=== PATIENT | male | born 1950 | race Caucasian/White ===

== ENCOUNTER 2016-11-19 16:02 | Emergency (ER) | payer OTHER ==
[2016-11-19 16:08] VITALS: TEMP 98.6; BMI 23.1
--- NOTE | 2016-11-19 16:28 | PDOC ---
History of Present Illness <JustinaPadmini bailey - Last Filed: 11/19/16 18:12> <Michael Toscano - Last Filed: 11/19/16 20:36> - General History Source: Patient Exam Limitations: No Limitations - History of Present Illness Initial Comments: 11/19/16 16:55 The patient is a 66 year old male, with a significant past medical history of diabetes, HTN and HLD. who presents to the emergency department with right lower extremity abscess for the past 2 weeks. He reports that the abscess began as a small pimple and has exacerbated since. He denies manipulating the area. He also reports that he has pain in the area that ranges from mild to moderate, without radiation or modifying factors. He notes that he has a history of abscess, with the last two occuring in his chest and right lower extremity. He reports chills associated with his chief complaint. The patient denies chest pain, shortness of breath, headache and dizziness. Denies fever, nausea, vomit, and diarrhea. Allergies: None Past surgical history: None reported Social history: Alcohol use. No tobacco or drug use reported <Allen River - Last Filed: 11/19/16 21:51> - General Chief Complaint: Abscess Boil Stated Complaint: RT ANKLE ABSCESS Time Seen by Provider: 11/19/16 16:28 Past History <Padmini Horn - Last Filed: 11/19/16 18:12> - Past Medical History Diabetes: Yes HTN: Yes Hypercholesterolemia: Yes - Psycho/Social/Smoking Cessation Hx Anxiety: No Suicidal Ideation: No Smoking Status: No Smoking History: Never smoked Have you smoked in the past 12 months: No Number of Cigarettes Smoked Daily: 0 Hx Alcohol Use: Yes (SOCIAL) Drug/Substance Use Hx: No Substance Use Type: None <Michael Toscano - Last Filed: 11/19/16 20:36> <Allen River - Last Filed: 11/19/16 21:51> - Past Medical History Allergies/Adverse Reactions: Allergies Allergy/AdvReac Type Severity Reaction Status Date / Time No Known Allergies Allergy Verified 11/19/16 16:08 Home Medications: Ambulatory Orders Cephalexin Monohydrate [Keflex -] 500 mg PO Q6H #40 capsule 11/19/16 Insulin (Novolog 70/30) [Novolog Mix 70/30 Flexpen -] 10 units SQ DAILY Metformin HCl [Glucophage] 1,000 mg PO DAILY 11/19/16 Sulfamethoxazole/Trimethoprim [Bactrim Ds Tablet] 1 each PO BID #20 tablet 11/19 Review of Systems - Review of Systems Able to Perform ROS?: Yes Comments:: 11/19/16 16:55 CONSTITUTIONAL: +Chills. No fever, no fatigue EYES: No visual changes ENT: No ear pain, no sore throat CARDIOVASCULAR: No chest pain, no palpitations RESPIRATORY: No cough, no SOB GI: No abdominal pain, no nausea, no vomiting, no constipation, no diarrhea GENITOURINARY: No dysuria, no frequency, no hematuria MUSKULOSKELETAL: No backpain, no joint pain, no myalgias SKIN: +Right lower extremity abscess. NEURO: No headache <Allen River - Last Filed: 11/19/16 21:51> *Physical Exam - Vital Signs Last Vital Signs Temp Pulse Resp BP Pulse Ox 98.6 F 101 H 20 149/84 98 11/19/16 16:05 11/19/16 16:05 11/19/16 16:05 11/19/16 16:05 11/19/16 16:05 <Padmini Horn - Last Filed: 11/19/16 18:12> - Vital Signs Last Vital Signs Temp Pulse Resp BP Pulse Ox 98.6 F 101 H 20 149/84 98 11/19/16 16:05 11/19/16 16:05 11/19/16 16:05 11/19/16 16:05 11/19/16 16:05 - Physical Exam Comments: EXTR: Right lower extremity: + Well demarcated area of erythema measuring approximately 6 cm in its greatest dimensions, located to the medial aspect of the distal one third of the lower extremity, above the medial malleolus, with a 1 cm central area of fluctuance; distal pulses intact; SKIN: See above; + several, well healed, scars to the lower extremity is bilaterally consistent with previous abscesses that were incised and drained. <Michael Toscano - Last Filed: 11/19/16 20:36> - Vital Signs Last Vital Signs Temp Pulse Resp BP Pulse Ox 98.6 F 101 H 20 149/84 98 11/19/16 16:05 11/19/16 16:05 11/19/16 16:05 11/19/16 16:05 11/19/16 16:05 - Physical Exam Comments: 11/19/16 16:58 CONSTITUTIONAL: Well-appearing; well-nourished; in no apparent distress HEAD: Normocephalic; atraumatic EYES: PERRL; EOM intact ENMT: External appears normal; normal oropharynx NECK: Supple; non-tender; no cervical lymphadenopathy CARD: Normal S1, S2; no murmurs, rubs, or gallops RESP: Normal chest excursion with respiration; breath sounds clear and equal bilaterally; no wheezes, rhonchi, or rales ABD: Soft, non-distended; non-tender; no palpable organomegaly, no palpable hernias NEURO: No focal neurological deficiencies. <Allen River - Last Filed: 11/19/16 21:51> Procedures - Incision and Drainage I&D Site: Right: Leg Anesthesia: 1% Lidocaine w/ Epi Volume(ml): 3 Blade Size: 11 Iodinated Packin/2 in Plain Packing: Yes Dressing: Yes <Padmini Horn - Last Filed: 11/19/16 18:12> ED Treatment Course - LABORATORY CBC & Chemistry Diagram: 11/19/16 16:32 11/19/16 16:32 - ADDITIONAL ORDERS Additional order review: 11/19/16 16:32 RBC 4.16 MCV 88.6 MCHC 35.2 RDW 12.3 MPV 8.1 Neutrophils % 73.8 Lymphocytes % 11.4 D Monocytes % 12.4 H Eosinophils % 1.9 Basophils % 0.5 <Padmini Horn - Last Filed: 11/19/16 18:12> - LABORATORY CBC & Chemistry Diagram: 11/19/16 16:32 11/19/16 16:32 <Michael Toscano - Last Filed: 11/19/16 20:36> - LABORATORY CBC & Chemistry Diagram: 11/19/16 16:32 11/19/16 16:32 - RADIOLOGY Radiograph Interpretation: 11/19/16 17:46 Chest X-Ray Reviewed by: Dr. Marjorie Velásquez Impression: No gross soft tissue is identified. Site of abscess is not clear on this exam. <Allen River - Last Filed: 11/19/16 21:51> Medical Decision Making - Medical Decision Making 11/19/16 17:37 Patient is 66-year-old male with diabetes, previous history of cutaneous abscesses, presents with signs and symptoms consistent with a small right lower extremity abscess with surrounding cellulitis. Will obtain CBC /CMP/blood cultures/wound culture. Will obtain lower extremity soft tissue x-ray to rule out subcutaneous air. We'll incise and drain the abscess. Will obtain wound culture. We'll administer IV vancomycin in the ED. Patient is safe for outpatient treatment with close follow-up. Will discharge with Bactrim and Keflex for a suspected MRSA infection. 11/19/16 20:36 Patient reassessed. Patient is resting comfortably. Right leg cutaneous abscess was incised and drained by RFID ENGINEER Justina. Wound culture was obtained. Patient had received vancomycin-15 mg IV. Will discharge with 24-hour follow-up for reevaluation. Patient expressed understanding of instructions. <Michael Toscano - Last Filed: 11/19/16 20:36> - Medical Decision Making 11/19/16 21:50 Dr. Plasencia was called regarding the patient at 7:25pm and 7:49pm [phone] <Allen River - Last Filed: 11/19/16 21:51> *DC/Admit/Observation/Transfer <Padmini Horn - Last Filed: 11/19/16 18:12> <Michael Toscano - Last Filed: 11/19/16 20:36> - Attestations Scribe Attestion: 11/19/16 16:59 Documentation prepared by Allen River, acting as medical anthropology director for Michael Toscano MD <Allen River - Last Filed: 11/19/16 21:51> Diagnosis at time of Disposition: Cellulitis and abscess of leg - Discharge Dispostion Disposition: HOME Condition at time of disposition: Stable - Prescriptions Prescriptions: Sulfamethoxazole/Trimethoprim [Bactrim Ds Tablet] 1 each PO BID #20 tablet Cephalexin Monohydrate [Keflex -] 500 mg PO Q6H #40 capsule - Referrals Referrals: Luca,Kennedy N., MD [Primary Care Provider] - - Patient Instructions Printed Discharge Instructions: DI for Incision and Drainage of a Skin Abscess , DI for Cellulitis -- Adult Additional Instructions: Please take Bactrim-1 tablet twice daily for 10 days. Take Keflex-1 tablet 4 times a day for 10 days. Return to the ER in 24 hours for reassessment. Return immediately for high fever, severe pain. Print Language: CROATIAN
[2016-11-19] MEDS ORDERED: VANCOMYCIN 1,500 MG in DEXTROSE 5%-WATER - 500 ML IVPB ONE (16:33)
[2016-11-19] MEDS ORDERED: LIDOCAINE 1%/EPI 1:100000 (50 ML MULTI DOSE VIAL) ONE (16:52)
[2016-11-19] MEDS ORDERED: VANCOMYCIN 1 GRAM (PRE-DOCKED) 250 ML IVPB ONE ×2 (16:52→17:00)
[2016-11-19 17:16] LABS: BASOPHIL 0.5 % (0-2.0); EOSINOPHIL 1.9 % (0-4.5); MCH 31.2 pg (25.7-33.7); MCHC 35.2 g/dl (32.0-35.9); MEAN CELL VOLUME 88.6 fl (80-96); MEAN PLT VOLUME 8.1 fl (7.5-11.1); NEUTROPHILS 73.8 % (42.8-82.8); PLATELET COUNT 258 K/MM3 (134-434); RDW 12.3 % (11.9-15.9); WHITE BLOOD COUNT 8.7 K/mm3 (4.0-10.0)
[2016-11-19 19:29] LABS: ALBUMIN 3.5 g/dl (3.4-5.0); ALK PHOS 95 U/L (45-117); ANION GAP 10 (8-16); BILIRUBIN,TOTAL 0.7 mg/dL (0.2-1.0); CALCIUM 8.5 mg/dL (8.5-10.1); CO2 24 mmol/L (21-32); CREATININE 1.1 mg/dL (0.7-1.3); GLUCOSE,RANDOM 199 mg/dL (74-106); SGOT/AST 28 U/L (15-37); SGPT/ALT 19 U/L (12-78); TOT PROT 6.4 g/dl (6.4-8.2)
[2016-11-19 21:49] VITALS: BP 138/78; PULSE 98
== END 2016-11-19 21:49 | disposition home or self-care (01) ==
LOC: JER 16:02
DX: L02.415 Cutaneous abscess of right lower limb (principal); L03.115 Cellulitis of right lower limb; I10 Essential (primary) hypertension; E78.00 Pure hypercholesterolemia, unspecified; E11.9 Type 2 diabetes mellitus without complications; Z79.4 Long term (current) use of insulin; Z79.84 Long term (current) use of oral hypoglycemic drugs
CPT/HCPCS: 36415; 73590-TC-RT; 80053; 85025; 85651; 86140; 87040; 87070; 87186; 87205; 99284-25

== ENCOUNTER 2018-09-03 10:46 | Emergency (ER) | payer MEDICARE, OTHER ==
[2018-09-03 11:07] VITALS: BP 168/85; PULSE 87; TEMP 98; BMI 25.7
--- NOTE | 2018-09-03 12:02 | PDOC ---
History of Present Illness - General Chief Complaint: Wound Stated Complaint: BLURRY VISION, LACERATION Time Seen by Provider: 09/03/18 11:16 - History of Present Illness Initial Comments: 09/03/18 12:40 The patient is a 68 year old male with a past medical history of diabetes, HTN, HLD here today for evaluation of toe nail. The patient reports that he was cutting his toenails on 08/30/18 when he cut the nail off on his left second toe a bit too short. Patient states that he has mild pain in the toe and has been treating it with rubbing alcohol and penicillin powder but is concerned that it will become infected. Patient notes numbness in toes but attributes this to his diabetes. Pt also reports that he ran out of his glucose testing strips a few days ago and thus has not been checking his blood sugars. Pt also notes blurry vision for years that he follows with ophthalmology for. He states his vision is worse in the L eye because he has a cataract in that eye. Per Dr. Segovia, he receives injections in his eyes for diabetic retinopathy as well. Pt denies worsening of his baseline blurry vision today. He does not drive but is able to get around by public transportation. Patient denies headache, lightheadedness. Denies fever, chills. Denies chest pain, shortness of breath. Denies nausea, vomiting, diarrhea, abdominal pain. Allergies: NKA Social history: Patient reports smoking tobacco for 15 years but quit 8 years ago. Patient reports being a social drinker but quit. PCP: Kennedy Segovia Past History - Past Medical History Allergies/Adverse Reactions: Allergies Allergy/AdvReac Type Severity Reaction Status Date / Time No Known Allergies Allergy Verified 09/03/18 11:01 Home Medications: Ambulatory Orders Insulin (Novolog 70/30) [Novolog Mix 70/30 Flexpen -] 10 units SQ DAILY Metformin HCl [Glucophage] 1,000 mg PO DAILY 11/19/16 Diabetes: Yes HTN: Yes Hypercholesterolemia: Yes - Suicide/Smoking/Psychosocial Hx Smoking Status: No Smoking History: Never smoked Have you smoked in the past 12 months: No Number of Cigarettes Smoked Daily: 0 Hx Alcohol Use: Yes (SOCIAL) Drug/Substance Use Hx: No Substance Use Type: None Review of Systems - Review of Systems Comments:: 09/03/18 12:43 GENERAL/CONSTITUTIONAL: No fever or chills. No weakness. HEAD, EYES, EARS, NOSE AND THROAT: No change in vision. No ear pain or discharge. No sore throat. GASTROINTESTINAL: No nausea, vomiting, diarrhea or constipation. GENITOURINARY: No dysuria, frequency, or change in urination. CARDIOVASCULAR: No chest pain or shortness of breath. RESPIRATORY: No cough, wheezing, or hemoptysis. MUSCULOSKELETAL: +left second toe pain. No joint or muscle swelling or pain. No neck or back pain. SKIN: No rash NEUROLOGIC: +numbness in feet. No headache, vertigo, loss of consciousness, or change in strength. ENDOCRINE: No increased thirst. No abnormal weight change. HEMATOLOGIC/LYMPHATIC: No anemia, easy bleeding, or history of blood clots. ALLERGIC/IMMUNOLOGIC: No hives or skin allergy. *Physical Exam - Vital Signs Last Vital Signs Temp Pulse Resp BP Pulse Ox 98 F 87 20 168/85 99 09/03/18 11:06 09/03/18 11:06 09/03/18 11:06 09/03/18 11:06 09/03/18 11:06 - Physical Exam Comments: 09/03/18 12:43 GENERAL: Awake, alert, and fully oriented, in no acute distress. Very pleasant. ENT: Auricles normal inspection, hearing grossly normal, nares patent, oropharynx clear without exudates. Moist mucosa NECK: Normal ROM, supple, no lymphadenopathy, JVD, or masses LUNGS: Breath sounds equal, clear to auscultation bilaterally. No wheezes, and no crackles HEART: Regular rate and rhythm, normal S1 and S2, no murmurs, rubs or gallops ABDOMEN: Soft, nontender, normoactive bowel sounds. No guarding, no rebound. No masses EXTREMITIES: L 2nd toe with avulsed distal medial nail with underlying mild erythema. No surrounding warmth, streaking, discharge, induration or fluctuance. NEUROLOGICAL: Normal speech, cranial nerves intact, equal strength and sensation b/l SKIN: Warm, Dry, normal turgor, no rashes or lesions noted. Moderate Sedation - Procedure Monitoring Vital Signs: Procedure Monitoring Vital Signs Temperature 98 F 09/03/18 11:06 Pulse Rate 87 09/03/18 11:06 Respiratory Rate 20 09/03/18 11:06 Blood Pressure 168/85 09/03/18 11:06 O2 Sat by Pulse Oximetry (%) 99 09/03/18 11:06 Medical Decision Making - Medical Decision Making 09/03/18 12:47 68yo M hx DM (on metformin and regular insulin) presents to the ED with concern for infection to L 2nd toe after cutting his nail too short. Toe appears mildy erythematous in area where nail was avulsed. No ttp although pt has known hx DM neuropathy. No sign of infection. Pt instructed to keep the toe clean and seek medical care if he notices any increased redness, warmth, discharge or has fevers/chills. With regards to running out of glucose strips, checked a FS -> 317. Gave pt 5 units SQ insulin No clinical evidence of DKA Pt is very well appearing Discussed case with Dr. Segovia, his PMD, who requests we send the patient for evaluation now. Plan discussed with pt who will take the bus over to Dr. Segovia' s office. Stable for DC home I discussed the physical exam findings, ancillary test results and final diagnoses with the patient. I answered all of the patient's questions. The patient was satisfied with the care received and felt comfortable with the discharge plan and treatment plan. The patient will call their primary care physician within 24 hours to arrange follow-up and will return to the Emergency Department with any new, persistent or worsening symptoms. *DC/Admit/Observation/Transfer Diagnosis at time of Disposition: Nail avulsion of toe, Toe pain, Diabetes - Discharge Dispostion Disposition: HOME Condition at time of disposition: Stable Decision to Admit order: No - Referrals Referrals: Kennedy Segovia MD [Primary Care Provider] - - Patient Instructions Printed Discharge Instructions: DI for Wound Infection Additional Instructions: As discussed, follow up with Dr. Segovia now. He is awaiting you in his office. Keep your toe clean by cleansing with soap and water twice a day, dressing with bacitracin and a bandaid Return to the emergency department if you have any new, worsening, or concerning symptoms. - Post Discharge Activity - Attestations Physician Attestion: 09/03/18 12:55 I, Dr. Ruddy Marcos MD, attest that this document has been prepared under my direction and personally reviewed by me in its entirety. I further attest, that it accurately reflects all work, treatment, procedures and medical decision -making performed by me.
[2018-09-03] MEDS ORDERED: INSULIN REGULAR HUMAN 100 UNITS/ML *VIAL SQ ONE (12:38)
[2018-09-03] MEDS ORDERED: INSULIN REGULAR HUMAN 100 UNITS/ML *VIAL ONE (12:42)
== END 2018-09-03 13:20 | disposition home or self-care (01) ==
LOC: SUPCPDRO 10:46 → JER 10:46
PROC: 3E013VG Introduction of Insulin into Subcutaneous Tissue, Percutaneous Approach (ICD-10-PCS; principal; 2018-09-03)
DX: S91.205A Unspecified open wound of left lesser toe(s) with damage to nail, initial encounter (principal); W27.8XXA Contact with other nonpowered hand tool, initial encounter; Y93.E8 Activity, other personal hygiene; Y92.038 Other place in apartment as the place of occurrence of the external cause; Y99.8 Other external cause status; E11.65 Type 2 diabetes mellitus with hyperglycemia; Z79.4 Long term (current) use of insulin; I10 Essential (primary) hypertension; E78.00 Pure hypercholesterolemia, unspecified
CPT/HCPCS: 82962; 96372; 99281-25

== ENCOUNTER 2018-12-21 16:10 | Inpatient (IN) | payer MEDICARE, OTHER ==
--- NOTE | 2018-12-21 16:16 | PDOC ---
Rapid Medical Evaluation Chief Complaint: Wound Time Seen by Provider: 12/21/18 16:12 Medical Evaluation: Allergies Allergy/AdvReac Type Severity Reaction Status Date / Time No Known Allergies Allergy Verified 09/03/18 11:01 12/21/18 16:14 I have performed a brief in person evaluation at triage on this patient. CC: wound to left foot HPI: Pt has a hx of DM and was sent from wound clinic for admission due to wound on left foot PE: Skin: unable to be evaluated at triage Lungs: clear Heart: RRR MS: Moves all extremities without difficulty Neuro: Alert and oriented Psych: Appropriate affect I have ordered: basic labs Pt will proceed to the main ED for further evaluation. Discharge Disposition - Diagnosis Wound cellulitis - Referrals - Patient Instructions - Post Discharge Activity
[2018-12-21 16:33] LABS: BASO % 0.5 % (0-2.0); EOS % 4.8 % (0-4.5); HEMATOCRIT 35.2 % (35.4-49); HEMOGLOBIN 12.2 GM/dL (11.7-16.9); MCH 31.1 pg (25.7-33.7); MCHC 34.6 g/dl (32.0-35.9); MEAN CELL VOLUME 89.8 fl (80-96); MEAN PLT VOLUME 7.7 fl (7.5-11.1); NEUT % 70.7 % (42.8-82.8); PLATELET COUNT 305 K/MM3 (134-434); RBC 3.91 M/mm3 (4.00-5.60); RDW 12.4 % (11.9-15.9); WHITE BLOOD COUNT 10.2 K/mm3 (4.0-10.0)
--- NOTE | 2018-12-21 16:39 | PDOC ---
History of Present Illness - General Chief Complaint: Wound Stated Complaint: WOUND CARE Time Seen by Provider: 12/21/18 16:12 - History of Present Illness Initial Comments: 12/21/18 16:38 68M with pmh of dm and neuropathy sent from Podiatry wound care clinic for admission due to osteomyelitis of the left foot, surgery planned for Patient states that he sustained a wound early in November, possible from friction from his shoe, numerous work ups by wound care and podiatry during this month. MRI on 12/16 suggestive of osteomyelitis. Vascular Surgeo: Dr. Shiv Alvarez Infectious Disease Dr. Rose requested by Dr. Nicolas Past History - Past Medical History Allergies/Adverse Reactions: Allergies Allergy/AdvReac Type Severity Reaction Status Date / Time No Known Allergies Allergy Verified 12/21/18 16:14 Home Medications: Ambulatory Orders Insulin (Novolog 70/30) [Novolog Mix 70/30 Flexpen -] 18 units SQ DAILY Metformin HCl [Glucophage] 1,000 mg PO BID 11/19/16 Mupirocin Ointment [Bactroban 2% Ointment -] 1 appful TP DAILY 12/07/18 Collagenase Clostridium Hist. [Santyl] 90 gm TP DAILY #1 tube 12/14/18 COPD: No Diabetes: Yes HTN: Yes Hypercholesterolemia: Yes - Suicide/Smoking/Psychosocial Hx Smoking Status: No Smoking History: Former smoker Have you smoked in the past 12 months: No Number of Cigarettes Smoked Daily: 0 If you are a former smoker, when did you quit?: 10 years Information on smoking cessation initiated: No Hx Alcohol Use: Yes (SOCIAL) Drug/Substance Use Hx: No Substance Use Type: None Review of Systems - Review of Systems Able to Perform ROS?: Yes Is the patient limited Armenian proficient: No *Physical Exam - Vital Signs Last Vital Signs Temp Pulse Resp BP Pulse Ox 97.4 F L 84 18 157/86 99 12/21/18 16:14 12/21/18 16:14 12/21/18 16:14 12/21/18 16:14 12/21/18 16:14 - Physical Exam General Appearance: Yes: Nourished, Appropriately Dressed, Apparent Distress HEENT: positive: EOMI, CHIQUITA, Normal ENT Inspection Respiratory/Chest: positive: Lungs Clear, Normal Breath Sounds. negative: Chest Tender, Respiratory Distress Cardiovascular: positive: Regular Rhythm, Regular Rate, S1, S2 Gastrointestinal/Abdominal: positive: Normal Bowel Sounds, Flat, Soft. negative : Tender Musculoskeletal: positive: Normal Inspection. negative: CVA Tenderness Integumentary: positive: Normal Color, Dry, Warm, Other (left foot newly dressed after evaluation by podiatry) Neurologic: positive: Fully Oriented, Alert, Normal Mood/Affect, Normal Response , Motor Strength 12/26 ED Treatment Course - LABORATORY CBC & Chemistry Diagram: 12/21/18 16:24 12/21/18 16:24 - ADDITIONAL ORDERS Additional order review: 12/21/18 16:24 RBC 3.91 L MCV 89.8 MCHC 34.6 RDW 12.4 MPV 7.7 Neutrophils % 70.7 Lymphocytes % 14.0 Monocytes % 10.0 Eosinophils % 4.8 H Basophils % 0.5 Medical Decision Making - Medical Decision Making 12/21/18 17:[address] Nicolas counter cutter for IV abd, and admission for operative planing in two days. Pre-surgical workup ordered and vanc-zosyn started. 12/21/18 17:[address] Alan *DC/Admit/Observation/Transfer Diagnosis at time of Disposition: Wound cellulitis, Osteomyelitis - Discharge Dispostion Condition at time of disposition: Guarded Decision to Admit order: Yes - Referrals Referrals: Kennedy Segovia MD [Primary Care Provider] - - Patient Instructions - Post Discharge Activity
[2018-12-21 17:13] LABS: ALBUMIN 3.5 g/dl (3.4-5.0); ALK PHOS 86 U/L (45-117); ANION GAP 6 MMOL/L (8-16); BILIRUBIN,TOTAL 0.7 mg/dL (0.2-1); BLOOD UREA NITROGEN 27 mg/dL (7-18); CALCIUM 9.2 mg/dL (8.5-10.1); CHLORIDE 102 mmol/L (98-107); CO2 28 mmol/L (21-32); CREATININE 1.1 mg/dL (0.55-1.3); GLUCOSE,RANDOM 82 mg/dL (74-106); POTASSIUM 4.8 mmol/L (3.5-5.1); SGOT/AST 19 U/L (15-37); SGPT/ALT 21 U/L (13-61); SODIUM 136 mmol/L (136-145); TOT PROT 7.3 g/dl (6.4-8.2)
--- NOTE | 2018-12-21 17:18 | PDOC ---
Documentation entered by Shelley Junior SCRIBE, acting as scribe for Hakeem Leggett MD. Hakeem Leggett MD: This documentation has been prepared by the Vernon wilson Amanda, SCRIBE, under my direction and personally reviewed by me in its entirety. I confirm that the documentation accurately reflects all work, treatment, procedures, and medical decision making performed by me. Attending Attestation - Resident Resident Name: Jarrell Katz - ED Attending Attestation I have performed the following: I have examined & evaluated the patient, The case was reviewed & discussed with the resident, I agree w/resident's findings & plan, Exceptions are as noted - HPI HPI: 12/21/18 16:51 The patient is a 68 year old male with a significant past medical history of DM with neuropathy, who presents to the ED, sent from wound care clinic, for admission due to osteomyelitis of the left foot. The patient denies fevers, chills, nausea, vomiting, diarrhea, SOB, CP, dizziness. The patient denies any other symptoms. Vascular: Dr. Shiv Alvarez - Physicial Exam PE: 12/21/18 18:05 Vitals: Triage vital signs reviewed General Appearance: No acute distress, well nourished, well developed Head: Atraumatic Neck: Supple; No nuchal rigidity Chest Wall: Nontender Cardiac: Regular rate and rhythm, no murmurs, no rubs, no gallops Lungs: Clear to auscultation bilateral, good air movement bilaterally Abdomen: Soft, nondistended, normal bowel sounds, nontender to palpation Extremities: (+)Left foot newly dressed after evaluation by podiatry. Full range of motion to all extremities, no cyanosis, clubbing, or edema Skin: Warm and dry, no rashes or lesions, no rash, no petechiae Neuro: AOX3; Cranial Nerves 2-12 grossly intact, Strength intact to all extremities, Sensation intact to all extremities, ambulating with cane for assistance. - Medical Decision Making 12/21/18 18:27 Pt. sent to ED for left foot osteomyelitis sent from wound clinic Vascular surgery and infectious diseases been consult. Patient's N bank and Zosyn We'll admit to medicine for further management.
[2018-12-21 17:33] LABS: PROTHROMBIN TIME (PATIENT) 11.8 SEC (9.7-13.0)
[2018-12-21 17:35] LABS: ACTIVATED PTT 35.1 SECONDS (25.2-36.5)
[2018-12-22 00:23] VITALS: BMI 22.3
[2018-12-22] MEDS ORDERED: ACETAMINOPHEN 325 MG TABLET (FP) PO PRN (02:52)
[2018-12-22] MEDS: morphine SULFATE 4 MG/ML VIAL IVPUSH PRN ×3 (03:05→20:46)
[2018-12-22] MEDS: metFORMIN HCL 500 MG TABLET (FP) PO SCH ×2 (06:47→17:21)
[2018-12-22] MEDS ORDERED: PNEUMOC 13-VAL CONJ-DIP CRM/PF 0.5 ML DISP.SYRIN IM ONE (07:05)
[2018-12-22 08:49] LABS: BASO % 0.5 % (0-2.0); EOS % 6.5 % (0-4.5); HEMATOCRIT 31.9 % (35.4-49); LYMPH % 15.1 % (8-40); MCH 30.9 pg (25.7-33.7); MCHC 34.6 g/dl (32.0-35.9); MEAN CELL VOLUME 89.1 fl (80-96); MEAN PLT VOLUME 7.8 fl (7.5-11.1); MONO % 11.6 % (3.8-10.2); NEUT % 66.3 % (42.8-82.8); PLATELET COUNT 286 K/MM3 (134-434); RBC 3.58 M/mm3 (4.00-5.60); RDW 12.5 % (11.9-15.9); WHITE BLOOD COUNT 8.1 K/mm3 (4.0-10.0)
[2018-12-22 09:21] LABS: ALK PHOS 79 U/L (45-117); ANION GAP 6 MMOL/L (8-16); BILIRUBIN,TOTAL 0.8 mg/dL (0.2-1); BLOOD UREA NITROGEN 26 mg/dL (7-18); CHLORIDE 102 mmol/L (98-107); CO2 30 mmol/L (21-32); CREATININE 1.2 mg/dL (0.55-1.3); GLUCOSE,RANDOM 142 mg/dL (74-106); POTASSIUM 4.5 mmol/L (3.5-5.1); SGOT/AST 14 U/L (15-37); SGPT/ALT 15 U/L (13-61); SODIUM 137 mmol/L (136-145); TOT PROT 6.4 g/dl (6.4-8.2)
[2018-12-22] MEDS: INSULIN SLIDING SCALE (NOVOLOG) 1 VIAL SQ SCH ×4 (10:57→21:18)
--- NOTE | 2018-12-22 10:58 | CON.CARD ---
Consult Consult Specialty:: Cardiology Referred by:: Medicine Reason for Consultation:: preop - History of Present Illness Chief Complaint: foot pain History of Present Illness: 68M h/o DM, HTN, HLD p/w foot wound, osteomyelitis with plan for surgery. No chest pain, palps, dyspnea. No prior cardiac history. - Alcohol/Substance Use Hx Alcohol Use: Yes (SOCIAL) - Smoking History Smoking history: Former smoker Have you smoked in the past 12 months: No Aproximately how many cigarettes per day: 0 If you are a former smoker, when did you quit?: 10 years Home Medications - Allergies Allergies/Adverse Reactions: Allergies Allergy/AdvReac Type Severity Reaction Status Date / Time No Known Allergies Allergy Verified 12/21/18 16:14 - Home Medications Home Medications: Ambulatory Orders Insulin (Novolog 70/30) [Novolog Mix 70/30 Flexpen -] 18 units SQ DAILY Metformin HCl [Glucophage] 1,000 mg PO BID 11/19/16 Mupirocin Ointment [Bactroban 2% Ointment -] 1 appful TP DAILY 12/07/18 Collagenase Clostridium Hist. [Santyl] 90 gm TP DAILY #1 tube 12/14/18 Family Disease History - Family Disease History Family Disease History: Heart Disease: Father Review of Systems - Review of Systems Constitutional: reports: No Symptoms Eyes: reports: No Symptoms HENT: reports: No Symptoms Neck: reports: No Symptoms Cardiovascular: reports: No Symptoms Respiratory: reports: No Symptoms Gastrointestinal: reports: No Symptoms Genitourinary: reports: No Symptoms Musculoskeletal: reports: No Symptoms Integumentary: reports: No Symptoms Neurological: reports: No Symptoms Endocrine: reports: No Symptoms Hematology/Lymphatic: reports: No Symptoms Psychiatric: reports: No Symptoms Vital Signs: Vital Signs Temperature 97.7 F 12/22/18 05:54 Pulse Rate 81 12/22/18 05:54 Respiratory Rate 20 12/22/18 05:54 Blood Pressure 112/63 12/22/18 05:54 O2 Sat by Pulse Oximetry (%) 97 12/22/18 01:20 Constitutional: Yes: Well Nourished, No Distress, Calm Eyes: Yes: Conjunctiva Clear, EOM Intact HENT: Yes: Atraumatic, Normocephalic Neck: Yes: Supple, Trachea Midline Respiratory: Yes: Regular, CTA Bilaterally Gastrointestinal: Yes: Normal Bowel Sounds, Soft Cardiovascular: Yes: Regular Rate and Rhythm JVD: No Carotid Bruit: No PMI: Non-Displaced Heart Sounds: Yes: S1, S2 Musculoskeletal: No: Back Pain Extremities: Yes: Other (L foot c bandages). No: Cold Edema: No Peripheral Pulses: 2+ Left Carotid, 2+ Right Carotid, 2+ Right Dorsalis Pedis Integumentary: No: Jaundice Neurological: Yes: Alert, Oriented Psychiatric: No: Agitated - Other Data Labs, Other Data: CBC, BMP 12/22/18 07:41 12/22/18 07:41 INR, PTT INR 1.00 (0.83-1.09) 12/21/18 17:00 Assessment/Plan EKG: sinus, nl intervals, no ischemic changes osteomyelitis, preop evaluation - EKG normal, asymptomatic - echo ordered, if benign findings no contraindication to toe amputation DM - manage per primary HTN - stable, not on meds, monitor
[2018-12-22] MEDS: ENOXAPARIN NA (PORCINE) 40 MG/0.4 ML DISP.SYRIN SQ SCH (10:59)
[2018-12-22] MEDS: INSULIN (NOVOLOG MIX 70/30) 100 UNITS/ML MDV SQ SCH (10:59)
--- NOTE | 2018-12-22 10:59 | CON.ID ---
Consult Consult Specialty:: Infectious Diseases Referred by:: Dr. Nicolas Reason for Consultation:: Wound Infection - OM (L) 5th Met head - History of Present Illness Chief Complaint: Infected wound - History Source History Provided By: Patient Limitations to Obtaining History: No Limitations - Past Medical History Cardio/Vascular: Yes: HTN Endocrine: Yes: Diabetes Mellitus - Alcohol/Substance Use Hx Alcohol Use: Yes (SOCIAL) - Smoking History Smoking history: Former smoker Have you smoked in the past 12 months: No Aproximately how many cigarettes per day: 0 If you are a former smoker, when did you quit?: 10 years Home Medications - Allergies Allergies/Adverse Reactions: Allergies Allergy/AdvReac Type Severity Reaction Status Date / Time No Known Allergies Allergy Verified 12/21/18 16:14 - Home Medications Home Medications: Ambulatory Orders Insulin (Novolog 70/30) [Novolog Mix 70/30 Flexpen -] 18 units SQ DAILY Metformin HCl [Glucophage] 1,000 mg PO BID 11/19/16 Mupirocin Ointment [Bactroban 2% Ointment -] 1 appful TP DAILY 12/07/18 Collagenase Clostridium Hist. [Santyl] 90 gm TP DAILY #1 tube 12/14/18 Family Disease History - Family Disease History Family Disease History: Heart Disease: Father Review of Systems - Review of Systems Constitutional: denies: Chills, Fever, Night Sweats Cardiovascular: denies: Chest Pain Respiratory: denies: SOB Physical Exam Vital Signs: Vital Signs Temperature 97.7 F 12/22/18 05:54 Pulse Rate 81 12/22/18 05:54 Respiratory Rate 20 12/22/18 05:54 Blood Pressure 112/63 12/22/18 05:54 O2 Sat by Pulse Oximetry (%) 97 12/22/18 01:20 Constitutional: Yes: Well Nourished HENT: Yes: Normocephalic Neck: Yes: Supple, Trachea Midline Cardiovascular: Yes: Regular Rate and Rhythm Respiratory: Yes: Regular, CTA Bilaterally Gastrointestinal: Yes: Normal Bowel Sounds, Soft Extremities: Yes: Other (ulcer over (L) 5th Met head with malodor minimal drainage.) Labs: CBC, BMP 12/22/18 07:41 12/22/18 07:41 Assessment/Plan Pt with DM foot infection (L) 5th toe ulcer Underlying OM Would hold off Abx for now. He will undergo met head resection in AM. Please obtain OR specimens (Bone/Tissue) for C/S and Path. May start Vanco 1 gr q 24 and Zosyn 3.3375 gr q 6 AFTER specimens obtained. Please recall when c/s results are back.
--- NOTE | 2018-12-22 12:09 | CONSULT ---
Consult - text type - Consultation Consultation Note: Podiatry Consultation: 68 year old diabetic male presented to wound healing center yesterday with malodorous, infected left foot diabetic ulcer. Denies F/V/N/C/SOB/CP. Patient had outpatient MRI recently which demonstrated osteomyelitis. He has had increased pain to the left foot since developing ulcer. ABA: L foot: pedal pulses dopplerable, TG warm-warm, CFT brisk to toes. There is a lateral 5th MTPJ diabetic ulcer fibronecrotic, down to capsule/bone, malodorous , mild purulent drainage, no soft tissue crepitus, moderate periwound erythema. L foot MRI: (+) bone marrow edema fifth metatarsal head and fifth digit proximally Imp: 68 year old diabetic male with left foot diabetic ulcer, osteomyelitis 1. Discussed case with Infectious Disease Dr. Rose. Will old IV abx until after bone biopsy done, and then will start empiric IV vanc/zosyn post- operatively 2. DSD L foot 3. Discussed treatment options at length with patient and his family. Plan for left foot debridement of ulcer and fifth metatarsal head/bone biopsy. NPO after midnight for surgery 12:30 tomorrow. Consent is in chart. 4. Reviewed vascular studies with Dr. Alvarez yesterday, he said to proceed with planned procedure. 5. Will follow. Val Nicolas DPM
--- NOTE | 2018-12-22 12:57 | EKG ---
Test Reason : Blood Pressure : / mmHG Vent. Rate : 079 BPM Atrial Rate : 079 BPM P-R Int : 130 ms QRS Dur : 086 ms QT Int : 372 ms P-R-T Axes : 030 -11 044 degrees QTc Int : 426 ms NORMAL SINUS RHYTHM NORMAL ECG WHEN COMPARED WITH ECG OF 11-APR-2005 11:47, NO SIGNIFICANT CHANGE WAS FOUND Confirmed by CARLEY MAGANA MD ([id number]) on 12/22/2018 12:57:15 PM Referred By: Confirmed By:CARLEY MAGANA MD
--- NOTE | 2018-12-22 13:36 | ECHO ---
Name: JOSAFAT ALLEN Exam:Adult Echocardiogram Study Date: 12/22/2018 09:20 AM Age: 68 yrs Reason For Study: HTN Height: 64 in Weight: 130 lb BSA: 1.6 m2 MMode/2D Measurements & Calculations IVSd: 0.96 cm Ao root diam: 3.2 cm LVIDd: 3.0 cm LA dimension: 2.6 cm LVIDs: 1.9 cm LVPWd: 0.96 cm EDV(Teich): 34.8 ml LVOT diam: 2.2 cm ESV(Teich): 10.8 ml Doppler Measurements & Calculations MV E max angel: 71.6 cm/sec Ao V2 max: 117.9 cm/sec MV A max angel: 102.2 cm/sec Ao max P.6 mmHg MV E/A: 0.70 Ao V2 mean: 77.3 cm/sec MV dec time: 0.17 sec Ao mean P.8 mmHg Ao V2 VTI: 19.9 cm Med Peak E' Angel: 4.5 cm/sec Med E/e': 15.9 Lat Peak E' Angel: 7.7 cm/sec Lat E/e': 9.3 Procedure A two-dimensional transthoracic echocardiogram with color flow and Doppler was performed. Left Ventricle The left ventricular size, thickness and function are normal. The left ventricular ejection fraction is normal. E/A reversal consistent with but not diagnostic of poor LV compliance. The left ventricular w all motion is normal. Right Ventricle The right ventricle is normal in size and function. Atria Normal left and right atrial size and function. Mitral Valve There is mild mitral valve thickening. There is no mitral valve stenosis. There is trace to mild mitr al regurgitation. Tricuspid Valve The tricuspid valve is normal in structure and function. There is no tricuspid stenosis. There was insufficient TR detected to calculate RV systolic pressure. Aortic Valve The aortic valve is not well visualized. No hemodynamically significant valvular aortic stenosis. No aortic regurgitation is present. Pulmonic Valve The pulmonic valve is not well visualized. Great Vessels The aortic root is normal size. Pericardium/Pleura There is no pericardial effusion. Interpretation Summary The left ventricular size, thickness and function are normal The left ventricular ejection fraction is normal. The left ventricular wall motion is normal. There is trace to mild mitral regurgitation. There was insufficient TR detected to calculate RV systolic pressure. E/A reversal consistent with but not diagnostic of poor LV compliance MD Kalen Sommers 12/22/2018 01:36 PM
--- NOTE | 2018-12-22 16:07 | HP ---
Admitting History and Physical - Past Medical History Cardiovascular: Yes: HTN Endocrine: Yes: Diabetes Mellitus - Smoking History Smoking history: Former smoker Have you smoked in the past 12 months: No Aproximately how many cigarettes per day: 0 If you are a former smoker, when did you quit?: 10 years - Alcohol/Substance Use Hx Alcohol Use: Yes (SOCIAL) Home Medications - Allergies Allergies/Adverse Reactions: Allergies Allergy/AdvReac Type Severity Reaction Status Date / Time No Known Allergies Allergy Verified 12/21/18 16:14 - Home Medications Home Medications: Ambulatory Orders Insulin (Novolog 70/30) [Novolog Mix 70/30 Flexpen -] 18 units SQ DAILY Metformin HCl [Glucophage] 1,000 mg PO BID 11/19/16 Mupirocin Ointment [Bactroban 2% Ointment -] 1 appful TP DAILY 12/07/18 Collagenase Clostridium Hist. [Santyl] 90 gm TP DAILY #1 tube 12/14/18 Family Disease History - Family Disease History Family Disease History: Heart Disease: Father Physical Examination Vital Signs: Vital Signs Temperature 98.2 F 12/22/18 14:55 Pulse Rate 91 H 12/22/18 14:55 Respiratory Rate 20 12/22/18 14:55 Blood Pressure 105/58 L 12/22/18 14:55 O2 Sat by Pulse Oximetry (%) 98 12/22/18 11:00 Labs: CBC, BMP 12/22/18 07:41 12/22/18 07:41
[2018-12-23] MEDS: metFORMIN HCL 500 MG TABLET (FP) PO SCH ×2 (06:24→17:38)
[2018-12-23] MEDS: INSULIN (NOVOLOG MIX 70/30) 100 UNITS/ML MDV SQ SCH (06:31)
[2018-12-23] MEDS: INSULIN SLIDING SCALE (NOVOLOG) 1 VIAL SQ SCH ×4 (06:32→21:53)
[2018-12-23] MEDS: ENOXAPARIN NA (PORCINE) 40 MG/0.4 ML DISP.SYRIN SQ SCH (09:51)
--- NOTE | 2018-12-23 10:25 | PN ---
Progress Note (short form) - Note Progress Note: Vascular Surgery MADELEINE/PVR studies reviewed in office. There is good perfusion to both extremties. Normal study. Cleared for podiatry intervention. Shiv Alvarez DO
[2018-12-23] MEDS ORDERED: LIDOCAINE HCL 1%, 10 MG/ML (20ML VIAL) ONE ×2 (12:43→13:16)
[2018-12-23] MEDS ORDERED: MIDAZOLAM HCL 2 MG/2 ML SINGLE DOSE VIAL ONE (13:06)
[2018-12-23] MEDS ORDERED: LIDOCAINE HCL/PF 2% SDV 5ML VIAL ONE (13:06)
[2018-12-23] MEDS ORDERED: PROPOFOL 20 ML ONE (13:06)
[2018-12-23] MEDS ORDERED: ceFAZolin SODIUM 1 GM VIAL ONE (13:12)
[2018-12-23] MEDS ORDERED: ceFAZolin SODIUM 1 GM VIAL IVPB ONE (13:12)
[2018-12-23] MEDS ORDERED: LIDOCAINE HCL 1%, 10 MG/ML (20ML VIAL) NR ONE (13:16)
--- NOTE | 2018-12-23 13:50 | OP ---
Operative Note - Note: Operative Date: 12/23/18 Pre-Operative Diagnosis: Left foot 5th MT osteomyelitis Operation: Left 5th MT head resection with wound debridment. Findings: see dictation Post-Operative Diagnosis: Same as Pre-op Surgeon: Parmjit Lange Anesthesia: Local, MAC Specimens Removed: 5th MT head - path and culture. 5th MT proximal margin - Path and culture. Estimated Blood Loss (mls): 5 Instrument used (Debridements only): 15 blade Operative Report Dictated: No
[2018-12-23] MEDS ORDERED: ONDANSETRON 4 MG/2 ML VIAL IVPUSH PRN ×2 (13:55→15:30)
[2018-12-23] MEDS ORDERED: SODIUM CHLORIDE 1,000 ML IV SCH ×2 (14:00→15:30)
[2018-12-23] MEDS ORDERED: ACETAMINOPHEN 325 MG TABLET (FP) PO PRN (14:55)
[2018-12-23] MEDS ORDERED: oxyCODONE HCL 5 MG TABLET PO PRN (14:55)
--- NOTE | 2018-12-23 15:32 | OP ---
DATE OF OPERATION: 12/23/2018 PREOPERATIVE DIAGNOSIS: Left foot fifth metatarsal head osteomyelitis. POSTOPERATIVE DIAGNOSIS: Left foot fifth metatarsal head osteomyelitis. PROCEDURE PERFORMED: Left foot fifth metatarsal head resection with bone biopsy and wound debridement. SURGEON: Parmjit Lange DPM ANESTHESIA: IV sedation with local injection. INDICATIONS: The patient is a 68-year-old male with the above-mentioned diagnosis. Patient had exhausted all forms of conservative treatment for his wound and requires surgical intervention for the condition listed above. After careful explanation of risks, benefits, and complications for the procedure, patient signed the consent form. All questions and concerns were addressed at this time. Prior to taking patient to OR, n.p.o. status verified, and preop antibiotics were given. OPERATIVE PROCEDURE: Patient brought to the operating room, placed on the operating table in supine position. No pneumatic ankle tourniquet was utilized for this procedure. Following IV sedation, local injection of 10 mL of 1% lidocaine was injected in the patient's left foot in local block-type fashion without complication. Following local anesthetic, the left foot was prepped and draped in normal sterile manner, procedure began. PROCEDURE NUMBER 1: Left foot fifth metatarsal head resection. At this time attention was directed to the dorsolateral aspect of the patient's left foot. Overlying the 5th metatarsal head on the lateral aspect of the patient's left foot there was a roughly 1.5 x 1.5-cm ulceration with granular base with mild malodor and drainage that probed directly down to the 5th metatarsal head. At this time, utilizing a No. 15 blade, a roughly 3-cm long incision was made directly overlying the 5th metatarsal head. This incision was then carried deep down to the bone, making sure to retract the tendon and retract all vital neurovascular structures. It is to be noted that even without the use of a tourniquet, there was only roughly 5 mL of blood loss throughout the entirety of the case, so bleeding was minimal to the patient's left 5th metatarsal and left 5th digit, likely predisposing him to this nonhealing wound in the first place. At this time all soft tissue attachments to the 5th metatarsal were cleared, and utilizing sagittal saw, the 5th metatarsal head was resected and passed off the operative field. At this time a proximal margin was then taken from the 5th metatarsal shaft and also passed off the operative field. The 5th metatarsal head was cut into 2 pieces as well as the proximal margin, with 1 piece from each to be sent to Pathology and 1 piece to be sent to Microbiology. At this time the wound was flushed with copious amounts of normal sterile saline. The wound was closed with 4-0 nylon, and the wound was packed with Iodoform packing. POSTOPERATIVE CONDITION: Patient tolerated anesthesia and procedure well and was transported to recovery room with vital signs stable, neurovascular status intact to left foot. The patient will be followed up on the floor and is scheduled to have a PICC line placed for the left foot osteomyelitis while he is admitted for this admission. We will follow up as needed on the floor. KENNETH MCCLAIN/[id number]
--- NOTE | 2018-12-23 16:02 | PN ---
Progress Note (short form) - Note Progress Note: s: s/p L 5th MT head resection and wound debridement today. no chest pain, palps, dyspnea Current Medications Acetaminophen (Tylenol -) 650 mg PO Q6H PRN PRN Reason: PAIN LEVEL 1 - 3 Acetaminophen (Tylenol -) 325 mg PO Q4H PRN PRN Reason: PAIN LEVEL 4 - 6 Stop: 12/26/18 15:51 Enoxaparin Sodium (Lovenox -) 40 mg SQ DAILY [facility] Insulin Aspart (Novolog Mix 70/30 Vial) 18 units SQ DAILY@0700 [facility] Insulin Aspart (Novolog Vial Sliding Scale -) 1 vial SQ ACHS [facility]; Protocol Metformin HCl (Glucophage -) 1,000 mg PO BIDAC [facility] Morphine Sulfate (Morphine Sulfate) 2 mg IVPUSH Q6H PRN PRN Reason: PAIN LEVEL 7 - 10 Ondansetron HCl (Zofran Injection) 4 mg IVPUSH Q6H PRN PRN Reason: NAUSEA AND/OR VOMITING Stop: 12/24/18 13:54 Oxycodone HCl (Roxicodone -) 5 mg PO Q4H PRN PRN Reason: PAIN LEVEL 4 - 6 Vital Signs Period Temp Pulse Resp BP Sys/Ham Pulse Ox Last 24 Hr 97.9 F-99.0 F 78-94 16-20 103-149/49-83 98-100 Constitutional: Yes: Well Nourished, No Distress, Calm Eyes: Yes: Conjunctiva Clear, EOM Intact HENT: Yes: Atraumatic, Normocephalic Neck: Yes: Supple, Trachea Midline Respiratory: Yes: Regular, CTA Bilaterally Gastrointestinal: Yes: Normal Bowel Sounds, Soft Cardiovascular: Yes: Regular Rate and Rhythm JVD: No Carotid Bruit: No PMI: Non-Displaced Heart Sounds: Yes: S1, S2 Musculoskeletal: No: Back Pain Extremities: Yes: Other (L foot c bandages). No: Cold Edema: No Peripheral Pulses: 2+ Left Carotid, 2+ Right Carotid, 2+ Right Dorsalis Pedis Integumentary: No: Jaundice Neurological: Yes: Alert, Oriented Psychiatric: No: Agitated Assessment/Plan EKG: sinus, nl intervals, no ischemic changes echo 12/2018 nl LV function, tr to mild MR, E/A reversal osteomyelitis - s/p L 5th MT resection and wound debridement - manage per ID, podiatry DM - manage per primary HTN - stable, not on meds, monitor
[2018-12-23] MEDS: morphine SULFATE 4 MG/ML VIAL IVPUSH PRN (17:37)
[2018-12-23] MEDS: ACETAMINOPHEN 325 MG TABLET (FP) PO PRN (20:06)
[2018-12-23] MEDS: oxyCODONE HCL 5 MG TABLET PO PRN (20:06)
--- NOTE | 2018-12-23 23:35 | PN ---
Progress Note, Physician - Current Medication List Current Medications: Active Medications Acetaminophen (Tylenol -) 650 mg PO Q6H PRN PRN Reason: PAIN LEVEL 1 - 3 Acetaminophen (Tylenol -) 325 mg PO Q4H PRN PRN Reason: PAIN LEVEL 4 - 6 Stop: 12/26/18 15:51 Last Admin: 12/23/18 20:06 Dose: 325 mg Enoxaparin Sodium (Lovenox -) [address] [facility] Insulin Aspart (Novolog Mix 70/30 Vial) 18 units SQ DAILY@0700 [facility] Insulin Aspart (Novolog Vial Sliding Scale -) 1 vial SQ [facility]; Protocol Last Admin: 12/23/18 21:53 Dose: 2 units Metformin HCl (Glucophage -) 1,[address] [facility] Last Admin: 12/23/18 17:38 Dose: 1,000 mg Morphine Sulfate (Morphine Sulfate) 2 mg IVPUSH Q6H PRN PRN Reason: PAIN LEVEL 7 - 10 Last Admin: 12/23/18 17:37 Dose: 2 mg Ondansetron HCl (Zofran Injection) 4 mg IVPUSH Q6H PRN PRN Reason: NAUSEA AND/OR VOMITING Stop: 12/24/18 13:54 Oxycodone HCl (Roxicodone -) 5 mg PO Q4H PRN PRN Reason: PAIN LEVEL 4 - 6 Last Admin: 12/23/18 20:06 Dose: 5 mg - Objective Vital Signs: Vital Signs Temperature 99.1 F 12/23/18 22:00 Pulse Rate 96 H 12/23/18 22:00 Respiratory Rate 18 12/23/18 22:00 Blood Pressure 138/81 12/23/18 22:00 O2 Sat by Pulse Oximetry (%) 99 12/23/18 21:00 Labs: CBC, BMP 12/22/18 07:41 12/22/18 07:41 INR, PTT INR 1.00 (0.83-1.09) 12/21/18 17:00
[2018-12-24] MEDS: morphine SULFATE 4 MG/ML VIAL IVPUSH PRN ×2 (03:02→21:02)
[2018-12-24] MEDS: metFORMIN HCL 500 MG TABLET (FP) PO SCH ×2 (06:36→17:25)
[2018-12-24] MEDS: INSULIN SLIDING SCALE (NOVOLOG) 1 VIAL SQ SCH ×4 (06:36→21:10)
[2018-12-24] MEDS: INSULIN (NOVOLOG MIX 70/30) 100 UNITS/ML MDV SQ SCH (06:36)
[2018-12-24] MEDS: oxyCODONE HCL 5 MG TABLET PO PRN (09:14)
[2018-12-24] MEDS: ENOXAPARIN NA (PORCINE) 40 MG/0.4 ML DISP.SYRIN SQ SCH (09:14)
[2018-12-24] MEDS: ACETAMINOPHEN 325 MG TABLET (FP) PO PRN ×2 (09:15→22:11)
--- NOTE | 2018-12-24 09:32 | PN ---
Progress Note (short form) - Note Progress Note: IDF/Up: Afebrile Spoke to Dr. Maria Isabel Frazier underwent 5th MT Head resection and wound debridement. C/S (P). 5th toe with disease as well. A/P s/p MT Head resection Osteomyelitis Start IV Zosyn for now Await c/s.
[2018-12-24] MEDS ORDERED: PIPERACILLIN/TAZOBACTAM 4.5 GM VIAL IVPB ONE ×2 (10:25→16:33)
[2018-12-24] MEDS ORDERED: DEXTROSE 5%-WATER 100 ML IVPB ONE ×2 (10:26→16:33)
[2018-12-24] MEDS: PIPERACILLIN/TAZOB 4.5 GM 4.5 GM in DEXTROSE 5%-WATER 100 ML IVPB SCH ×2 (10:28→17:24)
--- NOTE | 2018-12-24 15:42 | PN ---
Progress Note, Physician History of Present Illness: stable - Current Medication List Current Medications: Active Medications Acetaminophen (Tylenol -) 650 mg PO Q6H PRN PRN Reason: PAIN LEVEL 1 - 3 Acetaminophen (Tylenol -) 325 mg PO Q4H PRN PRN Reason: PAIN LEVEL 4 - 6 Stop: 12/26/18 15:51 Last Admin: 12/24/18 09:15 Dose: 325 mg Enoxaparin Sodium (Lovenox -) 40 mg SQ DAILY [facility] Last Admin: 12/24/18 09:14 Dose: 40 mg Piperacillin Sod/Tazobactam (Sod 4.5 gm/ Dextrose) 100 mls @ 200 mls/hr IVPB Q8H-IV [facility]; Protocol Last Admin: 12/24/18 10:28 Dose: 200 mls/hr Insulin Aspart (Novolog Mix 70/30 Vial) 18 units SQ DAILY@0700 [facility] Last Admin: 12/24/18 06:36 Dose: 18 units Insulin Aspart (Novolog Vial Sliding Scale -) 1 vial SQ ACHS [facility]; Protocol Last Admin: 12/24/18 11:59 Dose: Not Given Metformin HCl (Glucophage -) 1,000 mg PO BIDAC [facility] Last Admin: 12/24/18 06:36 Dose: 1,000 mg Morphine Sulfate (Morphine Sulfate) 2 mg IVPUSH Q6H PRN PRN Reason: PAIN LEVEL 7 - 10 Last Admin: 12/24/18 03:02 Dose: 2 mg Oxycodone HCl (Roxicodone -) 5 mg PO Q4H PRN PRN Reason: PAIN LEVEL 4 - 6 Last Admin: 12/24/18 09:14 Dose: 5 mg - Objective Vital Signs: Vital Signs Temperature 98.8 F 12/24/18 14:36 Pulse Rate 79 12/24/18 14:36 Respiratory Rate 18 12/24/18 14:36 Blood Pressure 103/63 12/24/18 14:36 O2 Sat by Pulse Oximetry (%) 99 12/24/18 09:00 Constitutional: Yes: No Distress HENT: Yes: Atraumatic Neck: Yes: Supple Cardiovascular: Yes: Regular Rate and Rhythm Respiratory: Yes: CTA Bilaterally Gastrointestinal: Yes: Normal Bowel Sounds Extremities: Yes: Other (LEFT FOOT IN DRESSING) Edema: Yes Neurological: Yes: Alert, Oriented Labs: CBC, BMP 12/22/18 07:41 12/22/18 07:41 INR, PTT INR 1.00 (0.83-1.09) 12/21/18 17:00 Problem List - Problems (1) Osteomyelitis Assessment/Plan: l FOOTON IV ABX WILL GET ID ON BOARD Code(s): M86.9 - OSTEOMYELITIS, UNSPECIFIED (2) Wound cellulitis Code(s): L03.90 - CELLULITIS, UNSPECIFIED (3) Diabetes Assessment/Plan: ON INSULIN AND BGMS Code(s): E11.9 - TYPE 2 DIABETES MELLITUS WITHOUT COMPLICATIONS (4) Type 1 diabetes mellitus with foot ulcer Code(s): E10.621 - TYPE 1 DIABETES MELLITUS WITH FOOT ULCER; L97.509 - NON- PRESSURE CHRONIC ULCER OTH PRT UNSP FOOT W UNSP SEVERITY Assessment/Plan COVERING FOR DR KENDALL TODAY
--- NOTE | 2018-12-24 15:45 | PN ---
Progress Note (short form) - Note Progress Note: s: s/p L 5th MT head resection and wound debridement. no chest pain, palps, dyspnea Current Medications Generic Name Dose Route Start Last Admin Trade Name Freq PRN Reason Stop Dose Admin Acetaminophen 650 mg 12/23/18 15:30 Tylenol - PO Q6H PRN PAIN LEVEL 1 - 3 Acetaminophen 325 mg 12/23/18 15:52 12/24/18 09:15 Tylenol - PO 12/26/18 15:51 325 mg Q4H PRN Administration PAIN LEVEL 4 - 6 Enoxaparin Sodium 40 mg 12/24/18 10:00 12/24/18 09:14 Lovenox - SQ 40 mg DAILY [facility] Administration Piperacillin Sod/Tazobactam 100 mls @ 200 mls/hr 12/24/18 10:00 12/24/18 10: 28 Sod 4.5 gm/ Dextrose IVPB 200 mls/hr Q8H-IV [facility] Administration Protocol Insulin Aspart 18 units 12/24/18 07:00 12/24/18 06:36 Novolog Mix 70/30 Vial SQ 18 units DAILY@0700 [facility] Administration Insulin Aspart 1 vial 12/23/18 16:30 12/24/18 11:59 Novolog Vial Sliding Scale - SQ Not Given ACHS [facility] Protocol Metformin HCl 1,000 mg 12/23/18 16:30 12/24/18 06:36 Glucophage - PO 1,000 mg BIDAC [facility] Administration Morphine Sulfate 2 mg 12/23/18 15:30 12/24/18 03:02 Morphine Sulfate IVPUSH 2 mg Q6H PRN Administration PAIN LEVEL 7 - 10 Oxycodone HCl 5 mg 12/23/18 15:52 12/24/18 09:14 Roxicodone - PO 5 mg Q4H PRN Administration PAIN LEVEL 4 - 6 Vital Signs Period Temp Pulse Resp BP Sys/Ham Pulse Ox Last 24 Hr 98.0 F-99.2 F 77-96 18-20 103-157/61-81 99-99 Constitutional: Yes: Well Nourished, No Distress, Calm Eyes: Yes: Conjunctiva Clear Neck: Yes: Supple, Trachea Midline Respiratory: Yes: Regular, CTA Bilaterally Gastrointestinal: Yes: Normal Bowel Sounds, Soft Cardiovascular: Yes: Regular Rate and Rhythm JVD: No Heart Sounds: Yes: S1, S2 Extremities: Yes: Other (L foot c bandages). No: Cold Edema: No Peripheral Pulses: 2+ Left Carotid, 2+ Right Carotid, 2+ Right Dorsalis Pedis Integumentary: No: Jaundice Neurological: Yes: Alert, Oriented Psychiatric: No: Agitated CBC, BMP 12/22/18 07:41 12/22/18 07:41 Assessment/Plan EKG: sinus, nl intervals, no ischemic changes echo 12/2018 nl LV function, tr to mild MR, E/A reversal osteomyelitis - s/p L 5th MT resection and wound debridement - manage per ID, podiatry DM - manage per primary HTN - stable, not on meds, monitor
--- NOTE | 2018-12-24 17:18 | PN ---
Progress Note (short form) - Note Progress Note: 68 y/o male seen POD #1 left foot 5th MT head resection with wound debridment. Patient states doing well. Admits to having pain in the LLE. Denies any other complaints. Denies any f/c/n/v/sob. O: LLE incision site intact, there is some necrosis and darkening surrounding the incision site and around the wound site, sanguine drainage noted, no purulence, no erythema, no edema, no streaking noted, wound probes deep into surgical site , packing was in place A: 68 y/o male s/p left 5th MT head resection P: Evaluated and reviewed Will need to closely watch for any further signs of necrosis; may need vascular re eval if continued worsening Labs reviewed; wbc wnl Micro f/u pending finals; bone with neg bacilli growth Wound flushed and redressed with betadine DSD F/u tomorrow.
[2018-12-25] MEDS ORDERED: PIPERACILLIN/TAZOBACTAM 4.5 GM VIAL IVPB ONE ×3 (01:31→17:35)
[2018-12-25] MEDS ORDERED: DEXTROSE 5%-WATER 100 ML IVPB ONE ×3 (01:32→17:35)
[2018-12-25] MEDS: PIPERACILLIN/TAZOB 4.5 GM 4.5 GM in DEXTROSE 5%-WATER 100 ML IVPB SCH ×3 (01:39→17:39)
--- NOTE | 2018-12-25 06:54 | PN ---
Progress Note (short form) - Note Progress Note: Podiatry F/U: Seen/evaluated at bedside NAD. Pain is improving slowly. Denies F/V/N/C/SOB/ CP. afebrile. S/p L fifth metatarsal head resection and bone biopsy with ulcer debridement. ABA: L foot: there is a lateral 5th MTPJ diabetic ulcer fibronecrotic, malodorous, seropurulent drainage, no streaking cellulitis, no soft tissue crepitus, no signs of acute infection. Moderate tenderness to palpation. Sutures coapted dorsally, no dehiscence. There is some flap ischemia/duskiness to the lateral flap bravo-wound. OR Cx: lactosing GNB, multiple orgs OR Path: pending Imp: 68 year old diabetic male s/p left fifth metatarsal head resection, bone biopsy and ulcer debridement 1. IV abx per ID 2. DSD L foot 3. Partial WB surgical shoe 4. F/u final cultures, path 5. Lateral flap bravo-wound is looking dusky. Will need to see how it demarcates prior to any further intervention. Discussed with patient that if condition worsens he may need further debridement 6. Will have vascular re-eval if worsens 7. Will follow Val Nicolas DPM
[2018-12-25] MEDS: metFORMIN HCL 500 MG TABLET (FP) PO SCH ×2 (06:59→17:31)
[2018-12-25] MEDS: INSULIN SLIDING SCALE (NOVOLOG) 1 VIAL SQ SCH ×4 (07:02→21:57)
[2018-12-25] MEDS: INSULIN (NOVOLOG MIX 70/30) 100 UNITS/ML MDV SQ SCH (07:03)
[2018-12-25] MEDS: ENOXAPARIN NA (PORCINE) 40 MG/0.4 ML DISP.SYRIN SQ SCH (11:12)
[2018-12-25] MEDS: oxyCODONE HCL 5 MG TABLET PO PRN (11:13)
[2018-12-25] MEDS: ACETAMINOPHEN 325 MG TABLET (FP) PO PRN ×2 (11:14→21:55)
--- NOTE | 2018-12-25 23:57 | PN ---
Progress Note, Physician - Current Medication List Current Medications: Active Medications Acetaminophen (Tylenol -) 650 mg PO Q6H PRN PRN Reason: PAIN LEVEL 1 - 3/FEVER Last Admin: 12/25/18 21:55 Dose: 650 mg Acetaminophen (Tylenol -) 325 mg PO Q4H PRN PRN Reason: PAIN LEVEL 4 - 6 Stop: 12/26/18 15:51 Last Admin: 12/24/18 09:15 Dose: 325 mg Enoxaparin Sodium (Lovenox -) 40 mg SQ DAILY [facility] Last Admin: 12/25/18 11:12 Dose: 40 mg Piperacillin Sod/Tazobactam (Sod 4.5 gm/ Dextrose) 100 mls @ 200 mls/hr IVPB Q8H-IV [facility]; Protocol Last Admin: 12/25/18 17:39 Dose: 200 mls/hr Insulin Aspart (Novolog Mix 70/30 Vial) 18 units SQ DAILY@0700 [facility] Last Admin: 12/25/18 07:03 Dose: 18 units Insulin Aspart (Novolog Vial Sliding Scale -) 1 vial SQ ACHS [facility]; Protocol Last Admin: 12/25/18 21:57 Dose: Not Given Metformin HCl (Glucophage -) 1,000 mg PO BIDAC [facility] Last Admin: 12/25/18 17:31 Dose: 1,000 mg Morphine Sulfate (Morphine Sulfate) 2 mg IVPUSH Q6H PRN PRN Reason: PAIN LEVEL 7 - 10 Last Admin: 12/24/18 21:02 Dose: 2 mg Oxycodone HCl (Roxicodone -) 5 mg PO Q4H PRN PRN Reason: PAIN LEVEL 4 - 6 Last Admin: 12/25/18 11:13 Dose: 5 mg - Objective Vital Signs: Vital Signs Temperature 100.2 F H 12/25/18 22:00 Pulse Rate 93 H 12/25/18 22:00 Respiratory Rate 18 12/25/18 22:00 Blood Pressure 133/68 12/25/18 22:00 O2 Sat by Pulse Oximetry (%) 96 12/25/18 21:00 Labs: CBC, BMP 12/22/18 07:41 12/22/18 07:41 INR, PTT INR 1.00 (0.83-1.09) 12/21/18 17:00
[2018-12-26] MEDS ORDERED: DEXTROSE 5%-WATER 100 ML IVPB ONE ×4 (00:01→23:43)
[2018-12-26] MEDS ORDERED: PIPERACILLIN/TAZOBACTAM 4.5 GM VIAL IVPB ONE ×4 (00:01→23:43)
[2018-12-26] MEDS: oxyCODONE HCL 5 MG TABLET PO PRN ×5 (00:02→23:53)
[2018-12-26] MEDS: PIPERACILLIN/TAZOB 4.5 GM 4.5 GM in DEXTROSE 5%-WATER 100 ML IVPB SCH ×3 (01:11→17:23)
[2018-12-26] MEDS: ACETAMINOPHEN 325 MG TABLET (FP) PO PRN ×3 (05:14→19:44)
[2018-12-26] MEDS: metFORMIN HCL 500 MG TABLET (FP) PO SCH ×2 (06:09→17:23)
[2018-12-26] MEDS: INSULIN (NOVOLOG MIX 70/30) 100 UNITS/ML MDV SQ SCH (06:09)
[2018-12-26] MEDS: INSULIN SLIDING SCALE (NOVOLOG) 1 VIAL SQ SCH ×4 (06:09→21:48)
[2018-12-26 07:38] LABS: BASO % 0.5 % (0-2.0); EOS % 6.5 % (0-4.5); HEMOGLOBIN 10.5 GM/dL (11.7-16.9); LYMPH % 11.1 % (8-40); MCH 30.8 pg (25.7-33.7); MCHC 34.8 g/dl (32.0-35.9); MEAN CELL VOLUME 88.4 fl (80-96); MEAN PLT VOLUME 7.3 fl (7.5-11.1); MONO % 9.5 % (3.8-10.2); NEUT % 72.4 % (42.8-82.8); PLATELET COUNT 323 K/MM3 (134-434); RDW 12.3 % (11.9-15.9)
[2018-12-26 07:59] LABS: ALBUMIN 2.6 g/dl (3.4-5.0); ALK PHOS 80 U/L (45-117); ANION GAP 10 MMOL/L (8-16); BILIRUBIN,TOTAL 0.7 mg/dL (0.2-1); BLOOD UREA NITROGEN 34 mg/dL (7-18); CALCIUM 8.4 mg/dL (8.5-10.1); CHLORIDE 99 mmol/L (98-107); CO2 27 mmol/L (21-32); CREATININE 1.4 mg/dL (0.55-1.3); GLUCOSE,RANDOM 117 mg/dL (74-106); POTASSIUM 4.2 mmol/L (3.5-5.1); SGOT/AST 20 U/L (15-37); SGPT/ALT 19 U/L (13-61); SODIUM 137 mmol/L (136-145)
[2018-12-26] MEDS: ENOXAPARIN NA (PORCINE) 40 MG/0.4 ML DISP.SYRIN SQ SCH (09:17)
--- NOTE | 2018-12-26 21:45 | PN ---
Progress Note, Physician - Current Medication List Current Medications: Active Medications Acetaminophen (Tylenol -) 650 mg PO Q6H PRN PRN Reason: PAIN LEVEL 1 - 3/FEVER Last Admin: 12/26/18 19:44 Dose: 650 mg Enoxaparin Sodium (Lovenox -) 40 mg SQ DAILY [facility] Last Admin: 12/26/18 09:17 Dose: 40 mg Piperacillin Sod/Tazobactam (Sod 4.5 gm/ Dextrose) 100 mls @ 200 mls/hr IVPB Q8H-IV [facility]; Protocol Last Admin: 12/26/18 17:23 Dose: 200 mls/hr Insulin Aspart (Novolog Mix 70/30 Vial) 18 units SQ DAILY@0700 [facility] Last Admin: 12/26/18 06:09 Dose: 18 units Insulin Aspart (Novolog Vial Sliding Scale -) 1 vial SQ ACHS [facility]; Protocol Last Admin: 12/26/18 17:23 Dose: Not Given Metformin HCl (Glucophage -) 1,000 mg PO BIDAC [facility] Last Admin: 12/26/18 17:23 Dose: 1,000 mg Oxycodone HCl (Roxicodone -) 5 mg PO Q4H PRN PRN Reason: PAIN LEVEL 4-5 Last Admin: 12/26/18 19:45 Dose: 5 mg - Objective Vital Signs: Vital Signs Temperature 97.9 F 12/26/18 19:49 Pulse Rate 81 12/26/18 19:49 Respiratory Rate 18 12/26/18 19:49 Blood Pressure 139/70 12/26/18 19:49 O2 Sat by Pulse Oximetry (%) 97 12/26/18 09:00 Neck: Yes: WNL, Supple Cardiovascular: Yes: WNL, Regular Rate and Rhythm Respiratory: Yes: WNL, Regular, CTA Bilaterally Gastrointestinal: Yes: WNL, Normal Bowel Sounds, Soft Extremities: Yes: Other (Lt 5th metatarsal wound w/ surrounding bluish discoloration) Labs: CBC, BMP 12/26/18 06:20 12/26/18 06:20 INR, PTT INR 1.00 (0.83-1.09) 12/21/18 17:00 Problem List - Problems (1) Osteomyelitis Assessment/Plan: S/P lt 5th metatarsalresection and debridement Reconsult vascular Cont IV zosyn Code(s): M86.9 - OSTEOMYELITIS, UNSPECIFIED (2) HTN (hypertension) Assessment/Plan: BP stable Pt is not on any antihypertensives Cont to monitor Code(s): I10 - ESSENTIAL (PRIMARY) HYPERTENSION (3) Diabetes Assessment/Plan: Cont novolog 70/30 and sliding scale/metformin Code(s): E11.9 - TYPE 2 DIABETES MELLITUS WITHOUT COMPLICATIONS
[2018-12-27] MEDS: PIPERACILLIN/TAZOB 4.5 GM 4.5 GM in DEXTROSE 5%-WATER 100 ML IVPB SCH ×3 (01:44→18:12)
[2018-12-27] MEDS: oxyCODONE HCL 5 MG TABLET PO PRN ×2 (05:07→21:36)
[2018-12-27] MEDS: ACETAMINOPHEN 325 MG TABLET (FP) PO PRN ×2 (05:08→11:27)
[2018-12-27] MEDS: metFORMIN HCL 500 MG TABLET (FP) PO SCH ×2 (06:03→16:24)
[2018-12-27] MEDS: INSULIN SLIDING SCALE (NOVOLOG) 1 VIAL SQ SCH ×4 (06:04→21:36)
[2018-12-27] MEDS: INSULIN (NOVOLOG MIX 70/30) 100 UNITS/ML MDV SQ SCH (06:04)
[2018-12-27] MEDS ORDERED: DEXTROSE 5%-WATER 100 ML IVPB ONE ×2 (08:35→17:46)
[2018-12-27] MEDS ORDERED: PIPERACILLIN/TAZOBACTAM 4.5 GM VIAL IVPB ONE ×2 (08:35→17:46)
[2018-12-27] MEDS: ENOXAPARIN NA (PORCINE) 40 MG/0.4 ML DISP.SYRIN SQ SCH (08:59)
--- NOTE | 2018-12-27 09:28 | PN ---
Progress Note (short form) - Note Progress Note: Vascular Surgery Pt seen and examined. S/P excision of left metatarsal head. Now not healing well. With eschar. pt had preoperative US -- that showed good perfusion to foot. Pt probably has small vessel disease. Will need angiogram. Please clear from a medical stand point. Cr is 1.4. Please optimize. Shiv Alvarez DO
--- NOTE | 2018-12-27 12:51 | PN ---
Progress Note (short form) - Note Progress Note: 68 y/o male seen s/p right 5th MT head resection now with worsening duskiness and overlyign eschar to the incision site. Is with son at bedside who speaks fluent niuean. Admits to pain. Denies any f/c/n/v/sob. O: Incision site wtih dorsal necrotic tissue noted extending lateraly from incision site going around the ulceration site, 5th digit is apparantely increased in duskiness compared to last visit, no purulence, mild sanguine drainange, minimal malodor, no streaking noted. A: PAD s/p resection with necrosing ulceration P: Evaluated and reviewed I discussed findings with the son. Will discuss with Dr. farris For angio; discussed minimal blood loss during surgery with the son and my apparent worries following, with continued worsening of the ulceration site and now duskiness of the digit may require 5th ray resection. Will continue to follow labs reviewed; path reviewd will f/u.
--- NOTE | 2018-12-27 16:08 | PN ---
Progress Note (short form) - Note Progress Note: s: no chest pain, palps, dyspnea Current Medications Acetaminophen (Tylenol -) 650 mg PO Q6H PRN PRN Reason: PAIN LEVEL 1 - 3/FEVER Last Admin: 12/27/18 11:27 Dose: 650 mg Enoxaparin Sodium (Lovenox -) 40 mg SQ DAILY [facility] Last Admin: 12/27/18 08:59 Dose: 40 mg Piperacillin Sod/Tazobactam (Sod 4.5 gm/ Dextrose) 100 mls @ 200 mls/hr IVPB Q8H-IV [facility]; Protocol Last Admin: 12/27/18 08:59 Dose: 200 mls/hr Insulin Aspart (Novolog Mix 70/30 Vial) 18 units SQ DAILY@0700 [facility] Last Admin: 12/27/18 06:04 Dose: Not Given Insulin Aspart (Novolog Vial Sliding Scale -) 1 vial SQ ACHS [facility]; Protocol Last Admin: 12/27/18 11:31 Dose: 2 units Metformin HCl (Glucophage -) 1,000 mg PO BIDAC [facility] Last Admin: 12/27/18 06:03 Dose: 1,000 mg Oxycodone HCl (Roxicodone -) 5 mg PO Q4H PRN PRN Reason: PAIN LEVEL 4-5 Last Admin: 12/27/18 05:07 Dose: 5 mg Vital Signs Period Temp Pulse Resp BP Sys/Ham Pulse Ox Last 24 Hr 97.7 F-99.1 F 72-81 18-20 98-139/56-70 97-98 Constitutional: Yes: Well Nourished, No Distress, Calm Eyes: Yes: Conjunctiva Clear Neck: Yes: Supple, Trachea Midline Respiratory: Yes: Regular, CTA Bilaterally Gastrointestinal: Yes: Normal Bowel Sounds, Soft Cardiovascular: Yes: Regular Rate and Rhythm JVD: No Heart Sounds: Yes: S1, S2 Extremities: Yes: Other (L foot c bandages). No: Cold Edema: No Peripheral Pulses: 2+ Left Carotid, 2+ Right Carotid, 2+ Right Dorsalis Pedis Integumentary: No: Jaundice Neurological: Yes: Alert, Oriented Psychiatric: No: Agitated Assessment/Plan EKG: sinus, nl intervals, no ischemic changes echo 12/2018 nl LV function, tr to mild MR, E/A reversal preop evaluation for angiogram, osteomyelitis - s/p L 5th MT resection and wound debridement with poor wound healing - No cardiac contraindication to planned angiogram DM - manage per primary HTN - stable, not on meds, monitor
--- NOTE | 2018-12-27 16:34 | PATH ---
Surgical Pathology Report Patient Name: JOSAFAT ALLEN Med. Rec. #: [id number] /Age/Gender: 1950 (Age: 68) / M Account: [id number] Location: [facility] MED/SURG Taken: 12/23/2018 Received: 12/24/2018 Reported: 12/27/2018 Physicians: KENNETH Wang M.D. Specimen(s) Received A: LEFT METATARSAL HEAD FIFTH B: PROXIMAL MARGIN LEFT FIFTH METATARSAL Clinical History Osteomyelitis Final Diagnosis A. LEFT METATARSAL HEAD, FIFTH, EXCISION: BONE WITH ACUTE OSTEOMYELITIS. B. PROXIMAL MARGIN LEFT FIFTH METATARSAL, EXCISION: BONE WITH REACTINIC CHANGE. NO DEFINITIVE OSTEOMYELITIS PRESENT. Electronically Signed Dannie Joe M.D. Gross Description A. Received in formalin labeled "left metatarsal head," is a 1.0 x 0.9 x 0.9 cm finley-brown portion of bone. The specimen is trisected and entirely submitted in one cassette, following decalcification. B. Received in formalin labeled "proximal margin fifth metatarsal," is a 1.4 x 0.4 x 0.4 cm finley-yellow portion of bone. The specimen is bisected and entirely submitted in one cassette, following decalcification. 12/24/201812/24/2018
--- NOTE | 2018-12-27 18:58 | PN ---
Progress Note, Physician Chief Complaint: Foot ulcer - Current Medication List Current Medications: Active Medications Acetaminophen (Tylenol -) 650 mg PO Q6H PRN PRN Reason: PAIN LEVEL 1 - 3/FEVER Last Admin: 12/27/18 11:27 Dose: 650 mg Enoxaparin Sodium (Lovenox -) 40 mg SQ DAILY [facility] Last Admin: 12/27/18 08:59 Dose: 40 mg Piperacillin Sod/Tazobactam (Sod 4.5 gm/ Dextrose) 100 mls @ 200 mls/hr IVPB Q8H-IV [facility]; Protocol Last Admin: 12/27/18 18:12 Dose: 200 mls/hr Insulin Aspart (Novolog Mix 70/30 Vial) 18 units SQ DAILY@0700 [facility] Last Admin: 12/27/18 06:04 Dose: Not Given Insulin Aspart (Novolog Vial Sliding Scale -) 1 vial SQ ACHS [facility]; Protocol Last Admin: 12/27/18 17:32 Dose: Not Given Metformin HCl (Glucophage -) 1,000 mg PO BIDAC [facility] Last Admin: 12/27/18 16:24 Dose: 1,000 mg Oxycodone HCl (Roxicodone -) 5 mg PO Q4H PRN PRN Reason: PAIN LEVEL 4-5 Last Admin: 12/27/18 05:07 Dose: 5 mg - Objective Vital Signs: Vital Signs Temperature 98.4 F 12/27/18 18:32 Pulse Rate 77 12/27/18 18:32 Respiratory Rate 20 12/27/18 18:32 Blood Pressure 122/67 12/27/18 18:32 O2 Sat by Pulse Oximetry (%) 98 12/27/18 09:00 Constitutional: Yes: Calm Cardiovascular: Yes: Regular Rate and Rhythm Respiratory: Yes: CTA Bilaterally Musculoskeletal: Yes: Other (Intact dressing) Labs: CBC, BMP 12/26/18 06:20 12/26/18 06:20 INR, PTT INR 1.00 (0.83-1.09) 12/21/18 17:00 Assessment/Plan Pt with DM foot infection (L) 5th toe ulcer Underlying OM C/S reviewed Would continue Zosyn as ordered.
[2018-12-28] MEDS: PIPERACILLIN/TAZOB 4.5 GM 4.5 GM in DEXTROSE 5%-WATER 100 ML IVPB SCH ×3 (02:18→17:33)
--- NOTE | 2018-12-28 02:22 | PN ---
Progress Note, Physician History of Present Illness: Pt seen and examined 12/27/18 however note is being entered now - Current Medication List Current Medications: Active Medications Acetaminophen (Tylenol -) 650 mg PO Q6H PRN PRN Reason: PAIN LEVEL 1 - 3/FEVER Last Admin: 12/27/18 11:27 Dose: 650 mg Enoxaparin Sodium (Lovenox -) 40 mg SQ DAILY [facility] Last Admin: 12/27/18 08:59 Dose: 40 mg Piperacillin Sod/Tazobactam (Sod 4.5 gm/ Dextrose) 100 mls @ 200 mls/hr IVPB Q8H-IV [facility]; Protocol Last Admin: 12/27/18 18:12 Dose: 200 mls/hr Insulin Aspart (Novolog Mix 70/30 Vial) 18 units SQ DAILY@0700 [facility] Last Admin: 12/27/18 06:04 Dose: Not Given Insulin Aspart (Novolog Vial Sliding Scale -) 1 vial SQ ACHS [facility]; Protocol Last Admin: 12/27/18 21:36 Dose: Not Given Metformin HCl (Glucophage -) 1,000 mg PO BIDAC [facility] Last Admin: 12/27/18 16:24 Dose: 1,000 mg Oxycodone HCl (Roxicodone -) 5 mg PO Q4H PRN PRN Reason: PAIN LEVEL 4-5 Last Admin: 12/27/18 21:36 Dose: 5 mg - Objective Vital Signs: Vital Signs Temperature 98.4 F 12/27/18 18:32 Pulse Rate 77 12/27/18 18:32 Respiratory Rate 20 12/27/18 18:32 Blood Pressure 122/67 12/27/18 18:32 O2 Sat by Pulse Oximetry (%) 98 12/27/18 09:00 Labs: CBC, BMP 12/26/18 06:20 12/26/18 06:20 INR, PTT INR 1.00 (0.83-1.09) 12/21/18 17:00 Problem List - Problems (1) Osteomyelitis Code(s): M86.9 - OSTEOMYELITIS, UNSPECIFIED (2) HTN (hypertension) Code(s): I10 - ESSENTIAL (PRIMARY) HYPERTENSION (3) Diabetes Code(s): E11.9 - TYPE 2 DIABETES MELLITUS WITHOUT COMPLICATIONS
[2018-12-28] MEDS ORDERED: PIPERACILLIN/TAZOBACTAM 4.5 GM VIAL IVPB ONE ×3 (03:01→17:32)
[2018-12-28] MEDS ORDERED: DEXTROSE 5%-WATER 100 ML IVPB ONE ×3 (03:01→17:33)
[2018-12-28] MEDS: metFORMIN HCL 500 MG TABLET (FP) PO SCH ×2 (06:09→17:30)
[2018-12-28] MEDS: INSULIN (NOVOLOG MIX 70/30) 100 UNITS/ML MDV SQ SCH (06:10)
[2018-12-28] MEDS: INSULIN SLIDING SCALE (NOVOLOG) 1 VIAL SQ SCH ×4 (06:10→22:04)
[2018-12-28] MEDS ORDERED: PT OWN MED DRAWER 7, Y5N ONE ×3 (06:18→17:32)
[2018-12-28] MEDS: ENOXAPARIN NA (PORCINE) 40 MG/0.4 ML DISP.SYRIN SQ SCH (12:27)
[2018-12-28] MEDS: oxyCODONE HCL 5 MG TABLET PO PRN (13:37)
--- NOTE | 2018-12-28 14:47 | PN ---
Progress Note (short form) - Note Progress Note: VAscular Surgery Pt needs left lower extremity angiogram. Please continue to hydrate and draw bmp in am . Cr was 1.4 two days ago. If creatinine comes back high ro, then pt will need CO2. Will do angiogram thurs morning. Shiv Alvarez DO
--- NOTE | 2018-12-28 15:35 | PN ---
Progress Note (short form) - Note Progress Note: s: no chest pain, palps, dyspnea Current Medications Generic Name Dose Route Start Last Admin Trade Name Freq PRN Reason Stop Dose Admin Acetaminophen 650 mg 12/23/18 15:30 12/27/18 11:27 Tylenol - PO 650 mg Q6H PRN Administration PAIN LEVEL 1 - 3/FEVER Enoxaparin Sodium 40 mg 12/24/18 10:00 12/28/18 12:27 Lovenox - SQ Not Given DAILY [facility] Piperacillin Sod/Tazobactam 100 mls @ 200 mls/hr 12/24/18 10:00 12/28/18 09: 42 Sod 4.5 gm/ Dextrose IVPB 200 mls/hr Q8H-IV [facility] Administration Protocol Insulin Aspart 18 units 12/24/18 07:00 12/28/18 06:10 Novolog Mix 70/30 Vial SQ 18 units DAILY@0700 [facility] Administration Insulin Aspart 1 vial 12/23/18 16:30 12/28/18 12:27 Novolog Vial Sliding Scale - SQ Not Given ACHS [facility] Protocol Metformin HCl 1,000 mg 12/23/18 16:30 12/28/18 06:09 Glucophage - PO 1,000 mg BIDAC [facility] Administration Oxycodone HCl 5 mg 12/26/18 19:36 12/28/18 13:37 Roxicodone - PO 5 mg Q4H PRN Administration PAIN LEVEL 4-5 Vital Signs Period Temp Pulse Resp BP Sys/Ham Pulse Ox Last 24 Hr 97.6 F-98.9 F 67-111 18-20 104-134/51-72 96-98 Constitutional: Yes: Well Nourished, No Distress, Calm Eyes: Yes: Conjunctiva Clear Neck: Yes: Supple, Trachea Midline Respiratory: Yes: Regular, CTA Bilaterally Gastrointestinal: Yes: Normal Bowel Sounds, Soft Cardiovascular: Yes: Regular Rate and Rhythm JVD: No Heart Sounds: Yes: S1, S2 Extremities: Yes: Other (L foot c bandages). No: Cold Edema: No Integumentary: No: Jaundice diaphoresis Neurological: Yes: Alert, Oriented Psychiatric: No: Agitated CBC, BMP 12/26/18 06:20 12/26/18 06:20 Assessment/Plan EKG: sinus, nl intervals, no ischemic changes echo 12/2018 nl LV function, tr to mild MR, E/A reversal osteomyelitis - s/p L 5th MT resection and wound debridement - manage per ID, podiatry, vascular DM - manage per primary HTN - stable, not on meds, monitor
--- NOTE | 2018-12-28 16:50 | PN ---
Progress Note (short form) - Note Progress Note: [facility] F/U: Seen/evaluated at [facility]. Denies F/V/N/c/SOB/CP. Afebrile. S/p left fifth metatarsal head resection, debridement. ABA: L foot: pedal pulses nonpalpable, TG wnl. CFT delayed to fifth digit. There is a post-surgical site fifth ray with necrosis of flap, duskiness of fifth digit, no purulence, no fluctuance, no streaking cellulitis, no active signs of infection. Ischemic changes as prescribed. Imp: 68 year old diabetic male s/p left fifth metatarsal head resection and debridement 1. IV abx per ID 2. DSD L foot 3. Pain control 4. For angiogram with Dr. Alvarez 5. Will follow Val Nicolas DPM
--- NOTE | 2018-12-28 23:14 | PN ---
Progress Note, Physician History of Present Illness: No new complaints - Current Medication List Current Medications: Active Medications Acetaminophen (Tylenol -) 650 mg PO Q6H PRN PRN Reason: PAIN LEVEL 1 - 3/FEVER Last Admin: 12/27/18 11:27 Dose: 650 mg Enoxaparin Sodium (Lovenox -) 40 mg SQ DAILY [facility] Last Admin: 12/28/18 12:27 Dose: Not Given Piperacillin Sod/Tazobactam (Sod 4.5 gm/ Dextrose) 100 mls @ 200 mls/hr IVPB Q8H-IV [facility]; Protocol Last Admin: 12/28/18 17:33 Dose: 200 mls/hr Insulin Aspart (Novolog Mix 70/30 Vial) 18 units SQ DAILY@0700 [facility] Last Admin: 12/28/18 06:10 Dose: 18 units Insulin Aspart (Novolog Vial Sliding Scale -) 1 vial SQ ACHS [facility]; Protocol Last Admin: 12/28/18 22:04 Dose: Not Given Metformin HCl (Glucophage -) 1,000 mg PO BIDAC [facility] Last Admin: 12/28/18 17:30 Dose: 1,000 mg Oxycodone HCl (Roxicodone -) 5 mg PO Q4H PRN PRN Reason: PAIN LEVEL 4-5 Last Admin: 12/28/18 13:37 Dose: 5 mg - Objective Vital Signs: Vital Signs Temperature 97.9 F 12/28/18 22:00 Pulse Rate 99 H 12/28/18 22:00 Respiratory Rate 20 12/28/18 22:00 Blood Pressure 143/71 12/28/18 22:00 O2 Sat by Pulse Oximetry (%) 96 12/28/18 21:00 Neck: Yes: WNL, Supple Cardiovascular: Yes: WNL, Regular Rate and Rhythm Respiratory: Yes: WNL, Regular, CTA Bilaterally Gastrointestinal: Yes: WNL, Normal Bowel Sounds, Soft Extremities: Yes: Other (Lt wound w/ dressing) Edema: No Labs: CBC, BMP 12/26/18 06:20 12/26/18 06:20 INR, PTT INR 1.00 (0.83-1.09) 12/21/18 17:00 Problem List - Problems (1) Osteomyelitis Assessment/Plan: S/P lt 5th metatarsalresection and debridement Cont IV zosyn Pt for angiogram LLE in am However will need to check creatinine function Check labs in am Code(s): M86.9 - OSTEOMYELITIS, UNSPECIFIED (2) HTN (hypertension) Assessment/Plan: BP stable Pt is not on any antihypertensives Cont to monitor Code(s): I10 - ESSENTIAL (PRIMARY) HYPERTENSION (3) Diabetes Assessment/Plan: Cont novolog 70/30 and sliding scale/metformin Code(s): E11.9 - TYPE 2 DIABETES MELLITUS WITHOUT COMPLICATIONS
[2018-12-29] MEDS ORDERED: PIPERACILLIN/TAZOBACTAM 4.5 GM VIAL IVPB ONE ×3 (02:23→16:19)
[2018-12-29] MEDS ORDERED: DEXTROSE 5%-WATER 100 ML IVPB ONE ×3 (02:24→16:19)
[2018-12-29] MEDS: PIPERACILLIN/TAZOB 4.5 GM 4.5 GM in DEXTROSE 5%-WATER 100 ML IVPB SCH ×3 (02:54→17:34)
[2018-12-29] MEDS: INSULIN (NOVOLOG MIX 70/30) 100 UNITS/ML MDV SQ SCH (06:10)
[2018-12-29] MEDS: metFORMIN HCL 500 MG TABLET (FP) PO SCH ×2 (06:10→16:22)
[2018-12-29] MEDS: INSULIN SLIDING SCALE (NOVOLOG) 1 VIAL SQ SCH ×4 (06:11→22:29)
[2018-12-29] MEDS ORDERED: INSULIN (NOVOLOG) ASPART 100 UNITS/ML 10ML VIAL ONE ×3 (06:27→20:58)
[2018-12-29 07:40] LABS: CALCIUM 8.4 mg/dL (8.5-10.1); POTASSIUM 4.5 mmol/L (3.5-5.1)
--- NOTE | 2018-12-29 08:34 | SPA.PREOP ---
- PRE-OP NOTE Dx: delayed healing and escar s/p excision of left MT head Planned Procedure: Left LE CO2 angiogram Surgeon: Dr Alvarez Last Vital Signs Temp Pulse Resp BP Pulse Ox 98.6 F 70 20 115/60 96 12/29/18 04:57 12/29/18 04:57 12/29/18 04:57 12/29/18 04:57 12/28/18 21:00 Lab Results WBC 10.0 K/mm3 (4.0-10.0) 12/26/18 06:20 RBC 3.40 M/mm3 (4.00-5.60) L 12/26/18 06:20 Hgb 10.5 GM/dL (11.7-16.9) L 12/26/18 06:20 Hct 30.0 % (35.4-49) L 12/26/18 06:20 MCV 88.4 fl (80-96) 12/26/18 06:20 MCHC 34.8 g/dl (32.0-35.9) 12/26/18 06:20 RDW 12.3 % (11.9-15.9) 12/26/18 06:20 Plt Count 323 K/MM3 (134-434) 12/26/18 06:20 Sodium 136 mmol/L (136-145) 12/29/18 06:05 Potassium 4.5 mmol/L (3.5-5.1) 12/29/18 06:05 Chloride 104 mmol/L (98-107) 12/29/18 06:05 Carbon Dioxide 26 mmol/L (21-32) 12/29/18 06:05 Anion Gap 6 MMOL/L (8-16) L 12/29/18 06:05 BUN 21 mg/dL (7-18) H 12/29/18 06:05 Creatinine 1.3 mg/dL (0.55-1.3) 12/29/18 06:05 Random Glucose 184 mg/dL (74-106) H 12/29/18 06:05 Calcium 8.4 mg/dL (8.5-10.1) L 12/29/18 06:05 Blood Type A POSITIVE 12/21/18 21:40 Antibody Screen Negative 12/21/18 17:00 INR 1.00 (0.83-1.09) 12/21/18 17:00 - ASSESSMENT/PLAN Problem List - Problems (1) Gangrene Assessment/Plan: 1. Make NPO after midnight except po meds 2. GI/DVT PPX 3. Medical optimization / clearance 4. Consent to be obtained by surgeon after risks, benefits and alternatives discussed with patient and or Health Care Proxy. Code(s): I96 - GANGRENE, NOT ELSEWHERE CLASSIFIED
[2018-12-29] MEDS: ENOXAPARIN NA (PORCINE) 40 MG/0.4 ML DISP.SYRIN SQ SCH (09:40)
[2018-12-29 09:59] LABS: CREATININE 1.3 mg/dL (0.55-1.3)
--- NOTE | 2018-12-29 11:13 | PN ---
Progress Note (short form) - Note Progress Note: s: no chest pain, palps, dyspnea Current Medications Acetaminophen (Tylenol -) 650 mg PO Q6H PRN PRN Reason: PAIN LEVEL 1 - 3/FEVER Last Admin: 12/27/18 11:27 Dose: 650 mg Enoxaparin Sodium (Lovenox -) 40 mg SQ DAILY [facility] Last Admin: 12/29/18 09:40 Dose: 40 mg Piperacillin Sod/Tazobactam (Sod 4.5 gm/ Dextrose) 100 mls @ 200 mls/hr IVPB Q8H-IV [facility]; Protocol Last Admin: 12/29/18 09:40 Dose: 200 mls/hr Insulin Aspart (Novolog Mix 70/30 Vial) 18 units SQ DAILY@0700 [facility] Last Admin: 12/29/18 06:10 Dose: 18 units Insulin Aspart (Novolog Vial Sliding Scale -) 1 vial SQ ACHS [facility]; Protocol Last Admin: 12/29/18 06:11 Dose: 2 units Metformin HCl (Glucophage -) 1,000 mg PO BIDAC [facility] Last Admin: 12/29/18 06:10 Dose: 1,000 mg Oxycodone HCl (Roxicodone -) 5 mg PO Q4H PRN PRN Reason: PAIN LEVEL 4-5 Last Admin: 12/28/18 13:37 Dose: 5 mg Vital Signs Period Temp Pulse Resp BP Sys/Ham Pulse Ox Last 24 Hr 97.6 F-98.9 F 70-99 20-20 104-143/58-71 96 Constitutional: Yes: Well Nourished, No Distress, Calm Eyes: Yes: Conjunctiva Clear Neck: Yes: Supple, Trachea Midline Respiratory: Yes: Regular, CTA Bilaterally Gastrointestinal: Yes: Normal Bowel Sounds, Soft Cardiovascular: Yes: Regular Rate and Rhythm JVD: No Heart Sounds: Yes: S1, S2 Extremities: Yes: Other (L foot c bandages). No: Cold Edema: No Integumentary: No: Jaundice diaphoresis Neurological: Yes: Alert, Oriented Psychiatric: No: Agitated Assessment/Plan EKG: sinus, nl intervals, no ischemic changes echo 12/2018 nl LV function, tr to mild MR, E/A reversal osteomyelitis - s/p L 5th MT resection and wound debridement - manage per ID, podiatry, vascular DM - manage per primary HTN - stable, not on meds, monitor
--- NOTE | 2018-12-29 13:01 | PN ---
Progress Note (short form) - Note Progress Note: Podiatry F/U: Seen/evaluated at bedside NAD. Denies F/V/N/C/SOB/CP. AFebrile. S/p L fifth metatarsal head resection. Still pain with ambulation. ABA: L foot: necrotic 5th ray incision site with duskiness to fifth digit unchanged, no purulence, no malodor, no fluctuance, no streaking cellulitis, no signs of acute infection. OR Bone Cx; multi-organism Imp: 68 year old diabetic male s/p left fifth metatarsal head resection for bone biopsy and debridement 1. IV abx per ID 2. Continue local wound care 3. For CO2 angio with Dr. Alvarez tomorrow 4. May need further debridement with fifth digit amputation in the future 5. Will follow Val Crane DPM
--- NOTE | 2018-12-29 15:27 | PN ---
Progress Note, Physician Chief Complaint: Foot ulcer - Current Medication List Current Medications: Active Medications Acetaminophen (Tylenol -) 650 mg PO Q6H PRN PRN Reason: PAIN LEVEL 1 - 3/FEVER Last Admin: 12/27/18 11:27 Dose: 650 mg Enoxaparin Sodium (Lovenox -) 40 mg SQ DAILY [facility] BEDS AT [facility] Last Admin: 12/29/18 09:40 Dose: 40 mg Piperacillin Sod/Tazobactam (Sod 4.5 gm/ Dextrose) 100 mls @ 200 mls/hr IVPB Q8H-IV [facility]; Protocol Last Admin: 12/29/18 09:40 Dose: 200 mls/hr Insulin Aspart (Novolog Mix 70/30 Vial) 18 units SQ DAILY@0700 [facility] 234 BEDS AT [facility] Last Admin: 12/29/18 06:10 Dose: 18 units Insulin Aspart (Novolog Vial Sliding Scale -) 1 vial SQ ACHS [facility] 234 BEDS AT [facility]; Protocol Last Admin: 12/29/18 11:50 Dose: Not Given Metformin HCl (Glucophage -) 1,000 mg PO BIDAC COUNTS [facility]CLUDE 234 BEDS AT [facility] Last Admin: 12/29/18 06:10 Dose: 1,000 mg Oxycodone HCl (Roxicodone -) 5 mg PO Q4H PRN PRN Reason: PAIN LEVEL 4-5 Last Admin: 12/28/18 13:37 Dose: 5 mg - Objective Vital Signs: Vital Signs Temperature 98.1 F 12/29/18 13:22 Pulse Rate 75 12/29/18 13:22 Respiratory Rate 20 12/29/18 13:22 Blood Pressure 145/73 12/29/18 13:22 O2 Sat by Pulse Oximetry (%) 100 12/29/18 09:00 Constitutional: Yes: Well Nourished, Calm Cardiovascular: Yes: Regular Rate and Rhythm Respiratory: Yes: CTA Bilaterally Gastrointestinal: Yes: Normal Bowel Sounds, Soft Musculoskeletal: Yes: Other (ntact dressing) Labs: CBC, BMP 12/26/18 06:20 12/29/18 06:05 INR, PTT INR 1.00 (0.83-1.09) 12/21/18 17:00 Problem List - Problems (1) Osteomyelitis Code(s): M86.9 - OSTEOMYELITIS, UNSPECIFIED (2) Wound cellulitis Code(s): L03.90 - CELLULITIS, UNSPECIFIED Assessment/Plan Pt with DM foot infection (L) 5th toe ulcer Underlying OM Would continue Zosyn May need further debridement.
[2018-12-29] MEDS ORDERED: PT OWN MED DRAWER 7, Y5N ONE (15:41)
[2018-12-29] MEDS ORDERED: oxyCODONE HCL 5 MG TABLET PO PRN (20:35)
--- NOTE | 2018-12-29 21:32 | PN ---
Progress Note, Physician History of Present Illness: No new complaints - Current Medication List Current Medications: Active Medications Acetaminophen (Tylenol -) 650 mg PO Q6H PRN PRN Reason: PAIN LEVEL 1 - 3/FEVER Last Admin: 12/27/18 11:27 Dose: 650 mg Enoxaparin Sodium (Lovenox -) 40 mg SQ DAILY [facility] Last Admin: 12/29/18 09:40 Dose: 40 mg Piperacillin Sod/Tazobactam (Sod 4.5 gm/ Dextrose) 100 mls @ 200 mls/hr IVPB Q8H-IV [facility]; Protocol Last Admin: 12/29/18 17:34 Dose: 200 mls/hr Insulin Aspart (Novolog Mix 70/30 Vial) 18 units SQ DAILY@0700 [facility] Last Admin: 12/29/18 06:10 Dose: 18 units Insulin Aspart (Novolog Vial Sliding Scale -) 1 vial SQ ACHS [facility]; Protocol Last Admin: 12/29/18 17:34 Dose: 2 units Metformin HCl (Glucophage -) 1,000 mg PO BIDAC [facility] Last Admin: 12/29/18 16:22 Dose: Not Given Oxycodone HCl (Roxicodone -) 5 mg PO Q4H PRN PRN Reason: PAIN 4-5 - Objective Vital Signs: Vital Signs Temperature 97.8 F 12/29/18 18:42 Pulse Rate 74 12/29/18 18:42 Respiratory Rate 18 12/29/18 18:42 Blood Pressure 142/78 12/29/18 18:42 O2 Sat by Pulse Oximetry (%) 100 12/29/18 09:00 Cardiovascular: Yes: WNL, Regular Rate and Rhythm Respiratory: Yes: WNL, Regular, CTA Bilaterally Gastrointestinal: Yes: WNL, Normal Bowel Sounds, Soft Extremities: Yes: Other (Lt foot in dressing) Labs: CBC, BMP 12/26/18 06:20 12/29/18 06:05 INR, PTT INR 1.00 (0.83-1.09) 12/21/18 17:00 Problem List - Problems (1) Osteomyelitis Assessment/Plan: S/P lt 5th metatarsalresection and debridement Cont IV zosyn Pt for angiogram LLE in am Code(s): M86.9 - OSTEOMYELITIS, UNSPECIFIED (2) HTN (hypertension) Assessment/Plan: BP stable Pt is not on any antihypertensives Cont to monitor Code(s): I10 - ESSENTIAL (PRIMARY) HYPERTENSION (3) Diabetes Assessment/Plan: Cont novolog 70/30 and sliding scale/metformin Code(s): E11.9 - TYPE 2 DIABETES MELLITUS WITHOUT COMPLICATIONS
[2018-12-30] MEDS ORDERED: PIPERACILLIN/TAZOBACTAM 4.5 GM VIAL IVPB ONE ×3 (02:17→20:14)
[2018-12-30] MEDS ORDERED: DEXTROSE 5%-WATER 100 ML IVPB ONE ×3 (02:17→20:14)
[2018-12-30] MEDS: PIPERACILLIN/TAZOB 4.5 GM 4.5 GM in DEXTROSE 5%-WATER 100 ML IVPB SCH ×4 (02:33→20:18)
[2018-12-30] MEDS: metFORMIN HCL 500 MG TABLET (FP) PO SCH ×2 (06:00→16:11)
[2018-12-30] MEDS: INSULIN SLIDING SCALE (NOVOLOG) 1 VIAL SQ SCH ×4 (06:00→21:10)
[2018-12-30] MEDS: INSULIN (NOVOLOG MIX 70/30) 100 UNITS/ML MDV SQ SCH (06:00)
[2018-12-30 07:12] LABS: BASO % 0.8 % (0-2.0); EOS % 6.3 % (0-4.5); HEMATOCRIT 31.1 % (35.4-49); HEMOGLOBIN 10.9 GM/dL (11.7-16.9); LYMPH % 11.9 % (8-40); MCH 30.7 pg (25.7-33.7); MEAN CELL VOLUME 87.9 fl (80-96); MEAN PLT VOLUME 6.9 fl (7.5-11.1); MONO % 9.3 % (3.8-10.2); NEUT % 71.7 % (42.8-82.8); PLATELET COUNT 459 K/MM3 (134-434); RBC 3.54 M/mm3 (4.00-5.60); RDW 12.3 % (11.9-15.9); WHITE BLOOD COUNT 10.1 K/mm3 (4.0-10.0)
[2018-12-30 07:46] LABS: ALBUMIN 2.6 g/dl (3.4-5.0); BILIRUBIN,TOTAL 0.4 mg/dL (0.2-1); CALCIUM 8.3 mg/dL (8.5-10.1); CREATININE 1.3 mg/dL (0.55-1.3); POTASSIUM 4.4 mmol/L (3.5-5.1); TOT PROT 6.2 g/dl (6.4-8.2)
[2018-12-30] MEDS: ENOXAPARIN NA (PORCINE) 40 MG/0.4 ML DISP.SYRIN SQ SCH (09:14)
--- NOTE | 2018-12-30 15:34 | PN ---
Progress Note (short form) - Note Progress Note: s: no chest pain, palps, dyspnea Current Medications Acetaminophen (Tylenol -) 650 mg PO Q6H PRN PRN Reason: PAIN LEVEL 1 - 3/FEVER Last Admin: 12/27/18 11:27 Dose: 650 mg Enoxaparin Sodium (Lovenox -) 40 mg SQ DAILY [facility] Last Admin: 12/30/18 09:14 Dose: Not Given Piperacillin Sod/Tazobactam (Sod 4.5 gm/ Dextrose) 100 mls @ 200 mls/hr IVPB Q8H-IV [facility]; Protocol Last Admin: 12/30/18 09:14 Dose: 200 mls/hr Insulin Aspart (Novolog Mix 70/30 Vial) 18 units SQ DAILY@0700 [facility] Last Admin: 12/30/18 06:00 Dose: Not Given Insulin Aspart (Novolog Vial Sliding Scale -) 1 vial SQ ACHS [facility]; Protocol Last Admin: 12/30/18 11:12 Dose: Not Given Metformin HCl (Glucophage -) 1,000 mg PO BIDAC [facility] Last Admin: 12/30/18 06:00 Dose: Not Given Oxycodone HCl (Roxicodone -) 5 mg PO Q4H PRN PRN Reason: PAIN 4-5 Vital Signs Period Temp Pulse Resp BP Sys/Ham Pulse Ox Last 24 Hr 97.8 F-98.9 F 65-74 16-18 121-142/62-78 100-100 Constitutional: Yes: Well Nourished, No Distress, Calm Eyes: Yes: Conjunctiva Clear Neck: Yes: Supple, Trachea Midline Respiratory: Yes: Regular, CTA Bilaterally Gastrointestinal: Yes: Normal Bowel Sounds, Soft Cardiovascular: Yes: Regular Rate and Rhythm JVD: No Heart Sounds: Yes: S1, S2 Extremities: Yes: Other (L foot c bandages). No: Cold Edema: No Integumentary: No: Jaundice diaphoresis Neurological: Yes: Alert, Oriented Psychiatric: No: Agitated Assessment/Plan EKG: sinus, nl intervals, no ischemic changes echo 12/2018 nl LV function, tr to mild MR, E/A reversal osteomyelitis - s/p L 5th MT resection and wound debridement - manage per ID, podiatry, vascular - angiogram planned DM - manage per primary HTN - stable, not on meds, monitor
[2018-12-30] MEDS ORDERED: HEPARIN NA (PORCINE) 5,000 UNITS/ML 1ML VIAL ONE (16:41)
[2018-12-30] MEDS ORDERED: LIDOCAINE HCL 1%, 10 MG/ML (20ML VIAL) ONE (16:41)
[2018-12-30] MEDS ORDERED: ceFAZolin SODIUM 1 GM VIAL IVPB ONE (16:50)
[2018-12-30] MEDS ORDERED: LIDOCAINE HCL 1%, 10 MG/ML (50 mL VIAL) IJ ONE (17:04)
[2018-12-30] MEDS ORDERED: ONDANSETRON 4 MG/2 ML VIAL IVPUSH PRN ×2 (18:02→19:24)
[2018-12-30] MEDS ORDERED: LACTATED RINGERS SOLUTION 1,000 ML IV SCH (18:15)
--- NOTE | 2018-12-30 18:15 | OP ---
Operative Note - Note: Operative Date: 12/30/18 Pre-Operative Diagnosis: left fifth toe gangrene Operation: CO2 aortogram, LLE angiogram, Anterior tibial artery atherectomy with angioplasty Findings: stenosis of anterior tibial artery Post-Operative Diagnosis: Same as Pre-op Surgeon: Shiv Alvarez Anesthesia: Fractional Estimated Blood Loss (mls): 50 Operative Report Dictated: Yes
[2018-12-30] MEDS ORDERED: CLOPIDOGREL BISULFATE 75 MG TABLET (FP) ONE (18:54)
[2018-12-30] MEDS ORDERED: CLOPIDOGREL BISULFATE 75 MG TABLET (FP) PO ONE (19:00)
[2018-12-30] MEDS: CLOPIDOGREL BISULFATE 75 MG TABLET (FP) PO SCH (20:03)
[2018-12-30] MEDS: LACTATED RINGERS SOLUTION 1,000 ML IV SCH (20:18)
[2018-12-30] MEDS ORDERED: INSULIN (NOVOLOG) ASPART 100 UNITS/ML 10ML VIAL ONE (20:33)
--- NOTE | 2018-12-30 23:06 | PN ---
Progress Note, Physician History of Present Illness: No new complaints - Current Medication List Current Medications: Active Medications Acetaminophen (Tylenol -) 650 mg PO Q6H PRN PRN Reason: PAIN LEVEL 1 - 3/FEVER Clopidogrel Bisulfate (Plavix -) 75 mg PO DAILY [facility] Last Admin: 12/30/18 20:03 Dose: Not Given Enoxaparin Sodium (Lovenox -) 40 mg SQ DAILY [facility] Fentanyl (Sublimaze Injection -) 50 mcg IVPUSH [id number] PRN PRN Reason: PAIN-PACU ORDER X 4 DOSES ONLY Lactated Ringer's (Lactated Ringers Solution) 1,000 mls @ 75 mls/hr IV ASDIR [facility] Last Admin: 12/30/18 20:18 Dose: 75 mls/hr Piperacillin Sod/Tazobactam (Sod 4.5 gm/ Dextrose) 100 mls @ 200 mls/hr IVPB Q8H-IV [facility]; Protocol Last Admin: 12/30/18 20:18 Dose: 200 mls/hr Insulin Aspart (Novolog Mix 70/30 Vial) 18 units SQ DAILY@0700 [facility] Insulin Aspart (Novolog Vial Sliding Scale -) 1 vial SQ ACHS [facility]; Protocol Last Admin: 12/30/18 21:10 Dose: 2 units Metformin HCl (Glucophage -) 1,000 mg PO BIDAC [facility] Ondansetron HCl (Zofran Injection) 4 mg IVPUSH Q6H PRN PRN Reason: NAUSEA AND/OR VOMITING Oxycodone HCl (Roxicodone -) 5 mg PO Q4H PRN PRN Reason: PAIN 4-5 - Objective Vital Signs: Vital Signs Temperature 97.4 F L 12/30/18 19:55 Pulse Rate 64 12/30/18 19:55 Respiratory Rate 18 12/30/18 19:55 Blood Pressure 152/80 12/30/18 19:55 O2 Sat by Pulse Oximetry (%) 100 12/30/18 19:15 Neck: Yes: WNL, Supple Cardiovascular: Yes: WNL, Regular Rate and Rhythm Respiratory: Yes: WNL, Regular, CTA Bilaterally Gastrointestinal: Yes: WNL, Normal Bowel Sounds, Soft Extremities: Yes: Other (Lt wound in dressing) Labs: CBC, BMP 12/30/18 06:00 12/30/18 06:00 INR, PTT INR 1.00 (0.83-1.09) 12/21/18 17:00 Problem List - Problems (1) Osteomyelitis Assessment/Plan: S/P lt 5th metatarsalresection and debridement Cont IV zosyn Angiogram showed stenosis of lt ant tibial artery Cont wound care Code(s): M86.9 - OSTEOMYELITIS, UNSPECIFIED (2) HTN (hypertension) Assessment/Plan: BP stable Pt is not on any antihypertensives Cont to monitor Code(s): I10 - ESSENTIAL (PRIMARY) HYPERTENSION (3) Diabetes Assessment/Plan: Cont novolog 70/30 and sliding scale/metformin Code(s): E11.9 - TYPE 2 DIABETES MELLITUS WITHOUT COMPLICATIONS
[2018-12-31] MEDS ORDERED: PIPERACILLIN/TAZOB 4.5 GM 4.5 GM in DEXTROSE 5%-WATER 100 ML IVPB SCH (02:00)
[2018-12-31] MEDS ORDERED: PIPERACILLIN/TAZOBACTAM 4.5 GM VIAL IVPB ONE ×3 (02:27→16:46)
[2018-12-31] MEDS ORDERED: DEXTROSE 5%-WATER 100 ML IVPB ONE ×3 (02:27→16:46)
[2018-12-31] MEDS: PIPERACILLIN/TAZOB 4.5 GM 4.5 GM in DEXTROSE 5%-WATER 100 ML IVPB SCH ×3 (02:40→17:08)
[2018-12-31] MEDS: ACETAMINOPHEN 325 MG TABLET (FP) PO PRN ×3 (02:43→23:29)
[2018-12-31] MEDS: metFORMIN HCL 500 MG TABLET (FP) PO SCH ×2 (06:54→16:47)
[2018-12-31] MEDS: INSULIN SLIDING SCALE (NOVOLOG) 1 VIAL SQ SCH ×4 (06:55→21:33)
[2018-12-31] MEDS: INSULIN (NOVOLOG MIX 70/30) 100 UNITS/ML MDV SQ SCH (06:55)
[2018-12-31] MEDS ORDERED: INSULIN (NOVOLOG) ASPART 100 UNITS/ML 10ML VIAL ONE ×2 (07:01→10:53)
--- NOTE | 2018-12-31 07:55 | PN ---
Progress Note (short form) - Note Progress Note: POD #1 Alert. Resting comfortably without complaint. States his LLE feels a little better today compared to yesterday. Denies n/v/f/c, CP, SOB, JASMINE, numbness/tingling to LLE. Last Vital Signs Temp Pulse Resp BP Pulse Ox 97.5 F L 66 20 132/61 100 12/31/18 05:59 12/31/18 05:59 12/31/18 05:59 12/31/18 05:59 12/30/18 21:00 Gen: nad LE: Right groin stab incision c/d/i. LLE warm. Foot dressing c/d/i. Foot warm. Problem List - Problems (1) Osteomyelitis Assessment/Plan: POD #1 s/p CO2 LLE angio with angioplasty secondary to delayed healing and escar (poor wound healing s/p Left 5th toe amputation by Podiatry). Cont medical management No further Vascular intervention Patient to f/u with Podiatry for continued wound care Code(s): M86.9 - OSTEOMYELITIS, UNSPECIFIED (2) Wound cellulitis Code(s): L03.90 - CELLULITIS, UNSPECIFIED (3) Diabetes Code(s): E11.9 - TYPE 2 DIABETES MELLITUS WITHOUT COMPLICATIONS
[2018-12-31] MEDS: LACTATED RINGERS SOLUTION 1,000 ML IV SCH ×2 (08:01→21:35)
[2018-12-31] MEDS: ENOXAPARIN NA (PORCINE) 40 MG/0.4 ML DISP.SYRIN SQ SCH (09:12)
[2018-12-31] MEDS: CLOPIDOGREL BISULFATE 75 MG TABLET (FP) PO SCH (09:12)
[2018-12-31] MEDS ORDERED: DEXTROSE 50%-WATER - 25 GM/50 ML VIAL IVPUSH ONE (11:45)
[2018-12-31] MEDS ORDERED: DEXTROSE 50%-WATER 25 GM/50 ML DISP.SYRIN ONE (11:45)
[2018-12-31] MEDS ORDERED: DEXTROSE 50%-WATER 25 GM/50 ML DISP.SYRIN IVPUSH ONE (11:45)
--- NOTE | 2018-12-31 12:28 | PN ---
Progress Note (short form) - Note Progress Note: Anesthesia post op Pt seen and examined S:alert and awake comfortable O: Vital Signs Temperature 97.6 F 12/31/18 10:00 Pulse Rate 68 12/31/18 10:00 Respiratory Rate 20 12/31/18 10:00 Blood Pressure 138/68 12/31/18 10:00 O2 Sat by Pulse Oximetry (%) 100 12/31/18 09:00 CBC, BMP 12/30/18 06:00 12/30/18 06:00 A/P: Current Active Problems Gangrene (Acute) HTN (hypertension) (Acute) Osteomyelitis (Acute) Wound cellulitis (Acute) s/p Angiogram Doing well post op Continue current care Mamadou Mello MD
--- NOTE | 2018-12-31 15:51 | PN ---
Progress Note (short form) - Note Progress Note: s: no chest pain, palps, dyspnea Current Medications Generic Name Dose Route Start Last Admin Trade Name Freq PRN Reason Stop Dose Admin Acetaminophen 650 mg 12/30/18 19:24 12/31/18 02:43 Tylenol - PO 650 mg Q6H PRN Administration PAIN LEVEL 1 - 3/FEVER Clopidogrel Bisulfate 75 mg 12/30/18 18:30 12/31/18 09:12 Plavix - PO 75 mg DAILY [facility] Administration Enoxaparin Sodium 40 mg 12/31/18 10:00 12/31/18 09:12 Lovenox - SQ 40 mg DAILY [facility] Administration Fentanyl 50 mcg 12/30/18 19:24 Sublimaze Injection - IVPUSH [id number] PRN PAIN-PACU ORDER X 4 DOSES ONLY Lactated Ringer's 1,000 mls @ 75 mls/hr 12/30/18 19:24 12/31/18 08:01 Lactated Ringers Solution IV 75 mls/hr ASDIR [facility] Administration Piperacillin Sod/Tazobactam 100 mls @ 200 mls/hr 12/30/18 20:00 12/31/18 09: 12 Sod 4.5 gm/ Dextrose IVPB 200 mls/hr Q8H-IV [facility] Administration Protocol Insulin Aspart 18 units 12/31/18 07:00 12/31/18 06:55 Novolog Mix 70/30 Vial SQ 18 units DAILY@0700 [facility] Administration Insulin Aspart 1 vial 12/30/18 22:00 12/31/18 11:00 Novolog Vial Sliding Scale - SQ Not Given ACHS [facility] Protocol Metformin HCl 1,000 mg 12/31/18 07:00 12/31/18 06:54 Glucophage - PO 1,000 mg BIDAC [facility] Administration Ondansetron HCl 4 mg 12/30/18 19:24 Zofran Injection IVPUSH Q6H PRN NAUSEA AND/OR VOMITING Oxycodone HCl 5 mg 12/30/18 19:24 Roxicodone - PO Q4H PRN PAIN 4-5 Vital Signs Period Temp Pulse Resp BP Sys/Ham Pulse Ox Last 24 Hr 97.4 F-101.1 F 59-68 14-20 132-162/61-83 100-100 Constitutional: Yes: Well Nourished, No Distress, Calm Eyes: Yes: Conjunctiva Clear Neck: Yes: Supple, Trachea Midline Respiratory: Yes: Regular, CTA Bilaterally Gastrointestinal: Yes: Normal Bowel Sounds, Soft Cardiovascular: Yes: Regular Rate and Rhythm JVD: No Heart Sounds: Yes: S1, S2 Extremities: Yes: Other (L foot c bandages). No: Cold Edema: No Integumentary: No: Jaundice diaphoresis Neurological: Yes: Alert, Oriented Psychiatric: No: Agitated CBC, BMP 12/30/18 06:00 12/30/18 06:00 Assessment/Plan EKG: sinus, nl intervals, no ischemic changes echo 12/2018 nl LV function, tr to mild MR, E/A reversal osteomyelitis - s/p L 5th MT resection and wound debridement - s/p lle angioplasty - manage per ID, podiatry, vascular DM - manage per primary HTN - stable, not on meds, monitor
[2018-12-31] MEDS: oxyCODONE HCL 5 MG TABLET PO PRN (23:29)
--- NOTE | 2018-12-31 23:32 | PN ---
Progress Note, Physician - Current Medication List Current Medications: Active Medications Acetaminophen (Tylenol -) 650 mg PO Q6H PRN PRN Reason: PAIN LEVEL 1 - 3/FEVER Last Admin: 12/31/18 23:29 Dose: 650 mg Clopidogrel Bisulfate (Plavix -) 75 mg PO DAILY [facility] Last Admin: 12/31/18 09:12 Dose: 75 mg Enoxaparin Sodium (Lovenox -) 40 mg SQ DAILY [facility] Last Admin: 12/31/18 09:12 Dose: 40 mg Fentanyl (Sublimaze Injection -) 50 mcg IVPUSH [id number] PRN PRN Reason: PAIN-PACU ORDER X 4 DOSES ONLY Lactated Ringer's (Lactated Ringers Solution) 1,000 mls @ 75 mls/hr IV ASDIR [facility] Last Admin: 12/31/18 21:35 Dose: 75 mls/hr Piperacillin Sod/Tazobactam (Sod 4.5 gm/ Dextrose) 100 mls @ 200 mls/hr IVPB Q8H-IV [facility]; Protocol Last Admin: 12/31/18 17:08 Dose: 200 mls/hr Insulin Aspart (Novolog Mix 70/30 Vial) 18 units SQ DAILY@0700 [facility] Last Admin: 12/31/18 06:55 Dose: 18 units Insulin Aspart (Novolog Vial Sliding Scale -) 1 vial SQ ACHS [facility]; Protocol Last Admin: 12/31/18 21:33 Dose: Not Given Metformin HCl (Glucophage -) 1,000 mg PO BIDAC [facility] Last Admin: 12/31/18 16:47 Dose: 1,000 mg Ondansetron HCl (Zofran Injection) 4 mg IVPUSH Q6H PRN PRN Reason: NAUSEA AND/OR VOMITING Oxycodone HCl (Roxicodone -) 5 mg PO Q4H PRN PRN Reason: PAIN 4-5 Last Admin: 12/31/18 23:29 Dose: 5 mg - Objective Vital Signs: Vital Signs Temperature 98.7 F 12/31/18 22:00 Pulse Rate 63 12/31/18 22:00 Respiratory Rate 20 12/31/18 22:00 Blood Pressure 149/75 12/31/18 22:00 O2 Sat by Pulse Oximetry (%) 100 12/31/18 21:00 Labs: CBC, BMP 12/30/18 06:00 12/30/18 06:00 INR, PTT INR 1.00 (0.83-1.09) 12/21/18 17:00 Problem List - Problems (1) Osteomyelitis Code(s): M86.9 - OSTEOMYELITIS, UNSPECIFIED (2) HTN (hypertension) Code(s): I10 - ESSENTIAL (PRIMARY) HYPERTENSION (3) Diabetes Code(s): E11.9 - TYPE 2 DIABETES MELLITUS WITHOUT COMPLICATIONS
[2019-01-01] MEDS ORDERED: DEXTROSE 5%-WATER 100 ML IVPB ONE ×3 (00:52→16:35)
[2019-01-01] MEDS ORDERED: PIPERACILLIN/TAZOBACTAM 4.5 GM VIAL IVPB ONE ×3 (00:52→16:35)
[2019-01-01] MEDS: PIPERACILLIN/TAZOB 4.5 GM 4.5 GM in DEXTROSE 5%-WATER 100 ML IVPB SCH ×3 (01:04→17:28)
[2019-01-01] MEDS: INSULIN (NOVOLOG MIX 70/30) 100 UNITS/ML MDV SQ SCH (06:01)
[2019-01-01] MEDS: INSULIN SLIDING SCALE (NOVOLOG) 1 VIAL SQ SCH ×4 (06:01→21:49)
[2019-01-01] MEDS: metFORMIN HCL 500 MG TABLET (FP) PO SCH ×2 (06:01→17:26)
--- NOTE | 2019-01-01 07:49 | PN ---
Progress Note (short form) - Note Progress Note: Podiatry F/U: Seen/evaluated at bedside NAd. Pain is much better to left foot. Afebrile. S/ p L 5th metatarsal head resection and bone biopsy. S/p LLE revascularization with Dr. Alvarez. ABA: L foot: DP 2/4, PT nonpalpable, TG wnl. There is 5th ray incision site necrosis with dusky 5th digit, marginal improvement, CFT about 5 seconds to the digit. No purulence, no fluctuance, no streaking cellulitis, no signs of active infection. Mild tenderness to palpation. OR cx: mixed orgs Imp: 68 year old diabetic male s/p L 5th metatarsal head resection and bone biopsy 1. IV abx per ID 2. DSD L foot 3. Partial WB L heel with surgical shoe 4. Discussed case with Dr. Alvarez, hopefully now that he was revascularized there will be improvement in tissue necrosis. I discussed with patient that he still may need debridement and digit amputation in the future and he understands. 5. Will follow Val Nicolas DPM
[2019-01-01] MEDS: oxyCODONE HCL 5 MG TABLET PO PRN ×2 (10:21→21:46)
[2019-01-01] MEDS: CLOPIDOGREL BISULFATE 75 MG TABLET (FP) PO SCH (10:22)
[2019-01-01] MEDS: ENOXAPARIN NA (PORCINE) 40 MG/0.4 ML DISP.SYRIN SQ SCH (10:24)
[2019-01-01] MEDS: LACTATED RINGERS SOLUTION 1,000 ML IV SCH ×2 (11:00→21:48)
--- NOTE | 2019-01-01 11:28 | PN ---
Progress Note (short form) - Note Progress Note: s: no chest pain, palps, dyspnea Current Medications Generic Name Dose Route Start Last Admin Trade Name Freq PRN Reason Stop Dose Admin Acetaminophen 650 mg 12/30/18 19:24 12/31/18 23:29 Tylenol - PO 650 mg Q6H PRN Administration PAIN LEVEL 1 - 3/FEVER Clopidogrel Bisulfate 75 mg 12/30/18 18:30 01/01/19 10:22 Plavix - PO 75 mg DAILY [facility] Administration Enoxaparin Sodium 40 mg 12/31/18 10:00 01/01/19 10:24 Lovenox - SQ 40 mg DAILY [facility] Administration Fentanyl 50 mcg 12/30/18 19:24 Sublimaze Injection - IVPUSH [id number] PRN PAIN-PACU ORDER X 4 DOSES ONLY Lactated Ringer's 1,000 mls @ 75 mls/hr 12/30/18 19:24 12/31/18 21:35 Lactated Ringers Solution IV 75 mls/hr ASDIR [facility] Administration Piperacillin Sod/Tazobactam 100 mls @ 200 mls/hr 12/30/18 20:00 01/01/19 10: 27 Sod 4.5 gm/ Dextrose IVPB 200 mls/hr Q8H-IV [facility] Administration Protocol Insulin Aspart 18 units 12/31/18 07:00 01/01/19 06:01 Novolog Mix 70/30 Vial SQ 18 units DAILY@0700 [facility] Administration Insulin Aspart 1 vial 12/30/18 22:00 01/01/19 06:01 Novolog Vial Sliding Scale - SQ 2 units ACHS [facility] Administration Protocol Metformin HCl 1,000 mg 12/31/18 07:00 01/01/19 06:01 Glucophage - PO 1,000 mg BIDAC [facility] Administration Ondansetron HCl 4 mg 12/30/18 19:24 Zofran Injection IVPUSH Q6H PRN NAUSEA AND/OR VOMITING Oxycodone HCl 5 mg 12/30/18 19:24 01/01/19 10:21 Roxicodone - PO 5 mg Q4H PRN Administration PAIN 4-5 Vital Signs Period Temp Pulse Resp BP Sys/Ham Pulse Ox Last 24 Hr 97.5 F-98.7 F 58-65 20-20 113-154/75-83 100 Constitutional: Yes: Well Nourished, No Distress, Calm Eyes: Yes: Conjunctiva Clear Neck: Yes: Supple, Trachea Midline Respiratory: Yes: Regular, CTA Bilaterally Gastrointestinal: Yes: Normal Bowel Sounds, Soft Cardiovascular: Yes: Regular Rate and Rhythm JVD: No Heart Sounds: Yes: S1, S2 Extremities: Yes: Other (L foot c bandages). No: Cold Edema: No Integumentary: No: Jaundice diaphoresis Neurological: Yes: Alert, Oriented Psychiatric: No: Agitated CBC, BMP 12/30/18 06:00 12/30/18 06:00 Assessment/Plan EKG: sinus, nl intervals, no ischemic changes echo 12/2018 nl LV function, tr to mild MR, E/A reversal osteomyelitis - s/p L 5th MT resection and wound debridement - s/p lle angioplasty - manage per ID, podiatry, vascular DM - manage per primary HTN - stable off meds, monitor for now
--- NOTE | 2019-01-01 21:11 | PN ---
Progress Note, Physician - Current Medication List Current Medications: Active Medications Acetaminophen (Tylenol -) 650 mg PO Q6H PRN PRN Reason: PAIN LEVEL 1 - 3/FEVER Last Admin: 12/31/18 23:29 Dose: 650 mg Clopidogrel Bisulfate (Plavix -) 75 mg PO DAILY [facility] Last Admin: 01/01/19 10:22 Dose: 75 mg Enoxaparin Sodium (Lovenox -) 40 mg SQ DAILY [facility] Last Admin: 01/01/19 10:24 Dose: 40 mg Fentanyl (Sublimaze Injection -) 50 mcg IVPUSH [id number] PRN PRN Reason: PAIN-PACU ORDER X 4 DOSES ONLY Lactated Ringer's (Lactated Ringers Solution) 1,000 mls @ 75 mls/hr IV ASDIR [facility] Last Admin: 01/01/19 11:00 Dose: 75 mls/hr Piperacillin Sod/Tazobactam (Sod 4.5 gm/ Dextrose) 100 mls @ 200 mls/hr IVPB Q8H-IV [facility]; Protocol Last Admin: 01/01/19 17:28 Dose: 200 mls/hr Insulin Aspart (Novolog Mix 70/30 Vial) 18 units SQ DAILY@0700 [facility] Last Admin: 01/01/19 06:01 Dose: 18 units Insulin Aspart (Novolog Vial Sliding Scale -) 1 vial SQ ACHS [facility]; Protocol Last Admin: 01/01/19 17:26 Dose: 2 units Metformin HCl (Glucophage -) 1,000 mg PO BIDAC [facility] Last Admin: 01/01/19 17:26 Dose: 1,000 mg Ondansetron HCl (Zofran Injection) 4 mg IVPUSH Q6H PRN PRN Reason: NAUSEA AND/OR VOMITING Oxycodone HCl (Roxicodone -) 5 mg PO Q4H PRN PRN Reason: PAIN 4-5 Last Admin: 01/01/19 10:21 Dose: 5 mg - Objective Vital Signs: Vital Signs Temperature 98.4 F 01/01/19 18:00 Pulse Rate 68 01/01/19 18:00 Respiratory Rate 20 01/01/19 18:00 Blood Pressure 157/83 01/01/19 18:00 O2 Sat by Pulse Oximetry (%) 100 01/01/19 09:00 Labs: CBC, BMP 12/30/18 06:00 12/30/18 06:00 INR, PTT INR 1.00 (0.83-1.09) 12/21/18 17:00 Problem List - Problems (1) Osteomyelitis Code(s): M86.9 - OSTEOMYELITIS, UNSPECIFIED (2) HTN (hypertension) Code(s): I10 - ESSENTIAL (PRIMARY) HYPERTENSION (3) Diabetes Code(s): E11.9 - TYPE 2 DIABETES MELLITUS WITHOUT COMPLICATIONS
[2019-01-02] MEDS ORDERED: PIPERACILLIN/TAZOBACTAM 4.5 GM VIAL IVPB ONE ×3 (02:49→17:43)
[2019-01-02] MEDS ORDERED: DEXTROSE 5%-WATER 100 ML IVPB ONE ×3 (02:50→17:43)
[2019-01-02] MEDS: PIPERACILLIN/TAZOB 4.5 GM 4.5 GM in DEXTROSE 5%-WATER 100 ML IVPB SCH ×3 (02:53→17:51)
[2019-01-02] MEDS ORDERED: INSULIN (NOVOLOG MIX 70/30) 100 UNITS/ML MDV SQ ONE (05:46)
[2019-01-02] MEDS: INSULIN (NOVOLOG MIX 70/30) 100 UNITS/ML MDV SQ SCH (06:08)
[2019-01-02] MEDS: metFORMIN HCL 500 MG TABLET (FP) PO SCH ×2 (06:08→17:51)
[2019-01-02] MEDS: INSULIN SLIDING SCALE (NOVOLOG) 1 VIAL SQ SCH ×4 (06:09→21:04)
[2019-01-02] MEDS ORDERED: PT OWN MED DRAWER 7, Y5N ONE (06:41)
[2019-01-02] MEDS: CLOPIDOGREL BISULFATE 75 MG TABLET (FP) PO SCH (11:34)
[2019-01-02] MEDS: ENOXAPARIN NA (PORCINE) 40 MG/0.4 ML DISP.SYRIN SQ SCH ×2 (11:34→12:22)
--- NOTE | 2019-01-02 23:14 | PN ---
Progress Note, Physician History of Present Illness: No new complaints - Current Medication List Current Medications: Active Medications Acetaminophen (Tylenol -) 650 mg PO Q6H PRN PRN Reason: PAIN LEVEL 1 - 3/FEVER Last Admin: 12/31/18 23:29 Dose: 650 mg Clopidogrel Bisulfate (Plavix -) 75 mg PO DAILY [facility] Last Admin: 01/02/19 11:34 Dose: 75 mg Enoxaparin Sodium (Lovenox -) 40 mg SQ DAILY [facility] Last Admin: 01/02/19 12:22 Dose: 40 mg Fentanyl (Sublimaze Injection -) 50 mcg IVPUSH [id number] PRN PRN Reason: PAIN-PACU ORDER X 4 DOSES ONLY Piperacillin Sod/Tazobactam (Sod 4.5 gm/ Dextrose) 100 mls @ 200 mls/hr IVPB Q8H-IV [facility]; Protocol Last Admin: 01/02/19 17:51 Dose: 200 mls/hr Insulin Aspart (Novolog Mix 70/30 Vial) 18 units SQ DAILY@0700 [facility] Last Admin: 01/02/19 06:08 Dose: 18 units Insulin Aspart (Novolog Vial Sliding Scale -) 1 vial SQ ACHS [facility]; Protocol Last Admin: 01/02/19 21:04 Dose: Not Given Metformin HCl (Glucophage -) 1,000 mg PO BIDAC [facility] Last Admin: 01/02/19 17:51 Dose: 1,000 mg Ondansetron HCl (Zofran Injection) 4 mg IVPUSH Q6H PRN PRN Reason: NAUSEA AND/OR VOMITING - Objective Vital Signs: Vital Signs Temperature 98.3 F 01/02/19 18:00 Pulse Rate 66 01/02/19 18:00 Respiratory Rate 20 01/02/19 18:00 Blood Pressure 150/80 01/02/19 18:00 O2 Sat by Pulse Oximetry (%) 98 01/02/19 09:00 Neck: Yes: WNL, Supple Cardiovascular: Yes: WNL, Regular Rate and Rhythm Respiratory: Yes: WNL, Regular, CTA Bilaterally Gastrointestinal: Yes: WNL, Normal Bowel Sounds, Soft Extremities: Yes: Other (Lt foot in dressing) Labs: CBC, BMP 12/30/18 06:00 12/30/18 06:00 INR, PTT INR 1.00 (0.83-1.09) 12/21/18 17:00 Problem List - Problems (1) Osteomyelitis Assessment/Plan: S/P lt 5th metatarsal resection and debridement. Angiogram showed stenosis of lt ant tibial artery S/P revascularization of LLE tibial artery artherectomy w/ angioplasty Cont IV zosyn Will reconsult ID Cound wound care Code(s): M86.9 - OSTEOMYELITIS, UNSPECIFIED (2) PAD (peripheral artery disease) Assessment/Plan: Angiogram showed stenosis of lt ant tibial artery S/P revascularization of LLE tibial artery artherectomy w/ angioplasty Cont plavix Code(s): I73.9 - PERIPHERAL VASCULAR DISEASE, UNSPECIFIED (3) HTN (hypertension) Assessment/Plan: BP slightly increasing Pt is not on any antihypertensives Cont to monitor Code(s): I10 - ESSENTIAL (PRIMARY) HYPERTENSION (4) Diabetes Assessment/Plan: Cont novolog 70/30 and sliding scale/metformin Code(s): E11.9 - TYPE 2 DIABETES MELLITUS WITHOUT COMPLICATIONS
[2019-01-03] MEDS ORDERED: DEXTROSE 5%-WATER 100 ML IVPB ONE ×3 (01:08→16:25)
[2019-01-03] MEDS ORDERED: PIPERACILLIN/TAZOBACTAM 4.5 GM VIAL IVPB ONE ×3 (01:08→16:24)
[2019-01-03] MEDS: PIPERACILLIN/TAZOB 4.5 GM 4.5 GM in DEXTROSE 5%-WATER 100 ML IVPB SCH ×3 (01:19→17:00)
[2019-01-03] MEDS: INSULIN SLIDING SCALE (NOVOLOG) 1 VIAL SQ SCH ×4 (06:06→21:47)
[2019-01-03] MEDS: metFORMIN HCL 500 MG TABLET (FP) PO SCH ×2 (06:44→16:59)
[2019-01-03] MEDS: INSULIN (NOVOLOG MIX 70/30) 100 UNITS/ML MDV SQ SCH (06:45)
[2019-01-03 07:10] LABS: BASO % 0.7 % (0-2.0); HEMATOCRIT 31.3 % (35.4-49); HEMOGLOBIN 10.8 GM/dL (11.7-16.9); LYMPH % 11.9 % (8-40); MCH 30.2 pg (25.7-33.7); MCHC 34.6 g/dl (32.0-35.9); MEAN CELL VOLUME 87.4 fl (80-96); MEAN PLT VOLUME 6.5 fl (7.5-11.1); MONO % 7.2 % (3.8-10.2); NEUT % 74.2 % (42.8-82.8); PLATELET COUNT 570 K/MM3 (134-434); RBC 3.59 M/mm3 (4.00-5.60); RDW 12.1 % (11.9-15.9); WHITE BLOOD COUNT 9.7 K/mm3 (4.0-10.0)
[2019-01-03 07:36] LABS: ALBUMIN 2.6 g/dl (3.4-5.0); BILIRUBIN,TOTAL 0.5 mg/dL (0.2-1); CALCIUM 8.9 mg/dL (8.5-10.1); CREATININE 1.4 mg/dL (0.55-1.3); POTASSIUM 4.1 mmol/L (3.5-5.1); TOT PROT 6.3 g/dl (6.4-8.2)
[2019-01-03] MEDS: CLOPIDOGREL BISULFATE 75 MG TABLET (FP) PO SCH (09:34)
[2019-01-03] MEDS: ENOXAPARIN NA (PORCINE) 40 MG/0.4 ML DISP.SYRIN SQ SCH (09:34)
--- NOTE | 2019-01-03 11:46 | PN ---
Progress Note, Physician Chief Complaint: foot ischemia History of Present Illness: no foot pain denies cp, sob, palpit, syncope - Current Medication List Current Medications: Active Medications Acetaminophen (Tylenol -) 650 mg PO Q6H PRN PRN Reason: PAIN LEVEL 1 - 3/FEVER Last Admin: 12/31/18 23:29 Dose: 650 mg Clopidogrel Bisulfate (Plavix -) 75 mg PO DAILY [facility] Last Admin: 01/03/19 09:34 Dose: 75 mg Enoxaparin Sodium (Lovenox -) 40 mg SQ DAILY [facility] Last Admin: 01/03/19 09:34 Dose: 40 mg Piperacillin Sod/Tazobactam (Sod 4.5 gm/ Dextrose) 100 mls @ 200 mls/hr IVPB Q8H-IV [facility]; Protocol Last Admin: 01/03/19 09:35 Dose: 200 mls/hr Insulin Aspart (Novolog Mix 70/30 Vial) 18 units SQ DAILY@0700 [facility] Last Admin: 01/03/19 06:45 Dose: Not Given Insulin Aspart (Novolog Vial Sliding Scale -) 1 vial SQ ACHS [facility]; Protocol Last Admin: 01/03/19 11:27 Dose: Not Given Metformin HCl (Glucophage -) 1,000 mg PO BIDAC [facility] Last Admin: 01/03/19 06:44 Dose: 1,000 mg Ondansetron HCl (Zofran Injection) 4 mg IVPUSH Q6H PRN PRN Reason: NAUSEA AND/OR VOMITING - Objective Vital Signs: Vital Signs Temperature 98.7 F 01/03/19 10:00 Pulse Rate 72 01/03/19 10:00 Respiratory Rate 18 01/03/19 10:00 Blood Pressure 140/74 01/03/19 10:00 O2 Sat by Pulse Oximetry (%) 99 01/03/19 09:00 Constitutional: Yes: Well Nourished, No Distress, Calm Cardiovascular: Yes: Regular Rate and Rhythm, S1, S2. No: Gallop, Murmur Respiratory: Yes: Regular, CTA Bilaterally. No: Accessory Muscle Use, Rales, Wheezes Extremities: No: Cold Edema: No (L foot wrapped) Neurological: Yes: Alert. No: Seizure Psychiatric: No: Agitated Labs: CBC, BMP 01/03/19 06:30 01/03/19 06:30 INR, PTT INR 1.00 (0.83-1.09) 12/21/18 17:00 Assessment/Plan EKG: sinus, nl intervals, no ischemic changes echo 12/2018 nl LV function, tr to mild MR, E/A reversal osteomyelitis, LLE PAD - s/p L 5th MT resection and wound debridement - s/p LLE angioplasty - wound management per ID, podiatry, vascular - CV meds: continue clopidogrel. start statin (atorva 40 high intensity--check lipid panel AM, adjust dose accordingly). start [place] (for BP as well)--lisin 10 DM - manage per primary HTN - BPs above target - PAD pt--start lisinopril 10 qd
[2019-01-03] MEDS: LISINOPRIL 10 MG TABLET (FP) PO SCH (13:04)
--- NOTE | 2019-01-03 13:20 | PN ---
Progress Note (short form) - Note Progress Note: 68 y/o male s/p left foot 5th MT head resection with now worsening necrosis of incision site and duskiness of 5th digit. States he feels better after angio. Denies any other complaints. Wants to know if he will be able to keep digit. O: Left incisiion site intact with complete lateral necrosis of where ulceration site had been, 5th digit continued duskiness noted, no pain on palpation, no maloro, no purulence, no erythema noted. A: s/p 5th MT head resectin P: discussed w/ patient via cryacom will likely require further debridement/5th digit/ray amputation Will discuss with vascular and my partner for timing, tomorrow/thursday possibilities. Will f/u.
[2019-01-03] MEDS ORDERED: INSULIN (NOVOLOG) ASPART 100 UNITS/ML 10ML VIAL ONE ×2 (20:37→21:27)
[2019-01-03] MEDS ORDERED: PT OWN MED DRAWER 7, Y5N ONE (20:38)
[2019-01-03] MEDS: ATORVASTATIN CA 40 MG TABLET (FP) PO SCH (21:47)
--- NOTE | 2019-01-03 22:56 | PN ---
Progress Note, Physician - Current Medication List Current Medications: Active Medications Acetaminophen (Tylenol -) 650 mg PO Q6H PRN PRN Reason: PAIN LEVEL 1 - 3/FEVER Last Admin: 12/31/18 23:29 Dose: 650 mg Atorvastatin Calcium (Lipitor -) 40 mg PO HS [facility] Last Admin: 01/03/19 21:47 Dose: 40 mg Clopidogrel Bisulfate (Plavix -) 75 mg PO DAILY [facility] Last Admin: 01/03/19 09:34 Dose: 75 mg Enoxaparin Sodium (Lovenox -) 40 mg SQ DAILY [facility] Last Admin: 01/03/19 09:34 Dose: 40 mg Piperacillin Sod/Tazobactam (Sod 4.5 gm/ Dextrose) 100 mls @ 200 mls/hr IVPB Q8H-IV [facility]; Protocol Last Admin: 01/03/19 17:00 Dose: 200 mls/hr Insulin Aspart (Novolog Vial Sliding Scale -) 1 vial SQ ACHS [facility]; Protocol Last Admin: 01/03/19 21:47 Dose: Not Given Lisinopril (Prinivil) 10 mg PO DAILY [facility] Last Admin: 01/03/19 13:04 Dose: 10 mg Metformin HCl (Glucophage -) 1,000 mg PO BIDAC [facility] Last Admin: 01/03/19 16:59 Dose: 1,000 mg Ondansetron HCl (Zofran Injection) 4 mg IVPUSH Q6H PRN PRN Reason: NAUSEA AND/OR VOMITING - Objective Vital Signs: Vital Signs Temperature 98.3 F 01/03/19 22:00 Pulse Rate 74 01/03/19 22:00 Respiratory Rate 17 01/03/19 22:00 Blood Pressure 132/71 01/03/19 22:00 O2 Sat by Pulse Oximetry (%) 99 01/03/19 09:00 Labs: CBC, BMP 01/03/19 06:30 01/03/19 06:30 INR, PTT INR 1.00 (0.83-1.09) 12/21/18 17:00 Problem List - Problems (1) Osteomyelitis Code(s): M86.9 - OSTEOMYELITIS, UNSPECIFIED (2) PAD (peripheral artery disease) Code(s): I73.9 - PERIPHERAL VASCULAR DISEASE, UNSPECIFIED (3) HTN (hypertension) Code(s): I10 - ESSENTIAL (PRIMARY) HYPERTENSION (4) Diabetes Code(s): E11.9 - TYPE 2 DIABETES MELLITUS WITHOUT COMPLICATIONS
[2019-01-04] MEDS ORDERED: PIPERACILLIN/TAZOBACTAM 4.5 GM VIAL IVPB ONE ×3 (01:15→15:03)
[2019-01-04] MEDS ORDERED: DEXTROSE 5%-WATER 100 ML IVPB ONE ×3 (01:15→15:03)
[2019-01-04] MEDS: PIPERACILLIN/TAZOB 4.5 GM 4.5 GM in DEXTROSE 5%-WATER 100 ML IVPB SCH ×3 (01:28→17:13)
[2019-01-04] MEDS: INSULIN SLIDING SCALE (NOVOLOG) 1 VIAL SQ SCH ×4 (06:32→21:57)
[2019-01-04] MEDS: metFORMIN HCL 500 MG TABLET (FP) PO SCH ×2 (06:34→16:31)
[2019-01-04] MEDS ORDERED: INSULIN (LEVEMIR) 100 UNITS/ML UNITS SQ ONE (06:49)
[2019-01-04 07:32] LABS: CHOLESTEROL 155 mg/dL (50-200); HDL CHOLESTEROL 24 mg/dL (40-60); TRIGLYCERIDES 332 mg/dL (0-150)
[2019-01-04] MEDS: LISINOPRIL 10 MG TABLET (FP) PO SCH (09:23)
--- NOTE | 2019-01-04 10:29 | PN ---
Progress Note, Physician Chief Complaint: Foot ulcer - Current Medication List Current Medications: Active Medications Acetaminophen (Tylenol -) 650 mg PO Q6H PRN PRN Reason: PAIN LEVEL 1 - 3/FEVER Last Admin: 12/31/18 23:29 Dose: 650 mg Atorvastatin Calcium (Lipitor -) 40 mg PO HS [facility] Last Admin: 01/03/19 21:47 Dose: 40 mg Clopidogrel Bisulfate (Plavix -) 75 mg PO DAILY [facility] Last Admin: 01/03/19 09:34 Dose: 75 mg Enoxaparin Sodium (Lovenox -) 40 mg SQ DAILY [facility] Last Admin: 01/03/19 09:34 Dose: 40 mg Piperacillin Sod/Tazobactam (Sod 4.5 gm/ Dextrose) 100 mls @ 200 mls/hr IVPB Q8H-IV [facility]; Protocol Last Admin: 01/04/19 09:23 Dose: 200 mls/hr Insulin Aspart (Novolog Vial Sliding Scale -) 1 vial SQ ACHS [facility]; Protocol Last Admin: 01/04/19 06:32 Dose: 6 units Lisinopril (Prinivil) 10 mg PO DAILY [facility] Last Admin: 01/04/19 09:23 Dose: 10 mg Metformin HCl (Glucophage -) 1,000 mg PO BIDAC [facility] [place] Last Admin: 01/04/19 06:34 Dose: 1,000 mg Ondansetron HCl (Zofran Injection) 4 mg IVPUSH Q6H PRN PRN Reason: NAUSEA AND/OR VOMITING - Objective Vital Signs: Vital Signs Temperature 97.7 F 01/04/19 08:18 Pulse Rate 69 01/04/19 08:18 Respiratory Rate 18 01/04/19 08:18 Blood Pressure 116/60 01/04/19 08:18 O2 Sat by Pulse Oximetry (%) 98 01/03/19 21:00 Constitutional: Yes: Calm Cardiovascular: Yes: Regular Rate and Rhythm Respiratory: Yes: CTA Bilaterally Gastrointestinal: Yes: Normal Bowel Sounds Extremities: Yes: Other ((L) 5th toe is discolored) Labs: CBC, BMP 01/03/19 06:30 01/03/19 06:30 INR, PTT INR 1.00 (0.83-1.09) 12/21/18 17:00 Problem List - Problems (1) Osteomyelitis Code(s): M86.9 - OSTEOMYELITIS, UNSPECIFIED (2) Wound cellulitis Code(s): L03.90 - CELLULITIS, UNSPECIFIED Assessment/Plan Pt with DM foot infection (L) 5th toe ulcer Underlying OM Would continue Zosyn Needs amputation
[2019-01-04] MEDS: CLOPIDOGREL BISULFATE 75 MG TABLET (FP) PO SCH (11:25)
[2019-01-04] MEDS: ENOXAPARIN NA (PORCINE) 40 MG/0.4 ML DISP.SYRIN SQ SCH (11:25)
--- NOTE | 2019-01-04 15:15 | PN ---
Progress Note (short form) - Note Progress Note: s: no chest pain, palps, dyspnea Current Medications Generic Name Dose Route Start Last Admin Trade Name Freq PRN Reason Stop Dose Admin Acetaminophen 650 mg 12/30/18 19:24 12/31/18 23:29 Tylenol - PO 650 mg Q6H PRN Administration PAIN LEVEL 1 - 3/FEVER Atorvastatin Calcium 40 mg 01/03/19 22:00 01/03/19 21:47 Lipitor - PO 40 mg HS [facility] Administration Clopidogrel Bisulfate 75 mg 12/30/18 18:30 01/04/19 11:25 Plavix - PO 75 mg DAILY [facility] Administration Enoxaparin Sodium 40 mg 12/31/18 10:00 01/04/19 11:25 Lovenox - SQ 40 mg DAILY [facility] Administration Piperacillin Sod/Tazobactam 100 mls @ 200 mls/hr 12/30/18 20:00 01/04/19 09: 23 Sod 4.5 gm/ Dextrose IVPB 200 mls/hr Q8H-IV [facility] Administration Protocol Insulin Aspart 1 vial 12/30/18 22:00 01/04/19 11:25 Novolog Vial Sliding Scale - SQ Not Given ACHS [facility] Protocol Lisinopril 10 mg 01/03/19 12:00 01/04/19 09:23 Prinivil PO 10 mg DAILY [facility] Administration Metformin HCl 1,000 mg 12/31/18 07:00 01/04/19 06:34 Glucophage - PO 1,000 mg BIDAC [facility] Administration Ondansetron HCl 4 mg 12/30/18 19:24 Zofran Injection IVPUSH Q6H PRN NAUSEA AND/OR VOMITING Vital Signs Period Temp Pulse Resp BP Sys/Ham Pulse Ox Last 24 Hr 97.5 F-98.5 F 65-85 17-20 106-135/53-71 97-98 Constitutional: Yes: Well Nourished, No Distress, Calm Eyes: Yes: Conjunctiva Clear Neck: Yes: Supple, Trachea Midline Respiratory: Yes: Regular, CTA Bilaterally Gastrointestinal: Yes: Normal Bowel Sounds, Soft Cardiovascular: Yes: Regular Rate and Rhythm JVD: No Heart Sounds: Yes: S1, S2 Extremities: Yes: Other (L foot c bandages). No: Cold Edema: No Integumentary: No: Jaundice diaphoresis Neurological: Yes: Alert, Oriented Psychiatric: No: Agitated CBC, BMP 01/03/19 06:30 01/03/19 06:30 Assessment/Plan EKG: sinus, nl intervals, no ischemic changes echo 12/2018 nl LV function, tr to mild MR, E/A reversal osteomyelitis, LLE PAD - s/p L 5th MT resection and wound debridement - s/p LLE angioplasty - wound management per ID, podiatry, vascular - CV meds: continue clopidogrel, statin, manfred. DM - manage per primary HTN - cont manfred-i
--- NOTE | 2019-01-04 17:05 | PN ---
Progress Note (short form) - Note Progress Note: Podiatry F/U: Seen/evaluated at bedside NAD. Pain to L foot marginally improved. Denies F/V/ N/C/SOB/CP. Afebrile. S/p L fifth metatarsal head resection and bone biopsy. S/p LLE revascularization with Dr. Alvarez. ABA: L foot: there is surgical site necrosis along the fifth ray with necrotic lateral 5th MTPJ diabetic ulcer, there is persistent duskiness to the fifth digit. There is moderate tenderness elicited on palpation. There is no purulence, no fluctuance, no streaking cellulitis, no signs of infection. OR Cx: mixed orgs Imp: 68 year old diabetic male with necrosis fifth ray and duskiness fifth digit 1. Abx per ID 2. Plan for fifth digit amputation, fifth ray debridement in OR tomorrow 3. NPO after midnight 4. Will follow Val Nicolas DPM
--- NOTE | 2019-01-04 21:38 | PN ---
Progress Note, Physician History of Present Illness: No new complaints - Current Medication List Current Medications: Active Medications Acetaminophen (Tylenol -) 650 mg PO Q6H PRN PRN Reason: PAIN LEVEL 1 - 3/FEVER Last Admin: 12/31/18 23:29 Dose: 650 mg Atorvastatin Calcium (Lipitor -) 40 mg PO HS [facility] Last Admin: 01/03/19 21:47 Dose: 40 mg Clopidogrel Bisulfate (Plavix -) 75 mg PO DAILY [facility] Last Admin: 01/04/19 11:25 Dose: 75 mg Enoxaparin Sodium (Lovenox -) 40 mg SQ DAILY [facility] Last Admin: 01/04/19 11:25 Dose: 40 mg Piperacillin Sod/Tazobactam (Sod 4.5 gm/ Dextrose) 100 mls @ 200 mls/hr IVPB Q8H-IV [facility]; Protocol Last Admin: 01/04/19 17:13 Dose: 200 mls/hr Insulin Aspart (Novolog Vial Sliding Scale -) 1 vial SQ ACHS [facility]; Protocol Last Admin: 01/04/19 16:31 Dose: Not Given Lisinopril (Prinivil) 10 mg PO DAILY [facility] Last Admin: 01/04/19 09:23 Dose: 10 mg Metformin HCl (Glucophage -) 1,000 mg PO BIDAC [facility] Last Admin: 01/04/19 16:31 Dose: 1,000 mg Ondansetron HCl (Zofran Injection) 4 mg IVPUSH Q6H PRN PRN Reason: NAUSEA AND/OR VOMITING - Objective Vital Signs: Vital Signs Temperature 97.5 F L 01/04/19 17:19 Pulse Rate 69 01/04/19 17:19 Respiratory Rate 18 01/04/19 17:19 Blood Pressure 146/79 01/04/19 17:19 O2 Sat by Pulse Oximetry (%) 97 01/04/19 09:00 Cardiovascular: Yes: WNL, Regular Rate and Rhythm Respiratory: Yes: WNL, Regular, CTA Bilaterally Gastrointestinal: Yes: WNL, Normal Bowel Sounds, Soft Extremities: Yes: Other (Lt foot w/ dressing) Labs: CBC, BMP 01/03/19 06:30 01/03/19 06:30 INR, PTT INR 1.00 (0.83-1.09) 12/21/18 17:00 Problem List - Problems (1) Osteomyelitis Assessment/Plan: Pt scheduled for 5th toe amputation in am S/P lt 5th metatarsal resection and debridement. Angiogram showed stenosis of lt ant tibial artery S/P revascularization of LLE tibial artery artherectomy w/ angioplasty Cont IV zosyn Cound wound care Code(s): M86.9 - OSTEOMYELITIS, UNSPECIFIED (2) PAD (peripheral artery disease) Assessment/Plan: Angiogram showed stenosis of lt ant tibial artery S/P revascularization of LLE tibial artery artherectomy w/ angioplasty Cont plavix Code(s): I73.9 - PERIPHERAL VASCULAR DISEASE, UNSPECIFIED (3) HTN (hypertension) Assessment/Plan: BP slightly increasing Pt is not on any antihypertensives Cont to monitor Code(s): I10 - ESSENTIAL (PRIMARY) HYPERTENSION (4) Diabetes Assessment/Plan: Cont sliding scale/metformin Novolog 70/30 was dc'ed due to hypoglycemia Code(s): E11.9 - TYPE 2 DIABETES MELLITUS WITHOUT COMPLICATIONS
[2019-01-04] MEDS: ATORVASTATIN CA 40 MG TABLET (FP) PO SCH (21:57)
[2019-01-05] MEDS ORDERED: DEXTROSE 5%-WATER 100 ML IVPB ONE ×3 (00:59→16:25)
[2019-01-05] MEDS ORDERED: PIPERACILLIN/TAZOBACTAM 4.5 GM VIAL IVPB ONE ×3 (00:59→16:25)
[2019-01-05] MEDS: PIPERACILLIN/TAZOB 4.5 GM 4.5 GM in DEXTROSE 5%-WATER 100 ML IVPB SCH ×3 (02:10→18:01)
[2019-01-05] MEDS: INSULIN SLIDING SCALE (NOVOLOG) 1 VIAL SQ SCH ×4 (06:20→22:01)
[2019-01-05] MEDS: metFORMIN HCL 500 MG TABLET (FP) PO SCH ×2 (06:20→16:30)
[2019-01-05] MEDS ORDERED: INSULIN (NOVOLOG) ASPART 100 UNITS/ML 10ML VIAL ONE (06:39)
[2019-01-05] MEDS: LISINOPRIL 10 MG TABLET (FP) PO SCH (09:30)
[2019-01-05] MEDS: CLOPIDOGREL BISULFATE 75 MG TABLET (FP) PO SCH (09:31)
[2019-01-05] MEDS ORDERED: BUPIVACAINE HCL/PF 0.5% (5MG/ML) 10 ML VIAL ONE (11:16)
[2019-01-05] MEDS ORDERED: LIDOCAINE HCL 2% (50ML VIAL) NR ONE (14:00)
--- NOTE | 2019-01-05 14:32 | OP ---
Operative Note - Note: Operative Date: 01/05/19 Pre-Operative Diagnosis: Left foot gangrene 5th digit Operation: left 5th ray amputation Findings: see dictation Post-Operative Diagnosis: Same as Pre-op Surgeon: Parmjit Lange Specimens Removed: bone Estimated Blood Loss (mls): 15 Instrument used (Debridements only): 15 blade Operative Report Dictated: No
[2019-01-05] MEDS ORDERED: LACTATED RINGERS SOLUTION 1,000 ML IV SCH (15:00)
--- NOTE | 2019-01-05 15:04 | PN ---
Progress Note, Physician Chief Complaint: seen and examined Denies CP or SOB - Current Medication List Current Medications: Active Medications Acetaminophen (Tylenol -) 650 mg PO Q6H PRN PRN Reason: PAIN LEVEL 1 - 3/FEVER Last Admin: 12/31/18 23:29 Dose: 650 mg Atorvastatin Calcium (Lipitor -) 40 mg PO HS [facility] Last Admin: 01/04/19 21:57 Dose: 40 mg Clopidogrel Bisulfate (Plavix -) 75 mg PO DAILY [facility] Last Admin: 01/05/19 09:31 Dose: Not Given Enoxaparin Sodium (Lovenox -) 40 mg SQ DAILY [facility] Last Admin: 01/04/19 11:25 Dose: 40 mg Fentanyl (Sublimaze Injection -) 50 mcg IVPUSH [id number] PRN PRN Reason: PAIN-PACU ORDER X 4 DOSES ONLY Piperacillin Sod/Tazobactam (Sod 4.5 gm/ Dextrose) 100 mls @ 200 mls/hr IVPB Q8H-IV [facility]; Protocol Last Admin: 01/05/19 09:31 Dose: 200 mls/hr Lactated Ringer's (Lactated Ringers Solution) 1,000 mls @ 125 mls/hr IV ASDIR [facility] Insulin Aspart (Novolog Vial Sliding Scale -) 1 vial SQ ACHS [facility]; Protocol Last Admin: 01/05/19 12:26 Dose: Not Given Lisinopril (Prinivil) 10 mg PO DAILY [facility] Last Admin: 01/05/19 09:30 Dose: 10 mg Metformin HCl (Glucophage -) 1,000 mg PO BIDAC [facility] Last Admin: 01/05/19 06:20 Dose: Not Given Ondansetron HCl (Zofran Injection) 4 mg IVPUSH Q6H PRN PRN Reason: NAUSEA AND/OR VOMITING Oxycodone HCl (Roxicodone -) 5 mg PO Q4H PRN PRN Reason: PAIN LEVEL 1-5 - Objective Vital Signs: Vital Signs Temperature 97.8 F 01/05/19 14:23 Pulse Rate 65 01/05/19 14:23 Respiratory Rate 20 01/05/19 14:23 Blood Pressure 135/77 01/05/19 14:23 O2 Sat by Pulse Oximetry (%) 100 01/05/19 09:00 Constitutional: Yes: No Distress Cardiovascular: Yes: Regular Rate and Rhythm Respiratory: Yes: CTA Bilaterally Gastrointestinal: Yes: Soft Edema: No Neurological: Yes: Alert, Oriented ...Motor Strength: WNL Labs: CBC, BMP 01/03/19 06:30 01/03/19 06:30 INR, PTT INR 1.00 (0.83-1.09) 12/21/18 17:00 Assessment/Plan Assessment/Plan EKG: sinus, nl intervals, no ischemic changes Echo 12/2018 nl LV function, tr to mild MR, E/A reversal 1. Osteomyelitis, LLE PAD: - s/p L 5th MT resection and wound debridement - s/p LLE angioplasty - wound management per ID, podiatry, vascular - CV meds: continue clopidogrel, statin, manfred. 2. DM: - manage per primary 3 HTN: - cont manfred-i
[2019-01-05] MEDS: oxyCODONE HCL 5 MG TABLET PO PRN ×2 (15:19→21:58)
[2019-01-05] MEDS ORDERED: ACETAMINOPHEN 325 MG TABLET (FP) PO PRN (19:03)
[2019-01-05] MEDS ORDERED: ONDANSETRON 4 MG/2 ML VIAL IVPUSH PRN (19:03)
[2019-01-05] MEDS ORDERED: DEXTROSE 50%-WATER - 25 GM/50 ML VIAL IVPUSH ONE (19:03)
[2019-01-05] MEDS: ATORVASTATIN CA 40 MG TABLET (FP) PO SCH (21:59)
[2019-01-05] MEDS: LACTATED RINGERS SOLUTION 1,000 ML IV SCH (22:02)
--- NOTE | 2019-01-05 22:03 | PN ---
Progress Note, Physician - Current Medication List Current Medications: Active Medications Acetaminophen (Tylenol -) 650 mg PO Q6H PRN PRN Reason: PAIN LEVEL 1 - 3/FEVER Atorvastatin Calcium (Lipitor -) 40 mg PO HS [facility] Last Admin: 01/05/19 21:59 Dose: 40 mg Clopidogrel Bisulfate (Plavix -) 75 mg PO DAILY [facility] Enoxaparin Sodium (Lovenox -) 40 mg SQ DAILY [facility] Fentanyl (Sublimaze Injection -) 50 mcg IVPUSH [id number] PRN PRN Reason: PAIN-PACU ORDER X 4 DOSES ONLY Lactated Ringer's (Lactated Ringers Solution) 1,000 mls @ 75 mls/hr IV ASDIR [facility] Last Admin: 01/05/19 22:02 Dose: 75 mls/hr Piperacillin Sod/Tazobactam (Sod 4.5 gm/ Dextrose) 100 mls @ 200 mls/hr IVPB Q8H-IV [facility]; Protocol Piperacillin Sod/Tazobactam (Sod 4.5 gm/ Dextrose) 100 mls @ 200 mls/hr IVPB Q8H-IV [facility]; Protocol Stop: 01/06/19 18:29 Insulin Aspart (Novolog Vial Sliding Scale -) 1 vial SQ ACHS [facility]; Protocol Last Admin: 01/05/19 22:01 Dose: 2 units Lisinopril (Prinivil) 10 mg PO DAILY [facility] Metformin HCl (Glucophage -) 1,000 mg PO BIDAC [facility] Ondansetron HCl (Zofran Injection) 4 mg IVPUSH Q6H PRN PRN Reason: NAUSEA AND/OR VOMITING Oxycodone HCl (Roxicodone -) 5 mg PO Q4H PRN PRN Reason: PAIN LEVEL 1-5 Last Admin: 01/05/19 21:58 Dose: 5 mg - Objective Vital Signs: Vital Signs Temperature 97.5 F L 01/05/19 17:10 Pulse Rate 64 01/05/19 17:10 Respiratory Rate 18 01/05/19 17:10 Blood Pressure 145/73 01/05/19 17:10 O2 Sat by Pulse Oximetry (%) 98 01/05/19 15:26 Labs: CBC, BMP 01/03/19 06:30 01/03/19 06:30 INR, PTT INR 1.00 (0.83-1.09) 12/21/18 17:00 Problem List - Problems (1) Osteomyelitis Code(s): M86.9 - OSTEOMYELITIS, UNSPECIFIED (2) PAD (peripheral artery disease) Code(s): I73.9 - PERIPHERAL VASCULAR DISEASE, UNSPECIFIED (3) HTN (hypertension) Code(s): I10 - ESSENTIAL (PRIMARY) HYPERTENSION (4) Diabetes Code(s): E11.9 - TYPE 2 DIABETES MELLITUS WITHOUT COMPLICATIONS
[2019-01-06] MEDS ORDERED: DEXTROSE 5%-WATER 100 ML IVPB ONE ×3 (01:15→17:58)
[2019-01-06] MEDS ORDERED: PIPERACILLIN/TAZOBACTAM 4.5 GM VIAL IVPB ONE ×3 (01:15→17:58)
[2019-01-06] MEDS ORDERED: PIPERACILLIN/TAZOB 4.5 GM 4.5 GM in DEXTROSE 5%-WATER 100 ML IVPB SCH (02:00)
[2019-01-06] MEDS: PIPERACILLIN/TAZOB 4.5 GM 4.5 GM in DEXTROSE 5%-WATER 100 ML IVPB SCH ×3 (03:05→18:00)
[2019-01-06] MEDS: LACTATED RINGERS SOLUTION 1,000 ML IV SCH ×2 (05:52→18:00)
[2019-01-06] MEDS: metFORMIN HCL 500 MG TABLET (FP) PO SCH ×2 (06:04→18:00)
[2019-01-06] MEDS: INSULIN SLIDING SCALE (NOVOLOG) 1 VIAL SQ SCH ×4 (06:04→21:44)
[2019-01-06] MEDS: ENOXAPARIN NA (PORCINE) 40 MG/0.4 ML DISP.SYRIN SQ SCH (10:35)
[2019-01-06] MEDS: CLOPIDOGREL BISULFATE 75 MG TABLET (FP) PO SCH (10:36)
[2019-01-06] MEDS: LISINOPRIL 10 MG TABLET (FP) PO SCH (10:52)
--- NOTE | 2019-01-06 12:43 | PN ---
Progress Note (short form) - Note Progress Note: Podiatry F/U; Seen/evaluated at bedside NAD. pain Intermittent and frequent to left foot, although marginally improved. Denies F/V/N/c/SOB/CP. Afebrile. S/p L fifth digit amputation, fifth ray resection with debridement POD#1. ABA: L foot: post-surgical diabetic ulcer fifth ray fibrotic base, packing in place, no active bleeding, no purulence, no fluctuance, no soft tissue crepitus, no streaking cellulitis, no signs of active infection. Moderate tenderness to palpation. Imp: 68 year old diabetic male s/p left fifth digit amputation and fifth ray resection 1. Abx per ID 2. Saline wet to dry dressing left foot 3. PT partial weightbearing left foot with surgical shoe and walker 4. Will need wound vac for local wound care Rx. 125 mmHg continuous, medium black granufoam, changed 3x/week. Upon discharge he will f/u with me in wound healing center on Thursday. Would benefit from SNF placement. Val Nicolas DPM
--- NOTE | 2019-01-06 16:12 | PN ---
Progress Note (short form) - Note Progress Note: s: no chest pain, palps, dizziness Current Medications Acetaminophen (Tylenol -) 650 mg PO Q6H PRN PRN Reason: PAIN LEVEL 1 - 3/FEVER Last Admin: 01/06/19 11:00 Dose: 650 mg Atorvastatin Calcium (Lipitor -) 40 mg PO HS [facility] Last Admin: 01/05/19 21:59 Dose: 40 mg Clopidogrel Bisulfate (Plavix -) 75 mg PO DAILY [facility] Last Admin: 01/06/19 10:36 Dose: 75 mg Enoxaparin Sodium (Lovenox -) 40 mg SQ DAILY [facility] Last Admin: 01/06/19 10:35 Dose: 40 mg Fentanyl (Sublimaze Injection -) 50 mcg IVPUSH [id number] PRN PRN Reason: PAIN-PACU ORDER X 4 DOSES ONLY Lactated Ringer's (Lactated Ringers Solution) 1,000 mls @ 75 mls/hr IV ASDIR [facility] Last Admin: 01/06/19 05:52 Dose: 75 mls/hr Piperacillin Sod/Tazobactam (Sod 4.5 gm/ Dextrose) 100 mls @ 200 mls/hr IVPB Q8H-IV [facility]; Protocol Piperacillin Sod/Tazobactam (Sod 4.5 gm/ Dextrose) 100 mls @ 200 mls/hr IVPB Q8H-IV [facility]; Protocol Stop: 01/06/19 18:29 Last Admin: 01/06/19 10:36 Dose: 200 mls/hr Insulin Aspart (Novolog Vial Sliding Scale -) 1 vial SQ ACHS [facility]; Protocol Last Admin: 01/06/19 11:53 Dose: 2 units Lisinopril (Prinivil) 10 mg PO DAILY [facility] Last Admin: 01/06/19 10:52 Dose: 10 mg Metformin HCl (Glucophage -) 1,000 mg PO BIDAC [facility] Last Admin: 01/06/19 06:04 Dose: 1,000 mg Ondansetron HCl (Zofran Injection) 4 mg IVPUSH Q6H PRN PRN Reason: NAUSEA AND/OR VOMITING Oxycodone HCl (Roxicodone -) 5 mg PO Q4H PRN PRN Reason: PAIN LEVEL 1-5 Last Admin: 01/05/19 21:58 Dose: 5 mg Vital Signs Period Temp Pulse Resp BP Sys/Ham Pulse Ox Last 24 Hr 97.5 F-99.1 F 64-78 18-18 120-145/68-79 98-98 Constitutional: Yes: No Distress Cardiovascular: Yes: Regular Rate and Rhythm Respiratory: Yes: CTA Bilaterally Gastrointestinal: Yes: Soft Edema: No Neurological: Yes: Alert, Oriented ...Motor Strength: WNL Assessment/Plan Assessment/Plan EKG: sinus, nl intervals, no ischemic changes Echo 12/2018 nl LV function, tr to mild MR, E/A reversal 1. Osteomyelitis, LLE PAD: - s/p L 5th MT resection and wound debridement - s/p LLE angioplasty - wound management per ID, podiatry, vascular - CV meds: continue clopidogrel, statin, manfred. 2. DM: - manage per primary 3 HTN: - cont manfred-i
--- NOTE | 2019-01-06 21:34 | PN ---
Progress Note, Physician - Current Medication List Current Medications: Active Medications Acetaminophen (Tylenol -) 650 mg PO Q6H PRN PRN Reason: PAIN LEVEL 1 - 3/FEVER Last Admin: 01/06/19 11:00 Dose: 650 mg Atorvastatin Calcium (Lipitor -) 40 mg PO HS [facility] Last Admin: 01/05/19 21:59 Dose: 40 mg Clopidogrel Bisulfate (Plavix -) 75 mg PO DAILY [facility] Last Admin: 01/06/19 10:36 Dose: 75 mg Enoxaparin Sodium (Lovenox -) 40 mg SQ DAILY [facility] Last Admin: 01/06/19 10:35 Dose: 40 mg Fentanyl (Sublimaze Injection -) 50 mcg IVPUSH [id number] PRN PRN Reason: PAIN-PACU ORDER X 4 DOSES ONLY Lactated Ringer's (Lactated Ringers Solution) 1,000 mls @ 75 mls/hr IV ASDIR [facility] Last Admin: 01/06/19 18:00 Dose: 75 mls/hr Piperacillin Sod/Tazobactam (Sod 4.5 gm/ Dextrose) 100 mls @ 200 mls/hr IVPB Q8H-IV [facility]; Protocol Insulin Aspart (Novolog Vial Sliding Scale -) 1 vial SQ ACHS [facility]; Protocol Last Admin: 01/06/19 17:54 Dose: Not Given Lisinopril (Prinivil) 10 mg PO DAILY [facility] Last Admin: 01/06/19 10:52 Dose: 10 mg Metformin HCl (Glucophage -) 1,000 mg PO BIDAC [facility] Last Admin: 01/06/19 18:00 Dose: 1,000 mg Ondansetron HCl (Zofran Injection) 4 mg IVPUSH Q6H PRN PRN Reason: NAUSEA AND/OR VOMITING Oxycodone HCl (Roxicodone -) 5 mg PO Q4H PRN PRN Reason: PAIN LEVEL 1-5 Last Admin: 01/05/19 21:58 Dose: 5 mg - Objective Vital Signs: Vital Signs Temperature 98.4 F 01/06/19 17:08 Pulse Rate 75 01/06/19 17:08 Respiratory Rate 18 01/06/19 17:08 Blood Pressure 122/71 01/06/19 17:08 O2 Sat by Pulse Oximetry (%) 98 01/06/19 09:00 Labs: CBC, BMP 01/03/19 06:30 01/03/19 06:30 INR, PTT INR 1.00 (0.83-1.09) 12/21/18 17:00 Problem List - Problems (1) Osteomyelitis Code(s): M86.9 - OSTEOMYELITIS, UNSPECIFIED (2) PAD (peripheral artery disease) Code(s): I73.9 - PERIPHERAL VASCULAR DISEASE, UNSPECIFIED (3) HTN (hypertension) Code(s): I10 - ESSENTIAL (PRIMARY) HYPERTENSION (4) Diabetes Code(s): E11.9 - TYPE 2 DIABETES MELLITUS WITHOUT COMPLICATIONS
[2019-01-06] MEDS: ATORVASTATIN CA 40 MG TABLET (FP) PO SCH (21:43)
[2019-01-07] MEDS: metFORMIN HCL 500 MG TABLET (FP) PO SCH ×2 (06:00→17:56)
[2019-01-07] MEDS: INSULIN SLIDING SCALE (NOVOLOG) 1 VIAL SQ SCH ×4 (06:01→21:01)
[2019-01-07 07:58] LABS: ALBUMIN 2.6 g/dl (3.4-5.0); BILIRUBIN,TOTAL 0.5 mg/dL (0.2-1); CALCIUM 8.6 mg/dL (8.5-10.1); CREATININE 1.2 mg/dL (0.55-1.3); POTASSIUM 4.3 mmol/L (3.5-5.1); TOT PROT 6.1 g/dl (6.4-8.2)
[2019-01-07 08:03] LABS: BASO % 0.8 % (0-2.0); EOS % 6.1 % (0-4.5); HEMATOCRIT 30.7 % (35.4-49); HEMOGLOBIN 10.5 GM/dL (11.7-16.9); LYMPH % 15.5 % (8-40); MCHC 34.1 g/dl (32.0-35.9); MEAN CELL VOLUME 88.1 fl (80-96); MONO % 9.1 % (3.8-10.2); NEUT % 68.5 % (42.8-82.8); PLATELET COUNT 494 K/MM3 (134-434); RBC 3.49 M/mm3 (4.00-5.60); RDW 12.4 % (11.9-15.9); WHITE BLOOD COUNT 7.9 K/mm3 (4.0-10.0)
[2019-01-07] MEDS: ENOXAPARIN NA (PORCINE) 40 MG/0.4 ML DISP.SYRIN SQ SCH (09:26)
[2019-01-07] MEDS: LISINOPRIL 10 MG TABLET (FP) PO SCH (09:27)
[2019-01-07] MEDS: CLOPIDOGREL BISULFATE 75 MG TABLET (FP) PO SCH (09:27)
--- NOTE | 2019-01-07 11:11 | PN ---
Progress Note, Physician Chief Complaint: 68 y/o male s/p 5th ray amputation . STates that he is feeling well. States much less pain than after the prior procedure. Denies any acute changes. Denies any f/c/n/v/sob. - Current Medication List Current Medications: Active Medications Acetaminophen (Tylenol -) 650 mg PO Q6H PRN PRN Reason: PAIN LEVEL 1 - 3/FEVER Last Admin: 01/06/19 11:00 Dose: 650 mg Atorvastatin Calcium (Lipitor -) 40 mg PO HS [facility] Last Admin: 01/06/19 21:43 Dose: 40 mg Clopidogrel Bisulfate (Plavix -) 75 mg PO DAILY [facility] Last Admin: 01/07/19 09:27 Dose: 75 mg Enoxaparin Sodium (Lovenox -) 40 mg SQ DAILY [facility] Last Admin: 01/07/19 09:26 Dose: 40 mg Fentanyl (Sublimaze Injection -) 50 mcg IVPUSH [id number] PRN PRN Reason: PAIN-PACU ORDER X 4 DOSES ONLY Lactated Ringer's (Lactated Ringers Solution) 1,000 mls @ 75 mls/hr IV ASDIR [facility] Last Admin: 01/06/19 18:00 Dose: 75 mls/hr Piperacillin Sod/Tazobactam (Sod 4.5 gm/ Dextrose) 100 mls @ 200 mls/hr IVPB Q8H-IV [facility]; Protocol Insulin Aspart (Novolog Vial Sliding Scale -) 1 vial SQ ACHS [facility]; Protocol Last Admin: 01/07/19 06:01 Dose: Not Given Lisinopril (Prinivil) 10 mg PO DAILY [facility] Last Admin: 01/07/19 09:27 Dose: 10 mg Metformin HCl (Glucophage -) 1,000 mg PO BIDAC [facility] Last Admin: 01/07/19 06:00 Dose: 1,000 mg Ondansetron HCl (Zofran Injection) 4 mg IVPUSH Q6H PRN PRN Reason: NAUSEA AND/OR VOMITING Oxycodone HCl (Roxicodone -) 5 mg PO Q4H PRN PRN Reason: PAIN LEVEL 1-5 Last Admin: 01/05/19 21:58 Dose: 5 mg - Objective Vital Signs: Vital Signs Temperature 98.6 F 01/07/19 10:00 Pulse Rate 79 01/07/19 10:00 Respiratory Rate 18 01/07/19 10:00 Blood Pressure 142/77 01/07/19 10:00 O2 Sat by Pulse Oximetry (%) 96 01/06/19 21:00 Wound/Incision: Yes: Sutures Intact, Other (lateral aspect sharkbite type incision with entire lateral met exposed, healthy bleeding noted, plantar with some fibrotic tissue noted, no duskiness or necrosis noted at this time.) Labs: CBC, BMP 01/07/19 06:00 01/07/19 06:00 INR, PTT INR 1.00 (0.83-1.09) 12/21/18 17:00 Assessment/Plan a: 68 y/o s/p 5th ray amputation P: Evaluated and reviewed Dressing changed with wet to dry and DSD Will need wound vac for local wound care Rx. 125 mmHg continuous, medium black granufoam, changed 3x/week. Upon discharge he will f/u with me in wound healing center on Thursday. Would benefit from SNF placement.
--- NOTE | 2019-01-07 15:13 | PN ---
Progress Note (short form) - Note Progress Note: s: no chest pain, palps, dyspnea Current Medications Generic Name Dose Route Start Last Admin Trade Name Freq PRN Reason Stop Dose Admin Acetaminophen 650 mg 01/05/19 19:03 01/06/19 11:00 Tylenol - PO 650 mg Q6H PRN Administration PAIN LEVEL 1 - 3/FEVER Atorvastatin Calcium 40 mg 01/05/19 22:00 01/06/19 21:43 Lipitor - PO 40 mg HS [facility] Administration Clopidogrel Bisulfate 75 mg 01/06/19 10:00 01/07/19 09:27 Plavix - PO 75 mg DAILY [facility] Administration Enoxaparin Sodium 40 mg 01/06/19 10:00 01/07/19 09:26 Lovenox - SQ 40 mg DAILY [facility] Administration Fentanyl 50 mcg 01/05/19 14:56 Sublimaze Injection - IVPUSH [id number] PRN PAIN-PACU ORDER X 4 DOSES ONLY Lactated Ringer's 1,000 mls @ 75 mls/hr 01/05/19 18:45 01/06/19 18:00 Lactated Ringers Solution IV 75 mls/hr ASDIR [facility] Administration Piperacillin Sod/Tazobactam 100 mls @ 200 mls/hr 01/06/19 02:00 Sod 4.5 gm/ Dextrose IVPB Q8H-IV [facility] Protocol Insulin Aspart 1 vial 01/05/19 22:00 01/07/19 12:49 Novolog Vial Sliding Scale - SQ Not Given ACHS [facility] Protocol Lisinopril 10 mg 01/06/19 10:00 01/07/19 09:27 Prinivil PO 10 mg DAILY [facility] Administration Metformin HCl 1,000 mg 01/06/19 07:00 01/07/19 06:00 Glucophage - PO 1,000 mg BIDAC [facility] Administration Ondansetron HCl 4 mg 01/05/19 19:03 Zofran Injection IVPUSH Q6H PRN NAUSEA AND/OR VOMITING Oxycodone HCl 5 mg 01/05/19 14:56 01/05/19 21:58 Roxicodone - PO 5 mg Q4H PRN Administration PAIN LEVEL 1-5 Vital Signs Period Temp Pulse Resp BP Sys/Ham Pulse Ox Last 24 Hr 97.7 F-98.9 F 72-82 18-20 121-145/71-82 96-96 Constitutional: Yes: Well Nourished, No Distress, Calm Eyes: Yes: Conjunctiva Clear Neck: Yes: Supple, Trachea Midline Respiratory: Yes: Regular, CTA Bilaterally Gastrointestinal: Yes: Normal Bowel Sounds, Soft Cardiovascular: Yes: Regular Rate and Rhythm JVD: No Heart Sounds: Yes: S1, S2 Extremities: Yes: Other (L foot c bandages). No: Cold Edema: No Integumentary: No: Jaundice diaphoresis Neurological: Yes: Alert, Oriented Psychiatric: No: Agitated CBC, BMP 01/07/19 06:00 01/07/19 06:00 Assessment/Plan EKG: sinus, nl intervals, no ischemic changes echo 12/2018 nl LV function, tr to mild MR, E/A reversal osteomyelitis, LLE PAD - s/p L 5th MT resection and wound debridement - s/p LLE angioplasty - wound management per ID, podiatry, vascular - CV meds: continue clopidogrel, statin, manfred. DM - manage per primary HTN - cont manfred-i
--- NOTE | 2019-01-07 15:28 | PN ---
Progress Note, Physician - Current Medication List Current Medications: Active Medications Acetaminophen (Tylenol -) 650 mg PO Q6H PRN PRN Reason: PAIN LEVEL 1 - 3/FEVER Last Admin: 01/06/19 11:00 Dose: 650 mg Atorvastatin Calcium (Lipitor -) 40 mg PO HS [facility] Last Admin: 01/06/19 21:43 Dose: 40 mg Clopidogrel Bisulfate (Plavix -) 75 mg PO DAILY [facility] Last Admin: 01/07/19 09:27 Dose: 75 mg Enoxaparin Sodium (Lovenox -) 40 mg SQ DAILY [facility] Last Admin: 01/07/19 09:26 Dose: 40 mg Fentanyl (Sublimaze Injection -) 50 mcg IVPUSH [id number] PRN PRN Reason: PAIN-PACU ORDER X 4 DOSES ONLY Lactated Ringer's (Lactated Ringers Solution) 1,000 mls @ 75 mls/hr IV ASDIR [facility] Last Admin: 01/06/19 18:00 Dose: 75 mls/hr Piperacillin Sod/Tazobactam (Sod 4.5 gm/ Dextrose) 100 mls @ 200 mls/hr IVPB Q8H-IV [facility]; Protocol Insulin Aspart (Novolog Vial Sliding Scale -) 1 vial SQ ACHS [facility]; Protocol Last Admin: 01/07/19 12:49 Dose: Not Given Lisinopril (Prinivil) 10 mg PO DAILY [facility] Last Admin: 01/07/19 09:27 Dose: 10 mg Metformin HCl (Glucophage -) 1,000 mg PO BIDAC [facility] Last Admin: 01/07/19 06:00 Dose: 1,000 mg Ondansetron HCl (Zofran Injection) 4 mg IVPUSH Q6H PRN PRN Reason: NAUSEA AND/OR VOMITING Oxycodone HCl (Roxicodone -) 5 mg PO Q4H PRN PRN Reason: PAIN LEVEL 1-5 Last Admin: 01/05/19 21:58 Dose: 5 mg - Objective Vital Signs: Vital Signs Temperature 97.7 F 01/07/19 14:38 Pulse Rate 82 01/07/19 14:38 Respiratory Rate 20 01/07/19 14:38 Blood Pressure 131/72 01/07/19 14:38 O2 Sat by Pulse Oximetry (%) 96 01/07/19 09:00 Constitutional: Yes: No Distress HENT: Yes: Atraumatic Neck: Yes: Supple Respiratory: Yes: CTA Bilaterally Gastrointestinal: Yes: Normal Bowel Sounds Extremities: Yes: WNL Edema: No Neurological: Yes: Alert, Oriented Labs: CBC, BMP 01/07/19 06:00 01/07/19 06:00 INR, PTT INR 1.00 (0.83-1.09) 12/21/18 17:00 Problem List - Problems (1) Osteomyelitis Assessment/Plan: l FOOTON IV ABX WILL GET ID ON BOARD Code(s): M86.9 - OSTEOMYELITIS, UNSPECIFIED (2) Wound cellulitis Code(s): L03.90 - CELLULITIS, UNSPECIFIED (3) Diabetes Assessment/Plan: ON INSULIN AND BGMS Code(s): E11.9 - TYPE 2 DIABETES MELLITUS WITHOUT COMPLICATIONS (4) Type 1 diabetes mellitus with foot ulcer Code(s): E10.621 - TYPE 1 DIABETES MELLITUS WITH FOOT ULCER; L97.509 - NON- PRESSURE CHRONIC ULCER OTH PRT UNSP FOOT W UNSP SEVERITY
[2019-01-07] MEDS ORDERED: INSULIN (NOVOLOG) ASPART 100 UNITS/ML 10ML VIAL ONE (20:29)
[2019-01-07] MEDS: ATORVASTATIN CA 40 MG TABLET (FP) PO SCH (21:01)
[2019-01-08] MEDS: oxyCODONE HCL 5 MG TABLET PO PRN (02:04)
[2019-01-08] MEDS: metFORMIN HCL 500 MG TABLET (FP) PO SCH ×2 (06:02→17:09)
[2019-01-08] MEDS: INSULIN SLIDING SCALE (NOVOLOG) 1 VIAL SQ SCH ×4 (06:02→22:15)
[2019-01-08] MEDS: ENOXAPARIN NA (PORCINE) 40 MG/0.4 ML DISP.SYRIN SQ SCH (08:59)
[2019-01-08] MEDS: LISINOPRIL 10 MG TABLET (FP) PO SCH (08:59)
[2019-01-08] MEDS: CLOPIDOGREL BISULFATE 75 MG TABLET (FP) PO SCH (08:59)
--- NOTE | 2019-01-08 22:05 | PN.GI ---
GI Progress Note - Objective Vital Signs: Vital Signs Temperature 98.5 F 01/08/19 18:32 Pulse Rate 90 01/08/19 18:32 Respiratory Rate 20 01/08/19 18:32 Blood Pressure 116/62 01/08/19 18:32 O2 Sat by Pulse Oximetry (%) 96 01/08/19 09:00 Labs: CBC, BMP 01/07/19 06:00 01/07/19 06:00 INR, PTT INR 1.00 (0.83-1.09) 12/21/18 17:00 Problem List - Problems (1) Osteomyelitis Code(s): M86.9 - OSTEOMYELITIS, UNSPECIFIED (2) PAD (peripheral artery disease) Code(s): I73.9 - PERIPHERAL VASCULAR DISEASE, UNSPECIFIED (3) HTN (hypertension) Code(s): I10 - ESSENTIAL (PRIMARY) HYPERTENSION (4) Diabetes Code(s): E11.9 - TYPE 2 DIABETES MELLITUS WITHOUT COMPLICATIONS
[2019-01-08] MEDS: ATORVASTATIN CA 40 MG TABLET (FP) PO SCH (22:15)
[2019-01-08] MEDS: LACTATED RINGERS SOLUTION 1,000 ML IV SCH (22:16)
[2019-01-09] MEDS: metFORMIN HCL 500 MG TABLET (FP) PO SCH ×2 (06:10→16:58)
[2019-01-09] MEDS: INSULIN SLIDING SCALE (NOVOLOG) 1 VIAL SQ SCH ×4 (06:11→22:01)
[2019-01-09] MEDS: CLOPIDOGREL BISULFATE 75 MG TABLET (FP) PO SCH (08:59)
[2019-01-09] MEDS: ENOXAPARIN NA (PORCINE) 40 MG/0.4 ML DISP.SYRIN SQ SCH (08:59)
[2019-01-09] MEDS: LISINOPRIL 10 MG TABLET (FP) PO SCH (08:59)
[2019-01-09] MEDS: AMOX TR/POT CLAV 875MG/125MG TABLETS (FP) PO SCH ×2 (11:03→16:58)
[2019-01-09 14:09] LABS: BASO % 1.2 % (0-2.0); EOS % 6.4 % (0-4.5); HEMATOCRIT 33.5 % (35.4-49); HEMOGLOBIN 11.3 GM/dL (11.7-16.9); LYMPH % 17.6 % (8-40); MCH 29.9 pg (25.7-33.7); MCHC 33.7 g/dl (32.0-35.9); MEAN CELL VOLUME 88.6 fl (80-96); MEAN PLT VOLUME 7.2 fl (7.5-11.1); MONO % 7.8 % (3.8-10.2); PLATELET COUNT 484 K/MM3 (134-434); RBC 3.78 M/mm3 (4.00-5.60); RDW 12.8 % (11.9-15.9); WHITE BLOOD COUNT 6.6 K/mm3 (4.0-10.0)
[2019-01-09 14:28] LABS: BILIRUBIN,TOTAL 0.4 mg/dL (0.2-1); CALCIUM 8.3 mg/dL (8.5-10.1); CREATININE 1.3 mg/dL (0.55-1.3); POTASSIUM 4.5 mmol/L (3.5-5.1); TOT PROT 6.7 g/dl (6.4-8.2)
--- NOTE | 2019-01-09 21:00 | PN ---
Progress Note, Physician History of Present Illness: No new complaints - Current Medication List Current Medications: Active Medications Acetaminophen (Tylenol -) 650 mg PO Q6H PRN PRN Reason: PAIN LEVEL 1 - 3/FEVER Last Admin: 01/06/19 11:00 Dose: 650 mg Amoxicillin/Clavulanate Potassium (Augmentin - 875mg Tablet) 1 tab PO [facility] Last Admin: 01/09/19 16:58 Dose: 1 tab Atorvastatin Calcium (Lipitor -) 40 mg PO HS [facility] Last Admin: 01/08/19 22:15 Dose: 40 mg Clopidogrel Bisulfate (Plavix -) 75 mg PO DAILY [facility] Last Admin: 01/09/19 08:59 Dose: 75 mg Enoxaparin Sodium (Lovenox -) 40 mg SQ DAILY [facility] Last Admin: 01/09/19 08:59 Dose: 40 mg Fentanyl (Sublimaze Injection -) 50 mcg IVPUSH [id number] PRN PRN Reason: PAIN-PACU ORDER X 4 DOSES ONLY Piperacillin Sod/Tazobactam (Sod 4.5 gm/ Dextrose) 100 mls @ 200 mls/hr IVPB Q8H-IV [facility]; Protocol Insulin Aspart (Novolog Vial Sliding Scale -) 1 vial SQ ACHS [facility]; Protocol Last Admin: 01/09/19 17:01 Dose: Not Given Lisinopril (Prinivil) 10 mg PO DAILY [facility] Last Admin: 01/09/19 08:59 Dose: 10 mg Metformin HCl (Glucophage -) 1,000 mg PO BIDAC [facility] Last Admin: 01/09/19 16:58 Dose: 1,000 mg Ondansetron HCl (Zofran Injection) 4 mg IVPUSH Q6H PRN PRN Reason: NAUSEA AND/OR VOMITING - Objective Vital Signs: Vital Signs Temperature 98.1 F 01/09/19 17:16 Pulse Rate 77 01/09/19 17:16 Respiratory Rate 18 01/09/19 17:16 Blood Pressure 120/69 01/09/19 17:16 O2 Sat by Pulse Oximetry (%) 97 01/09/19 09:00 Neck: Yes: WNL, Supple Cardiovascular: Yes: WNL, Regular Rate and Rhythm Respiratory: Yes: WNL, Regular, CTA Bilaterally Gastrointestinal: Yes: WNL, Normal Bowel Sounds, Soft Labs: CBC, BMP 01/09/19 13:40 01/09/19 13:40 INR, PTT INR 1.00 (0.83-1.09) 12/21/18 17:00 Problem List - Problems (1) Osteomyelitis Assessment/Plan: Pt scheduled for 5th toe amputation in am S/P lt 5th metatarsal resection and debridement. 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
[2019-01-09] MEDS: ATORVASTATIN CA 40 MG TABLET (FP) PO SCH (22:01)
[2019-01-10] MEDS: metFORMIN HCL 500 MG TABLET (FP) PO SCH ×2 (06:30→16:53)
[2019-01-10] MEDS: INSULIN SLIDING SCALE (NOVOLOG) 1 VIAL SQ SCH ×3 (06:31→16:53)
[2019-01-10] MEDS: CLOPIDOGREL BISULFATE 75 MG TABLET (FP) PO SCH (10:08)
[2019-01-10] MEDS: LISINOPRIL 10 MG TABLET (FP) PO SCH (10:08)
[2019-01-10] MEDS: AMOX TR/POT CLAV 875MG/125MG TABLETS (FP) PO SCH ×2 (10:08→16:53)
[2019-01-10] MEDS: ENOXAPARIN NA (PORCINE) 40 MG/0.4 ML DISP.SYRIN SQ SCH (10:09)
[2019-01-10 13:07] VITALS: BP 122/71; PULSE 79; TEMP 98.4
--- NOTE | 2019-01-10 15:27 | PN ---
Progress Note (short form) - Note Progress Note: s: no chest pain, palps, dyspnea, dizziness. Current Medications Acetaminophen (Tylenol -) 650 mg PO Q6H PRN PRN Reason: PAIN LEVEL 1 - 3/FEVER Last Admin: 01/06/19 11:00 Dose: 650 mg Amoxicillin/Clavulanate Potassium (Augmentin - 875mg Tablet) 1 tab PO BIDWM [facility] Last Admin: 01/10/19 10:08 Dose: 1 tab Atorvastatin Calcium (Lipitor -) 40 mg PO HS [facility] Last Admin: 01/09/19 22:01 Dose: 40 mg Clopidogrel Bisulfate (Plavix -) 75 mg PO DAILY [facility] Last Admin: 01/10/19 10:08 Dose: 75 mg Enoxaparin Sodium (Lovenox -) 40 mg SQ DAILY [facility] Last Admin: 01/10/19 10:09 Dose: 40 mg Fentanyl (Sublimaze Injection -) 50 mcg IVPUSH [id number] PRN PRN Reason: PAIN-PACU ORDER X 4 DOSES ONLY Insulin Aspart (Novolog Vial Sliding Scale -) 1 vial SQ ACHS [facility]; Protocol Last Admin: 01/10/19 12:02 Dose: Not Given Lisinopril (Prinivil) 10 mg PO DAILY [facility] Last Admin: 01/10/19 10:08 Dose: 10 mg Metformin HCl (Glucophage -) 1,000 mg PO BIDAC [facility] Last Admin: 01/10/19 06:30 Dose: 1,000 mg Ondansetron HCl (Zofran Injection) 4 mg IVPUSH Q6H PRN PRN Reason: NAUSEA AND/OR VOMITING Vital Signs Period Temp Pulse Resp BP Sys/Ham Pulse Ox Last 24 Hr 97.8 F-98.4 F 73-79 18-20 116-138/63-73 95-97 Constitutional: Yes: Well Nourished, No Distress, Calm Eyes: Yes: Conjunctiva Clear Neck: Yes: Supple, Trachea Midline Respiratory: Yes: Regular, CTA Bilaterally Gastrointestinal: Yes: Normal Bowel Sounds, Soft Cardiovascular: Yes: Regular Rate and Rhythm JVD: No Heart Sounds: Yes: S1, S2 Extremities: Yes: Other (L foot c bandages). No: Cold Edema: No Integumentary: No: Jaundice diaphoresis Neurological: Yes: Alert, Oriented Psychiatric: No: Agitated Assessment/Plan EKG: sinus, nl intervals, no ischemic changes echo 12/2018 nl LV function, tr to mild MR, E/A reversal osteomyelitis, LLE PAD - s/p L 5th MT resection and wound debridement - s/p LLE angioplasty - wound management per ID, podiatry, vascular - CV meds: continue clopidogrel, statin, manfred DM - manage per primary HTN - cont manfred-i
--- NOTE | 2019-01-10 19:02 | PATH ---
Surgical Pathology Report Patient Name: JOSAFAT ALLEN Med. Rec. #: [id number] /Age/Gender: 1950 (Age: 68) / M Account: [id number] Location: [facility] MED/SURG Taken: 01/05/2019 Received: 01/06/2019 Reported: 01/10/2019 Physicians: KENNETH Wang M.D. Specimen(s) Received A: PROXIMAL MARGIN 5TH METATARSAL LEFT FOOT B: 5TH METATARSAL LEFT FOOT C: 5TH TOE OF LEFT FOOT Clinical History Gangrene fifth toe left foot Final Diagnosis A. FOOT, LEFT, PROXIMAL MARGIN METATARSAL, EXCISION: ACUTE OSTEOMYELITIS. B. FOOT, LEFT, BONE, FIFTH METATARSAL, EXCISION: ACUTE OSTEOMYELITIS. C. FOOT, LEFT, FIFTH TOE, AMPUTATION: DIGIT WITH MARKED ACUTE AND CHRONIC INFLAMMATION, GANGRENOUS NECROSIS, AND UNDERLYING BONE WITH ACUTE OSTEOMYELITIS; EXTENDING TO SURGICAL MARGINS. Electronically Signed Maria Del Rosario Tyler M.D. Gross Description A. Received in formalin, labeled, "proximal margin metatarsal left foot" is a 1.3 x 0.6 x 0.4 cm portion of bone. Entirely submitted in one cassette after decalcification. B. Received in formalin, labeled "bone fifth metatarsal of left foot" is a 1.5 x 1 x 0.4 cm portion of bone. Entirely submitted in one cassette after decalcification. C. Received in formalin, labeled "fifth toe of left foot" is a 6.7 x 2.8 x 1.4 cm left fifth toe with adjacent portion of foot bone and tissue. The skin overlying the toe and portion of foot shows marked hager-black discoloration extending to the resection margin. Sectioning reveals marked softening of underlying bone. Frame Fixer sections are submitted in two cassettes. AE/01/07/2019 ebram/01/07/2019
== END 2019-01-10 16:58 | DRG 271 ==
LOC: JER 16:10 → JERBED 17:47 → J7W 21:29
PROVIDERS: ADMIT Internal Medicine; ATTEND Internal Medicine
PROC: 0QBP0ZX Excision of Left Metatarsal, Open Approach, Diagnostic (ICD-10-PCS; 2018-12-23)
PROC: 0QTP0ZZ Resection of Left Metatarsal, Open Approach (ICD-10-PCS; principal; 2018-12-23 12:30)
PROC: 04CQ3ZZ Extirpation of Matter from Left Anterior Tibial Artery, Percutaneous Approach (ICD-10-PCS; 2018-12-30)
PROC: B40GYZZ Plain Radiography of Left Lower Extremity Arteries using Other Contrast (ICD-10-PCS; 2018-12-30)
PROC: B40DYZZ Plain Radiography of Aorta and Bilateral Lower Extremity Arteries using Other Contrast (ICD-10-PCS; 2018-12-30)
PROC: 0Y6Y0Z1 Detachment at Left 5th Toe, High, Open Approach (ICD-10-PCS; 2019-01-05)
DX: E11.52 Type 2 diabetes mellitus with diabetic peripheral angiopathy with gangrene (principal); L97.528 Non-pressure chronic ulcer of other part of left foot with other specified severity; M86.8X7 Other osteomyelitis, ankle and foot; L03.90 Cellulitis, unspecified; I96 Gangrene, not elsewhere classified; E11.69 Type 2 diabetes mellitus with other specified complication; E11.621 Type 2 diabetes mellitus with foot ulcer; B96.20 Unspecified Escherichia coli [E. coli] as the cause of diseases classified elsewhere; B95.2 Enterococcus as the cause of diseases classified elsewhere; B95.7 Other staphylococcus as the cause of diseases classified elsewhere; B96.1 Klebsiella pneumoniae [K. pneumoniae] as the cause of diseases classified elsewhere; I10 Essential (primary) hypertension; Z87.891 Personal history of nicotine dependence; I70.202 Unspecified atherosclerosis of native arteries of extremities, left leg
CPT/HCPCS: 36415; 71046-TC-FY; 73630-TC-LT; 76000-TC-FY; 80048; 80053; 80061; 82962; 83721; 85025; 85610; 85730; 86850; 86900; 86901; 87040; 87070; 87075; 87076; 87081; 87186; 87205; 88305-TC; 88311-TC; 90670; 93005; 93010; 93306-TC; 93922; 93925-TC; 94760; 97116-GP; 97161-GP; 99283-25; G0463-25; J1644

== ENCOUNTER 2019-04-11 14:05 | Inpatient (IN) | payer MEDICARE, OTHER ==
--- NOTE | 2019-04-11 14:16 | PDOC ---
Rapid Medical Evaluation Time Seen by Provider: 04/11/19 14:13 Medical Evaluation: Allergies Allergy/AdvReac Type Severity Reaction Status Date / Time No Known Allergies Allergy Verified 01/18/19 11:27 04/11/19 14:14 CC: sent for admission for bone biopsy of left foot PE:deferred Orders: labs, cxr, ekg Patient will proceed to ED for continued evaluation. Discharge Disposition - Diagnosis Wound of foot - Referrals - Patient Instructions - Post Discharge Activity
[2019-04-11 14:21] VITALS: BMI 22.3
[2019-04-11 15:40] LABS: EOS % 7.9 % (0-4.5); HEMATOCRIT 30.5 % (35.4-49); HEMOGLOBIN 10.5 GM/dL (11.7-16.9); LYMPH % 17.7 % (8-40); MCHC 34.5 g/dl (32.0-35.9); MEAN CELL VOLUME 89.8 fl (80-96); MEAN PLT VOLUME 7.3 fl (7.5-11.1); MONO % 9.2 % (3.8-10.2); NEUT % 64.2 % (42.8-82.8); PLATELET COUNT 290 K/MM3 (134-434); RBC 3.39 M/mm3 (4.00-5.60); RDW 14.1 % (11.9-15.9); WHITE BLOOD COUNT 7.3 K/mm3 (4.0-10.0)
[2019-04-11 16:10] LABS: ALBUMIN 3.5 g/dl (3.4-5.0); BILIRUBIN,TOTAL 0.4 mg/dL (0.2-1); BLOOD UREA NITROGEN 32.3 mg/dL (7-18); CALCIUM 9.1 mg/dL (8.5-10.1); CREATININE 1.3 mg/dL (0.55-1.3); TOT PROT 7.2 g/dl (6.4-8.2)
--- NOTE | 2019-04-11 16:22 | PDOC ---
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 Patient denies any fever, chills or discomfort to the area. Patient has been receiving hyperbaric daily with last treatment today prior to ER arrival. Patient has history of diabetes with amputation of the left fifth toe. Timing/Duration: unsure Severity: moderate Associated Symptoms: reports: denies symptoms Past History - Travel Traveled outside of the country in the last 30 days: Yes - Past Medical History Allergies/Adverse Reactions: Allergies Allergy/AdvReac Type Severity Reaction Status Date / Time No Known Allergies Allergy Verified 01/18/19 11:27 Home Medications: Ambulatory Orders Metformin HCl [Glucophage] 1,000 mg PO BID 11/19/16 Collagenase Clostridium Hist. [Santyl] 90 gm TP DAILY #1 tube 12/14/18 Acetaminophen [Tylenol .Regular Strength -] 650 mg PO Q6H PRN tablet 01/10/19 Clopidogrel Bisulfate [Plavix -] 75 mg PO DAILY tablet 01/10/19 Lisinopril [Prinivil] 10 mg PO DAILY tablet 01/10/19 Aspirin [ASA -] 81 mg PO DAILY 02/15/19 Insulin Glargine,Hum.rec.anlog [Basaglar Kwikpen U-100] 3 ml SQ DAILY 02/15/19 Pravastatin Sodium [Pravachol -] 40 mg PO HS 02/15/19 Basaglar Kwikpen U-100 8 units SCJ DAILY 03/01/19 Nystatin Cream [Mycostatin Cream -] 1 applic TP BID 03/31/19 COPD: No Diabetes: Yes (neuropathy, OM L foot) HTN: Yes Hypercholesterolemia: Yes - Suicide/Smoking/Psychosocial Hx Smoking Status: No Smoking History: Never smoked Have you smoked in the past 12 months: No Number of Cigarettes Smoked Daily: 0 If you are a former smoker, when did you quit?: 10 years Hx Alcohol Use: Yes (SOCIAL) Drug/Substance Use Hx: No Substance Use Type: None Patient Lives Alone: No Lives with/in: custodial Review of Systems - Review of Systems Able to Perform ROS?: Yes Constitutional: No: Symptoms Reported HEENTM: No: Symptoms Reported Respiratory: No: Symptoms reported Cardiac (ROS): No: Symptoms Reported ABD/GI: No: Symptoms Reported : Yes: Dysuria Musculoskeletal: No: Symptoms Reported Integumentary: Yes: Other (open wund to left foot) Neurological: No: Symptoms reported Endocrine: No: Symptoms Reported Hematologic/Lymphatic: No: Symptoms Reported *Physical Exam - Vital Signs Last Vital Signs Temp Pulse Resp BP Pulse Ox 98.1 F 76 20 160/78 99 04/11/19 14:18 04/11/19 14:18 04/11/19 14:18 04/11/19 14:04/11/19 15:00 - Physical Exam General Appearance: Yes: Nourished, Appropriately Dressed. No: Apparent Distress HEENT: negative: Pale Conjunctivae Neck: positive: Supple Respiratory/Chest: positive: Lungs Clear, Normal Breath Sounds. negative: Respiratory Distress, Accessory Muscle Use Cardiovascular: positive: Regular Rhythm, Regular Rate. negative: Murmur Gastrointestinal/Abdominal: positive: Normal Bowel Sounds, Soft, Tenderness (rt suprapubic pain). negative: Guarding Integumentary: positive: Normal Color, Warm, Moist Neurologic: positive: Motor Strength 5/5 (ambulatory) ED Treatment Course - LABORATORY CBC & Chemistry Diagram: 04/11/19 15:15 04/11/19 15:15 - ADDITIONAL ORDERS Additional order review: Laboratory Results 04/11/19 15:15 Sodium 138 Potassium 5.0 Chloride 106 Carbon Dioxide 24 Anion Gap 9 BUN 32.3 H Creatinine 1.3 Est GFR (CKD-EPI)AfAm 64.98 Est GFR (CKD-EPI)NonAf 56.06 Random Glucose 177 H Calcium 9.1 Total Bilirubin 0.4 AST 19 ALT 17 Alkaline Phosphatase 124 H Total Protein 7.2 Albumin 3.5 04/11/19 15:15 RBC 3.39 L MCV 89.8 MCHC 34.5 RDW 14.1 D MPV 7.3 L Neutrophils % 64.2 Lymphocytes % 17.7 Monocytes % 9.2 Eosinophils % 7.9 H Basophils % 1.0 Medical Decision Making - Medical Decision Making 04/11/19 17:04 CC: pt here for admission secondary to osteomylitis of left foot, s/p amputation of left 5th toe and receiving hyperbaric txs with no improvement of ound. pt denies fever or pain to site Exam: noted open wound to lateral aspect of left foot. no odor or bogginess noted Plan: Preop and admission orders place. Nothing by mouth after midnight. Patient ordered for varicose Zosyn. Case discussed with Dr. bustos and recommending Dr. Rudd for id consultation, and call also placed Dr. Hernandez . 04/11/19 17:14 Laboratory Tests 04/11/19 04/11/19 04/11/19 13:33 15:15 15:15 WBC 7.3 Hgb 10.5 L Hct 30.5 L MPV 7.3 L Neutrophils % 64.2 Eosinophils % 7.9 H PT with INR INR Sodium 138 Potassium 5.0 Chloride 106 Carbon Dioxide 24 Anion Gap 9 BUN 32.3 H Creatinine 1.3 Est GFR (CKD-EPI)AfAm 64.98 Est GFR (CKD-EPI)NonAf 56.06 POC Glucometer 121 Random Glucose 177 H Calcium 9.1 Total Bilirubin 0.4 AST 19 ALT 17 Alkaline Phosphatase 124 H Total Protein 7.2 Albumin 3.5 04/11/19 15:15 WBC Hgb Hct MPV Neutrophils % Eosinophils % PT with INR 11.90 INR 1.01 Sodium Potassium Chloride Carbon Dioxide Anion Gap BUN Creatinine Est GFR (CKD-EPI)AfAm Est GFR (CKD-EPI)NonAf POC Glucometer Random Glucose Calcium Total Bilirubin AST ALT Alkaline Phosphatase Total Protein Albumin *DC/Admit/Observation/Transfer Diagnosis at time of Disposition: Wound of foot, Osteomyelitis - Discharge Dispostion Decision to Admit order: Yes - Referrals - Patient Instructions - Post Discharge Activity
[2019-04-11 16:26] LABS: INR 1.01 (0.83-1.09); PROTHROMBIN TIME (PATIENT) 11.9 SEC (9.7-13.0)
[2019-04-11] MEDS ORDERED: VANCOMYCIN 1,000 MG in DEXTROSE 5%-WATER - 250 ML IVPB ONE (16:32)
[2019-04-11] MEDS ORDERED: PIPERACILLIN/TAZOB 4.5 GM 4.5 GM in DEXTROSE 5%-WATER 100 ML IVPB ONE (16:33)
[2019-04-11] MEDS ORDERED: VANCOMYCIN 1 GRAM (PRE-DOCKED) 1,000 MG/250 ML BAG IVPB ONE (17:12)
[2019-04-11] MEDS ORDERED: PIPERACILLIN/TAZOB 4.5 GM 4.5 GM/100 ML BAG IVPB ONE (17:12)
--- NOTE | 2019-04-11 19:15 | PN ---
Progress Note (short form) - Note Progress Note: Podiatry Brief Note: 68 year old diabetic male well known to me from wound healing center, s/p left fifth ray partial amputation during last admission. Now has osteomyelitis 4th metatarsal head on MRI. Plan for debridement and bone biopsy tomorrow in OR. Risks and benefits discussed with patient in wound healing center last week. NPO order placed, will evaluate patient tomorrow. Val Nicolas DPM
--- NOTE | 2019-04-11 20:05 | HP ---
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 Patient denies any fever, chills or discomfort to the area. Patient has been receiving hyperbaric daily with last treatment today prior to ER arrival. Patient has history of diabetes with amputation of the left fifth toe. - Past Medical History Cardiovascular: Yes: HTN Endocrine: Yes: Diabetes Mellitus - Smoking History Smoking history: Never smoked Have you smoked in the past 12 months: No Aproximately how many cigarettes per day: 0 If you are a former smoker, when did you quit?: 10 years - Alcohol/Substance Use Hx Alcohol Use: Yes (SOCIAL) Home Medications - Allergies Allergies/Adverse Reactions: Allergies Allergy/AdvReac Type Severity Reaction Status Date / Time No Known Allergies Allergy Verified 01/18/19 11:27 - Home Medications Home Medications: Ambulatory Orders Metformin HCl [Glucophage] 1,000 mg PO BID 11/19/16 Collagenase Clostridium Hist. [Santyl] 90 gm TP DAILY #1 tube 12/14/18 Acetaminophen [Tylenol .Regular Strength -] 650 mg PO Q6H PRN tablet 01/10/19 Clopidogrel Bisulfate [Plavix -] 75 mg PO DAILY tablet 01/10/19 Lisinopril [Prinivil] 10 mg PO DAILY tablet 01/10/19 Aspirin [ASA -] 81 mg PO DAILY 02/15/19 Insulin Glargine,Hum.rec.anlog [Basaglar Kwikpen U-100] 3 ml SQ DAILY 02/15/19 Pravastatin Sodium [Pravachol -] 40 mg PO HS 02/15/19 Basaglar Kwikpen U-100 8 units SCJ DAILY 03/01/19 Nystatin Cream [Mycostatin Cream -] 1 applic TP BID 03/31/19 Family Disease History - Family Disease History Family Disease History: Heart Disease: Father Physical Examination Vital Signs: Vital Signs Temperature 98.1 F 04/11/19 14:18 Pulse Rate 76 04/11/19 14:18 Respiratory Rate 20 04/11/19 14:18 Blood Pressure 160/78 04/11/19 14:18 O2 Sat by Pulse Oximetry (%) 99 04/11/19 15:00 Constitutional: Yes: No Distress HENT: Yes: Atraumatic Neck: Yes: Supple Cardiovascular: Yes: Regular Rate and Rhythm Respiratory: Yes: CTA Bilaterally Gastrointestinal: Yes: Normal Bowel Sounds Extremities: Yes: Other (L foot infection) Neurological: Yes: Alert, Oriented Labs: CBC, BMP 04/11/19 15:15 04/11/19 15:15 Imaging - Results X-ray: Report Reviewed Problem List - Problems (1) Osteomyelitis Assessment/Plan: iv abx after bone biopsy Code(s): M86.9 - OSTEOMYELITIS, UNSPECIFIED (2) Wound of foot Assessment/Plan: wound care dressing change Code(s): S91.309A - UNSPECIFIED OPEN WOUND, UNSPECIFIED FOOT, INITIAL ENCOUNTER (3) Cellulitis and abscess of leg Code(s): L02.419 - CUTANEOUS ABSCESS OF LIMB, UNSPECIFIED; L03.119 - CELLULITIS OF UNSPECIFIED PART OF LIMB (4) Diabetes Assessment/Plan: bgms coverage Code(s): E11.9 - TYPE 2 DIABETES MELLITUS WITHOUT COMPLICATIONS (5) Gangrene Code(s): I96 - GANGRENE, NOT ELSEWHERE CLASSIFIED (6) HTN (hypertension) Assessment/Plan: on meds Code(s): I10 - ESSENTIAL (PRIMARY) HYPERTENSION (7) PAD (peripheral artery disease) Code(s): I73.9 - PERIPHERAL VASCULAR DISEASE, UNSPECIFIED (8) Type 1 diabetes mellitus with foot ulcer Code(s): E10.621 - TYPE 1 DIABETES MELLITUS WITH FOOT ULCER; L97.509 - NON- PRESSURE CHRONIC ULCER OTH PRT UNSP FOOT W UNSP SEVERITY Assessment/Plan Laboratory Tests 04/11/19 04/11/19 04/11/19 15:15 15:15 15:15 WBC 7.3 RBC 3.39 L Hgb 10.5 L Hct 30.5 L MCV 89.8 MCH 31.0 MCHC 34.5 RDW 14.1 D Plt Count 290 D MPV 7.3 L Absolute Neuts (auto) 4.7 Neutrophils % 64.2 Lymphocytes % 17.7 Monocytes % 9.2 Eosinophils % 7.9 H Basophils % 1.0 Nucleated RBC % 0 PT with INR 11.90 INR 1.01 Sodium 138 Potassium 5.0 Chloride 106 Carbon Dioxide 24 Anion Gap 9 BUN 32.3 H Creatinine 1.3 Est GFR (CKD-EPI)AfAm 64.98 Est GFR (CKD-EPI)NonAf 56.06 Random Glucose 177 H Calcium 9.1 Total Bilirubin 0.4 AST 19 ALT 17 Alkaline Phosphatase 124 H Total Protein 7.2 Albumin 3.5 Active Medications Generic Name Dose Route Start Last Admin Trade Name Freq PRN Reason Stop Dose Admin Aspirin 81 mg 04/12/19 10:00 04/12/19 09:43 Asa - PO Not Given DAILY [facility] Atorvastatin Calcium 10 mg 04/11/19 22:00 04/11/19 23:11 Lipitor - PO 10 mg HS [facility] Administration Clopidogrel Bisulfate 75 mg 04/12/19 10:00 04/12/19 09:43 Plavix - PO Not Given DAILY [facility] Heparin Sodium (Porcine) 5,000 unit 04/11/19 22:00 04/12/19 09:43 Heparin - SQ Not Given BID [facility] Lisinopril 10 mg 04/12/19 10:00 04/12/19 09:43 Prinivil PO Not Given DAILY [facility] Metformin HCl 1,000 mg 04/12/19 07:00 04/12/19 16:05 Glucophage - PO 1,000 mg BIDI [facility] Administration Oxycodone HCl 5 mg 04/12/19 15:18 Roxicodone - PO Q4H PRN PAIN LEVEL 1-5
[2019-04-11] MEDS: ATORVASTATIN CA 10 MG TABLET (FP) PO SCH (23:11)
[2019-04-11] MEDS: HEPARIN NA (PORCINE) 5,000 UNITS/ML 1ML VIAL SQ SCH (23:11)
[2019-04-12] MEDS: metFORMIN HCL 500 MG TABLET (FP) PO SCH ×2 (06:33→16:05)
[2019-04-12 08:58] LABS: BASO % 0.9 % (0-2.0); EOS % 8.6 % (0-4.5); HEMATOCRIT 27.6 % (35.4-49); HEMOGLOBIN 9.6 GM/dL (11.7-16.9); LYMPH % 14.2 % (8-40); MCH 31.2 pg (25.7-33.7); MCHC 34.9 g/dl (32.0-35.9); MEAN CELL VOLUME 89.6 fl (80-96); MONO % 9.7 % (3.8-10.2); NEUT % 66.6 % (42.8-82.8); PLATELET COUNT 296 K/MM3 (134-434); RBC 3.08 M/mm3 (4.00-5.60); RDW 13.9 % (11.9-15.9); WHITE BLOOD COUNT 6.2 K/mm3 (4.0-10.0)
[2019-04-12 09:02] LABS: ALBUMIN 3.2 g/dl (3.4-5.0); BILIRUBIN,TOTAL 0.5 mg/dL (0.2-1); BLOOD UREA NITROGEN 33.2 mg/dL (7-18); CALCIUM 9.1 mg/dL (8.5-10.1); CREATININE 1.4 mg/dL (0.55-1.3); TOT PROT 6.6 g/dl (6.4-8.2)
[2019-04-12] MEDS: HEPARIN NA (PORCINE) 5,000 UNITS/ML 1ML VIAL SQ SCH ×2 (09:43→21:45)
[2019-04-12] MEDS: LISINOPRIL 10 MG TABLET (FP) PO SCH (09:43)
[2019-04-12] MEDS: ASPIRIN 81 MG CHEWABLE TABLETS PO SCH (09:43)
[2019-04-12] MEDS: CLOPIDOGREL BISULFATE 75 MG TABLET (FP) PO SCH (09:43)
[2019-04-12] MEDS ORDERED: LIDOCAINE HCL 2% (20ML MULTI-DOSE VIAL) NR ONE (12:31)
--- NOTE | 2019-04-12 12:33 | CON.ID ---
Consult Consult Specialty:: infectious diseases Referred by:: Reason for Consultation:: osteo of the foot - History of Present Illness Chief Complaint: non healing wound of the leg History of Present Illness: 68-year-old male sent in by Dr. Hernandez her invasive manager for nonhealing left foot wound with signs of osteomyelitis based on MRI done on April 05. Patient denies any fever, chills or discomfort to the area. Patient has been receiving hyperbaric daily with last treatment today prior to ER arrival. Patient has history of diabetes with amputation of the left fifth toe. plan is for patient to undergo bone biopsy and then further plan - History Source History Provided By: Patient, Medical Record Limitations to Obtaining History: Language Barrier - Past Medical History Cardio/Vascular: Yes: HTN Endocrine: Yes: Diabetes Mellitus - Alcohol/Substance Use Hx Alcohol Use: Yes (SOCIAL) - Smoking History Smoking history: Never smoked Have you smoked in the past 12 months: No Aproximately how many cigarettes per day: 0 If you are a former smoker, when did you quit?: 10 years Home Medications - Allergies Allergies/Adverse Reactions: Allergies Allergy/AdvReac Type Severity Reaction Status Date / Time No Known Allergies Allergy Verified 01/18/19 11:27 - Home Medications Home Medications: Ambulatory Orders RX: Metformin HCl [Glucophage] 1,000 mg PO BID 11/19/16 RX: Collagenase Clostridium Hist. [Santyl] 90 gm TP DAILY #1 tube 12/14/18 RX: Acetaminophen [Tylenol .Regular Strength -] 650 mg PO Q6H PRN tablet RX: Clopidogrel Bisulfate [Plavix -] 75 mg PO DAILY tablet 01/10/19 RX: Lisinopril [Prinivil] 10 mg PO DAILY tablet 01/10/19 Aspirin [ASA -] 81 mg PO DAILY 02/15/19 Insulin Glargine,Hum.rec.anlog [Basaglar Kwikpen U-100] 3 ml SQ DAILY 02/15/19 Pravastatin Sodium [Pravachol -] 40 mg PO HS 02/15/19 Basaglar Kwikpen U-100 8 units SCJ DAILY 03/01/19 RX: Nystatin Cream [Mycostatin Cream -] 1 applic TP BID 03/31/19 Family Disease History - Family Disease History Family Disease History: Heart Disease: Father Review of Systems - Review of Systems Constitutional: reports: No Symptoms Eyes: reports: No Symptoms HENT: reports: No Symptoms Neck: reports: No Symptoms Cardiovascular: reports: No Symptoms Respiratory: reports: No Symptoms Gastrointestinal: reports: No Symptoms Genitourinary: reports: No Symptoms Musculoskeletal: reports: No Symptoms Integumentary: reports: Wound, Other Neurological: reports: No Symptoms Endocrine: reports: No Symptoms Hematology/Lymphatic: reports: No Symptoms Psychiatric: reports: No Symptoms Physical Exam Vital Signs: Vital Signs Temperature 98.0 F 04/12/19 09:00 Pulse Rate 72 04/12/19 09:00 Respiratory Rate 18 04/12/19 09:00 Blood Pressure 141/70 04/12/19 09:00 O2 Sat by Pulse Oximetry (%) 97 04/12/19 09:00 Constitutional: Yes: Well Nourished, No Distress, Calm Eyes: Yes: Occular Prosthesis Cardiovascular: Yes: Regular Rate and Rhythm Respiratory: Yes: Regular, CTA Bilaterally Gastrointestinal: Yes: Normal Bowel Sounds, Soft Musculoskeletal: Yes: WNL Extremities: Yes: Other Wound/Incision: Yes: Other (left foot) Neurological: Yes: Alert, Oriented Psychiatric: Yes: Alert, Oriented Labs: CBC, BMP 04/12/19 07:00 04/12/19 07:00 Imaging - Results Chest X-ray: Report Reviewed, Image Reviewed X-ray: Report Reviewed, Image Reviewed Assessment/Plan Problem List - Problems (1) Osteomyelitis Code(s): M86.9 - OSTEOMYELITIS, UNSPECIFIED (2) Wound of foot Code(s): S91.309A - UNSPECIFIED OPEN WOUND, UNSPECIFIED FOOT, INITIAL ENCOUNTER (3) Cellulitis and abscess of leg Code(s): L02.419 - CUTANEOUS ABSCESS OF LIMB, UNSPECIFIED; L03.119 - CELLULITIS OF UNSPECIFIED PART OF LIMB (4) Diabetes coverage Code(s): E11.9 - TYPE 2 DIABETES MELLITUS WITHOUT COMPLICATIONS (5) Gangrene Code(s): I96 - GANGRENE, NOT ELSEWHERE CLASSIFIED (6) HTN (hypertension) Code(s): I10 - ESSENTIAL (PRIMARY) HYPERTENSION (7) PAD (peripheral artery disease) Code(s): I73.9 - PERIPHERAL VASCULAR DISEASE, UNSPECIFIED (8) Type 1 diabetes mellitus with foot ulcer Code(s): E10.621 - TYPE 1 DIABETES MELLITUS WITH FOOT ULCER; L97.509 - NON- PRESSURE CHRONIC ULCER OTH PRT UNSP FOOT W UNSP SEVERITY plan continue current mgmt for bone biopsy once we have all the result then will decide final mgmt
[2019-04-12] MEDS ORDERED: MIDAZOLAM HCL 2 MG/2 ML SINGLE DOSE VIAL ONE (12:53)
[2019-04-12] MEDS ORDERED: PROPOFOL 20 ML ONE (12:53)
[2019-04-12] MEDS ORDERED: DEXAMETHASONE SOD PHOSPHATE 4 MG/1 ML VIAL ONE (13:03)
[2019-04-12] MEDS ORDERED: VANCOMYCIN 1,000 MG VIAL (RESTRICTED TO ID ONLY) ONE (13:18)
[2019-04-12] MEDS ORDERED: VANCOMYCIN 1,000 MG VIAL (RESTRICTED TO ID ONLY) IVPB ONE (13:20)
--- NOTE | 2019-04-12 15:20 | OP ---
Operative Note - Note: Operative Date: 04/12/19 Pre-Operative Diagnosis: osteomyelitis left fourth metatarsal with diabetic ulcer Operation: left foot debridement of ulcer with bone biopsy Post-Operative Diagnosis: Same as Pre-op Surgeon: Cory Nicolas Anesthesia: Local, MAC Specimens Removed: bone left foot Estimated Blood Loss (mls): 20 Instrument used (Debridements only): #15 blade scalpel and forceps Operative Report Dictated: Yes
--- NOTE | 2019-04-12 16:46 | PN ---
Progress Note, Physician - Current Medication List Current Medications: Active Medications Aspirin (Asa -) 81 mg PO DAILY [facility] Last Admin: 04/12/19 09:43 Dose: Not Given Atorvastatin Calcium (Lipitor -) 10 mg PO HS [facility] Last Admin: 04/11/19 23:11 Dose: 10 mg Clopidogrel Bisulfate (Plavix -) 75 mg PO DAILY [facility] Last Admin: 04/12/19 09:43 Dose: Not Given Heparin Sodium (Porcine) (Heparin -) 5,000 unit SQ BID [facility] Last Admin: 04/12/19 09:43 Dose: Not Given Lisinopril (Prinivil) 10 mg PO DAILY [facility] Last Admin: 04/12/19 09:43 Dose: Not Given Metformin HCl (Glucophage -) 1,000 mg PO BIDI [facility] Last Admin: 04/12/19 16:05 Dose: 1,000 mg Oxycodone HCl (Roxicodone -) 5 mg PO Q4H PRN PRN Reason: PAIN LEVEL 1-5 - Objective Vital Signs: Vital Signs Temperature 97.6 F 04/12/19 15:40 Pulse Rate 69 04/12/19 15:40 Respiratory Rate 15 04/12/19 15:40 Blood Pressure 157/69 04/12/19 15:40 O2 Sat by Pulse Oximetry (%) 100 04/12/19 15:40 Constitutional: Yes: No Distress HENT: Yes: Atraumatic Neck: Yes: Supple Cardiovascular: Yes: Regular Rate and Rhythm Respiratory: Yes: CTA Bilaterally Gastrointestinal: Yes: Normal Bowel Sounds Extremities: Yes: Other (L foot in dressing) Neurological: Yes: Alert, Oriented Labs: CBC, BMP 04/12/19 07:00 04/12/19 07:00 INR, PTT INR 1.01 (0.83-1.09) 04/11/19 15:15 Problem List - Problems (1) Osteomyelitis Assessment/Plan: iv abx after bone biopsy Code(s): M86.9 - OSTEOMYELITIS, UNSPECIFIED (2) Wound of foot Assessment/Plan: wound care dressing change Code(s): S91.309A - UNSPECIFIED OPEN WOUND, UNSPECIFIED FOOT, INITIAL ENCOUNTER (3) Cellulitis and abscess of leg Code(s): L02.419 - CUTANEOUS ABSCESS OF LIMB, UNSPECIFIED; L03.119 - CELLULITIS OF UNSPECIFIED PART OF LIMB (4) Diabetes Assessment/Plan: bgms coverage Code(s): E11.9 - TYPE 2 DIABETES MELLITUS WITHOUT COMPLICATIONS (5) Gangrene Code(s): I96 - GANGRENE, NOT ELSEWHERE CLASSIFIED (6) HTN (hypertension) Assessment/Plan: on meds Code(s): I10 - ESSENTIAL (PRIMARY) HYPERTENSION (7) PAD (peripheral artery disease) Code(s): I73.9 - PERIPHERAL VASCULAR DISEASE, UNSPECIFIED (8) Type 1 diabetes mellitus with foot ulcer Code(s): E10.621 - TYPE 1 DIABETES MELLITUS WITH FOOT ULCER; L97.509 - NON- PRESSURE CHRONIC ULCER OTH PRT UNSP FOOT W UNSP SEVERITY
[2019-04-12] MEDS: ATORVASTATIN CA 10 MG TABLET (FP) PO SCH (21:45)
[2019-04-12] MEDS: oxyCODONE HCL 5 MG TABLET PO PRN (22:31)
--- NOTE | 2019-04-12 23:06 | OP ---
DATE OF OPERATION: 04/12/2019 PREOPERATIVE DIAGNOSES: Left foot diabetic ulcer and osteomyelitis. POSTOPERATIVE DIAGNOSES: Left foot diabetic ulcer and osteomyelitis. PROCEDURE: Left foot debridement of diabetic ulcer with bone biopsy. SURGEON: Cory Nicolas DPM SENIOR PROJECT ENGINEER: None. ANESTHESIA: IV sedation with local. ESTIMATED BLOOD LOSS: 20 mL. HEMOSTASIS: Surgical dissection. PATHOLOGY: Bone, left foot. COMPLICATIONS: None. The patient was brought to the operating room and placed on the operating table in the supine position. Following induction of IV sedation, local anesthesia was achieved, utilizing 10 mL of 2% lidocaine plain. The left foot was scrubbed, prepped, and draped in the usual sterile fashion. Attention was directed to the left foot, where a lateral ray diabetic ulcer with exposed 4th metatarsal head was visualized and appreciated. I began by performing a sharp excisional debridement of the diabetic ulcer to the level of skin, subcutaneous tissue, and muscle utilizing the sterile 15 and forceps. All devitalized and fibrotic and liquefactive tissue was removed until there was healthy bleeding and viable tissue. Post debridement, of note, there was exposed 4th metatarsal down to capsule and bone. Next, I used a sagittal saw to resect the head of the 4th metatarsal. The head of the 4th metatarsal was disarticulated from the joint. It was removed from the operative field and sent to pathology for analysis. Additionally, a portion of bone was sectioned for bone culture. A wound culture was then obtained. The surgical site was copiously irrigated with sterile saline. The surgical site was loosely coapted using 3-0 nylon in a simple interrupted suture fashion. Following conclusion of the procedure, the surgical site was covered with Xeroform and a sterile compressive dressing was applied to the left foot consisting of sterile gauze, Mateo, Kerlix, and Adriano wrap. The patient tolerated the procedure and anesthesia well without complications. He was transferred from the operating room to the recovery unit with vital signs stable and neurovasculature intact to the left foot. KENNETH [id number]
[2019-04-13] MEDS: metFORMIN HCL 500 MG TABLET (FP) PO SCH ×2 (06:34→16:12)
--- NOTE | 2019-04-13 08:33 | PN ---
Progress Note (short form) - Note Progress Note: Anesthesia POD#1 S/P Left Foot Debridement under MAC VSS,no pain or nausea. Doing well. Ashley Uribe MD.
[2019-04-13] MEDS: oxyCODONE HCL 5 MG TABLET PO PRN (09:36)
[2019-04-13] MEDS: HEPARIN NA (PORCINE) 5,000 UNITS/ML 1ML VIAL SQ SCH ×2 (09:37→21:51)
[2019-04-13] MEDS: ASPIRIN 81 MG CHEWABLE TABLETS PO SCH (09:37)
[2019-04-13] MEDS: LISINOPRIL 10 MG TABLET (FP) PO SCH (09:37)
[2019-04-13] MEDS: CLOPIDOGREL BISULFATE 75 MG TABLET (FP) PO SCH (09:37)
--- NOTE | 2019-04-13 10:00 | PN ---
Progress Note, Physician History of Present Illness: stable no new issues post biopsy - Current Medication List Current Medications: Active Medications Aspirin (Asa -) 81 mg PO DAILY [facility] Last Admin: 04/13/19 09:37 Dose: 81 mg Atorvastatin Calcium (Lipitor -) 10 mg PO HS [facility] Last Admin: 04/12/19 21:45 Dose: 10 mg Clopidogrel Bisulfate (Plavix -) 75 mg PO DAILY [facility] Last Admin: 04/13/19 09:37 Dose: 75 mg Heparin Sodium (Porcine) (Heparin -) 5,000 unit SQ BID [facility] Last Admin: 04/13/19 09:37 Dose: 5,000 unit Ceftriaxone Sodium (Ceftriaxone 2 Gm-D5w Bag) 2 gm in 50 mls @ 100 mls/hr IVPB DAILY [facility]; Protocol Lisinopril (Prinivil) 10 mg PO DAILY [facility] Last Admin: 04/13/19 09:37 Dose: 10 mg Metformin HCl (Glucophage -) 1,000 mg PO BIDI [facility] Last Admin: 04/13/19 06:34 Dose: 1,000 mg Oxycodone HCl (Roxicodone -) 5 mg PO Q4H PRN PRN Reason: PAIN LEVEL 1-5 Last Admin: 04/13/19 09:36 Dose: 5 mg - Objective Vital Signs: Vital Signs Temperature 98.2 F 04/13/19 00:21 Pulse Rate 70 04/13/19 00:21 Respiratory Rate 20 04/13/19 00:21 Blood Pressure 121/69 04/13/19 00:21 O2 Sat by Pulse Oximetry (%) 97 04/12/19 22:00 Constitutional: Yes: No Distress, Calm Gastrointestinal: Yes: Normal Bowel Sounds, Soft Musculoskeletal: Yes: WNL Extremities: Yes: Other Wound/Incision: Yes: Dressing Dry and Intact Neurological: Yes: Alert, Oriented Psychiatric: Yes: Alert, Oriented Labs: CBC, BMP 04/12/19 07:00 04/12/19 07:00 INR, PTT INR 1.01 (0.83-1.09) 04/11/19 15:15 Assessment/Plan Problem List - Problems (1) Osteomyelitis Code(s): M86.9 - OSTEOMYELITIS, UNSPECIFIED (2) Wound of foot Code(s): S91.309A - UNSPECIFIED OPEN WOUND, UNSPECIFIED FOOT, INITIAL ENCOUNTER (3) Cellulitis and abscess of leg Code(s): L02.419 - CUTANEOUS ABSCESS OF LIMB, UNSPECIFIED; L03.119 - CELLULITIS OF UNSPECIFIED PART OF LIMB (4) Diabetes Code(s): E11.9 - TYPE 2 DIABETES MELLITUS WITHOUT COMPLICATIONS (5) Gangrene Code(s): I96 - GANGRENE, NOT ELSEWHERE CLASSIFIED (6) HTN (hypertension) Code(s): I10 - ESSENTIAL (PRIMARY) HYPERTENSION (7) PAD (peripheral artery disease) Code(s): I73.9 - PERIPHERAL VASCULAR DISEASE, UNSPECIFIED (8) Type 1 diabetes mellitus with foot ulcer Code(s): E10.621 - TYPE 1 DIABETES MELLITUS WITH FOOT ULCER; L97.509 - NON- PRESSURE CHRONIC ULCER OTH PRT UNSP FOOT W UNSP SEVERITY plan continue abx await for path report wound care once we have all the reports then trista decide final plan rest as per the team
--- NOTE | 2019-04-13 11:47 | PN ---
Progress Note, Physician - Current Medication List Current Medications: Active Medications Aspirin (Asa -) 81 mg PO DAILY [facility] Last Admin: 04/13/19 09:37 Dose: 81 mg Atorvastatin Calcium (Lipitor -) 10 mg PO HS [facility] Last Admin: 04/12/19 21:45 Dose: 10 mg Clopidogrel Bisulfate (Plavix -) 75 mg PO DAILY [facility] Last Admin: 04/13/19 09:37 Dose: 75 mg Heparin Sodium (Porcine) (Heparin -) 5,000 unit SQ BID [facility] Last Admin: 04/13/19 09:37 Dose: 5,000 unit Ceftriaxone Sodium 2 gm/ (Dextrose) 100 mls @ 100 mls/hr IVPB DAILY [facility]; Protocol Lisinopril (Prinivil) 10 mg PO DAILY [facility] Last Admin: 04/13/19 09:37 Dose: 10 mg Metformin HCl (Glucophage -) 1,000 mg PO BIDI [facility] Last Admin: 04/13/19 06:34 Dose: 1,000 mg Oxycodone HCl (Roxicodone -) 5 mg PO Q4H PRN PRN Reason: PAIN LEVEL 1-5 Last Admin: 04/13/19 09:36 Dose: 5 mg - Objective Vital Signs: Vital Signs Temperature 98.2 F 04/13/19 00:21 Pulse Rate 70 04/13/19 00:21 Respiratory Rate 20 04/13/19 00:21 Blood Pressure 121/69 04/13/19 00:21 O2 Sat by Pulse Oximetry (%) 97 04/12/19 22:00 Constitutional: Yes: No Distress HENT: Yes: Atraumatic Neck: Yes: Supple Cardiovascular: Yes: Regular Rate and Rhythm Respiratory: Yes: CTA Bilaterally Gastrointestinal: Yes: Normal Bowel Sounds Extremities: Yes: Other (left foot in dressing) Neurological: Yes: Alert, Oriented Labs: CBC, BMP 04/12/19 07:00 04/12/19 07:00 INR, PTT INR 1.01 (0.83-1.09) 04/11/19 15:15 Problem List - Problems (1) Osteomyelitis Assessment/Plan: iv abx after bone biopsy Code(s): M86.9 - OSTEOMYELITIS, UNSPECIFIED (2) Wound of foot Assessment/Plan: wound care dressing change Code(s): S91.309A - UNSPECIFIED OPEN WOUND, UNSPECIFIED FOOT, INITIAL ENCOUNTER (3) Cellulitis and abscess of leg Code(s): L02.419 - CUTANEOUS ABSCESS OF LIMB, UNSPECIFIED; L03.119 - CELLULITIS OF UNSPECIFIED PART OF LIMB (4) Diabetes Assessment/Plan: bgla coverage Code(s): E11.9 - TYPE 2 DIABETES MELLITUS WITHOUT COMPLICATIONS (5) Gangrene Code(s): I96 - GANGRENE, NOT ELSEWHERE CLASSIFIED (6) HTN (hypertension) Assessment/Plan: on meds Code(s): I10 - ESSENTIAL (PRIMARY) HYPERTENSION (7) PAD (peripheral artery disease) Code(s): I73.9 - PERIPHERAL VASCULAR DISEASE, UNSPECIFIED (8) Type 1 diabetes mellitus with foot ulcer Code(s): E10.621 - TYPE 1 DIABETES MELLITUS WITH FOOT ULCER; L97.509 - NON- PRESSURE CHRONIC ULCER OTH PRT UNSP FOOT W UNSP SEVERITY
[2019-04-13] MEDS ORDERED: DEXTROSE 5%-WATER 100 ML IVPB ONE (11:51)
[2019-04-13] MEDS: CEFTRIAXONE 2 GM in DEXTROSE 5%-WATER 100 ML IVPB SCH (11:54)
--- NOTE | 2019-04-13 12:20 | PN ---
Progress Note (short form) - Note Progress Note: Podiatry F/U; Seen/evaluated at bedside NAD. Pain controlled, denies F/V/N/C/SOB/CP. Afebrile. S/p left foot debridement and bone biopsy POD#1. ABA: L foot: dressing C/D/I, no active bleeding, no strikethrough. Sutures coapted, no dehiscence noted, no purulent drainage, no fluctuance, no streaking cellulitis, no signs of infection. NO ischemic changes to the foot. OR Cx: MRSA, GNB Imp: 68 year old diabetic male s/p left foot debridement with bone biopsy POD#1 1. IV abx per infectious disease 2. DSD L foot 3. Partial WB Left heel with surgical shoe 4. F/u OR culture/path 5. Will follow Val Nicolas DPM
[2019-04-13] MEDS: ATORVASTATIN CA 10 MG TABLET (FP) PO SCH (21:51)
[2019-04-14] MEDS: metFORMIN HCL 500 MG TABLET (FP) PO SCH (06:14)
[2019-04-14] MEDS ORDERED: DEXTROSE 5%-WATER 100 ML IVPB ONE (10:11)
[2019-04-14] MEDS: HEPARIN NA (PORCINE) 5,000 UNITS/ML 1ML VIAL SQ SCH ×2 (10:16→21:04)
[2019-04-14] MEDS: ASPIRIN 81 MG CHEWABLE TABLETS PO SCH (10:16)
[2019-04-14] MEDS: CLOPIDOGREL BISULFATE 75 MG TABLET (FP) PO SCH (10:16)
[2019-04-14] MEDS: CEFTRIAXONE 2 GM in DEXTROSE 5%-WATER 100 ML IVPB SCH (10:16)
[2019-04-14] MEDS: LISINOPRIL 10 MG TABLET (FP) PO SCH (10:16)
--- NOTE | 2019-04-14 14:04 | PN ---
Progress Note, Physician History of Present Illness: stable cx result noted - Current Medication List Current Medications: Active Medications Aspirin (Asa -) 81 mg PO DAILY [facility] Last Admin: 04/14/19 10:16 Dose: 81 mg Atorvastatin Calcium (Lipitor -) 10 mg PO HS [facility] Clopidogrel Bisulfate (Plavix -) 75 mg PO DAILY [facility] Last Admin: 04/14/19 10:16 Dose: 75 mg Heparin Sodium (Porcine) (Heparin -) 5,000 unit SQ BID [facility] Last Admin: 04/14/19 10:16 Dose: 5,000 unit Ceftriaxone Sodium 2 gm/ (Dextrose) 100 mls @ 100 mls/hr IVPB DAILY [facility]; Protocol Last Admin: 04/14/19 10:16 Dose: 100 mls/hr Vancomycin HCl 1,500 mg/ (Dextrose) 500 mls @ 250 mls/hr IVPB Q24H [facility]; Protocol Lisinopril (Prinivil) 10 mg PO DAILY [facility] Last Admin: 04/14/19 10:16 Dose: 10 mg Metformin HCl (Glucophage -) 1,000 mg PO BIDI [facility] Oxycodone HCl (Roxicodone -) 5 mg PO Q4H PRN PRN Reason: PAIN LEVEL 1-5 Last Admin: 04/13/19 09:36 Dose: 5 mg - Objective Vital Signs: Vital Signs Temperature 97.6 F 04/14/19 10:21 Pulse Rate 89 04/14/19 10:21 Respiratory Rate 17 04/14/19 10:21 Blood Pressure 108/67 04/14/19 10:21 O2 Sat by Pulse Oximetry (%) 98 04/13/19 22:00 Constitutional: Yes: No Distress, Calm Cardiovascular: Yes: S1, S2 Respiratory: Yes: Regular, CTA Bilaterally Gastrointestinal: Yes: Normal Bowel Sounds, Soft Musculoskeletal: Yes: WNL Extremities: Yes: Other Wound/Incision: Yes: Dressing Dry and Intact Neurological: Yes: Alert, Oriented Psychiatric: Yes: Alert, Oriented Labs: CBC, BMP 04/12/19 07:00 04/12/19 07:00 INR, PTT INR 1.01 (0.83-1.09) 04/11/19 15:15 Assessment/Plan Problem List - Problems (1) Osteomyelitis Code(s): M86.9 - OSTEOMYELITIS, UNSPECIFIED (2) Wound of foot Code(s): S91.309A - UNSPECIFIED OPEN WOUND, UNSPECIFIED FOOT, INITIAL ENCOUNTER (3) Cellulitis and abscess of leg Code(s): L02.419 - CUTANEOUS ABSCESS OF LIMB, UNSPECIFIED; L03.119 - CELLULITIS OF UNSPECIFIED PART OF LIMB (4) Diabetes Code(s): E11.9 - TYPE 2 DIABETES MELLITUS WITHOUT COMPLICATIONS (5) Gangrene Code(s): I96 - GANGRENE, NOT ELSEWHERE CLASSIFIED (6) HTN (hypertension) Code(s): I10 - ESSENTIAL (PRIMARY) HYPERTENSION (7) PAD (peripheral artery disease) Code(s): I73.9 - PERIPHERAL VASCULAR DISEASE, UNSPECIFIED (8) Type 1 diabetes mellitus with foot ulcer Code(s): E10.621 - TYPE 1 DIABETES MELLITUS WITH FOOT ULCER; L97.509 - NON- PRESSURE CHRONIC ULCER OTH PRT UNSP FOOT W UNSP SEVERITY plan continue abx reports noted will add vanco to ceftriaxone wound care
[2019-04-14] MEDS ORDERED: PIPERACILLIN/TAZOBACTAM 3.375 GM VIAL IVPB ONE (14:14)
[2019-04-14] MEDS ORDERED: DEXTROSE 5%-WATER - 50 ML IVPB ONE (14:14)
[2019-04-14] MEDS: PIPERACILLIN/TAZOB 3.375 GM 3.375 GM in DEXTROSE 5%-WATER - 50 ML IVPB SCH ×2 (14:18→18:07)
[2019-04-14] MEDS ORDERED: PT OWN MED DRAWER 7, Y5N ONE (15:40)
[2019-04-14] MEDS: VANCOMYCIN HCL 1,500 MG in DEXTROSE 5%-WATER - 500 ML IVPB SCH (15:48)
--- NOTE | 2019-04-14 16:56 | PN ---
Progress Note, Physician - Current Medication List Current Medications: Active Medications Aspirin (Asa -) 81 mg PO DAILY [facility] Last Admin: 04/14/19 10:16 Dose: 81 mg Atorvastatin Calcium (Lipitor -) 10 mg PO HS [facility] Clopidogrel Bisulfate (Plavix -) 75 mg PO DAILY [facility] Last Admin: 04/14/19 10:16 Dose: 75 mg Heparin Sodium (Porcine) (Heparin -) 5,000 unit SQ BID [facility] Last Admin: 04/14/19 10:16 Dose: 5,000 unit Vancomycin HCl 1,500 mg/ (Dextrose) 500 mls @ 250 mls/hr IVPB Q24H [facility]; Protocol Last Admin: 04/14/19 15:48 Dose: 250 mls/hr Piperacillin Sod/Tazobactam (Sod 3.375 gm/ Dextrose) 50 mls @ 100 mls/hr IVPB Q8H-IV [facility]; Protocol Last Admin: 04/14/19 14:18 Dose: 100 mls/hr Lisinopril (Prinivil) 10 mg PO DAILY [facility] Last Admin: 04/14/19 10:16 Dose: 10 mg Metformin HCl (Glucophage -) 1,000 mg PO BIDI [facility] Oxycodone HCl (Roxicodone -) 5 mg PO Q4H PRN PRN Reason: PAIN LEVEL 1-5 Last Admin: 04/13/19 09:36 Dose: 5 mg - Objective Vital Signs: Vital Signs Temperature 97.6 F 04/14/19 10:21 Pulse Rate 89 04/14/19 10:21 Respiratory Rate 17 04/14/19 10:21 Blood Pressure 108/67 04/14/19 10:21 O2 Sat by Pulse Oximetry (%) 98 04/13/19 22:00 Constitutional: Yes: No Distress HENT: Yes: Atraumatic Neck: Yes: Supple Cardiovascular: Yes: Regular Rate and Rhythm Respiratory: Yes: CTA Bilaterally Gastrointestinal: Yes: Normal Bowel Sounds Extremities: Yes: WNL Edema: No Neurological: Yes: Alert, Oriented Labs: CBC, BMP 04/12/19 07:00 04/12/19 07:00 INR, PTT INR 1.01 (0.83-1.09) 04/11/19 15:15 Problem List - Problems (1) Osteomyelitis Assessment/Plan: on iv abx wound care Code(s): M86.9 - OSTEOMYELITIS, UNSPECIFIED (2) Wound of foot Assessment/Plan: wound care dressing change Code(s): S91.309A - UNSPECIFIED OPEN WOUND, UNSPECIFIED FOOT, INITIAL ENCOUNTER (3) Cellulitis and abscess of leg Code(s): L02.419 - CUTANEOUS ABSCESS OF LIMB, UNSPECIFIED; L03.119 - CELLULITIS OF UNSPECIFIED PART OF LIMB (4) Diabetes Assessment/Plan: [facility] [place] Code(s): E11.9 - TYPE 2 DIABETES MELLITUS WITHOUT COMPLICATIONS (5) Gangrene Code(s): I96 - GANGRENE, NOT ELSEWHERE CLASSIFIED (6) HTN (hypertension) Assessment/Plan: on meds Code(s): I10 - ESSENTIAL (PRIMARY) HYPERTENSION (7) PAD (peripheral artery disease) Code(s): I73.9 - PERIPHERAL VASCULAR DISEASE, UNSPECIFIED (8) Type 1 diabetes mellitus with foot ulcer Code(s): E10.621 - TYPE 1 DIABETES MELLITUS WITH FOOT ULCER; L97.509 - NON- PRESSURE CHRONIC ULCER OTH PRT UNSP FOOT W UNSP SEVERITY
[2019-04-14] MEDS: ATORVASTATIN CA 10 MG TABLET (FP) PO SCH (21:04)
[2019-04-15] MEDS ORDERED: PIPERACILLIN/TAZOBACTAM 3.375 GM VIAL IVPB ONE ×3 (02:33→18:18)
[2019-04-15] MEDS ORDERED: DEXTROSE 5%-WATER - 50 ML IVPB ONE ×3 (02:33→18:18)
[2019-04-15] MEDS: PIPERACILLIN/TAZOB 3.375 GM 3.375 GM in DEXTROSE 5%-WATER - 50 ML IVPB SCH ×3 (02:42→18:30)
[2019-04-15 08:36] LABS: HEMATOCRIT 28.5 % (35.4-49); HEMOGLOBIN 9.9 GM/dL (11.7-16.9); MCH 31.2 pg (25.7-33.7); MCHC 34.7 g/dl (32.0-35.9); MEAN CELL VOLUME 89.8 fl (80-96); MEAN PLT VOLUME 8.2 fl (7.5-11.1); PLATELET COUNT 287 K/MM3 (134-434); RBC 3.18 M/mm3 (4.00-5.60); RDW 13.9 % (11.9-15.9); WHITE BLOOD COUNT 7.2 K/mm3 (4.0-10.0)
--- NOTE | 2019-04-15 08:45 | PN ---
Progress Note, Physician History of Present Illness: patient stable no complaints - Current Medication List Current Medications: Active Medications Aspirin (Asa -) 81 mg PO DAILY [facility] Last Admin: 04/14/19 10:16 Dose: 81 mg Atorvastatin Calcium (Lipitor -) 10 mg PO HS [facility] Last Admin: 04/14/19 21:04 Dose: 10 mg Clopidogrel Bisulfate (Plavix -) 75 mg PO DAILY [facility] Last Admin: 04/14/19 10:16 Dose: 75 mg Heparin Sodium (Porcine) (Heparin -) 5,000 unit SQ BID [facility] Last Admin: 04/14/19 21:04 Dose: 5,000 unit Vancomycin HCl 1,500 mg/ (Dextrose) 500 mls @ 250 mls/hr IVPB Q24H [facility]; Protocol Last Admin: 04/14/19 15:48 Dose: 250 mls/hr Piperacillin Sod/Tazobactam (Sod 3.375 gm/ Dextrose) 50 mls @ 100 mls/hr IVPB Q8H-IV [facility]; Protocol Last Admin: 04/15/19 02:42 Dose: 100 mls/hr Lisinopril (Prinivil) 10 mg PO DAILY [facility] Last Admin: 04/14/19 10:16 Dose: 10 mg Metformin HCl (Glucophage -) 1,000 mg PO BIDI [facility] Oxycodone HCl (Roxicodone -) 5 mg PO Q4H PRN PRN Reason: PAIN LEVEL 1-5 Last Admin: 04/13/19 09:36 Dose: 5 mg - Objective Vital Signs: Vital Signs Temperature 97.5 F L 04/14/19 20:33 Pulse Rate 80 04/14/19 20:33 Respiratory Rate 18 04/14/19 20:33 Blood Pressure 143/81 04/14/19 20:33 O2 Sat by Pulse Oximetry (%) 100 04/14/19 21:00 Constitutional: Yes: No Distress, Calm Cardiovascular: Yes: S1, S2 Respiratory: Yes: Regular, CTA Bilaterally Gastrointestinal: Yes: Normal Bowel Sounds, Soft Musculoskeletal: Yes: WNL Extremities: Yes: Other Wound/Incision: Yes: Dressing Dry and Intact Neurological: Yes: Alert, Oriented Psychiatric: Yes: Alert, Oriented Labs: CBC, BMP 04/15/19 06:10 INR, PTT INR 1.01 (0.83-1.09) 04/11/19 15:15 Assessment/Plan Problem List - Problems (1) Osteomyelitis Code(s): M86.9 - OSTEOMYELITIS, UNSPECIFIED (2) Wound of foot Code(s): S91.309A - UNSPECIFIED OPEN WOUND, UNSPECIFIED FOOT, INITIAL ENCOUNTER (3) Cellulitis and abscess of leg Code(s): L02.419 - CUTANEOUS ABSCESS OF LIMB, UNSPECIFIED; L03.119 - CELLULITIS OF UNSPECIFIED PART OF LIMB (4) Diabetes coverage Code(s): E11.9 - TYPE 2 DIABETES MELLITUS WITHOUT COMPLICATIONS (5) Gangrene Code(s): I96 - GANGRENE, NOT ELSEWHERE CLASSIFIED (6) HTN (hypertension) Code(s): I10 - ESSENTIAL (PRIMARY) HYPERTENSION (7) PAD (peripheral artery disease) Code(s): I73.9 - PERIPHERAL VASCULAR DISEASE, UNSPECIFIED (8) Type 1 diabetes mellitus with foot ulcer Code(s): E10.621 - TYPE 1 DIABETES MELLITUS WITH FOOT ULCER; L97.509 - NON- PRESSURE CHRONIC ULCER OTH PRT UNSP FOOT W UNSP SEVERITY plan continue abx wound care rest as per the team
[2019-04-15 08:46] LABS: BLOOD UREA NITROGEN 42.3 mg/dL (7-18); CREATININE 1.5 mg/dL (0.55-1.3); POTASSIUM 5.2 mmol/L (3.5-5.1)
[2019-04-15 09:12] LABS: ERYTHROCYTE SEDIMENTATION RATE 51 mm/hr (0-20)
[2019-04-15] MEDS: CLOPIDOGREL BISULFATE 75 MG TABLET (FP) PO SCH (09:47)
[2019-04-15] MEDS: ASPIRIN 81 MG CHEWABLE TABLETS PO SCH (09:47)
[2019-04-15] MEDS: LISINOPRIL 10 MG TABLET (FP) PO SCH (09:47)
[2019-04-15] MEDS: HEPARIN NA (PORCINE) 5,000 UNITS/ML 1ML VIAL SQ SCH ×2 (09:48→22:15)
--- NOTE | 2019-04-15 11:39 | PN ---
Progress Note, Physician - Current Medication List Current Medications: Active Medications Aspirin (Asa -) 81 mg PO DAILY [facility] Last Admin: 04/15/19 09:47 Dose: 81 mg Atorvastatin Calcium (Lipitor -) 10 mg PO HS [facility] Last Admin: 04/14/19 21:04 Dose: 10 mg Clopidogrel Bisulfate (Plavix -) 75 mg PO DAILY [facility] Last Admin: 04/15/19 09:47 Dose: 75 mg Heparin Sodium (Porcine) (Heparin -) 5,000 unit SQ BID [facility] Last Admin: 04/15/19 09:48 Dose: 5,000 unit Vancomycin HCl 1,500 mg/ (Dextrose) 500 mls @ 250 mls/hr IVPB Q24H [facility]; Protocol Last Admin: 04/14/19 15:48 Dose: 250 mls/hr Piperacillin Sod/Tazobactam (Sod 3.375 gm/ Dextrose) 50 mls @ 100 mls/hr IVPB Q8H-IV [facility]; Protocol Last Admin: 04/15/19 09:48 Dose: 100 mls/hr Lisinopril (Prinivil) 10 mg PO DAILY [facility] Last Admin: 04/15/19 09:47 Dose: 10 mg Metformin HCl (Glucophage -) 1,000 mg PO BIDI [facility] Oxycodone HCl (Roxicodone -) 5 mg PO Q4H PRN PRN Reason: PAIN LEVEL 1-5 Last Admin: 04/13/19 09:36 Dose: 5 mg - Objective Vital Signs: Vital Signs Temperature 97.6 F 04/15/19 11:18 Pulse Rate 81 04/15/19 11:18 Respiratory Rate 17 04/15/19 11:18 Blood Pressure 132/85 04/15/19 11:18 O2 Sat by Pulse Oximetry (%) 100 04/14/19 21:00 Constitutional: Yes: No Distress HENT: Yes: Atraumatic Neck: Yes: Supple Cardiovascular: Yes: Regular Rate and Rhythm Respiratory: Yes: CTA Bilaterally Gastrointestinal: Yes: Normal Bowel Sounds Extremities: Yes: Other (L foot in dressing) Neurological: Yes: Alert, Oriented Labs: CBC, BMP 04/15/19 06:10 04/15/19 06:10 INR, PTT INR 1.01 (0.83-1.09) 04/11/19 15:15 Problem List - Problems (1) Osteomyelitis Assessment/Plan: on iv abx wound care Code(s): M86.9 - OSTEOMYELITIS, UNSPECIFIED (2) Wound of foot Assessment/Plan: wound care dressing change Code(s): S91.309A - UNSPECIFIED OPEN WOUND, UNSPECIFIED FOOT, INITIAL ENCOUNTER (3) Cellulitis and abscess of leg Code(s): L02.419 - CUTANEOUS ABSCESS OF LIMB, UNSPECIFIED; L03.119 - CELLULITIS OF UNSPECIFIED PART OF LIMB (4) [place] [facility] [place] Code[place]s): E11.9 - TYPE 2 DIABETES MELLITUS WITHOUT COMPLICATIONS (5) Gangrene Code(s): I96 - GANGRENE, NOT ELSEWHERE CLASSIFIED (6) HTN (hypertension) Assessment/Plan: on meds Code(s): I10 - ESSENTIAL (PRIMARY) HYPERTENSION (7) PAD (peripheral artery disease) Code(s): I73.9 - PERIPHERAL VASCULAR DISEASE, UNSPECIFIED (8) Type 1 diabetes mellitus with foot ulcer Code(s): E10.621 - TYPE 1 DIABETES MELLITUS WITH FOOT ULCER; L97.509 - NON- PRESSURE CHRONIC ULCER OTH PRT UNSP FOOT W UNSP SEVERITY
[2019-04-15] MEDS: metFORMIN HCL 500 MG TABLET (FP) PO SCH ×2 (13:08→16:40)
[2019-04-15] MEDS: VANCOMYCIN HCL 1,500 MG in DEXTROSE 5%-WATER - 500 ML IVPB SCH (15:08)
[2019-04-15] MEDS: POLYETHYLENE GLYCOL 3350 119 GM BTL PO SCH ×2 (15:13→22:16)
--- NOTE | 2019-04-15 16:58 | PN ---
Progress Note (short form) - Note Progress Note: Podiatry F/U; Seen/evaluated at bedside NAD. s/p bone debridment. No complaints. ABA: L foot: dressing C/D/I, no active bleeding, no strikethrough. Sutures coapted, no dehiscence noted, no purulent drainage, no fluctuance, no streaking cellulitis, no signs of infection. NO ischemic changes to the foot. OR Cx: MRSA, GNB Imp: 68 year old diabetic male s/p left foot debridement with bone biopsy Evaluated and reviewed MRSA + Iv abx per ID Can do every other day dressing change with wet to dry DSD wound/surgical site stable will f/u as outpatient in wound care center upon d/c with Dr. Nicolas
[2019-04-15] MEDS: ATORVASTATIN CA 10 MG TABLET (FP) PO SCH (22:16)
--- NOTE | 2019-04-16 01:14 | PATH ---
Surgical Pathology Report Patient Name: JOSAFAT ALLEN Med. Rec. #: [id number] /Age/Gender: 1950 (Age: 68) / M Account: [id number] Location: [address] [place] [address]/[facility] Taken: 04/12/2019 Received: 04/13/2019 Reported: 04/16/2019 Physicians: Cory Nicolas DPM Specimen(s) Received BONE LEFT FOOT Clinical History Osteomyelitis Final Diagnosis BONE, FOOT, LEFT, BIOPSY: BONE WITH MODERATE ACUTE AND CHRONIC OSTEOMYELITIS. Electronically Signed Maria Del Rosario Tyler M.D. Gross Description Received in formalin labeled "bone bx left foot" are 2 fragments of finley bone measuring 1.7 x 1 x 0.7 and 1 x 1 x 0.5 cm. The entire specimen is submitted in one cassette after brief decalcification. MLSZ/04/13/2019 sanml/04/13/2019
[2019-04-16] MEDS ORDERED: PIPERACILLIN/TAZOBACTAM 3.375 GM VIAL IVPB ONE ×3 (01:44→16:47)
[2019-04-16] MEDS ORDERED: DEXTROSE 5%-WATER - 50 ML IVPB ONE ×3 (01:44→16:47)
[2019-04-16] MEDS: PIPERACILLIN/TAZOB 3.375 GM 3.375 GM in DEXTROSE 5%-WATER - 50 ML IVPB SCH ×3 (02:04→18:29)
[2019-04-16] MEDS: metFORMIN HCL 500 MG TABLET (FP) PO SCH ×2 (06:35→16:51)
[2019-04-16] MEDS: POLYETHYLENE GLYCOL 3350 119 GM BTL PO SCH ×2 (09:26→23:58)
[2019-04-16] MEDS: HEPARIN NA (PORCINE) 5,000 UNITS/ML 1ML VIAL SQ SCH ×2 (09:27→23:56)
[2019-04-16] MEDS: ASPIRIN 81 MG CHEWABLE TABLETS PO SCH (09:27)
[2019-04-16] MEDS: LISINOPRIL 10 MG TABLET (FP) PO SCH (09:27)
[2019-04-16] MEDS: CLOPIDOGREL BISULFATE 75 MG TABLET (FP) PO SCH (09:27)
--- NOTE | 2019-04-16 12:05 | PN ---
Progress Note, Physician - Current Medication List Current Medications: Active Medications Aspirin (Asa -) 81 mg PO DAILY [facility] Last Admin: 04/16/19 09:27 Dose: 81 mg Atorvastatin Calcium (Lipitor -) 10 mg PO HS [facility] Last Admin: 04/15/19 22:16 Dose: 10 mg Clopidogrel Bisulfate (Plavix -) 75 mg PO DAILY [facility] Last Admin: 04/16/19 09:27 Dose: 75 mg Heparin Sodium (Porcine) (Heparin -) 5,000 unit SQ BID [facility] Last Admin: 04/16/19 09:27 Dose: 5,000 unit Vancomycin HCl 1,500 mg/ (Dextrose) 500 mls @ 250 mls/hr IVPB Q24H [facility]; Protocol Last Admin: 04/15/19 15:08 Dose: 250 mls/hr Piperacillin Sod/Tazobactam (Sod 3.375 gm/ Dextrose) 50 mls @ 100 mls/hr IVPB Q8H-IV [facility]; Protocol Last Admin: 04/16/19 09:28 Dose: 100 mls/hr Lisinopril (Prinivil) 10 mg PO DAILY [facility] Last Admin: 04/16/19 09:27 Dose: 10 mg Metformin HCl (Glucophage -) 1,000 mg PO BIDI [facility] Last Admin: 04/16/19 06:35 Dose: 1,000 mg Polyethylene Glycol (Miralax (For Daily Use) -) 17 gm PO BID [facility] Last Admin: 04/16/19 09:26 Dose: 17 gm - Objective Vital Signs: Vital Signs Temperature 97.8 F 04/16/19 09:51 Pulse Rate 95 H 04/16/19 09:51 Respiratory Rate 16 04/16/19 09:51 Blood Pressure 100/77 04/16/19 09:51 O2 Sat by Pulse Oximetry (%) 97 04/16/19 09:00 HENT: Yes: Atraumatic Neck: Yes: Supple Cardiovascular: Yes: Regular Rate and Rhythm Respiratory: Yes: CTA Bilaterally Gastrointestinal: Yes: Normal Bowel Sounds Extremities: Yes: WNL Edema: No Neurological: Yes: Alert, Oriented Labs: CBC, BMP 04/15/19 06:10 04/15/19 06:10 INR, PTT INR 1.01 (0.83-1.09) 04/11/19 15:15 Problem List - Problems (1) Osteomyelitis Assessment/Plan: on iv abx wound care Code(s): M86.9 - OSTEOMYELITIS, UNSPECIFIED (2) Wound of foot Assessment/Plan: wound care dressing change Code(s): S91.309A - UNSPECIFIED OPEN WOUND, UNSPECIFIED FOOT, INITIAL ENCOUNTER (3) Cellulitis and abscess of leg Code(s): L02.419 - CUTANEOUS ABSCESS OF LIMB, UNSPECIFIED; L03.119 - CELLULITIS OF UNSPECIFIED PART OF LIMB (4) Diabetes Assessment/Plan: [facility] [place] Code(s): E11.9 - TYPE 2 DIABETES MELLITUS WITHOUT COMPLICATIONS (5) Gangrene Code(s): I96 - GANGRENE, NOT ELSEWHERE CLASSIFIED (6) HTN (hypertension) Assessment/Plan: on meds Code(s): I10 - ESSENTIAL (PRIMARY) HYPERTENSION (7) PAD (peripheral artery disease) Code(s): I73.9 - PERIPHERAL VASCULAR DISEASE, UNSPECIFIED (8) Type 1 diabetes mellitus with foot ulcer Code(s): E10.621 - TYPE 1 DIABETES MELLITUS WITH FOOT ULCER; L97.509 - NON- PRESSURE CHRONIC ULCER OTH PRT UNSP FOOT W UNSP SEVERITY
[2019-04-16] MEDS: VANCOMYCIN HCL 1,500 MG in DEXTROSE 5%-WATER - 500 ML IVPB SCH (14:34)
[2019-04-16] MEDS: ATORVASTATIN CA 10 MG TABLET (FP) PO SCH (23:56)
[2019-04-17] MEDS ORDERED: PIPERACILLIN/TAZOBACTAM 3.375 GM VIAL IVPB ONE ×3 (01:11→17:22)
[2019-04-17] MEDS ORDERED: DEXTROSE 5%-WATER - 50 ML IVPB ONE ×3 (01:11→17:23)
[2019-04-17] MEDS: PIPERACILLIN/TAZOB 3.375 GM 3.375 GM in DEXTROSE 5%-WATER - 50 ML IVPB SCH ×3 (01:33→17:26)
[2019-04-17] MEDS: metFORMIN HCL 500 MG TABLET (FP) PO SCH ×2 (06:07→17:27)
--- NOTE | 2019-04-17 09:37 | PN ---
Progress Note, Physician History of Present Illness: patient doing well no issues - Current Medication List Current Medications: Active Medications Aspirin (Asa -) 81 mg PO DAILY [facility] Last Admin: 04/16/19 09:27 Dose: 81 mg Atorvastatin Calcium (Lipitor -) 10 mg PO HS [facility] Last Admin: 04/16/19 23:56 Dose: 10 mg Clopidogrel Bisulfate (Plavix -) 75 mg PO DAILY [facility] Last Admin: 04/16/19 09:27 Dose: 75 mg Heparin Sodium (Porcine) (Heparin -) 5,000 unit SQ BID [facility] Last Admin: 04/16/19 23:56 Dose: 5,000 unit Vancomycin HCl 1,500 mg/ (Dextrose) 500 mls @ 250 mls/hr IVPB Q24H [facility]; Protocol Last Admin: 04/16/19 14:34 Dose: 250 mls/hr Piperacillin Sod/Tazobactam (Sod 3.375 gm/ Dextrose) 50 mls @ 100 mls/hr IVPB Q8H-IV [facility]; Protocol Last Admin: 04/17/19 01:33 Dose: 100 mls/hr Lisinopril (Prinivil) 10 mg PO DAILY [facility] Last Admin: 04/16/19 09:27 Dose: 10 mg Metformin HCl (Glucophage -) 1,000 mg PO BIDI [facility] Last Admin: 04/17/19 06:07 Dose: 1,000 mg Polyethylene Glycol (Miralax (For Daily Use) -) 17 gm PO BID [facility] Last Admin: 04/16/19 23:58 Dose: Not Given - Objective Vital Signs: Vital Signs Temperature 98.1 F 04/17/19 06:00 Pulse Rate 70 04/17/19 06:00 Respiratory Rate 20 04/17/19 06:00 Blood Pressure 121/67 04/17/19 06:00 O2 Sat by Pulse Oximetry (%) 97 04/16/19 21:00 Constitutional: Yes: No Distress, Calm Cardiovascular: Yes: Regular Rate and Rhythm Respiratory: Yes: Regular, CTA Bilaterally Gastrointestinal: Yes: Normal Bowel Sounds, Soft Musculoskeletal: Yes: WNL Extremities: Yes: Other Wound/Incision: Yes: Dressing Dry and Intact Neurological: Yes: Alert, Oriented Psychiatric: Yes: Alert, Oriented Labs: CBC, BMP 04/15/19 06:10 04/15/19 06:10 INR, PTT INR 1.01 (0.83-1.09) 04/11/19 15:15 Assessment/Plan Problem List - Problems (1) Osteomyelitis Code(s): M86.9 - OSTEOMYELITIS, UNSPECIFIED (2) Wound of foot Code(s): S91.309A - UNSPECIFIED OPEN WOUND, UNSPECIFIED FOOT, INITIAL ENCOUNTER (3) Cellulitis and abscess of leg Code(s): L02.419 - CUTANEOUS ABSCESS OF LIMB, UNSPECIFIED; L03.119 - CELLULITIS OF UNSPECIFIED PART OF LIMB (4) Diabetes coverage Code(s): E11.9 - TYPE 2 DIABETES MELLITUS WITHOUT COMPLICATIONS (5) Gangrene Code(s): I96 - GANGRENE, NOT ELSEWHERE CLASSIFIED (6) HTN (hypertension) Code(s): I10 - ESSENTIAL (PRIMARY) HYPERTENSION (7) PAD (peripheral artery disease) Code(s): I73.9 - PERIPHERAL VASCULAR DISEASE, UNSPECIFIED (8) Type 1 diabetes mellitus with foot ulcer Code(s): E10.621 - TYPE 1 DIABETES MELLITUS WITH FOOT ULCER; L97.509 - NON- PRESSURE CHRONIC ULCER OTH PRT UNSP FOOT W UNSP SEVERITY plan continue abx wound care rest as per the team
--- NOTE | 2019-04-17 09:38 | PN ---
Progress Note, Physician History of Present Illness: stable no new issues - Current Medication List Current Medications: Active Medications Aspirin (Asa -) 81 mg PO DAILY [facility] Last Admin: 04/16/19 09:27 Dose: 81 mg Atorvastatin Calcium (Lipitor -) 10 mg PO HS [facility] Last Admin: 04/16/19 23:56 Dose: 10 mg Clopidogrel Bisulfate (Plavix -) 75 mg PO DAILY [facility] Last Admin: 04/16/19 09:27 Dose: 75 mg Heparin Sodium (Porcine) (Heparin -) 5,000 unit SQ BID [facility] Last Admin: 04/16/19 23:56 Dose: 5,000 unit Vancomycin HCl 1,500 mg/ (Dextrose) 500 mls @ 250 mls/hr IVPB Q24H [facility]; Protocol Last Admin: 04/16/19 14:34 Dose: 250 mls/hr Piperacillin Sod/Tazobactam (Sod 3.375 gm/ Dextrose) 50 mls @ 100 mls/hr IVPB Q8H-IV [facility]; Protocol Last Admin: 04/17/19 01:33 Dose: 100 mls/hr Lisinopril (Prinivil) 10 mg PO DAILY [facility] Last Admin: 04/16/19 09:27 Dose: 10 mg Metformin HCl (Glucophage -) 1,000 mg PO BIDI [facility] Last Admin: 04/17/19 06:07 Dose: 1,000 mg Polyethylene Glycol (Miralax (For Daily Use) -) 17 gm PO BID [facility] Last Admin: 04/16/19 23:58 Dose: Not Given - Objective Vital Signs: Vital Signs Temperature 98.1 F 04/17/19 06:00 Pulse Rate 70 04/17/19 06:00 Respiratory Rate 20 04/17/19 06:00 Blood Pressure 121/67 04/17/19 06:00 O2 Sat by Pulse Oximetry (%) 97 04/16/19 21:00 Constitutional: Yes: No Distress, Calm Cardiovascular: Yes: S1, S2 Respiratory: Yes: Regular, CTA Bilaterally Gastrointestinal: Yes: Normal Bowel Sounds, Soft Musculoskeletal: Yes: WNL Extremities: Yes: Other Integumentary: Yes: Other Wound/Incision: Yes: Dressing Dry and Intact Neurological: Yes: Alert, Oriented Psychiatric: Yes: Alert, Oriented Labs: CBC, BMP 04/15/19 06:10 04/15/19 06:10 INR, PTT INR 1.01 (0.83-1.09) 04/11/19 15:15 Assessment/Plan Problem List - Problems (1) Osteomyelitis Code(s): M86.9 - OSTEOMYELITIS, UNSPECIFIED (2) Wound of foot Code(s): S91.309A - UNSPECIFIED OPEN WOUND, UNSPECIFIED FOOT, INITIAL ENCOUNTER (3) Cellulitis and abscess of leg Code(s): L02.419 - CUTANEOUS ABSCESS OF LIMB, UNSPECIFIED; L03.119 - CELLULITIS OF UNSPECIFIED PART OF LIMB (4) Diabetes coverage Code(s): E11.9 - TYPE 2 DIABETES MELLITUS WITHOUT COMPLICATIONS (5) Gangrene Code(s): I96 - GANGRENE, NOT ELSEWHERE CLASSIFIED (6) HTN (hypertension) Code(s): I10 - ESSENTIAL (PRIMARY) HYPERTENSION (7) PAD (peripheral artery disease) Code(s): I73.9 - PERIPHERAL VASCULAR DISEASE, UNSPECIFIED (8) Type 1 diabetes mellitus with foot ulcer Code(s): E10.621 - TYPE 1 DIABETES MELLITUS WITH FOOT ULCER; L97.509 - NON- PRESSURE CHRONIC ULCER OTH PRT UNSP FOOT W UNSP SEVERITY plan continue abx wound care rest as per the team will check vanco trough tomorrow
[2019-04-17] MEDS: CLOPIDOGREL BISULFATE 75 MG TABLET (FP) PO SCH (10:12)
[2019-04-17] MEDS: LISINOPRIL 10 MG TABLET (FP) PO SCH (10:12)
[2019-04-17] MEDS: ASPIRIN 81 MG CHEWABLE TABLETS PO SCH (10:12)
[2019-04-17] MEDS: HEPARIN NA (PORCINE) 5,000 UNITS/ML 1ML VIAL SQ SCH ×2 (10:12→21:04)
[2019-04-17] MEDS: POLYETHYLENE GLYCOL 3350 119 GM BTL PO SCH ×2 (10:29→21:04)
--- NOTE | 2019-04-17 13:52 | PN ---
Progress Note, Physician - Current Medication List Current Medications: Active Medications Aspirin (Asa -) 81 mg PO DAILY [facility] Last Admin: 04/17/19 10:12 Dose: 81 mg Atorvastatin Calcium (Lipitor -) 10 mg PO HS [facility] Last Admin: 04/16/19 23:56 Dose: 10 mg Clopidogrel Bisulfate (Plavix -) 75 mg PO DAILY [facility] Last Admin: 04/17/19 10:12 Dose: 75 mg Heparin Sodium (Porcine) (Heparin -) 5,000 unit SQ BID [facility] Last Admin: 04/17/19 10:12 Dose: 5,000 unit Vancomycin HCl 1,500 mg/ (Dextrose) 500 mls @ 250 mls/hr IVPB Q24H [facility]; Protocol Last Admin: 04/16/19 14:34 Dose: 250 mls/hr Piperacillin Sod/Tazobactam (Sod 3.375 gm/ Dextrose) 50 mls @ 100 mls/hr IVPB Q8H-IV [facility]; Protocol Last Admin: 04/17/19 10:12 Dose: 100 mls/hr Lisinopril (Prinivil) 10 mg PO DAILY [facility] Last Admin: 04/17/19 10:12 Dose: 10 mg Metformin HCl (Glucophage -) 1,000 mg PO BIDI [facility] Last Admin: 04/17/19 06:07 Dose: 1,000 mg Polyethylene Glycol (Miralax (For Daily Use) -) 17 gm PO BID [facility] Last Admin: 04/16/19 23:58 Dose: Not Given - Objective Vital Signs: Vital Signs Temperature 98.1 F 04/17/19 06:00 Pulse Rate 70 04/17/19 06:00 Respiratory Rate 20 04/17/19 06:00 Blood Pressure 121/67 04/17/19 06:00 O2 Sat by Pulse Oximetry (%) 97 04/16/19 21:00 Constitutional: Yes: No Distress HENT: Yes: Atraumatic Neck: Yes: Supple Cardiovascular: Yes: Regular Rate and Rhythm Respiratory: Yes: CTA Bilaterally Gastrointestinal: Yes: Normal Bowel Sounds Extremities: Yes: Other (L foot in dressing) Neurological: Yes: Alert, Oriented Labs: CBC, BMP 04/15/19 06:10 04/15/19 06:10 INR, PTT INR 1.01 (0.83-1.09) 04/11/19 15:15 Problem List - Problems (1) Osteomyelitis Assessment/Plan: on iv abx wound care Code(s): M86.9 - OSTEOMYELITIS, UNSPECIFIED (2) Wound of foot Assessment/Plan: wound care dressing change Code(s): S91.309A - UNSPECIFIED OPEN WOUND, UNSPECIFIED FOOT, INITIAL ENCOUNTER (3) Cellulitis and abscess of leg Code(s): L02.419 - CUTANEOUS ABSCESS OF LIMB, UNSPECIFIED; L03.119 - CELLULITIS OF UNSPECIFIED PART OF LIMB (4) [place] [facility] [place]s): E11.9 - TYPE 2 DIABETES MELLITUS WITHOUT COMPLICATIONS (5) Gangrene Code(s): I96 - GANGRENE, NOT ELSEWHERE CLASSIFIED (6) HTN (hypertension) Assessment/Plan: on meds Code(s): I10 - ESSENTIAL (PRIMARY) HYPERTENSION (7) PAD (peripheral artery disease) Code(s): I73.9 - PERIPHERAL VASCULAR DISEASE, UNSPECIFIED (8) Type 1 diabetes mellitus with foot ulcer Code(s): E10.621 - TYPE 1 DIABETES MELLITUS WITH FOOT ULCER; L97.509 - NON- PRESSURE CHRONIC ULCER OTH PRT UNSP FOOT W UNSP SEVERITY
[2019-04-17] MEDS: VANCOMYCIN HCL 1,500 MG in DEXTROSE 5%-WATER - 500 ML IVPB SCH (14:29)
[2019-04-17] MEDS: ATORVASTATIN CA 10 MG TABLET (FP) PO SCH (21:04)
[2019-04-18] MEDS ORDERED: DEXTROSE 5%-WATER - 50 ML IVPB ONE ×3 (01:59→17:45)
[2019-04-18] MEDS ORDERED: PIPERACILLIN/TAZOBACTAM 3.375 GM VIAL IVPB ONE ×3 (01:59→17:45)
[2019-04-18] MEDS: PIPERACILLIN/TAZOB 3.375 GM 3.375 GM in DEXTROSE 5%-WATER - 50 ML IVPB SCH ×3 (02:28→17:48)
[2019-04-18] MEDS: metFORMIN HCL 500 MG TABLET (FP) PO SCH ×2 (06:17→17:48)
--- NOTE | 2019-04-18 09:26 | PN ---
Progress Note, Physician History of Present Illness: patient stable no new issues - Current Medication List Current Medications: Active Medications Aspirin (Asa -) 81 mg PO DAILY [facility] Last Admin: 04/17/19 10:12 Dose: 81 mg Atorvastatin Calcium (Lipitor -) 10 mg PO HS [facility] Last Admin: 04/17/19 21:04 Dose: 10 mg Clopidogrel Bisulfate (Plavix -) 75 mg PO DAILY [facility] Last Admin: 04/17/19 10:12 Dose: 75 mg Heparin Sodium (Porcine) (Heparin -) 5,000 unit SQ BID [facility] Last Admin: 04/17/19 21:04 Dose: 5,000 unit Vancomycin HCl 1,500 mg/ (Dextrose) 500 mls @ 250 mls/hr IVPB Q24H [facility]; Protocol Last Admin: 04/17/19 14:29 Dose: 250 mls/hr Piperacillin Sod/Tazobactam (Sod 3.375 gm/ Dextrose) 50 mls @ 100 mls/hr IVPB Q8H-IV [facility]; Protocol Last Admin: 04/18/19 02:28 Dose: 100 mls/hr Lisinopril (Prinivil) 10 mg PO DAILY [facility] Last Admin: 04/17/19 10:12 Dose: 10 mg Metformin HCl (Glucophage -) 1,000 mg PO BIDI [facility] Last Admin: 04/18/19 06:17 Dose: 1,000 mg Polyethylene Glycol (Miralax (For Daily Use) -) 17 gm PO BID [facility] Last Admin: 04/17/19 21:04 Dose: Not Given - Objective Vital Signs: Vital Signs Temperature 98.7 F 04/18/19 05:37 Pulse Rate 85 04/18/19 05:37 Respiratory Rate 20 04/18/19 05:37 Blood Pressure 100/56 L 04/18/19 05:37 O2 Sat by Pulse Oximetry (%) 98 04/17/19 21:00 Constitutional: Yes: No Distress, Calm Cardiovascular: Yes: Regular Rate and Rhythm Respiratory: Yes: Regular, CTA Bilaterally Gastrointestinal: Yes: Normal Bowel Sounds, Soft Musculoskeletal: Yes: WNL Extremities: Yes: Other Wound/Incision: Yes: Dressing Dry and Intact Neurological: Yes: Alert, Oriented Psychiatric: Yes: Alert, Oriented Labs: CBC, BMP 04/15/19 06:10 04/15/19 06:10 INR, PTT INR 1.01 (0.83-1.09) 04/11/19 15:15 Assessment/Plan Problem List - Problems (1) Osteomyelitis Code(s): M86.9 - OSTEOMYELITIS, UNSPECIFIED (2) Wound of foot Code(s): S91.309A - UNSPECIFIED OPEN WOUND, UNSPECIFIED FOOT, INITIAL ENCOUNTER (3) Cellulitis and abscess of leg Code(s): L02.419 - CUTANEOUS ABSCESS OF LIMB, UNSPECIFIED; L03.119 - CELLULITIS OF UNSPECIFIED PART OF LIMB (4) Diabetes coverage Code(s): E11.9 - TYPE 2 DIABETES MELLITUS WITHOUT COMPLICATIONS (5) Gangrene Code(s): I96 - GANGRENE, NOT ELSEWHERE CLASSIFIED (6) HTN (hypertension) Code(s): I10 - ESSENTIAL (PRIMARY) HYPERTENSION (7) PAD (peripheral artery disease) Code(s): I73.9 - PERIPHERAL VASCULAR DISEASE, UNSPECIFIED (8) Type 1 diabetes mellitus with foot ulcer Code(s): E10.621 - TYPE 1 DIABETES MELLITUS WITH FOOT ULCER; L97.509 - NON- PRESSURE CHRONIC ULCER OTH PRT UNSP FOOT W UNSP SEVERITY plan continue abx await for trough patient will need vanco and zosyn for another 5 weeks wound care rest as per the team
[2019-04-18] MEDS: CLOPIDOGREL BISULFATE 75 MG TABLET (FP) PO SCH (09:55)
[2019-04-18] MEDS: POLYETHYLENE GLYCOL 3350 119 GM BTL PO SCH ×2 (09:55→22:44)
[2019-04-18] MEDS: HEPARIN NA (PORCINE) 5,000 UNITS/ML 1ML VIAL SQ SCH ×2 (09:55→22:44)
[2019-04-18] MEDS: ASPIRIN 81 MG CHEWABLE TABLETS PO SCH (09:55)
[2019-04-18] MEDS: LISINOPRIL 10 MG TABLET (FP) PO SCH (09:55)
--- NOTE | 2019-04-18 12:36 | DS ---
Physical Examination Vital Signs: Vital Signs Temperature 98.7 F 04/18/19 05:37 Pulse Rate 85 04/18/19 05:37 Respiratory Rate 20 04/18/19 05:37 Blood Pressure 100/56 L 04/18/19 05:37 O2 Sat by Pulse Oximetry (%) 98 04/17/19 21:00 Labs: CBC, BMP 04/15/19 06:10 04/15/19 06:10 Discharge Summary Reason For Visit: OSTEOMYELITIS Current Active Problems Osteomyelitis (Acute) Wound of foot (Acute) - Instructions Diet, Activity, Other Instructions: dc snf for iv abx duration of iv abx as per id Referrals: Angus Abel [Primary Care Provider] - - Home Medications Comprehensive Discharge Medication List: Ambulatory Orders Metformin HCl [Glucophage] 1,000 mg PO BID 11/19/16 Collagenase Clostridium Hist. [Santyl] 90 gm TP DAILY #1 tube 12/14/18 Acetaminophen [Tylenol .Regular Strength -] 650 mg PO Q6H PRN tablet 01/10/19 Clopidogrel Bisulfate [Plavix -] 75 mg PO DAILY tablet 01/10/19 Lisinopril [Prinivil] 10 mg PO DAILY tablet 01/10/19 Aspirin [ASA -] 81 mg PO DAILY 02/15/19 Insulin Glargine,Hum.rec.anlog [Basaglar Kwikpen U-100] 3 ml SQ DAILY 02/15/19 Pravastatin Sodium [Pravachol -] 40 mg PO HS 02/15/19 Basaglar Kwikpen U-100 8 units SCJ DAILY 03/01/19 Nystatin Cream [Mycostatin Cream -] 1 applic TP BID 03/31/19 dc snf
[2019-04-18] MEDS: VANCOMYCIN HCL 1,500 MG in DEXTROSE 5%-WATER - 500 ML IVPB SCH (14:46)
--- NOTE | 2019-04-18 19:47 | PN ---
Progress Note, Physician - Current Medication List Current Medications: Active Medications Aspirin (Asa -) 81 mg PO DAILY [facility] Last Admin: 04/18/19 09:55 Dose: 81 mg Atorvastatin Calcium (Lipitor -) 10 mg PO HS [facility] Last Admin: 04/17/19 21:04 Dose: 10 mg Clopidogrel Bisulfate (Plavix -) 75 mg PO DAILY [facility] Last Admin: 04/18/19 09:55 Dose: 75 mg Heparin Sodium (Porcine) (Heparin -) 5,000 unit SQ BID [facility] Last Admin: 04/18/19 09:55 Dose: 5,000 unit Vancomycin HCl 1,500 mg/ (Dextrose) 500 mls @ 250 mls/hr IVPB Q24H [facility]; Protocol Last Admin: 04/18/19 14:46 Dose: 250 mls/hr Piperacillin Sod/Tazobactam (Sod 3.375 gm/ Dextrose) 50 mls @ 100 mls/hr IVPB Q8H-IV [facility]; Protocol Last Admin: 04/18/19 17:48 Dose: 100 mls/hr Lisinopril (Prinivil) 10 mg PO DAILY [facility] Last Admin: 04/18/19 09:55 Dose: 10 mg Metformin HCl (Glucophage -) 1,000 mg PO BIDI [facility] Last Admin: 04/18/19 17:48 Dose: 1,000 mg Polyethylene Glycol (Miralax (For Daily Use) -) 17 gm PO BID [facility] Last Admin: 04/18/19 09:55 Dose: 17 gm - Objective Vital Signs: Vital Signs Temperature 98.7 F 04/18/19 05:37 Pulse Rate 85 04/18/19 05:37 Respiratory Rate 20 04/18/19 05:37 Blood Pressure 100/56 L 04/18/19 05:37 O2 Sat by Pulse Oximetry (%) 96 04/18/19 10:00 Constitutional: Yes: No Distress HENT: Yes: Atraumatic Neck: Yes: Supple Cardiovascular: Yes: Regular Rate and Rhythm Respiratory: Yes: CTA Bilaterally Gastrointestinal: Yes: Normal Bowel Sounds Extremities: Yes: Other (left foot osteo) Neurological: Yes: Alert, Oriented Labs: CBC, BMP 04/15/19 06:10 04/15/19 06:10 INR, PTT INR 1.01 (0.83-1.09) 04/11/19 15:15 Problem List - Problems (1) Osteomyelitis Assessment/Plan: on iv abx Code(s): M86.9 - OSTEOMYELITIS, UNSPECIFIED (2) Wound of foot Assessment/Plan: wound care dressing change Code(s): S91.309A - UNSPECIFIED OPEN WOUND, UNSPECIFIED FOOT, INITIAL ENCOUNTER (3) Cellulitis and abscess of leg Code(s): L02.419 - CUTANEOUS ABSCESS OF LIMB, UNSPECIFIED; L03.119 - CELLULITIS OF UNSPECIFIED PART OF LIMB (4) Diabetes Assessment/Plan: [facility] coverage Code(s): E11.9 - TYPE 2 DIABETES MELLITUS WITHOUT COMPLICATIONS (5) Gangrene Code(s): I96 - GANGRENE, NOT ELSEWHERE CLASSIFIED (6) HTN (hypertension) Assessment/Plan: on meds Code(s): I10 - ESSENTIAL (PRIMARY) HYPERTENSION (7) PAD (peripheral artery disease) Code(s): I73.9 - PERIPHERAL VASCULAR DISEASE, UNSPECIFIED (8) Type 1 diabetes mellitus with foot ulcer Code(s): E10.621 - TYPE 1 DIABETES MELLITUS WITH FOOT ULCER; L97.509 - NON- PRESSURE CHRONIC ULCER OTH PRT UNSP FOOT W UNSP SEVERITY Assessment/Plan PICC LINE ID TO DETERMINE ABX DOSE
[2019-04-18] MEDS: ATORVASTATIN CA 10 MG TABLET (FP) PO SCH (22:45)
[2019-04-19] MEDS ORDERED: PIPERACILLIN/TAZOBACTAM 3.375 GM VIAL IVPB ONE ×2 (02:54→09:38)
[2019-04-19] MEDS ORDERED: DEXTROSE 5%-WATER - 50 ML IVPB ONE ×2 (02:54→09:38)
[2019-04-19] MEDS: PIPERACILLIN/TAZOB 3.375 GM 3.375 GM in DEXTROSE 5%-WATER - 50 ML IVPB SCH ×2 (02:59→09:40)
[2019-04-19] MEDS: metFORMIN HCL 500 MG TABLET (FP) PO SCH (06:30)
[2019-04-19] MEDS: CLOPIDOGREL BISULFATE 75 MG TABLET (FP) PO SCH (09:40)
[2019-04-19] MEDS: HEPARIN NA (PORCINE) 5,000 UNITS/ML 1ML VIAL SQ SCH (09:40)
[2019-04-19] MEDS: LISINOPRIL 10 MG TABLET (FP) PO SCH (09:40)
[2019-04-19] MEDS: ASPIRIN 81 MG CHEWABLE TABLETS PO SCH (09:40)
[2019-04-19] MEDS: POLYETHYLENE GLYCOL 3350 119 GM BTL PO SCH (09:43)
--- NOTE | 2019-04-19 12:04 | PN ---
Progress Note, Physician History of Present Illness: stable no new issues - Current Medication List Current Medications: Active Medications Aspirin (Asa -) 81 mg PO DAILY [facility] Last Admin: 04/19/19 09:40 Dose: 81 mg Atorvastatin Calcium (Lipitor -) 10 mg PO HS [facility] Last Admin: 04/18/19 22:45 Dose: 10 mg Clopidogrel Bisulfate (Plavix -) 75 mg PO DAILY [facility] Last Admin: 04/19/19 09:40 Dose: 75 mg Heparin Sodium (Porcine) (Heparin -) 5,000 unit SQ BID [facility] Last Admin: 04/19/19 09:40 Dose: 5,000 unit Vancomycin HCl 1,500 mg/ (Dextrose) 500 mls @ 250 mls/hr IVPB Q24H [facility]; Protocol Last Admin: 04/18/19 14:46 Dose: 250 mls/hr Piperacillin Sod/Tazobactam (Sod 3.375 gm/ Dextrose) 50 mls @ 100 mls/hr IVPB Q8H-IV [facility]; Protocol Last Admin: 04/19/19 09:40 Dose: 100 mls/hr Lisinopril (Prinivil) 10 mg PO DAILY [facility] Last Admin: 04/19/19 09:40 Dose: 10 mg Metformin HCl (Glucophage -) 1,000 mg PO BIDI [facility] Last Admin: 04/19/19 06:30 Dose: 1,000 mg Polyethylene Glycol (Miralax (For Daily Use) -) 17 gm PO BID [facility] Last Admin: 04/19/19 09:43 Dose: 17 gm - Objective Vital Signs: Vital Signs Temperature 98.5 F 04/19/19 05:47 Pulse Rate 64 04/19/19 05:47 Respiratory Rate 20 04/19/19 05:47 Blood Pressure 109/60 04/19/19 05:47 O2 Sat by Pulse Oximetry (%) 96 04/19/19 10:00 Constitutional: Yes: No Distress, Calm Cardiovascular: Yes: S1, S2 Respiratory: Yes: Regular, CTA Bilaterally Musculoskeletal: Yes: WNL Extremities: Yes: Other Wound/Incision: Yes: Dressing Dry and Intact Neurological: Yes: Alert, Oriented Psychiatric: Yes: Alert, Oriented Labs: CBC, BMP 04/15/19 06:10 04/15/19 06:10 INR, PTT INR 1.01 (0.83-1.09) 04/11/19 15:15 Assessment/Plan Problem List - Problems (1) Osteomyelitis Code(s): M86.9 - OSTEOMYELITIS, UNSPECIFIED (2) Wound of foot Code(s): S91.309A - UNSPECIFIED OPEN WOUND, UNSPECIFIED FOOT, INITIAL ENCOUNTER (3) Cellulitis and abscess of leg Code(s): L02.419 - CUTANEOUS ABSCESS OF LIMB, UNSPECIFIED; L03.119 - CELLULITIS OF UNSPECIFIED PART OF LIMB (4) Diabetes coverage Code(s): E11.9 - TYPE 2 DIABETES MELLITUS WITHOUT COMPLICATIONS (5) Gangrene Code(s): I96 - GANGRENE, NOT ELSEWHERE CLASSIFIED (6) HTN (hypertension) Code(s): I10 - ESSENTIAL (PRIMARY) HYPERTENSION (7) PAD (peripheral artery disease) Code(s): I73.9 - PERIPHERAL VASCULAR DISEASE, UNSPECIFIED (8) Type 1 diabetes mellitus with foot ulcer Code(s): E10.621 - TYPE 1 DIABETES MELLITUS WITH FOOT ULCER; L97.509 - NON- PRESSURE CHRONIC ULCER OTH PRT UNSP FOOT W UNSP SEVERITY plan vanco trough noted will hold vanco dose today will need vanco 1250 mg daily rest as per the team
[2019-04-19] MEDS ORDERED: VANCOMYCIN HCL 1,250 MG in DEXTROSE 5%-WATER - 250 ML IVPB SCH (14:00)
[2019-04-19 14:48] VITALS: BP 148/74; PULSE 84; TEMP 98
--- NOTE | 2019-04-19 15:48 | PN ---
Progress Note (short form) - Note Progress Note: Wound Healing F/U: Seen/evaluated at bedside NAD. Denies F/V/N/C/SOB/CP. Afebrile. S/p Left foot debridement with bone biopsy. Biopsy (+) for osteomyelitis. ABA: L foot: pedal pulses 1/4, TG wnl. Sutures coapted laterally, no dehiscence noted, no purulence, no fluctuance, no streaking cellulitis, no signs of infection. No ischemic changes to the foot. Minimal tenderness to palpation. OR Cx: MRSA, enterococcus, klebsiella Imp: 68 year old diabetic male with left foot osteomyelitis s/p bone biopsy and debridement 1. IV abx per infectious disease 2. Continue local wound care 3. Partial WB L heel with surgical shoe 4. Patient to f/u in wound healing center upon discharge in 1 week. Val Nicolas DPM
--- NOTE | 2019-04-19 17:31 | DS ---
Physical Examination Vital Signs: Vital Signs Temperature 98.0 F 04/19/19 14:46 Pulse Rate 84 04/19/19 14:46 Respiratory Rate 20 04/19/19 14:46 Blood Pressure 148/74 04/19/19 14:46 O2 Sat by Pulse Oximetry (%) 96 04/19/19 10:00 Constitutional: Yes: No Distress Neck: Yes: Supple Cardiovascular: Yes: Regular Rate and Rhythm Respiratory: Yes: CTA Bilaterally Gastrointestinal: Yes: Normal Bowel Sounds Extremities: Yes: Other (left foot cellulitis) Neurological: Yes: Alert, Oriented Labs: CBC, BMP 04/15/19 06:10 04/15/19 06:10 Discharge Summary Reason For Visit: OSTEOMYELITIS Condition: Stable - Instructions Diet, Activity, Other Instructions: patient will need vanco and zosyn for another 5 weeks will need vanco 1250 mg daily wound care Referrals: Angus Abel [Primary Care Provider] - Disposition: CARE HOME FACILITY - Home Medications Comprehensive Discharge Medication List: Ambulatory Orders Metformin HCl [Glucophage] 1,000 mg PO BID 11/19/16 Collagenase Clostridium Hist. [Santyl] 90 gm TP DAILY #1 tube 12/14/18 Acetaminophen [Tylenol .Regular Strength -] 650 mg PO Q6H PRN tablet 01/10/19 Clopidogrel Bisulfate [Plavix -] 75 mg PO DAILY tablet 01/10/19 Lisinopril [Prinivil] 10 mg PO DAILY tablet 01/10/19 Aspirin [ASA -] 81 mg PO DAILY 02/15/19 Insulin Glargine,Hum.rec.anlog [Basaglar Kwikpen U-100] 3 ml SQ DAILY 02/15/19 Pravastatin Sodium [Pravachol -] 40 mg PO HS 02/15/19 Basaglar Kwikpen U-100 8 units SCJ DAILY 03/01/19 Nystatin Cream [Mycostatin Cream -] 1 applic TP BID 03/31/19 dc snf
== END 2019-04-19 17:16 | DRG 617 ==
LOC: JER 14:05 → JERBED 16:35 → J6S 21:02
PROVIDERS: ADMIT Internal Medicine; ATTEND Internal Medicine
PROC: 0QBM0ZX Excision of Left Tarsal, Open Approach, Diagnostic (ICD-10-PCS; 2019-04-12)
PROC: 0KBW0ZZ Excision of Left Foot Muscle, Open Approach (ICD-10-PCS; 2019-04-12)
PROC: 0Y6N0ZD Detachment at Left Foot, Partial 4th Ray, Open Approach (ICD-10-PCS; principal; 2019-04-12 16:00)
PROC: 02HV33Z Insertion of Infusion Device into Superior Vena Cava, Percutaneous Approach (ICD-10-PCS; 2019-04-19)
DX: E10.69 Type 1 diabetes mellitus with other specified complication (principal); M86.172 Other acute osteomyelitis, left ankle and foot; M86.672 Other chronic osteomyelitis, left ankle and foot; L97.429 Non-pressure chronic ulcer of left heel and midfoot with unspecified severity; E10.621 Type 1 diabetes mellitus with foot ulcer; I10 Essential (primary) hypertension; I73.9 Peripheral vascular disease, unspecified; A49.02 Methicillin resistant Staphylococcus aureus infection, unspecified site
CPT/HCPCS: 36415; 36558; 71046-TC-FY; 73630-TC-LT; 77001-TC-FY; 80048; 80053; 82962; 85025; 85027; 85610; 85651; 86140; 87070; 87075; 87186; 87205; 88305-TC; 88311-TC; 94760; 99284-25; C1751; G0277; G0480; J1644

== ENCOUNTER 2019-07-17 20:53 | Inpatient (IN) | payer MEDICARE, OTHER ==
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
[2019-07-17 22:10] LABS: BASO % 0.5 % (0-2.0); EOS % 0.1 % (0-4.5); HEMATOCRIT 36.4 % (35.4-49); HEMOGLOBIN 11.9 GM/dL (11.7-16.9); LYMPH % 8.4 % (8-40); MCH 31.8 pg (25.7-33.7); MCHC 32.7 g/dl (32.0-35.9); MEAN CELL VOLUME 97.5 fl (80-96); MEAN PLT VOLUME 8.4 fl (7.5-11.1); MONO % 2.4 % (3.8-10.2); NEUT % 88.6 % (42.8-82.8); PLATELET COUNT 441 K/MM3 (134-434); RBC 3.74 M/mm3 (4.00-5.60); RDW 13.9 % (11.9-15.9); WHITE BLOOD COUNT 11.1 K/mm3 (4.0-10.0)
[2019-07-17 22:14] LABS: VENOUS PO2 62.7 mmHg (28-48)
[2019-07-17 22:23] LABS: INR 0.97 (0.83-1.09); PROTHROMBIN TIME (PATIENT) 11.4 SEC (9.7-13.0); VENOUS PC02 14.8 mmHg (38-52)
[2019-07-17 22:24] LABS: VENOUS PH 6.95 (7.31-7.41)
[2019-07-17 22:26] LABS: ACTIVATED PTT 36.5 SECONDS (25.2-36.5)
[2019-07-17 22:43] LABS: ALBUMIN 3.9 g/dl (3.4-5.0); BILIRUBIN,TOTAL 0.3 mg/dL (0.2-1); CALCIUM 9.3 mg/dL (8.5-10.1); CREATININE 2.5 mg/dL (0.55-1.3); TOT PROT 7.7 g/dl (6.4-8.2)
[2019-07-17] MEDS ORDERED: SODIUM CHLORIDE 1,000 ML IV STA (22:55)
[2019-07-17] MEDS ORDERED: VANCOMYCIN 1 GM PREMIX - 1 GM/200 ML BAG IVPB ONE (22:55)
[2019-07-17] MEDS ORDERED: PIPERACILLIN/TAZOB 3.375 GM 3.375 GM in DEXTROSE 5%-WATER - 50 ML IVPB ONE (22:55)
[2019-07-17] MEDS ORDERED: VANCOMYCIN 1 GRAM (PRE-DOCKED) 1,000 MG/250 ML BAG IVPB ONE (23:03)
[2019-07-17] MEDS ORDERED: SODIUM CHLORIDE 0.9% 1000 ML INFUS.BAG IV ONE (23:03)
[2019-07-17] MEDS ORDERED: PIPERACILLIN/TAZOB 3.375 GM 3.375 GM/50 ML BAG IVPB ONE (23:04)
[2019-07-17 23:12] LABS: PH,URINE 5.5 (5.0-8.0); URINE APPEARANCE CLEAR; URINE BILIRUBIN NEGATIVE (NEGATIVE); URINE COLOR YELLOW; URINE GLUCOSE (UA) NEGATIVE (NEGATIVE); URINE KETONE 1+ (NEGATIVE); URINE LEUK ESTERASE NEGATIVE (NEGATIVE); URINE NITRITE NEGATIVE (NEGATIVE); URINE PROTEIN TRACE (NEGATIVE); URINE UROBILINOGEN 0.2 mg/dL (0.2-1.0)
[2019-07-17 23:21] LABS: POTASSIUM 7.3 mmol/L (3.5-5.1)
[2019-07-17] MEDS ORDERED: CALCIUM GLUCONATE 10% - 1,000 MG/10 ML VIAL IVPUSH ONE (23:22)
[2019-07-17] MEDS ORDERED: DEXTROSE 50%-WATER - 25 GM/50 ML VIAL IVPUSH ONE (23:22)
[2019-07-17] MEDS ORDERED: INSULIN REGULAR HUMAN 100 UNITS/ML *VIAL IVPUSH ONE (23:22)
[2019-07-17] MEDS ORDERED: SODIUM BICARBONATE 8.4% 50 MEQ/50 ML DISP.SYRIN IVPUSH ONE (23:24)
[2019-07-17] MEDS ORDERED: ALBUTEROL SO4 0.5 % INH SOLN 2.5 MG/0.5 ML VIAL.NEB. NEB ONE (23:26)
[2019-07-17] MEDS ORDERED: CALCIUM GLUCONATE 10% - 1,000 MG/10 ML VIAL ONE (23:30)
[2019-07-17] MEDS ORDERED: ALBUTEROL SO4 0.083% IH SOL 2.5 MG/3 ML VIAL.NEB. NEB ONE (23:30)
[2019-07-17] MEDS ORDERED: SODIUM BICARBONATE 8.4% 50 MEQ/50 ML VIAL ONE (23:31)
[2019-07-17] MEDS ORDERED: DEXTROSE 50%-WATER 25 GM/50 ML DISP.SYRIN ONE (23:31)
--- NOTE | 2019-07-17 23:34 | PDOC ---
Documentation entered by Abdi Salazar SCRIBE, acting as scribe for Diana Gurrola MD. Diana Gurrola MD: This documentation has been prepared by the shivaibeMartin Daniel, SCRIBE, under my direction and personally reviewed by me in its entirety. I confirm that the documentation accurately reflects all work, treatment, procedures, and medical decision making performed by me. Attending Attestation - Resident Resident Name: AkiChristinejarrod - ED Attending Attestation I have performed the following: I have examined & evaluated the patient, The case was reviewed & discussed with the resident, I agree w/resident's findings & plan, Exceptions are as noted - HPI HPI: 07/17/19 21:45 The patient is a 69 year old male with a past medical history of PVD, osteomyelitis, and diabetes brought in today by EMS from [place] for evaluation of altered mental status. As per EMS, the patient has had altered mental status for 1 day and was found to be tachypneic today. Patient was unable to provide history. Allergies: NKA Surgical history: left 5th metatarsal amputation - Physicial Exam PE: 07/17/19 21:45 GENERAL: +thin 69-year-old male brought in by ambulance from detention for altered mental status since yesterday HEENT: rt pupil 5m,left pupil 3 mm, ppls respond to light NECK: Supple. No JVD. CARDIOVASCULAR: Regular rate and rhythm. No murmurs, rubs, or gallops. Distal pulses are 2+ and symmetric. PULMONARY: +tachypnea Lungs clear to auscultation bilaterally. No wheezing, rales or rhonchi. ABDOMINAL: Soft. Non-tender. Non-distended. No rebound or guarding. MUSCULOSKELETAL no deformities EXTREMITIES: No cyanosis. No clubbing. No edema. No calf tenderness. SKIN: Warm and dry. Normal capillary refill. No rashes. No jaundice. NEUROLOGICAL: +garbled speech, not following instructions,when arm was raised and dropped it hit his face 07/17/19 22:18 07/18/19 00:14 - Medical Decision Making 07/17/19 23:32 Critically ill-appearing 69-year-old male brought in by ambulance from the detention for altered mental status for the last day The family went to visit him and requested that Jonel send him to the hospital for his altered mental status Patient is not alert has minimal garbled speech, when you picker/puller his arm it falls and hits his head Patient has increased respiratory rate of 28 and a profound lactic acidosis with a pH of 6.9, lactic acid is 8 and BUN is 109 Past medical history was diabetes, osteomyelitis, extensive hyperbaric treatments and eventually had amputation of his left fifth digit He is been in the detention since October according to the family. He is blind in the right eye and recently had decreased vision in the left eye due to a large cataract and he was scheduled for cataract surgery 07/17/19 23:39 Patient is found to be hypothermic with rectal temp of 91.8 , tachypneic with respiratory rate of 28 pH is 6.9 and potassium of 7.3 Patient in acute renal failure with bun>100, cr 2.5 he has been receiving 2000 mg of metformin daily,? possible metformin toxicity , ? possible myxedema coma,sepsis 07/17/19 23:41 CAT scan of the head does not show any acute intracranial pathology UA is negative for any infection Chest x-ray does not show any appreciable infiltrates consolidation or effusion effusions CBC does not show any significant leukocytosis, there is no anemia 07/18/19 00:14 07/18/19 00:[address] the [place] operator came to the emergency department to evaluate the patient and to set up for acute dialysis ICU resident is aware of the patient The patient has received amp of Dextrose , insulin, calcium, bicarb to treat the potassium was 7.3 07/18/19 01:08 pt admitted to ICU
--- NOTE | 2019-07-18 00:07 | CONSULT ---
Consultation: REQUESTING PROVIDER: Dr. Gurrola CONSULT REQUEST: We have been asked to medically evaluate this patient for Altered mental Status 2/2 Metabolic acidosis. HISTORY OF PRESENT ILLNESS: Pt. is a 69 y.o. M w/ PMHx of NIDDM, HTN, HLD, Peripheral arterial disease (s/p LLE angioplasty 12/2018) and OM( s/p L. 5th digit amputation) [place] from [place] for altered mental status and labored breathing. Per discussion with son and [id number] at bedside, as Pt. was confused and unable to answer questions, Pt. was found confused today by the son and he called 911 to bring Pt. to the ER at [facility]. After phone call to [facility] Pt. last received last dose of Metformin 1,000mg in the AM of 07/17/19 and had refused the PM dose just prior to coming to the ER; they also confirmed that labored breathing and confusion was the cause for the Pt. coming to the ER. Per son Pt. had not been having fevers or chills recently and does not know if Pt.'s medications had been changed recently, however he noticed confusion 3 weeks ago and also noted decreased water intake over this time. Son endorses 20+ years of DM for the Pt. and states that he has been on Metformin for a very long time. Pt. has very strong family history of DM. Pt. was supposed to have cataract surgery for his left eye on Thursday. Pt. was recently admitted to [facility] for OM for non-healing foot ulcer of the Left foot, after having a L. 5th digit amputation in December. Pt. was discharged with a PICC line on Vancomycin and Zosyn for 5 weeks. Of particular note the Pt.s son (Freddie Kathleen- [phone]) requests the Lizabeth Love, William Wakefield, and Mey Kathleen be forbidden from seeing his father. Security officers have been notified and the ICU staff has been alerted. REVIEW OF SYSTEMS: Unable to obtain PHYSICAL EXAMINATION Vital Signs - 24 hr 07/17/19 07/17/19 20:55 23:32 Temperature 98.9 F 91.8 F L Pulse Rate 86 73 Respiratory 20 23 H Rate Blood Pressure 130/62 132/58 L O2 Sat by Pulse 97 100 Oximetry (%) GENERAL: Stuporous, arouses to tactile stimuli HEAD: Normal with no signs of trauma. EYES: L. pupil cloudy, Pupils round and reactive to light, sclera anicteric, conjunctiva clear. EARS, NOSE, THROAT: Ears normal, nares patent, oropharynx clear without exudates. Dry mucous membranes. NECK: Normal range of motion, supple without lymphadenopathy, JVD, or masses. LUNGS: Tachypneic, Coarse breath sounds equal, clear to auscultation bilaterally. No wheezes, and no crackles. HEART: Regular rate and rhythm, normal S1 and S2 without murmur, rub or gallop. ABDOMEN: Soft, nontender, not distended, normoactive bowel sounds, no guarding, no rebound, no masses. MUSCULOSKELETAL: Normal range of motion at all joints. No tenderness. UPPER EXTREMITIES: 2+ radial pulses, warm, well-perfused. No cyanosis. No clubbing. Cap refill <2 seconds. No peripheral edema. LOWER EXTREMITIES: 2+ dorsal pedal pulses, warm, well-perfused. No calf tenderness. No peripheral edema. L. 5th digit amputation, no erythema, purulence or tenderness NEUROLOGICAL: Stuporous PSYCHIATRIC: Unable to assess SKIN: Cool to touch, diaphoretic, normal turgor Laboratory Results - last 24 hr 07/17/19 07/17/19 07/17/19 21:53 21:53 21:53 WBC 11.1 H RBC 3.74 L Hgb 11.9 Hct 36.4 D MCV 97.5 H MCH 31.8 MCHC 32.7 RDW 13.9 Plt Count 441 H D MPV 8.4 Absolute Neuts (auto) 9.8 H Neutrophils % 88.6 H D Lymphocytes % 8.4 D Monocytes % 2.4 L Eosinophils % 0.1 D Basophils % 0.5 Nucleated RBC % 0 PT with INR 11.40 INR 0.97 PTT (Actin FS) 36.5 VBG pH POC VBG pCO2 POC VBG pO2 VBG HCO3 VBG O2 Sat (Abner) VBG Base Excess Sodium Potassium Chloride Carbon Dioxide Anion Gap BUN Creatinine Est GFR (CKD-EPI)AfAm Est GFR (CKD-EPI)NonAf Random Glucose Lactic Acid Calcium Total Bilirubin AST ALT Alkaline Phosphatase Creatine Kinase Troponin I < 0.02 Total Protein Albumin Beta-Hydroxybutyrate TSH Urine Color Urine Appearance Urine pH Ur Specific [place] Urine Protein Urine Glucose (UA) Urine Ketones Urine Blood Urine Nitrite Urine Bilirubin Urine Urobilinogen Ur Leukocyte Esterase 07/17/19 07/17/19 07/17/19 21:53 21:53 21:53 WBC RBC Hgb Hct MCV MCH MCHC RDW Plt Count MPV Absolute Neuts (auto) Neutrophils % Lymphocytes % Monocytes % Eosinophils % Basophils % Nucleated RBC % PT with INR INR PTT (Actin FS) VBG pH 6.95 L* POC VBG pCO2 14.8 L* POC VBG pO2 62.7 H VBG HCO3 3.1 L VBG O2 Sat (Abner) 80.8 H VBG Base Excess -29.1 L Sodium 145 Potassium 7.3 H* Chloride 126 H Carbon Dioxide 4 L Anion Gap 16 BUN 109.0 H* Creatinine 2.5 H Est GFR (CKD-EPI)AfAm 29.27 Est GFR (CKD-EPI)NonAf 25.25 Random Glucose 161 H Lactic Acid Calcium 9.3 Total Bilirubin 0.3 AST 15 ALT 23 Alkaline Phosphatase 116 Creatine Kinase 64 Troponin I Total Protein 7.7 Albumin 3.9 Beta-Hydroxybutyrate 39.9 H TSH 3.62 Urine Color Urine Appearance Urine pH Ur Specific [place] Urine Protein Urine Glucose (UA) Urine Ketones Urine Blood Urine Nitrite Urine Bilirubin Urine Urobilinogen Ur Leukocyte Esterase 07/17/19 07/17/19 22:00 23:00 WBC RBC Hgb Hct MCV MCH MCHC RDW Plt Count MPV Absolute Neuts (auto) Neutrophils % Lymphocytes % Monocytes % Eosinophils % Basophils % Nucleated RBC % PT with INR INR PTT (Actin FS) VBG pH POC VBG pCO2 POC VBG pO2 VBG HCO3 VBG O2 Sat (Abner) VBG Base Excess Sodium Potassium Chloride Carbon Dioxide Anion Gap BUN Creatinine Est GFR (CKD-EPI)AfAm Est GFR (CKD-EPI)NonAf Random Glucose Lactic Acid 8.3 H* Calcium Total Bilirubin AST ALT Alkaline Phosphatase Creatine Kinase Troponin I Total Protein Albumin Beta-Hydroxybutyrate TSH Urine Color Yellow Urine Appearance Clear Urine pH 5.5 Ur Specific [place] 1.017 Urine Protein Trace Urine Glucose (UA) Negative Urine Ketones 1+ H Urine Blood Negative Urine Nitrite Negative Urine Bilirubin Negative Urine Urobilinogen 0.2 Ur Leukocyte Esterase Negative Active Medications Home Medications Medication Instructions Recorded Metformin HCl [Glucophage] 1,000 mg PO BID 11/19/16 Collagenase Clostridium Hist. 90 gm TP DAILY #1 tube 12/14/18 [Santyl] Acetaminophen [Tylenol .Regular 650 mg PO Q6H PRN tablet 01/10/19 Strength -] Clopidogrel Bisulfate [Plavix -] 75 mg PO DAILY tablet 01/10/19 Lisinopril [Prinivil] 10 mg PO DAILY tablet 01/10/19 Aspirin [ASA -] 81 mg PO DAILY 02/15/19 Insulin Glargine,Hum.rec.anlog 3 ml SQ DAILY 02/15/19 [Basaglar Kwikpen U-100] Pravastatin Sodium [Pravachol -] 40 mg PO HS 02/15/19 Basaglar Kwikpen U-100 8 units SCJ DAILY 03/01/19 Nystatin Cream [Mycostatin Cream -] 1 applic TP BID 03/31/19 Ascorbic Acid 500 mg PO DAILY 05/03/19 Multivitamin [Multiple Vitamins] 1 tab PO DAILY 05/03/19 Piperacillin/Tazob 3.375 gm [Zosyn 3.375 gm IV Q8H 05/03/19 -] Vanco 1.25 gm/250 ml-0.9% NaCl 1.25 g IV DAILY 05/03/19 Current Medications Chlorhexidine Gluconate (Hibiclens For Decolonization -) 1 applic TP HS CAROLYN Heparin Sodium (Porcine) (Heparin -) 5,000 unit SQ BID CAROLYN Sodium Chloride (Normal Saline -) 250 mls @ 3,000 mls/hr IV PRN PRN PRN Reason: Hypotension during Dialysis Stop: 07/19/19 00:54 Mupirocin (Bactroban Ointment (For Decolonization) -) 1 applic NS BID [facility] Stop: 07/23/19 09:59 ASSESSMENT/PLAN: Pt. is a 69 y.o. M w/ PMHx of NIDDM, HTN, HLD, Peripheral arterial disease(s/p LLE angioplasty 12/2018) and OM( s/p L. 5th digit amputation) [place] for altered mental status and labored breathing. #Nephrology ARF Metabolic Acidosis likely 2/2 Metformin Hyperkalemia Pt. has Cr. of 2.5 w/ last baseline at ~1.5 during last admission. (Pt. completed 6 week course of IV Vancomycin and Zosyn) LA: 8.3--> will f/u Rpt. and trend Potassium 7.3--> will trend; Given Duonebs, Ca. Gluconate, and 10 units Insulin in ED, started Levophed gtt while on HD for hypotension to [address] Bicarb 4 A VBG- pH: 6.95, pCO2: 14.8; Pt. received 50meq Bicarb in ED Consult to Dr. Lara appreciated Emergent HD with 2K bath; repeat BMP and ABG ordered during HD to assess Potassium and pH Received 1.5L NS in ED #Infectious Disease Rectal Temperature of 91.8 on admission--> decreased to 88.2--> c/w Barehugger until Pt. Temp is wnl CXR negative for acute pathology UA- negative for infection (only 1+ ketones) C-Spine and Thoracic Spine CT Neg for acute pathology f/u BCx. and UCx. collected in ED Given Zosyn and Vancomycin in ED--> will reevaluated in AM for ID consult pending clinical course will order ESR and CRP Isolation Precautions for MRSA+ in March #Neurology Acute Metabolic Encephalopathy AMS likely 2/[address] Neg. will continue to monitor Per son Pt.s baseline is A&Ox 3. Pt. walks with close guard of 1 as Pt. is blind out of BOTH eyes. Glaucoma in the Right and Cataracts in the left per son. #Endocrine DM Will hold Metformin, likely will d/c prior to discharge c/w BGM ACHS c/w ISS ACHS #Pulmonology Tachypnea Shortness of Breath likely 2/2 to Kussmaul breathing will continue to monitor and provided supplemental O2 as needed to keep SpO2 above 92% CXR Negative #Cardiology EKG appreciated, will order repeat EKG after HD telemetry monitoring last Echo (12/2018): showed E/A reversal suggestive of diastolic dysfunction, normal LV size, function thickness and EF c/w cardiac monitoring c/w Pravastin for HLD #FEN no IVF, encourage PO intake elevated K+ will treat with emergent HD, monitor and correct as needed Na/Diabetic Diet #DVT Ppx. Hep SQ BID SCDs Dispo: We will continue to follow the patient. Thank you for this consultative opportunity. Visit type - Emergency Visit Emergency Visit: Yes ED Registration Date: 07/18/19 Care time: The patient presented to the Emergency Department on the above date and was hospitalized for further evaluation of their emergent condition. - New Patient This patient is new to me today: Yes Date on this admission: 07/18/19 - Critical Care Critical Care patient: Yes Total Critical Care Time (in minutes): 75 Critical Care Statement: The care of this patient involved high complexity decision making to prevent further life threatening deterioration of the patient 's condition and/or to evaluate & treat vital organ system(s) failure or risk of failure. ATTENDING PHYSICIAN STATEMENT I saw and evaluated the patient. I reviewed the resident's note and discussed the case with the resident. I agree with the resident's findings and plan as documented. SUBJECTIVE: OBJECTIVE: ASSESSMENT AND PLAN:
[2019-07-18] MEDS ORDERED: SODIUM CHLORIDE 250 ML IV PRN (00:54)
--- NOTE | 2019-07-18 01:02 | CON.NEP ---
Consult Consult Specialty:: Nephrology Referred by:: binu Gurrola Reason for Consultation:: Severe acidosis and hyperkalemia - History of Present Illness Chief Complaint: altered mental status History of Present Illness: fdc resident transferred relatives went to visit and he looked unwell in er here, he was found unresponsive and generally flaccid labs show acidemia and hyperkalemia and worse azotemia - History Source History Provided By: Medical Record Limitations to Obtaining History: Clinical Condition - Past Medical History Cardio/Vascular: Yes: HTN Endocrine: Yes: Diabetes Mellitus - Alcohol/Substance Use Hx Alcohol Use: Yes (SOCIAL) - Smoking History Smoking history: Unknown if ever smoked Have you smoked in the past 12 months: No Aproximately how many cigarettes per day: 0 If you are a former smoker, when did you quit?: 10 years Home Medications - Allergies Allergies/Adverse Reactions: Allergies Allergy/AdvReac Type Severity Reaction Status Date / Time No Known Allergies Allergy Verified 07/17/19 21:30 - Home Medications Home Medications: Ambulatory Orders Metformin HCl [Glucophage] 1,000 mg PO BID 11/19/16 Collagenase Clostridium Hist. [Santyl] 90 gm TP DAILY #1 tube 12/14/18 Acetaminophen [Tylenol .Regular Strength -] 650 mg PO Q6H PRN tablet 01/10/19 Clopidogrel Bisulfate [Plavix -] 75 mg PO DAILY tablet 01/10/19 Lisinopril [Prinivil] 10 mg PO DAILY tablet 01/10/19 Aspirin [ASA -] 81 mg PO DAILY 02/15/19 Insulin Glargine,Hum.rec.anlog [Basaglar Kwikpen U-100] 3 ml SQ DAILY 02/15/19 Pravastatin Sodium [Pravachol -] 40 mg PO HS 02/15/19 Basaglar Kwikpen U-100 8 units SCJ DAILY 03/01/19 Nystatin Cream [Mycostatin Cream -] 1 applic TP BID 03/31/19 Ascorbic Acid 500 mg PO DAILY 05/03/19 Multivitamin [Multiple Vitamins] 1 tab PO DAILY 05/03/19 Piperacillin/Tazob 3.375 gm [Zosyn -] 3.375 gm IV Q8H 05/03/19 Vanco 1.25 gm/250 ml-0.9% NaCl 1.25 g IV DAILY 05/03/19 Nephrology Consult - Height Height: 5 ft 4 in - Weight Weight: 122 lb 8 oz - BMI Body Mass Index (BMI): 21.0 - Lab Results CBC,BMP: CBC, BMP 07/17/19 21:53 07/17/19 21:53 Anion Gap: Anion Gap Anion Gap 16 MMOL/L (8-16) 07/17/19 21:53 - Physical Examination Vital Signs: Vital Signs Temperature 91.8 F L 07/17/19 23:32 Pulse Rate 73 07/17/19 23:32 Respiratory Rate 23 H 07/17/19 23:32 Blood Pressure 132/58 L 07/17/19 23:32 O2 Sat by Pulse Oximetry (%) 100 07/17/19 23:32 Constitutional: Yes: Well Nourished, No Distress, Calm Eyes: Yes: WNL, Conjunctiva Clear, EOM Intact HENT: Yes: WNL, Atraumatic, Normocephalic Neck: Yes: WNL, Supple, Trachea Midline Cardiovascular: Yes: WNL, Regular Rate and Rhythm Respiratory: Yes: WNL, Regular, CTA Bilaterally, Accessory Muscle Use, Kussmaul Gastrointestinal: Yes: WNL, Normal Bowel Sounds, Soft Renal/: Yes: WNL Musculoskeletal: Yes: WNL Extremities: Yes: WNL Integumentary: Yes: WNL Neurological: Yes: WNL, Alert, Oriented, Unresponsive, Weakness Psychiatric: Yes: Other Assessment/Plan Brief assessment in ER [place] resident on metformin for DM admitted with altered mental status and hypothermia found to have severe metabolic acidosis, severe hyperkalemia nonoliguric acute on chronic renal failure no evidence of sepsis or localizing source IMP Metformin associated lactic acidosis ([place]) may have contributing factors like renal failure, volume depletion, will plan dialysis because of the severity of acidemia and hyperkalemia and unpredicatble rate of response to medical management
--- NOTE | 2019-07-18 01:03 | HP ---
Admitting History and Physical - Primary Care Physician PCP: Angus Abel ([facility]) - Admission Chief Complaint: AMS History of Present Illness: This is a 69 y/o man from [facility] with a PMHx of DM, HLD, HTN, Left Foot 5th Metatarsal Osteomyelitis (s/p amputation 10/2018). Who presents to the ED via ambulance for AMS and labored breathing. Per ED records: Last known normal was yesterday evening around 5pm. This morning when the son visited the patient, he noted that the patient appeared to have significant work of breathing and getting up to the bathroom exhausted the patient. The patient was not able to communicate without increased labored breathing. On EMS arrival to [place], patient was known to have stable vitals and glucose 140s; unresponsive and not following commands with labored breathing and tachypnea. On arrival to the ED, patient presents with T 91.8F, HR 80, RR 30, BP 144/63, O2 100%. Patient was unresponsive with Kussmaul breathing. Patient not withdrawing to pain and absent blink to threat reflex, no tone on arm drop. Per son, patient was having difficulty this morning using bathroom and forgot to wash hands and thats when the son noted the patient was not behaving appropriately. Due to patient's clinical condition-unable to provide HPI. ED course was noted for: (1) BUN 109, Cr 2.5 (2) K 7.3 (3) Lactic Acid 8.3 History Source: Family Member, Transfer Record Limitations to Obtaining History: Clinical Condition - Past Medical History Cardiovascular: Yes: HTN, Hyperlipdemia Endocrine: Yes: Diabetes Mellitus - Smoking History Smoking history: Unknown if ever smoked Have you smoked in the past 12 months: No Aproximately how many cigarettes per day: 0 If you are a former smoker, when did you quit?: 10 years - Alcohol/Substance Use Hx Alcohol Use: Yes (SOCIAL) Home Medications - Allergies Allergies/Adverse Reactions: Allergies Allergy/AdvReac Type Severity Reaction Status Date / Time No Known Allergies Allergy Verified 07/17/19 21:30 - Home Medications Home Medications: Ambulatory Orders Metformin HCl [Glucophage] 1,000 mg PO BID 11/19/16 Collagenase Clostridium Hist. [Santyl] 90 gm TP DAILY #1 tube 12/14/18 Acetaminophen [Tylenol .Regular Strength -] 650 mg PO Q6H PRN tablet 01/10/19 Clopidogrel Bisulfate [Plavix -] 75 mg PO DAILY tablet 01/10/19 Lisinopril [Prinivil] 10 mg PO DAILY tablet 01/10/19 Aspirin [ASA -] 81 mg PO DAILY 02/15/19 Insulin Glargine,Hum.rec.anlog [Basaglar Kwikpen U-100] 8 unit SQ HS 02/15/19 Pravastatin Sodium [Pravachol -] 40 mg PO HS 02/15/19 Ascorbic Acid 500 mg PO DAILY 05/03/19 Multivitamin [Multiple Vitamins] 1 tab PO DAILY 05/03/19 Brimonidine Tartrate [Alphagan 0.2% -] 1 drop TID 07/18/19 Timolol Maleate 0.5% Gfs [Timoptic Xe 0.5%] 1 drop OD BID 07/18/19 acetaZOLAMIDE [Diamox Sequels -] 500 mg PO BID 07/18/19 Family Medical History Family History: Unable to Obtain Review of Systems Unable to obtain ROS, reason: Clinical Condition Physical Examination Vital Signs: Vital Signs Temperature 91.8 F L 07/17/19 23:32 Pulse Rate 73 07/17/19 23:32 Respiratory Rate 23 H 07/17/19 23:32 Blood Pressure 132/58 L 07/17/19 23:32 O2 Sat by Pulse Oximetry (%) 100 07/17/19 23:32 Constitutional: Yes: Severe Distress, Thin, Other (unresponsive) Eyes: Yes: PERRL (R- pupil 5mm, L- pupil 3mm OU respond to light). No: EOM Intact HENT: Yes: WNL, Atraumatic, Normocephalic Neck: Yes: WNL, Supple, Trachea Midline Cardiovascular: Yes: Regular Rate and Rhythm, S1, S2 Respiratory: Yes: Kussmaul, On Nasal O2, Tachypnea Gastrointestinal: Yes: Normal Bowel Sounds, Soft Renal/: Yes: Merino Present Edema: No Peripheral Pulses WNL: Yes Neurological: Yes: Unresponsive Labs: CBC, BMP 07/17/19 21:53 07/17/19 21:53 Problem List - Problems (1) Acute renal failure Assessment/Plan: Likely secondary to metformin toxicity vs ? myxedema coma vs sepsis Admit to ICU Nephrology aware and following- requires emergent dialysis Hyperkalemia Protocol initiated in ED BUN 109 Cr 2.5 K 7.3 VBG- PH 6.9 TSH 3.62 T4-pending Monitor CBC, BMP Avoid Nephrotoxic meds Renal US Code(s): N17.9 - ACUTE KIDNEY FAILURE, UNSPECIFIED Qualifiers: Acute renal failure type: unspecified Qualified Code(s): N17.9 - Acute kidney failure, unspecified (2) Hyperkalemia Assessment/Plan: See above Code(s): E87.5 - HYPERKALEMIA (3) Acute metabolic encephalopathy Assessment/Plan: Likely secondary to Acute Renal failure vs Infection Appreciate Neuro consult Neurochecks Fall Precautions Monitor CBC, BMP Monitor vitals Code(s): G93.41 - METABOLIC ENCEPHALOPATHY (4) Sepsis Assessment/Plan: Unknown etiology Sepsis Criteria Met: T 91.8, WBC 11.1, Lactic Acid 8.3, BUN 109 Blood Cultures-pending Urine Culture-pending Chest xray image- no infiltrate or effusion appreciated, awaiting official report Vancomycin, Zosyn started, continue renal dosing Appreciate ID consult Monitor CBC, BMP Monitor vitals Maintain MAP > 65 IVF Code(s): A41.9 - SEPSIS, UNSPECIFIED ORGANISM (5) Diabetes Assessment/Plan: BGMs Hold ISS until diet resumed Hold home meds secondary to clinical condition Monitor BMP Code(s): E11.9 - TYPE 2 DIABETES MELLITUS WITHOUT COMPLICATIONS (6) HTN (hypertension) Assessment/Plan: Hold home meds secondary to hypotension Monitor BP Monitor renal function Code(s): I10 - ESSENTIAL (PRIMARY) HYPERTENSION Assessment/Plan This is a 69 y/o man from [facility] with a PMHx of HTN, DM, PVD, Osteomyelitis (s/p left 5th metatarsal amputation). Admitted to ICU for Acute Renal Failure requiring Emergent Dialysis, Acute Metabolic Encephalopathy, Electrolyte Imbalance for further evaluation of their emergent condition. Plan: See Problem List FEN Continue IVF Replete lytes as indicated NPO DVT ppx OOB SCDs Heparin SQ Code Status: Full Code Dispo: Requires Inpatient Care Visit type - Emergency Visit Emergency Visit: Yes ED Registration Date: 07/17/19 Care time: The patient presented to the Emergency Department on the above date and was hospitalized for further evaluation of their emergent condition. - New Patient This patient is new to me today: Yes Date on this admission: 07/18/19 - Critical Care Critical Care patient: Yes Total Critical Care Time (in minutes): 35 Critical Care Statement: The care of this patient involved high complexity decision making to prevent further life threatening deterioration of the patient 's condition and/or to evaluate & treat vital organ system(s) failure or risk of failure.
[2019-07-18 01:09] LABS: COCAINE, UR NEGATIVE ng/ml (CUTOFF=300); METHADONE, UR NEGATIVE ng/ml (CUTOFF=300); OPIATES, URI NEGATIVE ng/ml (CUTOFF=300); PHENCYCLIDINE,URINE NEGATIVE ng/ml (CUTOFF=25); URINE AMPHETAMINES NEGATIVE ng/ml (CUTOFF=500); URINE BARBITURATES NEGATIVE ng/ml (CUTOFF=200); URINE BENZODIAZEPINES NEGATIVE ng/ml (CUTOFF=200)
[2019-07-18] MEDS ORDERED: NOREPINEPHRINE BITARTRATE 4 MG/4 ML ML IV ONE ×2 (02:10→16:18)
[2019-07-18] MEDS ORDERED: NOREPINEPHRINE BITARTRATE 4,000 MCG in DEXTROSE 5%-WATER - 496 ML IV SCH (02:15)
[2019-07-18 02:40] LABS: HEMATOCRIT 29.3 % (35.4-49); HEMOGLOBIN 9.6 GM/dL (11.7-16.9); MCH 31.6 pg (25.7-33.7); MCHC 32.8 g/dl (32.0-35.9); MEAN CELL VOLUME 96.3 fl (80-96); MEAN PLT VOLUME 8.7 fl (7.5-11.1); PLATELET COUNT 298 K/MM3 (134-434); RBC 3.05 M/mm3 (4.00-5.60); RDW 13.5 % (11.9-15.9); WHITE BLOOD COUNT 16.6 K/mm3 (4.0-10.0)
[2019-07-18] MEDS: NOREPINEPHRINE BITARTRATE 8,000 MCG in DEXTROSE 5%-WATER - 492 ML IV SCH (02:46)
[2019-07-18 03:09] LABS: BLOOD UREA NITROGEN 62.5 mg/dL (7-18); CALCIUM 8.2 mg/dL (8.5-10.1); CREATININE 1.8 mg/dL (0.55-1.3); MAGNESIUM 2.1 mg/dL (1.8-2.4)
[2019-07-18 04:21] LABS: ALLENS TEST POSITIVE; ARTERIAL BLD GAS O2 SATURATION 95.6 % (95-98); ARTERIAL BLOOD GAS BASE EXCESS -12.1 meq/l (-2-2); ARTERIAL BLOOD GAS PO2 68.1 mmHg (80-100); ARTERIAL BLOOD GAS pH 7.47 (7.35-7.45)
[2019-07-18 04:30] LABS: ARTERIAL BLOOD GAS PCO2 13.9 mmHg (35-45)
[2019-07-18 05:17] LABS: BASO % 0.2 % (0-2.0); HEMATOCRIT 29.8 % (35.4-49); HEMOGLOBIN 10.3 GM/dL (11.7-16.9); LYMPH % 2.1 % (8-40); MCH 31.8 pg (25.7-33.7); MCHC 34.7 g/dl (32.0-35.9); MEAN CELL VOLUME 91.7 fl (80-96); MONO % 6.7 % (3.8-10.2); PLATELET COUNT 391 K/MM3 (134-434); RBC 3.25 M/mm3 (4.00-5.60); RDW 13.3 % (11.9-15.9)
[2019-07-18 05:38] LABS: MAGNESIUM 2.1 mg/dL (1.8-2.4)
[2019-07-18] MEDS ORDERED: SODIUM CHLORIDE 0.45%/POT 20 MEQ/1,000 ML INFUS.BAG IV SCH (06:00)
[2019-07-18 06:01] LABS: ALBUMIN 3.8 g/dl (3.4-5.0); ALK PHOS 114 U/L (45-117); ANION GAP 15 MMOL/L (8-16); BILIRUBIN,TOTAL 0.4 mg/dL (0.2-1); BLOOD UREA NITROGEN 28.1 mg/dL (7-18); CALCIUM 8.9 mg/dL (8.5-10.1); CHLORIDE 103 mmol/L (98-107); CO2 21 mmol/L (21-32); CREATININE 0.9 mg/dL (0.55-1.3); GLUCOSE,RANDOM 162 mg/dL (74-106); PHOSPHOROUS 1.8 mg/dL (2.5-4.9); POTASSIUM 3.1 mmol/L (3.5-5.1); SGOT/AST 32 U/L (15-37); SGPT/ALT 23 U/L (13-61); SODIUM 139 mmol/L (136-145); TOT PROT 7.4 g/dl (6.4-8.2)
[2019-07-18 06:03] LABS: WHITE BLOOD COUNT 30.1 K/mm3 (4.0-10.0)
[2019-07-18] MEDS ORDERED: POTASSIUM PHOSPHATE 45 MM in SODIUM CHLORIDE 250 ML IVPB ONE (06:05)
[2019-07-18] MEDS ORDERED: SODIUM CHLORIDE 0.45% 1,000 ML IV SCH (06:15)
[2019-07-18] MEDS ORDERED: INSULIN SLIDING SCALE (NOVOLOG) 1 VIAL SQ SCH (07:00)
--- NOTE | 2019-07-18 07:15 | PN ---
Physical Exam: SUBJECTIVE: Patient seen and examined at bedside. Patient not on sedation but not responsive to verbal/physical stimuli. Labored, tachypynic breathing. Decision made to intubate patient while on rounds. Spoke with son on phone and obtained telephone consent for intubation and for LP. Consent in chart. OBJECTIVE: Vital Signs Period Temp Pulse Resp BP Sys/Ham Pulse Ox Last 24 Hr 88.2 F-98.9 F 70-105 15-24 61-138/38-62 97-100 GENERAL: not responsive to verbal, physical stimuli HEAD: Normal with no signs of trauma EYES: Left pupil cloudy, Right pupil reactive ENT: dry mucous membranes NECK: Trachea midline, supple. LUNGS: decreased breath sounds bilaterally, no wheezes, no crackles. tachypic HEART: Regular rate and rhythm, S1, S2 without murmur, rub or gallop. ABDOMEN: Soft, nontender, nondistended, normoactive bowel sounds, no guarding EXTREMITIES: 2+ pulses, warm, well-perfused, no edema. NEUROLOGICAL: normal gag reflex Laboratory Results - last 24 hr 07/17/19 07/17/19 07/17/19 21:53 21:53 21:53 WBC 11.1 H RBC 3.74 L Hgb 11.9 Hct 36.4 D MCV 97.5 H MCH 31.8 MCHC 32.7 RDW 13.9 Plt Count 441 H D MPV 8.4 Absolute Neuts (auto) 9.8 H Neutrophils % 88.6 H D Lymphocytes % 8.4 D Monocytes % 2.4 L Eosinophils % 0.1 D Basophils % 0.5 Nucleated RBC % 0 ESR PT with INR 11.40 INR 0.97 PTT (Actin FS) 36.5 Anticoagulation Therapy Puncture Site ABG pH ABG pCO2 at Pt Temp ABG pO2 at Pt Temp ABG HCO3 ABG O2 Sat (Measured) ABG O2 Content ABG Base Excess [place] Test VBG pH POC VBG pCO2 POC VBG pO2 VBG HCO3 VBG O2 Sat (Abner) VBG Base Excess O2 Delivery Device Oxygen Flow Rate Vent Mode Vent Rate Mechanical Rate Pressure Support Vent Sodium Potassium Chloride Carbon Dioxide Anion Gap BUN Creatinine Est GFR (CKD-EPI)AfAm Est GFR (CKD-EPI)NonAf POC Glucometer Random Glucose Lactic Acid Calcium Phosphorus Magnesium Total Bilirubin AST ALT Alkaline Phosphatase Creatine Kinase Troponin I < 0.02 C-Reactive Protein Total Protein Albumin Beta-Hydroxybutyrate TSH Urine Color Urine Appearance Urine pH Ur Specific [place] Urine Protein Urine Glucose (UA) Urine Ketones Urine Blood Urine Nitrite Urine Bilirubin Urine Urobilinogen Ur Leukocyte Esterase Salicylates Opiates Screen Methadone Screen Acetaminophen Barbiturate Screen Phencyclidine Screen Ur Amphetamines Screen MDMA (Ecstasy) Screen Benzodiazepines Screen Cocaine Screen U Marijuana (THC) Screen 07/17/19 07/17/19 07/17/19 21:53 21:53 21:53 WBC RBC Hgb Hct MCV MCH MCHC RDW Plt Count MPV Absolute Neuts (auto) Neutrophils % Lymphocytes % Monocytes % Eosinophils % Basophils % Nucleated RBC % ESR PT with INR INR PTT (Actin FS) Anticoagulation Therapy Puncture Site ABG pH ABG pCO2 at Pt Temp ABG pO2 at Pt Temp ABG HCO3 ABG O2 Sat (Measured) ABG O2 Content ABG Base Excess [place] Test VBG pH 6.95 L* POC VBG pCO2 14.8 L* POC VBG pO2 62.7 H VBG HCO3 3.1 L VBG O2 Sat (Abner) 80.8 H VBG Base Excess -29.1 L O2 Delivery Device Oxygen Flow Rate Vent Mode Vent Rate Mechanical Rate Pressure Support Vent Sodium 145 Potassium 7.3 H* Chloride 126 H Carbon Dioxide 4 L Anion Gap 16 BUN 109.0 H* Creatinine 2.5 H Est GFR (CKD-EPI)AfAm 29.27 Est GFR (CKD-EPI)NonAf 25.25 POC Glucometer Random Glucose 161 H Lactic Acid Calcium 9.3 Phosphorus Magnesium Total Bilirubin 0.3 AST 15 ALT 23 Alkaline Phosphatase 116 Creatine Kinase 64 Troponin I C-Reactive Protein Total Protein 7.7 Albumin 3.9 Beta-Hydroxybutyrate 39.9 H TSH 3.62 Urine Color Urine Appearance Urine pH Ur Specific [place] Urine Protein Urine Glucose (UA) Urine Ketones Urine Blood Urine Nitrite Urine Bilirubin Urine Urobilinogen Ur Leukocyte Esterase Salicylates Opiates Screen Methadone Screen Acetaminophen Barbiturate Screen Phencyclidine Screen Ur Amphetamines Screen MDMA (Ecstasy) Screen Benzodiazepines Screen Cocaine Screen U Marijuana (THC) Screen 07/17/19 07/17/19 07/17/19 22:00 23:00 23:29 WBC RBC Hgb Hct MCV MCH MCHC RDW Plt Count MPV Absolute Neuts (auto) Neutrophils % Lymphocytes % Monocytes % Eosinophils % Basophils % Nucleated RBC % ESR PT with INR INR PTT (Actin FS) Anticoagulation Therapy Puncture Site ABG pH ABG pCO2 at Pt Temp ABG pO2 at Pt Temp ABG HCO3 ABG O2 Sat (Measured) ABG O2 Content ABG Base Excess [place] Test VBG pH POC VBG pCO2 POC VBG pO2 VBG HCO3 VBG O2 Sat (Abner) VBG Base Excess O2 Delivery Device Oxygen Flow Rate Vent Mode Vent Rate Mechanical Rate Pressure Support Vent Sodium Potassium Chloride Carbon Dioxide Anion Gap BUN Creatinine Est GFR (CKD-EPI)AfAm Est GFR (CKD-EPI)NonAf POC Glucometer Random Glucose Lactic Acid 8.3 H* Calcium Phosphorus Magnesium Total Bilirubin AST ALT Alkaline Phosphatase Creatine Kinase Troponin I C-Reactive Protein Total Protein Albumin Beta-Hydroxybutyrate TSH Urine Color Yellow Urine Appearance Clear Urine pH 5.5 Ur Specific [place] 1.017 Urine Protein Trace Urine Glucose (UA) Negative Urine Ketones 1+ H Urine Blood Negative Urine Nitrite Negative Urine Bilirubin Negative Urine Urobilinogen 0.2 Ur Leukocyte Esterase Negative Salicylates < 1.7 L Opiates Screen Methadone Screen Acetaminophen Barbiturate Screen Phencyclidine Screen Ur Amphetamines Screen MDMA (Ecstasy) Screen Benzodiazepines Screen Cocaine Screen U Marijuana (THC) Screen 07/17/19 07/18/19 07/18/19 23:29 00:36 02:25 WBC 16.6 H RBC 3.05 L Hgb 9.6 L Hct 29.3 L D MCV 96.3 H MCH 31.6 MCHC 32.8 RDW 13.5 Plt Count 298 D MPV 8.7 Absolute Neuts (auto) Neutrophils % Lymphocytes % Monocytes % Eosinophils % Basophils % Nucleated RBC % ESR PT with INR INR PTT (Actin FS) Anticoagulation Therapy Puncture Site ABG pH ABG pCO2 at Pt Temp ABG pO2 at Pt Temp ABG HCO3 ABG O2 Sat (Measured) ABG O2 Content ABG Base Excess [place] Test VBG pH POC VBG pCO2 POC VBG pO2 VBG HCO3 VBG O2 Sat (Abner) VBG Base Excess O2 Delivery Device Oxygen Flow Rate Vent Mode Vent Rate Mechanical Rate Pressure Support Vent Sodium Potassium Chloride Carbon Dioxide Anion Gap BUN Creatinine Est GFR (CKD-EPI)AfAm Est GFR (CKD-EPI)NonAf POC Glucometer Random Glucose Lactic Acid Calcium Phosphorus Magnesium Total Bilirubin AST ALT Alkaline Phosphatase Creatine Kinase Troponin I C-Reactive Protein Total Protein Albumin Beta-Hydroxybutyrate TSH Urine Color Urine Appearance Urine pH Ur Specific [place] Urine Protein Urine Glucose (UA) Urine Ketones Urine Blood Urine Nitrite Urine Bilirubin Urine Urobilinogen Ur Leukocyte Esterase Salicylates Opiates Screen Negative Methadone Screen Negative Acetaminophen <2.0 Barbiturate Screen Negative Phencyclidine Screen Negative Ur Amphetamines Screen Negative MDMA (Ecstasy) Screen Negative Benzodiazepines Screen Negative Cocaine Screen Negative U Marijuana (THC) Screen Negative 07/18/19 07/18/19 07/18/19 02:25 03:35 04:05 WBC RBC Hgb Hct MCV MCH MCHC RDW Plt Count MPV Absolute Neuts (auto) Neutrophils % Lymphocytes % Monocytes % Eosinophils % Basophils % Nucleated RBC % ESR PT with INR INR PTT (Actin FS) Anticoagulation Therapy No Result Required. Puncture Site Right radial ABG pH 7.47 H ABG pCO2 at Pt Temp 13.9 L* ABG pO2 at Pt Temp 68.1 L ABG HCO3 10.0 L ABG O2 Sat (Measured) 95.6 ABG O2 Content 13.6 ABG Base Excess -12.1 L [place] Test Positive VBG pH POC VBG pCO2 POC VBG pO2 VBG HCO3 VBG O2 Sat (Abner) VBG Base Excess O2 Delivery Device Aerosol tx Oxygen Flow Rate 7 lpm Vent Mode No Result Required. Vent Rate No Result Required. Mechanical Rate No Result Required. Pressure Support Vent No Result Required. Sodium 146 H Potassium 4.0 3.0 L Chloride 116 H Carbon Dioxide 13 L Anion Gap 17 H BUN 62.5 H Creatinine 1.8 H Est GFR (CKD-EPI)AfAm 43.54 Est GFR (CKD-EPI)NonAf 37.56 POC Glucometer Random Glucose 246 H Lactic Acid Calcium 8.2 L Phosphorus Magnesium 2.1 Total Bilirubin AST ALT Alkaline Phosphatase Creatine Kinase Troponin I C-Reactive Protein Total Protein Albumin Beta-Hydroxybutyrate TSH Urine Color Urine Appearance Urine pH Ur Specific [place] Urine Protein Urine Glucose (UA) Urine Ketones Urine Blood Urine Nitrite Urine Bilirubin Urine Urobilinogen Ur Leukocyte Esterase Salicylates Opiates Screen Methadone Screen Acetaminophen Barbiturate Screen Phencyclidine Screen Ur Amphetamines Screen MDMA (Ecstasy) Screen Benzodiazepines Screen Cocaine Screen U Marijuana (THC) Screen 07/18/19 07/18/19 07/18/19 04:50 04:50 04:50 WBC 30.1 H* RBC 3.25 L Hgb 10.3 L Hct 29.8 L MCV 91.7 MCH 31.8 MCHC 34.7 RDW 13.3 Plt Count 391 D MPV 8.0 Absolute Neuts (auto) 27.4 H Neutrophils % 91.0 H Lymphocytes % 2.1 L D Monocytes % 6.7 D Eosinophils % 0.0 D Basophils % 0.2 Nucleated RBC % 0 ESR PT with INR INR PTT (Actin FS) Anticoagulation Therapy Puncture Site ABG pH ABG pCO2 at Pt Temp ABG pO2 at Pt Temp ABG HCO3 ABG O2 Sat (Measured) ABG O2 Content ABG Base Excess [place] Test VBG pH POC VBG pCO2 POC VBG pO2 VBG HCO3 VBG O2 Sat (Abner) VBG Base Excess O2 Delivery Device Oxygen Flow Rate Vent Mode Vent Rate Mechanical Rate Pressure Support Vent Sodium 139 Potassium 3.1 L Chloride 103 Carbon Dioxide 21 Anion Gap 15 BUN 28.1 H Creatinine 0.9 Est GFR (CKD-EPI)AfAm 100.65 Est GFR (CKD-EPI)NonAf 86.84 POC Glucometer Random Glucose 162 H Lactic Acid Calcium 8.9 Phosphorus 1.8 L Magnesium 2.1 Total Bilirubin 0.4 AST 32 ALT 23 Alkaline Phosphatase 114 Creatine Kinase Troponin I C-Reactive Protein < 0.3 Total Protein 7.4 Albumin 3.8 Beta-Hydroxybutyrate TSH Urine Color Urine Appearance Urine pH Ur Specific [place] Urine Protein Urine Glucose (UA) Urine Ketones Urine Blood Urine Nitrite Urine Bilirubin Urine Urobilinogen Ur Leukocyte Esterase Salicylates Opiates Screen Methadone Screen Acetaminophen Barbiturate Screen Phencyclidine Screen Ur Amphetamines Screen MDMA (Ecstasy) Screen Benzodiazepines Screen Cocaine Screen U Marijuana (THC) Screen 07/18/19 07/18/19 04:50 06:53 WBC RBC Hgb Hct MCV MCH MCHC RDW Plt Count MPV Absolute Neuts (auto) Neutrophils % Lymphocytes % Monocytes % Eosinophils % Basophils % Nucleated RBC % ESR 31 H PT with INR INR PTT (Actin FS) Anticoagulation Therapy Puncture Site ABG pH ABG pCO2 at Pt Temp ABG pO2 at Pt Temp ABG HCO3 ABG O2 Sat (Measured) ABG O2 Content ABG Base Excess [place] Test VBG pH POC VBG pCO2 POC VBG pO2 VBG HCO3 VBG O2 Sat (Abner) VBG Base Excess O2 Delivery Device Oxygen Flow Rate Vent Mode Vent Rate Mechanical Rate Pressure Support Vent Sodium Potassium Chloride Carbon Dioxide Anion Gap BUN Creatinine Est GFR (CKD-EPI)AfAm Est GFR (CKD-EPI)NonAf POC Glucometer 207 Random Glucose Lactic Acid Calcium Phosphorus Magnesium Total Bilirubin AST ALT Alkaline Phosphatase Creatine Kinase Troponin I C-Reactive Protein Total Protein Albumin Beta-Hydroxybutyrate TSH Urine Color Urine Appearance Urine pH Ur Specific [place] Urine Protein Urine Glucose (UA) Urine Ketones Urine Blood Urine Nitrite Urine Bilirubin Urine Urobilinogen Ur Leukocyte Esterase Salicylates Opiates Screen Methadone Screen Acetaminophen Barbiturate Screen Phencyclidine Screen Ur Amphetamines Screen MDMA (Ecstasy) Screen Benzodiazepines Screen Cocaine Screen U Marijuana (THC) Screen Active Medications Generic Name Dose Route Start Last Admin Trade Name Freq PRN Reason Stop Dose Admin Aspirin 300 mg 07/18/19 10:00 Asa - RC DAILY CAROLYN Chlorhexidine Gluconate 1 applic 07/18/19 22:00 Hibiclens For Decolonization - TP HS CAROLYN Heparin Sodium (Porcine) 5,000 unit 07/18/19 10:00 Heparin - SQ BID CAROLYN Sodium Chloride 250 mls @ 3,000 mls/hr 07/18/19 00:54 Normal Saline - IV 07/19/19 00:54 PRN PRN Hypotension during Dialysis Norepinephrine Bitartrate 8, 500 mls @ 18.75 mls/hr 07/18/19 02:16 07/18/19 02:46 000 mcg/ Dextrose IV 5 mcg/min TITR CAROLYN 18.75 mls/hr Administration Protocol 5 MCG/MIN Piperacillin Sod/Tazobactam 50 mls @ 100 mls/hr 07/18/19 09:00 Sod 2.25 gm/ Dextrose IVPB Q6H-IV CAROLYN Protocol Sodium Chloride 1,000 mls @ 125 mls/hr 07/18/19 06:15 07/18/19 06:40 1/2 Normal Saline IV 125 mls/hr ASDIR CAROLYN Administration Potassium Phosphate 45 mm/ 265 mls @ 62.5 mls/hr 07/18/19 06:05 Sodium Chloride IVPB 07/18/19 10:19 ONCE ONE Piperacillin Sod/Tazobactam 50 mls @ 100 mls/hr 07/18/19 09:00 Sod 2.25 gm/ Dextrose IVPB 07/19/19 03:29 Q6H-IV CAROLYN Insulin Aspart 1 vial 07/18/19 07:00 Novolog Vial Sliding Scale - SQ ACHS CAROLYN Protocol Mupirocin 1 applic 07/18/19 10:00 Bactroban Ointment (For Decolonization) - NS 07/23/19 09:59 BID CAROLYN ASSESSMENT/PLAN: Pt. is a 69 y/o/m with PMHx of NIDDM, HTN, HLD, Peripheral arterial disease(s/p LLE angioplasty 12/2018) and OM( s/p L. 5th digit amputation) presents from [facility] for altered mental status and labored breathing. Intubated on 07/18 for labored breathing and tachypnea. #Neurology - Acute Metabolic Encephalopathy - AMS possibly 2/2 metabolic acidosis - Head CT Neg. - Per son Pt.s baseline is A&Ox 3. Pt. walks with close guard of 1 as Pt. is blind out of BOTH eyes. Glaucoma in the Right and Cataracts in the left per son. #Cardiology - last Echo (12/2018): showed E/A reversal suggestive of diastolic dysfunction, normal LV size, function thickness and EF - will obtain repeat ECHO for evaluation of cardiac function and to r/o vegetations - c/w Pravastin for HLD - Chest CT w/out contrast to r/o lesions and infarct. read pending - Trialysis catheter in Left femoral - Levophed for BP support #Pulmonology - Intubated on 07/18 for tachypnea and labored breathing - Tube placement confirmed by CXR #Nephrology - ARF, s/p one round of dialysis - Metabolic Acidosis possibly 2/2 Metformin - Hyperkalemia resolved - On admission Pt. had Cr. of 2.5 w/ last baseline at ~1.5 during last admission - Lactic acid normalized - Potassium at 7.3 on admission. Resolved after HD - nephrology consulted - Emergent HD done on morning of 07/18 - Sodium Bicarb 150meq in Dextrose @100mls/hr #GI - CTAP with only PO contrast to r/o ischemia and/or lesions. read pending #ID - Rectal Temperature of 91.8 on admission, decreased to 88.2. Temperature now normalized. Bairhugger discontinued. - CXR negative for acute pathology - UA- negative for infection (only 1+ ketones) - C-Spine and Thoracic Spine CT Neg for acute pathology - Blood Cx and Urine Cx negative. - CSF gram stain pending. Right Upper arm wound culture pending. - Given Zosyn and Vancomycin in ED. Continue Zosyn - CRP negative - Isolation Precautions for MRSA+ in March - Lumbar puncture performed. CSF studies pending. - Viral studies and Hepatitis panels pending - Tox screen negative - Sedated on Fentanyl #Endocrine - DM - Will hold Metformin, likely will d/c prior to discharge - c/w BGM ACHS - c/w ISS ACHS #FEN - Sodium Bicarb 150meq in Dextrose @100mls/hr - Hypo phos and K+, repleted - Monitor and replete lytes as needed - OG tube placed, can consider starting feeds #DVT Ppx. - Heparin - SCDs - Protonix #Disposition - Continue ICU monitoring Visit type - Emergency Visit Emergency Visit: Yes ED Registration Date: 07/18/19 Care time: The patient presented to the Emergency Department on the above date and was hospitalized for further evaluation of their emergent condition. - New Patient This patient is new to me today: Yes Date on this admission: 07/18/19 - Critical Care Critical Care patient: Yes Total Critical Care Time (in minutes): 36 Critical Care Statement: The care of this patient involved high complexity decision making to prevent further life threatening deterioration of the patient 's condition and/or to evaluate & treat vital organ system(s) failure or risk of failure. ATTENDING PHYSICIAN STATEMENT I saw and evaluated the patient. I reviewed the resident's note and discussed the case with the resident. I agree with the resident's findings and plan as documented. SUBJECTIVE: OBJECTIVE: ASSESSMENT AND PLAN:
[2019-07-18 07:31] LABS: BLOOD UREA NITROGEN 49.3 mg/dL (7-18); CALCIUM 8.6 mg/dL (8.5-10.1); CREATININE 1.7 mg/dL (0.55-1.3); POTASSIUM 3.5 mmol/L (3.5-5.1)
[2019-07-18] MEDS ORDERED: PIPERACILLIN/TAZOBACTAM 2.25 GM VIAL IVPB ONE (07:44)
[2019-07-18] MEDS ORDERED: DEXTROSE 5%-WATER - 50 ML IVPB ONE ×2 (07:45→16:17)
[2019-07-18] MEDS ORDERED: SODIUM CHLORIDE 0.9% 500 ML INFUS.BAG IV ONE (08:06)
--- NOTE | 2019-07-18 08:47 | PN ---
Progress Note, Physician Chief Complaint: ASLEEP EVENTS AND NOTES REVIEWED IN ICU SEPSIS PROTOCOL STARTED - Current Medication List Current Medications: Active Medications Aspirin (Asa -) 300 mg RC DAILY [facility] Chlorhexidine Gluconate (Hibiclens For Decolonization -) 1 applic TP HS CAROLYN Heparin Sodium (Porcine) (Heparin -) 5,000 unit SQ BID CAROLYN Sodium Chloride (Normal Saline -) 250 mls @ 3,000 mls/hr IV PRN PRN PRN Reason: Hypotension during Dialysis Stop: 07/19/19 00:54 Norepinephrine Bitartrate 8, (000 mcg/ Dextrose) 500 mls @ 18.75 mls/hr IV TITR CAROLYN; Protocol Last Titration: 07/18/19 08:31 Dose: 6 mcg/min, 22.5 mls/hr Piperacillin Sod/Tazobactam (Sod 2.25 gm/ Dextrose) 50 mls @ 100 mls/hr IVPB Q6H-IV CAROLYN; Protocol Last Admin: 07/18/19 08:10 Dose: 100 mls/hr Sodium Chloride (1/2 Normal Saline) 1,000 mls @ 125 mls/hr IV ASDIR CAROLYN Last Admin: 07/18/19 06:40 Dose: 125 mls/hr Potassium Phosphate 45 mm/ (Sodium Chloride) 265 mls @ 62.5 mls/hr IVPB ONCE ONE Stop: 07/18/19 10:19 Last Admin: 07/18/19 08:19 Dose: 62.5 mls/hr Piperacillin Sod/Tazobactam (Sod 2.25 gm/ Dextrose) 50 mls @ 100 mls/hr IVPB Q6H-IV CAROLYN Stop: 07/19/19 03:29 Last Admin: 07/18/19 08:20 Dose: Not Given Insulin Aspart (Novolog Vial Sliding Scale -) 1 vial SQ ACHS [facility]; Protocol Mupirocin (Bactroban Ointment (For Decolonization) -) 1 applic NS BID [facility] Stop: 07/23/19 09:59 Sodium Chloride (Normal Saline -) 1,000 ml IV ONCE ONE Stop: 07/18/19 08:07 - Objective Vital Signs: Vital Signs Temperature 96.5 F L 07/18/19 08:00 Pulse Rate 85 07/18/19 08:31 Respiratory Rate 25 H 07/18/19 08:00 Blood Pressure 134/58 L 07/18/19 08:31 O2 Sat by Pulse Oximetry (%) 100 07/18/19 00:00 Constitutional: Yes: Mild Distress Eyes: Yes: WNL HENT: Yes: WNL Neck: Yes: WNL Cardiovascular: Yes: Regular Rate and Rhythm Respiratory: Yes: Diminished, On Nasal O2 Gastrointestinal: Yes: Soft Genitourinary: Yes: Other Musculoskeletal: Yes: Muscle Weakness Extremities: Yes: Deformity Labs: CBC, BMP 07/18/19 04:50 07/18/19 06:33 INR, PTT INR 0.97 (0.83-1.09) 07/17/19 21:53 Problem List - Problems (1) ESRD (end stage renal disease) on dialysis Code(s): N18.6 - END STAGE RENAL DISEASE; Z99.2 - DEPENDENCE ON RENAL DIALYSIS (2) Acute metabolic encephalopathy Code(s): G93.41 - METABOLIC ENCEPHALOPATHY (3) Diabetes Code(s): E11.9 - TYPE 2 DIABETES MELLITUS WITHOUT COMPLICATIONS (4) Sepsis Code(s): A41.9 - SEPSIS, UNSPECIFIED ORGANISM (5) Diabetes Code(s): E11.9 - TYPE 2 DIABETES MELLITUS WITHOUT COMPLICATIONS (6) Lactic acid acidosis Code(s): E87.2 - ACIDOSIS Assessment/Plan HD PER RENAL BLOOD CX PENDING NEPHROLOGY EVAL APPRECIATED ID WORKUP IN PROGRESS OLD AMPUTATION LEFT FOOT DOUBT THIS IS THE SOURCE LACTIC ACID HIGH 15, CHECK ABG
[2019-07-18] MEDS ORDERED: PIPERACILLIN/TAZOB 2.25 GM 2.25 GM in DEXTROSE 5%-WATER - 50 ML IVPB SCH (09:00)
[2019-07-18 09:19] LABS: BLOOD UREA NITROGEN 45.4 mg/dL (7-18); CALCIUM 8.2 mg/dL (8.5-10.1); CREATININE 1.7 mg/dL (0.55-1.3); POTASSIUM 3.4 mmol/L (3.5-5.1)
[2019-07-18] MEDS: ASPIRIN 300 MG SUPP.RECT RC SCH (10:13)
[2019-07-18] MEDS: HEPARIN NA (PORCINE) 5,000 UNITS/ML 1ML VIAL SQ SCH ×2 (10:13→21:21)
[2019-07-18] MEDS ORDERED: SODIUM BICARBONATE 8.4% 50 MEQ/50 ML DISP.SYRIN IVPUSH ONE (10:45)
[2019-07-18] MEDS ORDERED: PROPOFOL 20 ML ONE (10:50)
[2019-07-18] MEDS ORDERED: SODIUM BICARBONATE 8.4% 50 MEQ/50 ML VIAL ONE (12:07)
[2019-07-18] MEDS: MUPIROCIN 2% TOPICAL OINTMENT FOR DECOLONIZATION NS SCH ×2 (12:22→21:23)
--- NOTE | 2019-07-18 12:26 | PN ---
Teaching Attending Note Name of Resident: Rayna Dominguez ATTENDING PHYSICIAN STATEMENT I saw and evaluated the patient. I reviewed the resident's note and discussed the case with the resident. I agree with the resident's findings and plan as documented. SUBJECTIVE: Pt seen and examined in the ICU. Obtunded, tachypneic. Dialyzed overnight but metabolic acidosis persists. Intubated during rounds due to impending respiratory failure. On levophed gtt. OBJECTIVE: Vital Signs Period Temp Pulse Resp BP Sys/Ham Pulse Ox Last 24 Hr 88.2 F-98.9 F 70-105 15-25 61-144/38-66 97-100 Intake & Output 07/15/19 07/16/19 07/17/19 07/18/19 23:59 23:59 23:59 23:59 Intake Total 1212.5 Output Total 1400 Balance -187.5 Weight 55.565 kg 51.483 kg Gen: intubated, sedated Heart: RRR Lung: decreased breath sounds at the bases Abd: soft, nontender Ext: no edema CBC, BMP 07/18/19 04:50 07/18/19 08:10 Active Medications Aspirin (Asa -) 300 mg RC DAILY CAROLYN Last Admin: 07/18/19 10:13 Dose: 300 mg Chlorhexidine Gluconate (Hibiclens For Decolonization -) 1 applic TP HS CAROLYN Heparin Sodium (Porcine) (Heparin -) 5,000 unit SQ BID CAROLYN Last Admin: 07/18/19 10:13 Dose: 5,000 unit Sodium Chloride (Normal Saline -) 250 mls @ 3,000 mls/hr IV PRN PRN PRN Reason: Hypotension during Dialysis Stop: 07/19/19 00:54 Norepinephrine Bitartrate 8, (000 mcg/ Dextrose) 500 mls @ 18.75 mls/hr IV TITR CAROLYN; Protocol Last Titration: 07/18/19 12:09 Dose: 5 mcg/min, 18.75 mls/hr Piperacillin Sod/Tazobactam (Sod 2.25 gm/ Dextrose) 50 mls @ 100 mls/hr IVPB Q6H-IV CAROLYN; Protocol Last Admin: 07/18/19 08:10 Dose: 100 mls/hr Sodium Chloride (1/2 Normal Saline) 1,000 mls @ 125 mls/hr IV ASDIR CAROLYN Last Admin: 07/18/19 06:40 Dose: 125 mls/hr Piperacillin Sod/Tazobactam (Sod 2.25 gm/ Dextrose) 50 mls @ 100 mls/hr IVPB Q6H-IV CAROLYN Stop: 07/19/19 03:29 Last Admin: 07/18/19 08:20 Dose: Not Given Sodium Bicarbonate 150 meq/ (Dextrose) 1,150 mls @ 100 mls/hr IVPB .Q10H CAROLYN Insulin Aspart (Novolog Vial Sliding Scale -) 1 vial SQ ACHS CAROLYN; Protocol Mupirocin (Bactroban Ointment (For Decolonization) -) 1 applic NS BID CAROLYN Stop: 07/23/19 09:59 Sodium Bicarbonate (Sodium Bicarbonate 8.4% -) 50 meq IVPUSH ONCE ONE Stop: 07/18/19 10:46 ASSESSMENT AND PLAN: Acute Respiratory Failure Shock - Likely Septic Hypothermia Anion Gap Metabolic Acidosis Lactic Acidosis Acute Kidney Injury requiring HD PAD HTN DM Hyperlipidemia - empiric antibiotics - f/u cultures - will perform lumbar puncture - CT C/A/P - IVF - monitor urine output, creatinine - HD per renal - bicarb gtt - send tox screen - serum osms - cortisol level - echocardiogram - sedate for vent synchrony - not a candidate for weaning at this time - DVT/GI prophylaxis - ICU monitoring critical care time spent in reviewing chart, evaluating patient and formulating plan 35 min
--- NOTE | 2019-07-18 12:29 | PROC ---
<Rayna Dominguez - Last Filed: 07/18/19 12:30> Intubation - Intubation Reason for Intubation: Respiratory Insufficiency Time of Intubation: 10:55 Intubation Method: orotracheal Blade used: Glidescope Tube position confirmed by: CO2 detector, Chest x-ray, Breath sounds Breath Sounds after Intubation: equal Post Intubation Xray: Yes <Angus Rivera MD - Last Filed: 07/18/19 13:04> Procedure Note Procedure: I supervised and was present during the entire procedure. Angus Rivera MD
[2019-07-18] MEDS ORDERED: PROPOFOL 200 MG/20 ML VIAL IVPUSH ONE ×3 (12:41→15:52)
--- NOTE | 2019-07-18 13:05 | PN ---
Progress Note, Physician History of Present Illness: Pt seen and examine at bedside. He is lethargic. Pt is tachypnic. He is unable to give history. He was dialyzed early this morning. - Current Medication List Current Medications: Active Medications Aspirin (Asa -) 300 mg RC DAILY [facility] Last Admin: 07/18/19 10:13 Dose: 300 mg Chlorhexidine Gluconate (Hibiclens For Decolonization -) 1 applic TP HS [facility] Heparin Sodium (Porcine) (Heparin -) 5,000 unit SQ BID [facility] Last Admin: 07/18/19 10:13 Dose: 5,000 unit Sodium Chloride (Normal Saline -) 250 mls @ 3,000 mls/hr IV PRN PRN PRN Reason: Hypotension during Dialysis Stop: 07/19/19 00:54 Norepinephrine Bitartrate 8, (000 mcg/ Dextrose) 500 mls @ 18.75 mls/hr IV TITR [facility]; Protocol Last Titration: 07/18/19 12:09 Dose: 5 mcg/min, 18.75 mls/hr Piperacillin Sod/Tazobactam (Sod 2.25 gm/ Dextrose) 50 mls @ 100 mls/hr IVPB Q6H-IV [facility]; Protocol Last Admin: 07/18/19 08:10 Dose: 100 mls/hr Piperacillin Sod/Tazobactam (Sod 2.25 gm/ Dextrose) 50 mls @ 100 mls/hr IVPB Q6H-IV [facility] Stop: 07/19/19 03:29 Last Admin: 07/18/19 08:20 Dose: Not Given Sodium Bicarbonate 150 meq/ (Dextrose) 1,150 mls @ 100 mls/hr IVPB .Q10H [facility] Insulin Aspart (Novolog Vial Sliding Scale -) 1 vial SQ ACHS [facility]; Protocol Mupirocin (Bactroban Ointment (For Decolonization) -) 1 applic NS BID [facility] Stop: 07/23/19 09:59 Last Admin: 07/18/19 12:22 Dose: Not Given Propofol (Diprivan -) 100 mcg IVPUSH ONCE ONE Stop: 07/18/19 12:42 Sodium Bicarbonate (Sodium Bicarbonate 8.4% -) 50 meq IVPUSH ONCE ONE Stop: 07/18/19 10:46 - Objective Vital Signs: Vital Signs Temperature 98.1 F 07/18/19 12:58 Pulse Rate 92 H 07/18/19 12:58 Respiratory Rate 22 H 07/18/19 12:58 Blood Pressure 117/53 L 07/18/19 12:58 O2 Sat by Pulse Oximetry (%) 100 07/18/19 11:18 Constitutional: Yes: Moderate Distress Eyes: Yes: Conjunctiva Clear HENT: Yes: Atraumatic Cardiovascular: Yes: S1, S2 Respiratory: Yes: On Nasal O2, Tachypnea Gastrointestinal: Yes: Soft Genitourinary: Yes: Merino Present Musculoskeletal: Yes: Muscle Weakness Edema: No Neurological: Yes: Lethargy Labs: CBC, BMP 07/18/19 04:50 07/18/19 08:10 INR, PTT INR 0.97 (0.83-1.09) 07/17/19 21:53 - ....Imaging Chest X-ray: Report Reviewed Assessment/Plan Current Medications Generic Name Dose Route Start Last Admin Trade Name Freq PRN Reason Stop Dose Admin Aspirin 300 mg 07/18/19 10:00 07/18/19 10:13 Asa - RC 300 mg DAILY [facility] Administration Chlorhexidine Gluconate 1 applic 07/18/19 22:00 Hibiclens For Decolonization - TP HS [facility] Heparin Sodium (Porcine) 5,000 unit 07/18/19 10:00 07/18/19 10:13 Heparin - SQ 5,000 unit BID [facility] Administration Sodium Chloride 250 mls @ 3,000 mls/hr 07/18/19 00:54 Normal Saline - IV 07/19/19 00:54 PRN PRN Hypotension during Dialysis Norepinephrine Bitartrate 8, 500 mls @ 18.75 mls/hr 07/18/19 02:16 07/18/19 12:09 000 mcg/ Dextrose IV 5 mcg/min TITR [facility] 18.75 mls/hr Titration Protocol 5 MCG/MIN Piperacillin Sod/Tazobactam 50 mls @ 100 mls/hr 07/18/19 09:00 07/18/19 08:10 Sod 2.25 gm/ Dextrose IVPB 100 mls/hr Q6H-IV [facility] Administration Protocol Piperacillin Sod/Tazobactam 50 mls @ 100 mls/hr 07/18/19 09:00 07/18/19 08:20 Sod 2.25 gm/ Dextrose IVPB 07/19/19 03:29 Not Given Q6H-IV [facility] Sodium Bicarbonate 150 meq/ 1,150 mls @ 100 mls/hr 07/18/19 10:45 Dextrose IVPB .Q10H [facility] Insulin Aspart 1 vial 07/18/19 07:00 Novolog Vial Sliding Scale - SQ ACHS [facility] Protocol Mupirocin 1 applic 07/18/19 10:00 07/18/19 12:22 Bactroban Ointment (For Decolonization) - NS 07/23/19 09:59 Not Given BID [facility] Propofol 100 mcg 07/18/19 12:41 Diprivan - IVPUSH 07/18/19 12:42 ONCE ONE Sodium Bicarbonate 50 meq 07/18/19 10:45 Sodium Bicarbonate 8.4% - IVPUSH 07/18/19 10:46 ONCE ONE Impression 1. BRUCE 2. metabolic acidosis 3. lactic acidosis 4. altered mental status 5. DM 6. HTN 7. PAD 8. sepsis 9. shock 10. resp failure with pending intubation Plan - pt was dialyzed early this morning - give bicarb - start fluids - pt to be intubated - follow cxr and abg - discussed with pulm at bedside - rounds made with ICU team - stop metformin
--- NOTE | 2019-07-18 13:51 | CONSULT ---
Consult Consult Specialty:: Podiatry Reason for Consultation:: Healing amputation site left wih elongated thickened fungus toe nails. - History Source History Provided By: Medical Record - Past Medical History Cardio/Vascular: Yes: HTN, Hyperlipdemia Endocrine: Yes: Diabetes Mellitus - Alcohol/Substance Use Hx Alcohol Use: Yes (SOCIAL) - Smoking History Smoking history: Unknown if ever smoked Have you smoked in the past 12 months: No Aproximately how many cigarettes per day: 0 If you are a former smoker, when did you quit?: 10 years Home Medications - Allergies Allergies/Adverse Reactions: Allergies Allergy/AdvReac Type Severity Reaction Status Date / Time No Known Allergies Allergy Verified 07/17/19 21:30 - Home Medications Home Medications: Ambulatory Orders Metformin HCl [Glucophage] 1,000 mg PO BID 11/19/16 Collagenase Clostridium Hist. [Santyl] 90 gm TP DAILY #1 tube 12/14/18 Acetaminophen [Tylenol .Regular Strength -] 650 mg PO Q6H PRN tablet 01/10/19 Clopidogrel Bisulfate [Plavix -] 75 mg PO DAILY tablet 01/10/19 Lisinopril [Prinivil] 10 mg PO DAILY tablet 01/10/19 Aspirin [ASA -] 81 mg PO DAILY 02/15/19 Insulin Glargine,Hum.rec.anlog [Basaglar Kwikpen U-100] 8 unit SQ HS 02/15/19 Pravastatin Sodium [Pravachol -] 40 mg PO HS 02/15/19 Ascorbic Acid 500 mg PO DAILY 05/03/19 Multivitamin [Multiple Vitamins] 1 tab PO DAILY 05/03/19 Brimonidine Tartrate [Alphagan 0.2% -] 1 drop TID 07/18/19 Timolol Maleate 0.5% Gfs [Timoptic Xe 0.5%] 1 drop OD BID 07/18/19 acetaZOLAMIDE [Diamox Sequels -] 500 mg PO BID 07/18/19 Physical Exam Vital Signs: Vital Signs Temperature 98.1 F 07/18/19 12:58 Pulse Rate 92 H 07/18/19 12:58 Respiratory Rate 22 H 07/18/19 12:58 Blood Pressure 117/53 L 07/18/19 12:58 O2 Sat by Pulse Oximetry (%) 100 07/18/19 11:18 Extremities: Yes: Other (vs decreased, +grade 0-1 wound proximal amputation site , -cellulitis, -drainage, +mycotic big toe nails,) Labs: CBC, BMP 07/18/19 04:50 07/18/19 08:10 Assessment/Plan dm with pvd onychomycosis Continue heel pads. Foot care q 8 weeks. No tx necessary for amputation site as is coapted with proximal eschar. Will follow for fungus nail care.
[2019-07-18] MEDS: SODIUM BICARBONATE 8.4% - 150 MEQ in DEXTROSE 5%-WATER - 1,000 ML IVPB SCH (14:05)
--- NOTE | 2019-07-18 14:59 | PROC ---
<Vijay Montes - Last Filed: 07/18/19 14:57> Lumbar Puncture Indication: AMS w/ sepsis picture Risks and Benefits Explained: Yes (Family constented) Consent on Chart: Yes Sterile Technique: Yes Skin prep: Chlorhexidine Position: Left lateral decubitus Site: L4-L51 Local Anesthesia: 1% Lidocaine with epi Opening Pressure(mmHg): 15 CSF Color, Appearance: Clear Sterile Dressing Applied: Yes <Angus Rivera MD - Last Filed: 07/19/19 10:53> Procedure Note Procedure: I supervised and was present during the entire procedure. Angus Rivera MD
[2019-07-18] MEDS: PROPOFOL 1,000,000 MCG/100 ML VIAL IVPB SCH (15:00)
--- NOTE | 2019-07-18 15:11 | CON.ID ---
Consult Consult Specialty:: infectious diseases Referred by:: Zach Reason for Consultation:: sepsis,resp failure,lethargy,weakness - History of Present Illness Chief Complaint: lethargy History of Present Illness: patient intubated and history obtained from the charts and the staff 69 y/o man from [facility] with a PMHx of DM, HLD, HTN, Left Foot 5th Metatarsal Osteomyelitis (s/p amputation 10/2018). Who came to the hospital for labored breathing the son visited the patient, he noted that the patient appeared to have significant work of breathing and getting up to the bathroom exhausted the patient. The patient was not able to communicate without increased labored breathing. On EMS arrival to [place], patient was known to have stable vitals and glucose 140s; unresponsive and not following commands with labored breathing and tachypnea. On arrival to the ED, patient presents with T 91.8F, HR 80, RR 30 , BP 144/63, O2 100%. Patient was unresponsive with Kussmaul breathing. Patient not withdrawing to pain and absent blink to threat reflex, no tone on arm drop. Per son, patient was having difficulty this morning using bathroom and forgot to wash hands and thats when the son noted the patient was not behaving appropriately. Due to patient's clinical condition-unable to provide HPI. patient was then txed to icu and was intubated and currently he is intubated - History Source History Provided By: Medical Record Limitations to Obtaining History: Clinical Condition - Past Medical History Cardio/Vascular: Yes: HTN, Hyperlipdemia Endocrine: Yes: Diabetes Mellitus - Alcohol/Substance Use Hx Alcohol Use: Yes (SOCIAL) - Smoking History Smoking history: Unknown if ever smoked Have you smoked in the past 12 months: No Aproximately how many cigarettes per day: 0 If you are a former smoker, when did you quit?: 10 years Home Medications - Allergies Allergies/Adverse Reactions: Allergies Allergy/AdvReac Type Severity Reaction Status Date / Time No Known Allergies Allergy Verified 07/17/19 21:30 - Home Medications Home Medications: Ambulatory Orders RX: Metformin HCl [Glucophage] 1,000 mg PO BID 11/19/16 RX: Collagenase Clostridium Hist. [Santyl] 90 gm TP DAILY #1 tube 12/14/18 RX: Acetaminophen [Tylenol .Regular Strength -] 650 mg PO Q6H PRN tablet RX: Clopidogrel Bisulfate [Plavix -] 75 mg PO DAILY tablet 01/10/19 RX: Lisinopril [Prinivil] 10 mg PO DAILY tablet 01/10/19 Aspirin [ASA -] 81 mg PO DAILY 02/15/19 Insulin Glargine,Hum.rec.anlog [Basaglar Kwikpen U-100] 8 unit SQ HS 02/15/19 Pravastatin Sodium [Pravachol -] 40 mg PO HS 02/15/19 Ascorbic Acid 500 mg PO DAILY 05/03/19 Multivitamin [Multiple Vitamins] 1 tab PO DAILY 05/03/19 Brimonidine Tartrate [Alphagan 0.2% -] 1 drop TID 07/18/19 Timolol Maleate 0.5% Gfs [Timoptic Xe 0.5%] 1 drop OD BID 07/18/19 acetaZOLAMIDE [Diamox Sequels -] 500 mg PO BID 07/18/19 Review of Systems Unable to obtain ROS, reason: unable to obtain Physical Exam Vital Signs: Vital Signs Temperature 98.1 F 07/18/19 12:58 Pulse Rate 92 H 07/18/19 12:58 Respiratory Rate 22 H 07/18/19 12:58 Blood Pressure 117/53 L 07/18/19 12:58 O2 Sat by Pulse Oximetry (%) 100 07/18/19 11:18 Constitutional: Yes: Well Nourished Eyes: Yes: Conjunctiva Clear HENT: Yes: Atraumatic Neck: Yes: Supple, Trachea Midline Cardiovascular: Yes: Regular Rate and Rhythm Respiratory: Yes: Intubated, Mechanically Ventilated Gastrointestinal: Yes: Normal Bowel Sounds, Soft Musculoskeletal: Yes: WNL Extremities: Yes: Other (wound noted on the rt arm could be due to vaccine or something) Integumentary: Yes: Skin Tear, Other (wound on rt arm) Wound/Incision: Yes: Clean/Dry, Open to air Neurological: Yes: Other Psychiatric: Yes: Other Labs: CBC, BMP 07/18/19 04:50 07/18/19 08:10 Imaging - Results Chest X-ray: Report Reviewed, Image Reviewed X-ray: Report Reviewed, Image Reviewed Cat Scan: Report Reviewed, Image Reviewed Assessment/Plan Acute Respiratory Failure Shock - Likely Septic Hypothermia Anion Gap Metabolic Acidosis Lactic Acidosis Acute Kidney Injury requiring HD PAD HTN DM Hyperlipidemia plan i am going to start patient empirically on abx await for all the cx results lp done on the patient await for csf results wound cx being send rest as per icu resp support cc 45 min
--- NOTE | 2019-07-18 15:36 | ECHO ---
Name: JOSAFAT ALLEN Exam:Adult Echocardiogram Study Date: 07/18/2019 02:02 PM Age: 69 yrs Reason For Study: Evaluate Cardiac Function Height: 64 in Weight: 113 lb BSA: 1.5 m2 Doppler Measurements & Calculations MV E max isaias: 75.5 cm/sec MV A max isaias: 69.6 cm/sec MV E/A: 1.1 MV dec time: 0.21 sec Procedure Study Quality: Technically suboptimal. Severely limited due to poor acoustic window. Left Ventricle LV function could not be adequately assessed due to poor visualization of endocardial border definiti on. Regional wall motion could not be assessed. Right Ventricle The right ventricle is not well visualized. Atria The left atrium is not well visualized. Right atrium not well visualized. Mitral Valve The mitral valve is normal in structure and function. There is no mitral regurgitation noted. Tricuspid Valve The tricuspid valve is not well visualized. Aortic Valve The aortic valve is not well visualized. Pulmonic Valve The pulmonic valve is not well visualized. Great Vessels The aortic root is not well visualized. Pericardium/Pleura There is no pericardial effusion. Interpretation Summary Severely limited due to poor acoustic window LV function could not be adequately assessed due to poor visualization of endocardial border definiti on. Regional wall motion could not be assessed The right ventricle is not well visualized. Valvular regurgitations could not be accurately assessed due to poor acoustic window Leobardo Penny MD 07/18/2019 03:35 PM
--- NOTE | 2019-07-18 15:57 | EKG ---
Test Reason : Blood Pressure : / mmHG Vent. Rate : 095 BPM Atrial Rate : 095 BPM P-R Int : 132 ms QRS Dur : 086 ms QT Int : 374 ms P-R-T Axes : 053 -14 073 degrees QTc Int : 469 ms NORMAL SINUS RHYTHM NORMAL ECG WHEN COMPARED WITH ECG OF 21-DEC-2018 17:25, NO SIGNIFICANT CHANGE WAS FOUND Confirmed by JARRED MILLS MD ([id number]) on 07/18/2019 3:56:56 PM Referred By: Confirmed By:JARRED MILLS MD
--- NOTE | 2019-07-18 15:58 | EKG ---
Test Reason : Blood Pressure : / mmHG Vent. Rate : 078 BPM Atrial Rate : 078 BPM P-R Int : 160 ms QRS Dur : 088 ms QT Int : 402 ms P-R-T Axes : 069 066 056 degrees QTc Int : 458 ms NORMAL SINUS RHYTHM LOW VOLTAGE QRS BASELINE ARTIFACT ABNORMAL ECG WHEN COMPARED WITH ECG OF 21-DEC-2018 17:25, BASELINE ARTIFACT PRECLUDES ACCURATE COMPARISON Confirmed by JARRED MILLS MD ([id number]) on 07/18/2019 3:57:50 PM Referred By: Confirmed By:JARRED MILLS MD
[2019-07-18 16:13] LABS: BASO % 0.1 % (0-2.0); HEMATOCRIT 24.4 % (35.4-49); HEMOGLOBIN 8.2 GM/dL (11.7-16.9); MCH 31.1 pg (25.7-33.7); MCHC 33.5 g/dl (32.0-35.9); MEAN CELL VOLUME 92.7 fl (80-96); MEAN PLT VOLUME 8.2 fl (7.5-11.1); MONO % 4.8 % (3.8-10.2); NEUT % 93.1 % (42.8-82.8); PLATELET COUNT 269 K/MM3 (134-434); RBC 2.63 M/mm3 (4.00-5.60); RDW 13.2 % (11.9-15.9); WHITE BLOOD COUNT 19.9 K/mm3 (4.0-10.0)
[2019-07-18] MEDS ORDERED: fentaNYL CITRATE 250 MCG/5 ML VIAL ONE (16:16)
[2019-07-18] MEDS ORDERED: PIPERACILLIN/TAZOBACTAM 3.375 GM VIAL IVPB ONE (16:17)
[2019-07-18] MEDS: FENTANYL INJECTION 500 MCG in DEXTROSE 5%-WATER - 90 ML IVPB SCH (16:29)
[2019-07-18 16:47] LABS: CALCIUM 7.5 mg/dL (8.5-10.1); CREATININE 1.7 mg/dL (0.55-1.3); POTASSIUM 4.3 mmol/L (3.5-5.1)
[2019-07-18 16:47] LABS: COCAINE, UR NEGATIVE ng/ml (CUTOFF=300); METHADONE, UR NEGATIVE ng/ml (CUTOFF=300); OPIATES, URI NEGATIVE ng/ml (CUTOFF=300); PHENCYCLIDINE,URINE NEGATIVE ng/ml (CUTOFF=25); URINE AMPHETAMINES NEGATIVE ng/ml (CUTOFF=500); URINE BARBITURATES NEGATIVE ng/ml (CUTOFF=200); URINE BENZODIAZEPINES NEGATIVE ng/ml (CUTOFF=200)
[2019-07-18 16:49] LABS: BF GLUCOSE (CSF ONLY) 150 mg/dL (40-70)
[2019-07-18 16:50] LABS: CSF APPEARANCE CLEAR; CSF COLOR COLORLESS; CSF WBC 2
[2019-07-18 16:58] LABS: ARTERIAL BLD GAS O2 SATURATION 99.3 % (95-98); ARTERIAL BLOOD GAS PCO2 17.9 mmHg (35-45); ARTERIAL BLOOD GAS PO2 168 mmHg (80-100); ARTERIAL BLOOD GAS pH 7.44 (7.35-7.45)
[2019-07-18 17:04] LABS: ALLENS TEST POSITIVE
[2019-07-18 17:24] LABS: ANISOCYTOSIS 1+
[2019-07-18 17:25] LABS: PLATELET ESTIMATE ADEQUATE
[2019-07-18] MEDS: PIPERACILLIN/TAZOB 3.375 GM 3.375 GM in DEXTROSE 5%-WATER - 50 ML IVPB SCH (18:53)
[2019-07-18] MEDS ORDERED: PANTOPRAZOLE SODIUM 40 MG VIAL IVPUSH ONE (19:30)
[2019-07-18] MEDS: INSULIN SLIDING SCALE (NOVOLOG) 1 VIAL SQ SCH (21:19)
[2019-07-18] MEDS: CHLORHEXIDINE GLUCONATE 4% CLEANSER FOR DECOLONIZATION TP SCH (21:19)
[2019-07-18] MEDS: CHLORHEXIDINE GLUCONATE 0.12% 15ML CUP MM SCH (21:21)
[2019-07-18] MEDS ORDERED: ACETAMINOPHEN 1000 MG/100 ML VIAL (NON FORMULARY) IVPB ONE (22:31)
[2019-07-19] MEDS ORDERED: DEXTROSE 5%-WATER - 50 ML IVPB ONE ×3 (02:42→15:46)
[2019-07-19] MEDS ORDERED: PIPERACILLIN/TAZOBACTAM 3.375 GM VIAL IVPB ONE ×3 (02:42→15:46)
[2019-07-19] MEDS: SODIUM BICARBONATE 8.4% - 150 MEQ in DEXTROSE 5%-WATER - 1,000 ML IVPB SCH ×2 (02:46→11:00)
[2019-07-19] MEDS: PIPERACILLIN/TAZOB 3.375 GM 3.375 GM in DEXTROSE 5%-WATER - 50 ML IVPB SCH ×3 (02:46→17:01)
[2019-07-19] MEDS: NOREPINEPHRINE BITARTRATE 8,000 MCG in DEXTROSE 5%-WATER - 492 ML IV SCH (02:47)
[2019-07-19] MEDS: INSULIN SLIDING SCALE (NOVOLOG) 1 VIAL SQ SCH ×4 (07:00→23:40)
[2019-07-19 07:14] LABS: ARTERIAL BLD GAS O2 SATURATION 99.3 % (95-98); ARTERIAL BLOOD GAS BASE EXCESS -7.8 meq/l (-2-2); ARTERIAL BLOOD GAS PCO2 20.4 mmHg (35-45); ARTERIAL BLOOD GAS PO2 198 mmHg (80-100); ARTERIAL BLOOD GAS pH 7.46 (7.35-7.45)
[2019-07-19 07:17] LABS: ALLENS TEST POSITIVE
[2019-07-19 07:19] LABS: HEMATOCRIT 22.1 % (35.4-49); HEMOGLOBIN 7.7 GM/dL (11.7-16.9); MCH 31.9 pg (25.7-33.7); MCHC 34.8 g/dl (32.0-35.9); MEAN CELL VOLUME 91.6 fl (80-96); MEAN PLT VOLUME 8.7 fl (7.5-11.1); PLATELET COUNT 226 K/MM3 (134-434); RBC 2.42 M/mm3 (4.00-5.60); RDW 13.7 % (11.9-15.9); WHITE BLOOD COUNT 13.9 K/mm3 (4.0-10.0)
--- NOTE | 2019-07-19 07:32 | PN ---
Physical Exam: SUBJECTIVE: Patient seen and examined by the bedside, intubated and sedated. Had an episode of diarrhea yesterday, resulting in soiling of left femoral catheter. Rectal tube was placed. OBJECTIVE: Vital Signs Period Temp Pulse Resp BP Sys/Ham Pulse Ox Last 24 Hr 96.4 F-100.2 F 65-92 14-498 98-144/45-66 100-100 GENERAL: Unresponsive to verbal, physical stimuli, intubated and sedated HEAD: Normal with no signs of trauma EYES: Left pupil cloudy, Right pupil reactive ENT: dry mucous membranes NECK: Trachea midline, supple. LUNGS: decreased breath sounds bilaterally, no wheezes, no crackles. tachypic HEART: Regular rate and rhythm, S1, S2 without murmur, rub or gallop. ABDOMEN: Soft, nontender, nondistended, normoactive bowel sounds, no guarding EXTREMITIES: 2+ pulses, warm, well-perfused, no edema. NEUROLOGICAL: sedated CBC, BMP 07/19/19 06:00 07/19/19 06:00 Current Medications Aspirin (Asa -) 300 mg RC DAILY [facility] Last Admin: 07/19/19 09:40 Dose: Not Given Chlorhexidine Gluconate (Hibiclens For Decolonization -) 1 applic TP HS [facility] Last Admin: 07/18/19 21:19 Dose: 1 applic Chlorhexidine Gluconate (Peridex -) 15 ml MM BID [facility] Last Admin: 07/19/19 09:43 Dose: 15 ml Heparin Sodium (Porcine) (Heparin -) 5,000 unit SQ BID [facility] Last Admin: 07/19/19 09:42 Dose: 5,000 unit Sodium Chloride (Normal Saline -) 250 mls @ 3,000 mls/hr IV PRN PRN PRN Reason: Hypotension during Dialysis Stop: 07/19/19 00:54 Norepinephrine Bitartrate 8, (000 mcg/ Dextrose) 500 mls @ 18.75 mls/hr IV TITR [facility]; Protocol Last Titration: 07/19/19 03:21 Dose: 3 mcg/min, 11.25 mls/hr Propofol (Diprivan -) 1,000,000 mcg in 100 mls @ 1.544 mls/hr IVPB TITR [facility]; Protocol Last Admin: 07/18/19 15:00 Dose: 5 mcg/kg/min, 1.544 mls/hr Fentanyl 500 mcg/ Dextrose 100 mls @ 5 mls/hr IVPB TITR [facility] Last Admin: 07/18/19 16:29 Dose: 25 mcg/hr, 5 mls/hr Piperacillin Sod/Tazobactam (Sod 3.375 gm/ Dextrose) 50 mls @ 100 mls/hr IVPB Q8H-IV [facility]; Protocol Last Admin: 07/19/19 09:44 Dose: 100 mls/hr Sodium Chloride (1/2 Normal Saline) 1,000 mls @ 100 mls/hr IV ASDIR [facility] Insulin Aspart (Novolog Vial Sliding Scale -) 1 vial SQ ACHS [facility]; Protocol Last Admin: 07/19/19 07:00 Dose: Not Given Mupirocin (Bactroban Ointment (For Decolonization) -) 1 applic NS BID [facility] Stop: 07/23/19 09:59 Last Admin: 07/19/19 09:40 Dose: 1 applic ASSESSMENT/PLAN: Pt. is a 69 y/o/m with PMHx of NIDDM, HTN, HLD, Peripheral arterial disease(s/p LLE angioplasty 12/2018) and OM( s/p L. 5th digit amputation) presents from [place] for altered mental status and labored breathing. Intubated on 07/18 for labored breathing and tachypnea. #Neurology - Acute Metabolic Encephalopathy, AMS possibly 2/2 metabolic acidosis - Head CT Neg. - Per son Pt.s baseline is A&Ox 3. Pt. walks with close guard of 1 as Pt. is blind out of BOTH eyes. Glaucoma in the Right and Cataracts in the left per son. - Intubated and sedated on Fentanyl and Propofol #Cardiology - Repeat echo not well visualized, previous 01/09 showed E/A reversal suggestive of diastolic dysfunction with normal LVF - Hx of HLD: will continue home Pravastin PO once NOP stopped - Chest CT w/o contrast: B/L lower lobe infiltrates, Rt upper nodule 0.7x0.2 cm , Rt upper lobe bronchiectasis - Lt femoral trialysis catheter removed - Levophed stopped #Pulmonology - Intubated on 07/18 for tachypnea and labored breathing - CXR 07/19: No acute pathology #Nephrology - ARF Cr 2.5 at admission, baseline ~1.5, - No HD today as per Nephro, s/p HD x1 on 07/18 - Metabolic Acidosis possibly 2/2 Metformin - Nephro consulted: Bicarbs (150mEQ in dextrsoe given), fluids, D/C metformin - Tox screen negative #GI - CTAP with only PO contrast to r/o ischemia and/or lesions: Rt renal atrophy - Rectal tube placed due to diarrhea, will remove central line due to soiling - C Diff ordered #ID - CSF gram stain pending. Right Upper arm wound culture pending. - On Zosyn, Vanco 1x in ER, Vanc level ordered - Surgery consult placed for Rt deltoid wound - Podiatry consult: Cont heel pads, Foot care Q8 weeks, no tx necessary for amputation site as is coapted with proximal eschar - UA negative for infection (only 1+ ketones) - C-Spine and Thoracic Spine CT Neg for acute pathology - Blood Cx and Urine Cx negative, CRP negative - Isolation Precautions for MRSA+ in March - Viral studies and Hepatitis panels pending #Endocrine - Hx of DM, hold Metformin, likely will d/c prior to discharge - HbA1c ordered - c/w BGM and ISS ACHS #FEN - Sodium Bicarb 150meq in Dextrose @100mls/hr - K 2.7, repleted with 30mEQ IV and 40mEQ through NGT - OG tube placed, can consider starting feeds #DVT Ppx. - Heparin, SCDs - Protonix #Disposition - Continue ICU monitoring Visit type - Emergency Visit Emergency Visit: Yes ED Registration Date: 07/18/19 Care time: The patient presented to the Emergency Department on the above date and was hospitalized for further evaluation of their emergent condition. - New Patient This patient is new to me today: Yes Date on this admission: 07/22/19 - Critical Care Critical Care patient: Yes Total Critical Care Time (in minutes): 35 Critical Care Statement: The care of this patient involved high complexity decision making to prevent further life threatening deterioration of the patient 's condition and/or to evaluate & treat vital organ system(s) failure or risk of failure. ATTENDING PHYSICIAN STATEMENT I saw and evaluated the patient. I reviewed the resident's note and discussed the case with the resident. I agree with the resident's findings and plan as documented. SUBJECTIVE: OBJECTIVE: ASSESSMENT AND PLAN:
[2019-07-19 08:06] LABS: ALBUMIN 2.6 g/dl (3.4-5.0); BILIRUBIN,TOTAL 1.6 mg/dL (0.2-1); BLOOD UREA NITROGEN 51.2 mg/dL (7-18); MAGNESIUM 1.7 mg/dL (1.8-2.4); PHOSPHOROUS 4.6 mg/dL (2.5-4.9)
[2019-07-19 08:16] LABS: POTASSIUM 2.7 mmol/L (3.5-5.1)
[2019-07-19] MEDS ORDERED: POTASSIUM CHLORIDE ORAL LIQUID 20 MEQ/15 ML NGT ONE (08:17)
[2019-07-19] MEDS ORDERED: MAGNESIUM SULF 50% (8.12 MEQ/2 ML-1 GM VIAL) IVPB ONE (08:17)
--- NOTE | 2019-07-19 09:28 | PN ---
Progress Note, Physician - Current Medication List Current Medications: Active Medications Aspirin (Asa -) 300 mg RC DAILY [facility] Last Admin: 07/18/19 10:13 Dose: 300 mg Chlorhexidine Gluconate (Hibiclens For Decolonization -) 1 applic TP HS [facility] Last Admin: 07/18/19 21:19 Dose: 1 applic Chlorhexidine Gluconate (Peridex -) 15 ml MM BID [facility] Last Admin: 07/18/19 21:21 Dose: 15 ml Heparin Sodium (Porcine) (Heparin -) 5,000 unit SQ BID [facility] Last Admin: 07/18/19 21:21 Dose: 5,000 unit Sodium Chloride (Normal Saline -) 250 mls @ 3,000 mls/hr IV PRN PRN PRN Reason: Hypotension during Dialysis Stop: 07/19/19 00:54 Norepinephrine Bitartrate 8, (000 mcg/ Dextrose) 500 mls @ 18.75 mls/hr IV TITR [facility]; Protocol Last Titration: 07/19/19 03:21 Dose: 3 mcg/min, 11.25 mls/hr Sodium Bicarbonate 150 meq/ (Dextrose) 1,150 mls @ 100 mls/hr IVPB Q10H [facility] Last Admin: 07/19/19 02:46 Dose: 100 mls/hr Propofol (Diprivan -) 1,000,000 mcg in 100 mls @ 1.544 mls/hr IVPB TITR [facility]; Protocol Last Admin: 07/18/19 15:00 Dose: 5 mcg/kg/min, 1.544 mls/hr Fentanyl 500 mcg/ Dextrose 100 mls @ 5 mls/hr IVPB TITR [facility] Last Admin: 07/18/19 16:29 Dose: 25 mcg/hr, 5 mls/hr Piperacillin Sod/Tazobactam (Sod 3.375 gm/ Dextrose) 50 mls @ 100 mls/hr IVPB Q8H-IV [facility]; Protocol Last Admin: 07/19/19 02:46 Dose: 100 mls/hr Potassium Chloride (Potassium Chloride 10 Meq Premix Ivpb -) 10 meq in 100 mls @ 100 mls/hr IVPB Q60M [facility] Stop: 07/19/19 11:29 Insulin Aspart (Novolog Vial Sliding Scale -) 1 vial SQ ACHS [facility]; Protocol Last Admin: 07/18/19 21:19 Dose: 4 units Mupirocin (Bactroban Ointment (For Decolonization) -) 1 applic NS BID [facility] Stop: 07/23/19 09:59 Last Admin: 07/18/19 21:23 Dose: 1 applic - Objective Vital Signs: Vital Signs Temperature 98.3 F 07/19/19 08:00 Pulse Rate 69 07/19/19 08:00 Respiratory Rate 26 H 07/19/19 08:40 Blood Pressure 123/51 L 07/19/19 08:00 O2 Sat by Pulse Oximetry (%) 100 07/18/19 20:00 Cardiovascular: Yes: S1, S2 Respiratory: Yes: Mechanically Ventilated Gastrointestinal: Yes: Normal Bowel Sounds, Soft Extremities: Yes: Erythema Wound/Incision: Yes: Dressing Removed, Draining Labs: CBC, BMP 07/19/19 06:00 07/19/19 06:00 INR, PTT INR 0.97 (0.83-1.09) 07/17/19 21:53 Assessment/Plan - Problems (1) ESRD (end stage renal disease) on dialysis per renal Code(s): N18.6 - END STAGE RENAL DISEASE; Z99.2 - DEPENDENCE ON RENAL DIALYSIS (2) Acute metabolic encephalopathy ct head nad maybe due sepsis toxic metabolic Code(s): G93.41 - METABOLIC ENCEPHALOPATHY (3) Diabetes bgm Code(s): E11.9 - TYPE 2 DIABETES MELLITUS WITHOUT COMPLICATIONS (4) Sepsis Continue with IV abx per id maybe due to abscess in arm Code(s): A41.9 - SEPSIS, UNSPECIFIED ORGANISM
[2019-07-19] MEDS: KCL 10 MEQ IVPB 10 MEQ/100 ML INFUS.BAG IVPB SCH ×6 (09:38→16:58)
[2019-07-19] MEDS: ASPIRIN 300 MG SUPP.RECT RC SCH (09:40)
[2019-07-19] MEDS: MUPIROCIN 2% TOPICAL OINTMENT FOR DECOLONIZATION NS SCH ×2 (09:40→23:38)
[2019-07-19] MEDS: HEPARIN NA (PORCINE) 5,000 UNITS/ML 1ML VIAL SQ SCH ×2 (09:42→23:38)
[2019-07-19] MEDS: CHLORHEXIDINE GLUCONATE 0.12% 15ML CUP MM SCH ×2 (09:43→23:38)
--- NOTE | 2019-07-19 10:59 | PN ---
Teaching Attending Note Name of Resident: Umesh Rendon ATTENDING PHYSICIAN STATEMENT I saw and evaluated the patient. I reviewed the resident's note and discussed the case with the resident. I agree with the resident's findings and plan as documented. SUBJECTIVE: Pt seen and examined in the ICU. Remains intubated, sedated. s/p right arm I&D. Pressors off this AM. Making urine, metabolic acidosis improving. CSF initial labs unremarkable. OBJECTIVE: Vital Signs Period Temp Pulse Resp BP Sys/Ham Pulse Ox Last 24 Hr 98.1 F-100.2 F 65-92 14-498 98-135/44-60 100-100 Intake & Output 07/16/19 07/17/19 07/18/19 07/19/19 23:59 23:59 23:59 23:59 Intake Total 5864.5 1748.2 Output Total 1900 1200 Balance 3964.5 548.2 Weight 55.565 kg 51.483 kg 54.63 kg Gen: intubated, sedated Heart: RRR Lung: decreased breath sounds at the bases Abd: soft, nontender Ext: no edema CBC, BMP 07/19/19 06:00 07/19/19 06:00 Active Medications Aspirin (Asa -) 300 mg RC DAILY [facility] Last Admin: 07/19/19 09:40 Dose: Not Given Chlorhexidine Gluconate (Hibiclens For Decolonization -) 1 applic TP HS [facility] Last Admin: 07/18/19 21:19 Dose: 1 applic Chlorhexidine Gluconate (Peridex -) 15 ml MM BID [facility] Last Admin: 07/19/19 09:43 Dose: 15 ml Heparin Sodium (Porcine) (Heparin -) 5,000 unit SQ BID [facility] Last Admin: 07/19/19 09:42 Dose: 5,000 unit Sodium Chloride (Normal Saline -) 250 mls @ 3,000 mls/hr IV PRN PRN PRN Reason: Hypotension during Dialysis Stop: 07/19/19 00:54 Norepinephrine Bitartrate 8, (000 mcg/ Dextrose) 500 mls @ 18.75 mls/hr IV TITR [facility]; Protocol Last Titration: 07/19/19 03:21 Dose: 3 mcg/min, 11.25 mls/hr Propofol (Diprivan -) 1,000,000 mcg in 100 mls @ 1.544 mls/hr IVPB TITR [facility]; Protocol Last Admin: 07/18/19 15:00 Dose: 5 mcg/kg/min, 1.544 mls/hr Fentanyl 500 mcg/ Dextrose 100 mls @ 5 mls/hr IVPB TITR [facility] Last Admin: 07/18/19 16:29 Dose: 25 mcg/hr, 5 mls/hr Piperacillin Sod/Tazobactam (Sod 3.375 gm/ Dextrose) 50 mls @ 100 mls/hr IVPB Q8H-IV [facility]; Protocol Last Admin: 07/19/19 09:44 Dose: 100 mls/hr Potassium Chloride (Potassium Chloride 10 Meq Premix Ivpb -) 10 meq in 100 mls @ 100 mls/hr IVPB Q60M [facility] Stop: 07/19/19 11:29 Last Admin: 07/19/19 09:38 Dose: 100 mls/hr Sodium Chloride (1/2 Normal Saline) 1,000 mls @ 100 mls/hr IV ASDIR [facility] Insulin Aspart (Novolog Vial Sliding Scale -) 1 vial SQ ACHS [facility]; Protocol Last Admin: 07/19/19 07:00 Dose: Not Given Mupirocin (Bactroban Ointment (For Decolonization) -) 1 applic NS BID [facility] Stop: 07/23/19 09:59 Last Admin: 07/19/19 09:40 Dose: 1 applic ASSESSMENT AND PLAN: Acute Respiratory Failure Shock - Likely Septic Hypothermia Anion Gap Metabolic Acidosis Lactic Acidosis Acute Kidney Injury requiring HD PAD HTN DM Hyperlipidemia Anemia - continue antibiotics - f/u cultures - IVF - monitor urine output, creatinine - HD per renal - continue bicarb gtt - replete lytes - f/u cortisol level - monitor H/H - daily sedation vacations to assess mental status - spontaneous breathing trials as tolerated when mental status improved - DVT/GI prophylaxis - continue ICU monitoring critical care time spent in reviewing chart, evaluating patient and formulating plan 35 min
[2019-07-19] MEDS: SODIUM CHLORIDE 0.45% 1,000 ML IV SCH (11:30)
[2019-07-19 13:14] LABS: BLOOD UREA NITROGEN 46.1 mg/dL (7-18); MAGNESIUM 2.7 mg/dL (1.8-2.4); POTASSIUM 3.3 mmol/L (3.5-5.1)
--- NOTE | 2019-07-19 13:29 | PN ---
Progress Note, Physician History of Present Illness: continues to be intubated more responsive still not opening eyes - Current Medication List Current Medications: Active Medications Aspirin (Asa -) 300 mg RC DAILY [facility] Last Admin: 07/19/19 09:40 Dose: Not Given Chlorhexidine Gluconate (Hibiclens For Decolonization -) 1 applic TP HS [facility] Last Admin: 07/18/19 21:19 Dose: 1 applic Chlorhexidine Gluconate (Peridex -) 15 ml MM BID [facility] Last Admin: 07/19/19 09:43 Dose: 15 ml Heparin Sodium (Porcine) (Heparin -) 5,000 unit SQ BID [facility] Last Admin: 07/19/19 09:42 Dose: 5,000 unit Sodium Chloride (Normal Saline -) 250 mls @ 3,000 mls/hr IV PRN PRN PRN Reason: Hypotension during Dialysis Stop: 07/19/19 00:54 Norepinephrine Bitartrate 8, (000 mcg/ Dextrose) 500 mls @ 18.75 mls/hr IV TITR [facility]; Protocol Last Titration: 07/19/19 03:21 Dose: 3 mcg/min, 11.25 mls/hr Propofol (Diprivan -) 1,000,000 mcg in 100 mls @ 1.544 mls/hr IVPB TITR [facility]; Protocol Last Admin: 07/18/19 15:00 Dose: 5 mcg/kg/min, 1.544 mls/hr Fentanyl 500 mcg/ Dextrose 100 mls @ 5 mls/hr IVPB TITR [facility] Last Admin: 07/18/19 16:29 Dose: 25 mcg/hr, 5 mls/hr Piperacillin Sod/Tazobactam (Sod 3.375 gm/ Dextrose) 50 mls @ 100 mls/hr IVPB Q8H-IV [facility]; Protocol Last Admin: 07/19/19 09:44 Dose: 100 mls/hr Sodium Chloride (1/2 Normal Saline) 1,000 mls @ 100 mls/hr IV ASDIR [facility] Last Admin: 07/19/19 11:30 Dose: 100 mls/hr Insulin Aspart (Novolog Vial Sliding Scale -) 1 vial SQ ACHS [facility]; Protocol Last Admin: 07/19/19 12:59 Dose: 8 units Mupirocin (Bactroban Ointment (For Decolonization) -) 1 applic NS BID [facility] Stop: 07/23/19 09:59 Last Admin: 07/19/19 09:40 Dose: 1 applic - Objective Vital Signs: Vital Signs Temperature 98.3 F 07/19/19 08:00 Pulse Rate 77 07/19/19 12:03 Respiratory Rate 16 07/19/19 12:02 Blood Pressure 102/44 L 07/19/19 10:00 O2 Sat by Pulse Oximetry (%) 97 07/19/19 12:03 Constitutional: Yes: No Distress, Calm Cardiovascular: Yes: S1, S2 Respiratory: Yes: Intubated, Mechanically Ventilated Gastrointestinal: Yes: Normal Bowel Sounds, Soft, Hypoactive Bowel Sounds Musculoskeletal: Yes: WNL Extremities: Yes: WNL Neurological: Yes: Alert, Oriented Psychiatric: Yes: Alert, Oriented Labs: CBC, BMP 07/19/19 06:00 07/19/19 12:15 INR, PTT INR 0.97 (0.83-1.09) 07/17/19 21:53 Assessment/Plan Acute Respiratory Failure Shock - Likely Septic Hypothermia Anion Gap Metabolic Acidosis Lactic Acidosis Acute Kidney Injury requiring HD PAD HTN DM Hyperlipidemia plan continue abx all cx results noted monitor closely resp support hydration rest as per icu cc 40 min
[2019-07-19 13:44] LABS: CALCIUM 6.8 mg/dL (8.5-10.1)
--- NOTE | 2019-07-19 14:06 | PN ---
Progress Note (short form) - Note Progress Note: General Surgery: Pt seen this am with Dr. Sharp. He was admitted two days ago for AMS and labored breathing. The patient was admitted to the ICU and intubated. Vital Signs Period Temp Pulse Resp BP Sys/Ham Pulse Ox Last 24 Hr 98.1 F-100.2 F 65-86 14-498 102-135/44-60 97-100 GEN: Intubated Right upper arm with indurated area and small opening with clean base. Approximately 1/2 x 1/2 cm opening. Skin edges with dried tissue. No purulent drainage. Mild erythema. CBC, BMP 07/19/19 06:00 07/19/19 12:15 Microbiology 07/18/19 14:55 Cerebral Spinal Fluid - Lumbar Puncture Gram Stain - Final 07/17/19 23:00 Urine - Urine - Catheterized Urine Culture - Final NO GROWTH OBTAINED 07/18/19 14:55 Cerebral Spinal Fluid - Lumbar Puncture CSF Culture - Preliminary 07/17/19 21:55 Blood - Peripheral Venous Blood Culture - Preliminary NO GROWTH OBTAINED AFTER 24 HOURS, INCUBATION TO CONTINUE FOR 4 DAYS. 07/17/19 21:50 Blood - Peripheral Venous Blood Culture - Preliminary NO GROWTH OBTAINED AFTER 24 HOURS, INCUBATION TO CONTINUE FOR 4 DAYS. A/p: 89 yo male s/p admission for sepsis/intubated on pressors Wound culture pending No further surgical drainage needed Local wound care with wet to dry
[2019-07-19 15:23] LABS: BASO % 0.2 % (0-2.0); EOS % 0.1 % (0-4.5); HEMOGLOBIN 7.5 GM/dL (11.7-16.9); LYMPH % 4.6 % (8-40); MCH 31.1 pg (25.7-33.7); MEAN CELL VOLUME 91.5 fl (80-96); MEAN PLT VOLUME 8.4 fl (7.5-11.1); MONO % 7.5 % (3.8-10.2); NEUT % 87.6 % (42.8-82.8); PLATELET COUNT 206 K/MM3 (134-434); RBC 2.41 M/mm3 (4.00-5.60); RDW 13.4 % (11.9-15.9); WHITE BLOOD COUNT 12.8 K/mm3 (4.0-10.0)
[2019-07-19] MEDS: PROPOFOL 1,000,000 MCG/100 ML VIAL IVPB SCH (15:42)
[2019-07-19] MEDS: FENTANYL INJECTION 500 MCG in DEXTROSE 5%-WATER - 90 ML IVPB SCH (15:42)
--- NOTE | 2019-07-19 16:50 | PN ---
Progress Note, Physician History of Present Illness: Pt seen and examined at bedside. He remains in the ICU. He remains intubated. - Current Medication List Current Medications: Active Medications Aspirin (Asa -) 300 mg RC DAILY [facility] Last Admin: 07/19/19 09:40 Dose: Not Given Calcium Gluconate (Calcium Gluconate 10% -) 1,000 mg IVPB ONCE ONE Stop: 07/19/19 16:47 Chlorhexidine Gluconate (Hibiclens For Decolonization -) 1 applic TP HS [facility] Last Admin: 07/18/19 21:19 Dose: 1 applic Chlorhexidine Gluconate (Peridex -) 15 ml MM BID [facility] Last Admin: 07/19/19 09:43 Dose: 15 ml Heparin Sodium (Porcine) (Heparin -) 5,000 unit SQ BID [facility] Last Admin: 07/19/19 09:42 Dose: 5,000 unit Sodium Chloride (Normal Saline -) 250 mls @ 3,000 mls/hr IV PRN PRN PRN Reason: Hypotension during Dialysis Stop: 07/19/19 00:54 Norepinephrine Bitartrate 8, (000 mcg/ Dextrose) 500 mls @ 18.75 mls/hr IV TITR [facility]; Protocol Last Titration: 07/19/19 03:21 Dose: 3 mcg/min, 11.25 mls/hr Propofol (Diprivan -) 1,000,000 mcg in 100 mls @ 1.544 mls/hr IVPB TITR [facility]; Protocol Last Admin: 07/19/19 15:42 Dose: Not Given Fentanyl 500 mcg/ Dextrose 100 mls @ 5 mls/hr IVPB TITR [facility] Last Admin: 07/19/19 15:42 Dose: Not Given Piperacillin Sod/Tazobactam (Sod 3.375 gm/ Dextrose) 50 mls @ 100 mls/hr IVPB Q8H-IV [facility]; Protocol Last Admin: 07/19/19 09:44 Dose: 100 mls/hr Sodium Chloride (1/2 Normal Saline) 1,000 mls @ 100 mls/hr IV ASDIR [facility] Last Admin: 07/19/19 11:30 Dose: 100 mls/hr Insulin Aspart (Novolog Vial Sliding Scale -) 1 vial SQ ACHS [facility]; Protocol Last Admin: 07/19/19 12:59 Dose: 8 units Mupirocin (Bactroban Ointment (For Decolonization) -) 1 applic NS BID [facility] Stop: 07/23/19 09:59 Last Admin: 07/19/19 09:40 Dose: 1 applic - Objective Vital Signs: Vital Signs Temperature 98.5 F 07/19/19 14:00 Pulse Rate 75 07/19/19 15:37 Respiratory Rate 15 07/19/19 16:15 Blood Pressure 125/71 07/19/19 15:37 O2 Sat by Pulse Oximetry (%) 97 07/19/19 12:03 Constitutional: Yes: Calm Eyes: Yes: Conjunctiva Clear HENT: Yes: Atraumatic Cardiovascular: Yes: S1, S2 Respiratory: Yes: Intubated, Mechanically Ventilated Gastrointestinal: Yes: Soft Genitourinary: Yes: Merino Present Musculoskeletal: Yes: WNL Edema: No Neurological: Yes: Lethargy Labs: CBC, BMP 07/19/19 15:00 07/19/19 12:15 INR, PTT INR 0.97 (0.83-1.09) 07/17/19 21:53 - ....Imaging Chest X-ray: Report Reviewed Assessment/Plan Current Medications Generic Name Dose Route Start Last Admin Trade Name Freq PRN Reason Stop Dose Admin Aspirin 300 mg 07/18/19 10:00 07/19/19 09:40 Asa - RC Not Given DAILY [facility] Calcium Gluconate 1,000 mg 07/19/19 16:46 Calcium Gluconate 10% - IVPB 07/19/19 16:47 ONCE ONE Chlorhexidine Gluconate 1 applic 07/18/19 22:00 07/18/19 21:19 Hibiclens For Decolonization - TP 1 applic HS [facility] Administration Chlorhexidine Gluconate 15 ml 07/18/19 22:00 07/19/19 09:43 Peridex - MM 15 ml BID [facility] Administration Heparin Sodium (Porcine) 5,000 unit 07/18/19 10:00 07/19/19 09:42 Heparin - SQ 5,000 unit BID [facility] Administration Sodium Chloride 250 mls @ 3,000 mls/hr 07/18/19 00:54 Normal Saline - IV 07/19/19 00:54 PRN PRN Hypotension during Dialysis Norepinephrine Bitartrate 8, 500 mls @ 18.75 mls/hr 07/18/19 02:16 07/19/19 03:21 000 mcg/ Dextrose IV 3 mcg/min TITR [facility] 11.25 mls/hr Titration Protocol 5 MCG/MIN Propofol 1,000,000 mcg in 100 mls @ 1.544 mls/hr 07/18/19 13:45 07/19/19 15: 42 Diprivan - IVPB Not Given TITR [facility] Protocol 5 MCG/KG/MIN Fentanyl 500 mcg/ Dextrose 100 mls @ 5 mls/hr 07/18/19 14:15 07/19/19 15:42 IVPB Not Given TITR [facility] 25 MCG/HR Piperacillin Sod/Tazobactam 50 mls @ 100 mls/hr 07/18/19 18:00 07/19/19 09:44 Sod 3.375 gm/ Dextrose IVPB 100 mls/hr Q8H-IV [facility] Administration Protocol Sodium Chloride 1,000 mls @ 100 mls/hr 07/19/19 10:45 07/19/19 11:30 1/2 Normal Saline IV 100 mls/hr ASDIR [facility] Administration Insulin Aspart 1 vial 07/18/19 22:00 07/19/19 12:59 Novolog Vial Sliding Scale - SQ 8 units ACHS [facility] Administration Protocol Mupirocin 1 applic 07/18/19 10:00 07/19/19 09:40 Bactroban Ointment (For Decolonization) - NS 07/23/19 09:59 1 applic BID [facility] Administration Impression 1. BRUCE 2. metabolic acidosis 3. lactic acidosis 4. altered mental status 5. DM 6. HTN 7. PAD 8. sepsis 9. shock 10. resp failure with pending intubation Plan - lactic acid improving - pt making urine - replace potassium - monitor lytes - no indication for HD today, will re-assess tomorrow - metforming stopped - monitor renal function
[2019-07-19] MEDS ORDERED: CALCIUM GLUCONATE 10% - 1,000 MG/10 ML VIAL IVPB ONE (17:30)
[2019-07-19] MEDS: CHLORHEXIDINE GLUCONATE 4% CLEANSER FOR DECOLONIZATION TP SCH (23:38)
[2019-07-20] MEDS ORDERED: PIPERACILLIN/TAZOBACTAM 3.375 GM VIAL IVPB ONE ×3 (03:36→18:45)
[2019-07-20] MEDS ORDERED: DEXTROSE 5%-WATER - 50 ML IVPB ONE ×3 (03:36→18:45)
[2019-07-20] MEDS: SODIUM CHLORIDE 0.45% 1,000 ML IV SCH ×2 (03:37→10:48)
[2019-07-20] MEDS: PIPERACILLIN/TAZOB 3.375 GM 3.375 GM in DEXTROSE 5%-WATER - 50 ML IVPB SCH ×3 (03:37→18:50)
[2019-07-20] MEDS: INSULIN SLIDING SCALE (NOVOLOG) 1 VIAL SQ SCH ×4 (06:31→21:23)
[2019-07-20 06:59] LABS: BASO % 0.2 % (0-2.0); EOS % 0.2 % (0-4.5); HEMATOCRIT 24.2 % (35.4-49); HEMOGLOBIN 8.2 GM/dL (11.7-16.9); LYMPH % 3.8 % (8-40); MCH 31.5 pg (25.7-33.7); MCHC 34.1 g/dl (32.0-35.9); MEAN CELL VOLUME 92.4 fl (80-96); MEAN PLT VOLUME 8.4 fl (7.5-11.1); MONO % 6.1 % (3.8-10.2); NEUT % 89.7 % (42.8-82.8); PLATELET COUNT 192 K/MM3 (134-434); RBC 2.61 M/mm3 (4.00-5.60); RDW 13.2 % (11.9-15.9); WHITE BLOOD COUNT 15.2 K/mm3 (4.0-10.0)
[2019-07-20 07:33] LABS: ALBUMIN 2.4 g/dl (3.4-5.0); BILIRUBIN,TOTAL 0.9 mg/dL (0.2-1); BLOOD UREA NITROGEN 32.7 mg/dL (7-18); CALCIUM 7.3 mg/dL (8.5-10.1); CREATININE 1.9 mg/dL (0.55-1.3); POTASSIUM 3.1 mmol/L (3.5-5.1); TOT PROT 5.2 g/dl (6.4-8.2)
[2019-07-20] MEDS ORDERED: POTASSIUM CHLORIDE ORAL LIQUID 20 MEQ/15 ML NGT ONE (08:28)
[2019-07-20] MEDS: NOREPINEPHRINE BITARTRATE 8,000 MCG in DEXTROSE 5%-WATER - 492 ML IV SCH (08:35)
--- NOTE | 2019-07-20 10:46 | PN ---
Progress Note, Physician - Current Medication List Current Medications: Active Medications Aspirin (Asa -) 300 mg RC DAILY [facility] Last Admin: 07/19/19 09:40 Dose: Not Given Chlorhexidine Gluconate (Hibiclens For Decolonization -) 1 applic TP HS [facility] Last Admin: 07/19/19 23:38 Dose: 1 applic Chlorhexidine Gluconate (Peridex -) 15 ml MM BID [facility] Last Admin: 07/19/19 23:38 Dose: 15 ml Heparin Sodium (Porcine) (Heparin -) 5,000 unit SQ BID [facility] Last Admin: 07/19/19 23:38 Dose: 5,000 unit Sodium Chloride (Normal Saline -) 250 mls @ 3,000 mls/hr IV PRN PRN PRN Reason: Hypotension during Dialysis Stop: 07/19/19 00:54 Norepinephrine Bitartrate 8, (000 mcg/ Dextrose) 500 mls @ 18.75 mls/hr IV TITR [facility]; Protocol Last Admin: 07/20/19 08:35 Dose: Not Given Propofol (Diprivan -) 1,000,000 mcg in 100 mls @ 1.544 mls/hr IVPB TITR [facility]; Protocol Last Admin: 07/19/19 15:42 Dose: Not Given Fentanyl 500 mcg/ Dextrose 100 mls @ 5 mls/hr IVPB TITR [facility] Last Admin: 07/19/19 15:42 Dose: Not Given Piperacillin Sod/Tazobactam (Sod 3.375 gm/ Dextrose) 50 mls @ 100 mls/hr IVPB Q8H-IV [facility]; Protocol Last Admin: 07/20/19 03:37 Dose: 100 mls/hr Sodium Chloride (1/2 Normal Saline) 1,000 mls @ 100 mls/hr IV ASDIR [facility] Last Admin: 07/20/19 03:37 Dose: 100 mls/hr Potassium Chloride (Potassium Chloride 10 Meq Premix Ivpb -) 10 meq in 100 mls @ 100 mls/hr IVPB Q60M [facility] Stop: 07/20/19 13:29 Insulin Aspart (Novolog Vial Sliding Scale -) 1 vial SQ ACHS [facility]; Protocol Last Admin: 07/20/19 06:31 Dose: 6 units Mupirocin (Bactroban Ointment (For Decolonization) -) 1 applic NS BID [facility] Stop: 07/23/19 09:59 Last Admin: 07/19/19 23:38 Dose: 1 applic - Objective Vital Signs: Vital Signs Temperature 98.4 F 07/20/19 10:00 Pulse Rate 78 07/20/19 10:00 Respiratory Rate 19 07/20/19 10:00 Blood Pressure 120/56 L 07/20/19 10:00 O2 Sat by Pulse Oximetry (%) 100 07/19/19 23:05 Cardiovascular: Yes: S1, S2 Respiratory: Yes: Mechanically Ventilated Gastrointestinal: Yes: Normal Bowel Sounds, Soft Labs: CBC, BMP 07/20/19 06:27 07/20/19 06:27 INR, PTT INR 0.97 (0.83-1.09) 07/17/19 21:53 Assessment/Plan - Problems (1) ESRD (end stage renal disease) on dialysis per renal Code(s): N18.6 - END STAGE RENAL DISEASE; Z99.2 - DEPENDENCE ON RENAL DIALYSIS (2) Acute metabolic encephalopathy ct head nad maybe due sepsis toxic metabolic Code(s): G93.41 - METABOLIC ENCEPHALOPATHY (3) Diabetes bgm Code(s): E11.9 - TYPE 2 DIABETES MELLITUS WITHOUT COMPLICATIONS (4) Sepsis Continue with IV abx per id maybe due to abscess in arm monitor labs Code(s): A41.9 - SEPSIS, UNSPECIFIED ORGANISM (5) Respiratory Failure On Vent Per icu Team (6) Anemia MONITOR Laboratory Tests 07/19/19 07/20/19 15:00 06:27 Hgb 7.5 L 8.2 L
[2019-07-20] MEDS: MUPIROCIN 2% TOPICAL OINTMENT FOR DECOLONIZATION NS SCH ×2 (10:47→21:23)
[2019-07-20] MEDS: CHLORHEXIDINE GLUCONATE 0.12% 15ML CUP MM SCH ×2 (10:47→21:22)
[2019-07-20] MEDS: HEPARIN NA (PORCINE) 5,000 UNITS/ML 1ML VIAL SQ SCH ×2 (10:47→21:22)
[2019-07-20] MEDS: KCL 10 MEQ IVPB 10 MEQ/100 ML INFUS.BAG IVPB SCH ×3 (10:48→14:07)
--- NOTE | 2019-07-20 11:05 | PN ---
Teaching Attending Note Name of Resident: Rayna Dominguez ATTENDING PHYSICIAN STATEMENT I saw and evaluated the patient. I reviewed the resident's note and discussed the case with the resident. I agree with the resident's findings and plan as documented. SUBJECTIVE: Pt seen and examined in the ICU. Intubated, arousable off sedation. Tolerated CPAP/PS and subsequently extubated during rounds. OBJECTIVE: Vital Signs Period Temp Pulse Resp BP Sys/Ham Pulse Ox Last 24 Hr 98.4 F-99.1 F 71-85 15-24 108-152/40-90 97-100 Intake & Output 07/17/19 07/18/19 07/19/19 07/20/19 23:59 23:59 23:59 23:59 Intake Total 5864.5 4064.2 1125 Output Total 1900 1200 1100 Balance 3964.5 2864.2 25 Weight 55.565 kg 51.483 kg 54.63 kg 55.52 kg Gen: extubated Heart: RRR Lung: decreased breath sounds at the bases Abd: soft, nontender Ext: no edema CBC, BMP 07/20/19 06:27 07/20/19 06:27 Active Medications Aspirin (Asa -) 300 mg RC DAILY [facility] Last Admin: 07/19/19 09:40 Dose: Not Given Chlorhexidine Gluconate (Hibiclens For Decolonization -) 1 applic TP HS [facility] Last Admin: 07/19/19 23:38 Dose: 1 applic Chlorhexidine Gluconate (Peridex -) 15 ml MM BID [facility] Last Admin: 07/20/19 10:47 Dose: 15 ml Heparin Sodium (Porcine) (Heparin -) 5,000 unit SQ BID [facility] Last Admin: 07/20/19 10:47 Dose: 5,000 unit Sodium Chloride (Normal Saline -) 250 mls @ 3,000 mls/hr IV PRN PRN PRN Reason: Hypotension during Dialysis Stop: 07/19/19 00:54 Norepinephrine Bitartrate 8, (000 mcg/ Dextrose) 500 mls @ 18.75 mls/hr IV TITR [facility]; Protocol Last Admin: 07/20/19 08:35 Dose: Not Given Propofol (Diprivan -) 1,000,000 mcg in 100 mls @ 1.544 mls/hr IVPB TITR [facility]; Protocol Last Admin: 07/19/19 15:42 Dose: Not Given Fentanyl 500 mcg/ Dextrose 100 mls @ 5 mls/hr IVPB TITR [facility] Last Admin: 07/19/19 15:42 Dose: Not Given Piperacillin Sod/Tazobactam (Sod 3.375 gm/ Dextrose) 50 mls @ 100 mls/hr IVPB Q8H-IV [facility]; Protocol Last Admin: 07/20/19 10:47 Dose: 100 mls/hr Sodium Chloride (1/2 Normal Saline) 1,000 mls @ 100 mls/hr IV ASDIR [facility] Last Admin: 07/20/19 10:48 Dose: Not Given Potassium Chloride (Potassium Chloride 10 Meq Premix Ivpb -) 10 meq in 100 mls @ 100 mls/hr IVPB Q60M [facility] Stop: 07/20/19 13:29 Last Admin: 07/20/19 10:48 Dose: 100 mls/hr Insulin Aspart (Novolog Vial Sliding Scale -) 1 vial SQ ACHS [facility]; Protocol Last Admin: 07/20/19 06:31 Dose: 6 units Mupirocin (Bactroban Ointment (For Decolonization) -) 1 applic NS BID [facility] Stop: 07/23/19 09:59 Last Admin: 07/20/19 10:47 Dose: 1 applic ASSESSMENT AND PLAN: Acute Respiratory Failure Shock - Likely Septic Right Arm Abscess Anion Gap Metabolic Acidosis Lactic Acidosis Acute Kidney Injury requiring HD PAD HTN DM Hyperlipidemia Anemia - continue antibiotics - f/u cultures - IVF - monitor urine output, creatinine - replete lytes - monitor H/H - DVT/GI prophylaxis - continue ICU monitoring critical care time spent in reviewing chart, evaluating patient and formulating plan 35 min
--- NOTE | 2019-07-20 11:12 | PN ---
Physical Exam: SUBJECTIVE: Patient seen and examined. Sedation turned off. Patient stable for extubation. Appropriate response on CPAP mode on vent setting. Extubated this morning without complication. Still confused but improving mental status. OBJECTIVE: Vital Signs Period Temp Pulse Resp BP Sys/Ham Pulse Ox Last 24 Hr 98.4 F-99.1 F 71-85 15-24 108-152/40-90 97-100 GENERAL: Extubated, confused HEAD: Normal with no signs of trauma. EYES: Right pupil reactive. Cloudy left pupil. ENT: dry mucous membranes. NECK: Trachea midline, supple LUNGS: Breath sounds equal, clear to auscultation bilaterally, no wheezes, no crackles, no accessory muscle use. HEART: Regular rate and rhythm, S1, S2 without murmur, rub or gallop. ABDOMEN: Soft, nontender, nondistended, normoactive bowel sounds, no guarding, no rebound EXTREMITIES: 2+ pulses, warm, well-perfused, no edema. SKIN: Warm, dry, decreased turgor. Wound on right deltoid s/p drainage with Iodoform packing in place with some surrounding erythema, no induration. NEURO: normal gag reflex Laboratory Results - last 24 hr 07/18/19 07/18/19 07/18/19 04:50 08:00 11:11 WBC RBC Hgb Hct MCV MCH MCHC RDW Plt Count MPV Absolute Neuts (auto) Neutrophils % Lymphocytes % Monocytes % Eosinophils % Basophils % Nucleated RBC % Sodium Potassium Chloride Carbon Dioxide Anion Gap BUN Creatinine Est GFR (CKD-EPI)AfAm Est GFR (CKD-EPI)NonAf POC Glucometer Random Glucose Hemoglobin A1c % Calcium Magnesium Total Bilirubin AST ALT Alkaline Phosphatase Total Protein Albumin Cortisol AM Sample Cancelled 59.7 H Vancomycin Pre-Dose Hep C Ab Diagnostic 0.1 07/19/19 07/19/19 07/19/19 12:15 12:15 12:57 WBC RBC Hgb Hct MCV MCH MCHC RDW Plt Count MPV Absolute Neuts (auto) Neutrophils % Lymphocytes % Monocytes % Eosinophils % Basophils % Nucleated RBC % Sodium 144 Potassium 3.3 L Chloride 112 H Carbon Dioxide 16 L Anion Gap 16 BUN 46.1 H Creatinine 2.0 H Est GFR (CKD-EPI)AfAm 38.33 Est GFR (CKD-EPI)NonAf 33.07 POC Glucometer 323 Random Glucose 319 H Hemoglobin A1c % Calcium 6.8 L* Magnesium 2.7 H Total Bilirubin AST ALT Alkaline Phosphatase Total Protein Albumin Cortisol AM Sample Vancomycin Pre-Dose 6.1 L Hep C Ab Diagnostic 07/19/19 07/19/19 07/19/19 15:00 16:51 23:35 WBC 12.8 H RBC 2.41 L Hgb 7.5 L Hct 22.0 L MCV 91.5 MCH 31.1 MCHC 34.0 RDW 13.4 Plt Count 206 MPV 8.4 Absolute Neuts (auto) 11.2 H Neutrophils % 87.6 H Lymphocytes % 4.6 L D Monocytes % 7.5 Eosinophils % 0.1 D Basophils % 0.2 Nucleated RBC % 0 Sodium Potassium Chloride Carbon Dioxide Anion Gap BUN Creatinine Est GFR (CKD-EPI)AfAm Est GFR (CKD-EPI)NonAf POC Glucometer 175 282 Random Glucose Hemoglobin A1c % Calcium Magnesium Total Bilirubin AST ALT Alkaline Phosphatase Total Protein Albumin Cortisol AM Sample Vancomycin Pre-Dose Hep C Ab Diagnostic 07/20/19 07/20/19 07/20/19 05:19 06:27 06:27 WBC 15.2 H RBC 2.61 L Hgb 8.2 L Hct 24.2 L MCV 92.4 MCH 31.5 MCHC 34.1 RDW 13.2 Plt Count 192 MPV 8.4 Absolute Neuts (auto) 13.6 H Neutrophils % 89.7 H Lymphocytes % 3.8 L Monocytes % 6.1 Eosinophils % 0.2 D Basophils % 0.2 Nucleated RBC % 0 Sodium 144 Potassium 3.1 L Chloride 115 H Carbon Dioxide 16 L Anion Gap 14 BUN 32.7 H Creatinine 1.9 H Est GFR (CKD-EPI)AfAm 40.78 Est GFR (CKD-EPI)NonAf 35.19 POC Glucometer 272 Random Glucose 270 H Hemoglobin A1c % Calcium 7.3 L Magnesium Total Bilirubin 0.9 AST 28 ALT 20 Alkaline Phosphatase 88 Total Protein 5.2 L Albumin 2.4 L Cortisol AM Sample Vancomycin Pre-Dose Hep C Ab Diagnostic 07/20/19 06:27 WBC RBC Hgb Hct MCV MCH MCHC RDW Plt Count MPV Absolute Neuts (auto) Neutrophils % Lymphocytes % Monocytes % Eosinophils % Basophils % Nucleated RBC % Sodium Potassium Chloride Carbon Dioxide Anion Gap BUN Creatinine Est GFR (CKD-EPI)AfAm Est GFR (CKD-EPI)NonAf POC Glucometer Random Glucose Hemoglobin A1c % 6.8 H Calcium Magnesium Total Bilirubin AST ALT Alkaline Phosphatase Total Protein Albumin Cortisol AM Sample Vancomycin Pre-Dose Hep C Ab Diagnostic Active Medications Generic Name Dose Route Start Last Admin Trade Name Freq PRN Reason Stop Dose Admin Aspirin 300 mg 07/18/19 10:00 07/19/19 09:40 Asa - RC Not Given DAILY [facility] Chlorhexidine Gluconate 1 applic 07/18/19 22:00 07/19/19 23:38 Hibiclens For Decolonization - TP 1 applic HS [facility] Administration Chlorhexidine Gluconate 15 ml 07/18/19 22:00 07/20/19 10:47 Peridex - MM 15 ml BID [facility] Administration Heparin Sodium (Porcine) 5,000 unit 07/18/19 10:00 07/20/19 10:47 Heparin - SQ 5,000 unit BID [facility] Administration Sodium Chloride 250 mls @ 3,000 mls/hr 07/18/19 00:54 Normal Saline - IV 07/19/19 00:54 PRN PRN Hypotension during Dialysis Piperacillin Sod/Tazobactam 50 mls @ 100 mls/hr 07/18/19 18:00 07/20/19 10:47 Sod 3.375 gm/ Dextrose IVPB 100 mls/hr Q8H-IV [facility] Administration Protocol Sodium Chloride 1,000 mls @ 100 mls/hr 07/19/19 10:45 07/20/19 10:48 1/2 Normal Saline IV Not Given ASDIR [facility] Potassium Chloride 10 meq in 100 mls @ 100 mls/hr 07/20/19 10:30 07/20/19 10: 48 Potassium Chloride 10 Meq Premix Ivpb - IVPB 07/20/19 13:29 100 mls/hr Q60M [facility] Administration Insulin Aspart 1 vial 07/18/19 22:00 07/20/19 06:31 Novolog Vial Sliding Scale - SQ 6 units ACHS [facility] Administration Protocol Mupirocin 1 applic 07/18/19 10:00 07/20/19 10:47 Bactroban Ointment (For Decolonization) - NS 07/23/19 09:59 1 applic BID [facility] Administration Vancomycin HCl 1,000 mg 07/20/19 11:15 Vancomycin (Pre-Docked) IVPB DAILY [facility] Protocol ASSESSMENT/PLAN: 69 y/o/m with PMHx of NIDDM, HTN, HLD, Peripheral arterial disease (s/p LLE angioplasty 12/2018) and OM ( s/p L. 5th digit amputation) presents from [place] for altered mental status and labored breathing. Intubated on 07/18 for labored breathing and tachypnea. Extubated on 07/20. #Neurology - Acute Metabolic Encephalopathy, AMS possibly 2/2 metabolic acidosis. Mental status improving. - Head CT Neg. - Per son Pt.s baseline is A&Ox 3. Pt. walks with close guard of 1 as Pt. is blind out of BOTH eyes. Glaucoma in the Right and Cataracts in the left per son. - Off sedation and extubated on 07/20 #Cardiology - Repeat echo not well visualized, previous 01/09 showed E/A reversal suggestive of diastolic dysfunction with normal LVF - Hx of HLD: will continue home Pravastin PO once NPO stopped - Chest CT w/o contrast: B/L lower lobe infiltrates, Rt upper nodule 0.7x0.2 cm , Rt upper lobe bronchiectasis - Lt femoral trialysis catheter removed 07/19 - No longer on pressor support #Pulmonology - Intubated on 07/18 for tachypnea and labored breathing. Extubated on 07/20 - CXR 07/20: No acute pathology - maintain SpO2 >90% #Nephrology - ARF Cr 2.5 at admission, baseline ~1.5, - No HD needed as per Nephro, s/p HD x1 on 07/18 - Metabolic Acidosis possibly 2/2 Metformin - Nephro on board - Tox screen negative - BUN/Cr 32.7/1.9, improving #GI - CTAP with only PO contrast to r/o ischemia and/or lesions: Rt renal atrophy - Rectal tube placed due to diarrhea - C Diff negative #ID - CSF gram stain negative. Right Upper arm wound culture negative. - Continue Zosyn, Vancomycin - Per surgery, no further drainage of right arm wound needed - Podiatry consult: Cont heel pads, Foot care Q8 weeks, no tx necessary for amputation site as is coapted with proximal eschar - UA negative for infection (only 1+ ketones) - C-Spine and Thoracic Spine CT Neg for acute pathology - Blood Cx and Urine Cx negative, CRP negative - Isolation Precautions for MRSA+ in March - Viral studies and Hepatitis panels pending #Endocrine - Hx of DM, hold Metformin, likely will d/c prior to discharge - HbA1c at 6.8 - BGM and ISS ACHS #FEN - Hypokalemic, repleted. - Speech/Swallow eval needed as mental status improves - #DVT Ppx. - Heparin, SCDs - Protonix #Disposition - Continue ICU monitoring Visit type - Emergency Visit Emergency Visit: Yes ED Registration Date: 07/18/19 Care time: The patient presented to the Emergency Department on the above date and was hospitalized for further evaluation of their emergent condition. - New Patient This patient is new to me today: No - Critical Care Critical Care patient: Yes Total Critical Care Time (in minutes): 36 Critical Care Statement: The care of this patient involved high complexity decision making to prevent further life threatening deterioration of the patient 's condition and/or to evaluate & treat vital organ system(s) failure or risk of failure. ATTENDING PHYSICIAN STATEMENT I saw and evaluated the patient. I reviewed the resident's note and discussed the case with the resident. I agree with the resident's findings and plan as documented. SUBJECTIVE: OBJECTIVE: ASSESSMENT AND PLAN:
[2019-07-20 11:27] LABS: MAGNESIUM 2.2 mg/dL (1.8-2.4); PHOSPHOROUS 2.9 mg/dL (2.5-4.9)
--- NOTE | 2019-07-20 11:29 | PN ---
Progress Note, Physician History of Present Illness: Pt seen and examined at bedside. He is now extubated. He remains in the ICU. - Current Medication List Current Medications: Active Medications Aspirin (Asa -) 300 mg RC DAILY [facility] Last Admin: 07/19/19 09:40 Dose: Not Given Chlorhexidine Gluconate (Hibiclens For Decolonization -) 1 applic TP HS [facility] Last Admin: 07/19/19 23:38 Dose: 1 applic Chlorhexidine Gluconate (Peridex -) 15 ml MM BID [facility] Last Admin: 07/20/19 10:47 Dose: 15 ml Heparin Sodium (Porcine) (Heparin -) 5,000 unit SQ BID [facility] Last Admin: 07/20/19 10:47 Dose: 5,000 unit Sodium Chloride (Normal Saline -) 250 mls @ 3,000 mls/hr IV PRN PRN PRN Reason: Hypotension during Dialysis Stop: 07/19/19 00:54 Piperacillin Sod/Tazobactam (Sod 3.375 gm/ Dextrose) 50 mls @ 100 mls/hr IVPB Q8H-IV [facility]; Protocol Last Admin: 07/20/19 10:47 Dose: 100 mls/hr Sodium Chloride (1/2 Normal Saline) 1,000 mls @ 100 mls/hr IV ASDIR [facility] Last Admin: 07/20/19 10:48 Dose: Not Given Potassium Chloride (Potassium Chloride 10 Meq Premix Ivpb -) 10 meq in 100 mls @ 100 mls/hr IVPB Q60M [facility] Stop: 07/20/19 13:29 Last Admin: 07/20/19 10:48 Dose: 100 mls/hr Insulin Aspart (Novolog Vial Sliding Scale -) 1 vial SQ ACHS [facility]; Protocol Last Admin: 07/20/19 06:31 Dose: 6 units Mupirocin (Bactroban Ointment (For Decolonization) -) 1 applic NS BID [facility] Stop: 07/23/19 09:59 Last Admin: 07/20/19 10:47 Dose: 1 applic Vancomycin HCl (Vancomycin (Pre-Docked)) 1,000 mg IVPB DAILY [facility]; Protocol - Objective Vital Signs: Vital Signs Temperature 98.4 F 07/20/19 10:00 Pulse Rate 78 07/20/19 10:00 Respiratory Rate 19 07/20/19 10:00 Blood Pressure 120/56 L 07/20/19 10:00 O2 Sat by Pulse Oximetry (%) 100 07/19/19 23:05 Constitutional: Yes: Calm Eyes: Yes: Conjunctiva Clear HENT: Yes: Atraumatic Neck: Yes: Supple Cardiovascular: Yes: S1, S2 Respiratory: Yes: On Venti-Mask Gastrointestinal: Yes: Soft Musculoskeletal: Yes: Muscle Weakness Edema: No Neurological: Yes: Confusion Labs: CBC, BMP 07/20/19 06:27 07/20/19 06:27 INR, PTT INR 0.97 (0.83-1.09) 07/17/19 21:53 Assessment/Plan Current Medications Generic Name Dose Route Start Last Admin Trade Name Freq PRN Reason Stop Dose Admin Aspirin 300 mg 07/18/19 10:00 07/19/19 09:40 Asa - RC Not Given DAILY [facility] Chlorhexidine Gluconate 1 applic 07/18/19 22:00 07/19/19 23:38 Hibiclens For Decolonization - TP 1 applic HS [facility] Administration Chlorhexidine Gluconate 15 ml 07/18/19 22:00 07/20/19 10:47 Peridex - MM 15 ml BID [facility] Administration Heparin Sodium (Porcine) 5,000 unit 07/18/19 10:00 07/20/19 10:47 Heparin - SQ 5,000 unit BID [facility] Administration Sodium Chloride 250 mls @ 3,000 mls/hr 07/18/19 00:54 Normal Saline - IV 07/19/19 00:54 PRN PRN Hypotension during Dialysis Piperacillin Sod/Tazobactam 50 mls @ 100 mls/hr 07/18/19 18:00 07/20/19 10:47 Sod 3.375 gm/ Dextrose IVPB 100 mls/hr Q8H-IV [facility] Administration Protocol Sodium Chloride 1,000 mls @ 100 mls/hr 07/19/19 10:45 07/20/19 10:48 1/2 Normal Saline IV Not Given ASDIR [facility] Potassium Chloride 10 meq in 100 mls @ 100 mls/hr 07/20/19 10:30 07/20/19 10: 48 Potassium Chloride 10 Meq Premix Ivpb - IVPB 07/20/19 13:29 100 mls/hr Q60M [facility] Administration Insulin Aspart 1 vial 07/18/19 22:00 07/20/19 06:31 Novolog Vial Sliding Scale - SQ 6 units ACHS [facility] Administration Protocol Mupirocin 1 applic 07/18/19 10:00 07/20/19 10:47 Bactroban Ointment (For Decolonization) - NS 07/23/19 09:59 1 applic BID [facility] Administration Vancomycin HCl 1,000 mg 07/20/19 11:15 Vancomycin (Pre-Docked) IVPB DAILY [facility] Protocol Impression 1. BRUCE 2. metabolic acidosis 3. lactic acidosis 4. altered mental status 5. DM 6. HTN 7. PAD 8. sepsis 9. shock 10. resp failure with pending intubation 11. right arm abscess Plan - replace potassium - cont fluuds - d/c hd catheter - discussed with ICU - repeat labs in am - monitor urine output - monitor renal function
[2019-07-20] MEDS: ASPIRIN 300 MG SUPP.RECT RC SCH (12:06)
--- NOTE | 2019-07-20 13:08 | PN ---
Progress Note, Physician History of Present Illness: patient stable extubated not opening eyes but responding - Current Medication List Current Medications: Active Medications Aspirin (Asa -) 300 mg RC DAILY [facility] Last Admin: 07/20/19 12:06 Dose: Not Given Chlorhexidine Gluconate (Hibiclens For Decolonization -) 1 applic TP HS [facility] Last Admin: 07/19/19 23:38 Dose: 1 applic Chlorhexidine Gluconate (Peridex -) 15 ml MM BID [facility] Last Admin: 07/20/19 10:47 Dose: 15 ml Heparin Sodium (Porcine) (Heparin -) 5,000 unit SQ BID [facility] Last Admin: 07/20/19 10:47 Dose: 5,000 unit Sodium Chloride (Normal Saline -) 250 mls @ 3,000 mls/hr IV PRN PRN PRN Reason: Hypotension during Dialysis Stop: 07/19/19 00:54 Piperacillin Sod/Tazobactam (Sod 3.375 gm/ Dextrose) 50 mls @ 100 mls/hr IVPB Q8H-IV [facility]; Protocol Last Admin: 07/20/19 10:47 Dose: 100 mls/hr Sodium Chloride (1/2 Normal Saline) 1,000 mls @ 100 mls/hr IV ASDIR [facility] Last Admin: 07/20/19 10:48 Dose: Not Given Potassium Chloride (Potassium Chloride 10 Meq Premix Ivpb -) 10 meq in 100 mls @ 100 mls/hr IVPB Q60M [facility] Stop: 07/20/19 13:29 Last Admin: 07/20/19 12:57 Dose: 100 mls/hr Insulin Aspart (Novolog Vial Sliding Scale -) 1 vial SQ ACHS [facility]; Protocol Last Admin: 07/20/19 12:07 Dose: 4 units Mupirocin (Bactroban Ointment (For Decolonization) -) 1 applic NS BID [facility] Stop: 07/23/19 09:59 Last Admin: 07/20/19 10:47 Dose: 1 applic Vancomycin HCl (Vancomycin (Pre-Docked)) 1,000 mg IVPB DAILY [facility]; Protocol - Objective Vital Signs: Vital Signs Temperature 98.4 F 07/20/19 10:00 Pulse Rate 75 07/20/19 12:00 Respiratory Rate 19 07/20/19 12:00 Blood Pressure 132/56 L 07/20/19 12:00 O2 Sat by Pulse Oximetry (%) 100 07/19/19 23:05 Constitutional: Yes: No Distress, Calm Respiratory: Yes: Regular, CTA Bilaterally, On Nasal O2 Gastrointestinal: Yes: Normal Bowel Sounds, Soft Musculoskeletal: Yes: WNL Extremities: Yes: WNL Neurological: Yes: Alert, Other Psychiatric: Yes: Alert, Other Labs: CBC, BMP 07/20/19 06:27 07/20/19 06:27 INR, PTT INR 0.97 (0.83-1.09) 07/17/19 21:53 Assessment/Plan Acute Respiratory Failure Shock - Likely Septic Hypothermia Anion Gap Metabolic Acidosis Lactic Acidosis Acute Kidney Injury requiring HD PAD HTN DM Hyperlipidemia plan continue abx all cx results noted monitor closely resp support hydration rest as per icu cc 40 min
--- NOTE | 2019-07-20 14:11 | CONSULT ---
Admitting History and Physical - Admission History of Present Illness: This is a 69 y/o man from [facility] with a PMHx of DM, HLD, HTN, Left Foot 5th Metatarsal Osteomyelitis (s/p amputation 10/2018). Who presents to the ED 07/18/19 via ambulance for AMS and labored breathing. Extubated today. This is my first consult with this pt. History Source: Family Member Limitations to Obtaining History: Clinical Condition - Past Medical History Cardiovascular: Yes: HTN, Hyperlipdemia Endocrine: Yes: Diabetes Mellitus - Smoking History Smoking history: Unknown if ever smoked Have you smoked in the past 12 months: No Aproximately how many cigarettes per day: 0 If you are a former smoker, when did you quit?: 10 years - Alcohol/Substance Use Hx Alcohol Use: Yes (SOCIAL) - Social History Usual Living Arrangement: Yes: Assisted Living History - Diagnostics X-ray: Report Reviewed (cxr bilateral LL infiltrates) CT Scan: Report Reviewed (cxr bilateral LL infiltrates) - General Mental Status: Awake and Alert, Able to Follow Commands, Forgetful, Intermittently Confused (thinks he is home.) Attention: Intact Ability to Follow Directions: Good Head/Neck Control: Fair - Hearing Hearing: Functional Hearing Aide: No With Patient: No Speech Evaluation - Communication Primary Language: PANAMANIAN Communication: Yes: Simple Responses Oral Expression Ability: Yes: Mild Impairment - Speech Production Able to Make Needs Known: Yes: Mildly Impaired Intelligibility: Yes: Mildly Impaired - Speech Characteristics Voice Loudness: Mildly Soft/Quiet Voice Pitch: Yes: Normal Voice Phonatory-based Quality: Yes: Hoarse, Dysphonia (intubated today) Nasal Resonance: Normal Articulation: Yes: Precise Voice, Other Observations: Yes: Throat Clearing - Language/Auditory Comprehension Follows: Yes: 1 Stage Simple Commands - Swallow Evaluation/Bedside Assessment Current Nutritional Intake: NPO Dentition: Yes: Missing Teeth Facial Symmetry at Rest: Symmetrical Against Resistance Opening: Weak Against Resistance Closing: Weak Pucker Lips: Weak Smile: Weak Lingual Movement: Symmetric Lingual Speed of Movement: Normal Laryngeal Movement: Labored,delay initiation Bolus Size: WFL Labial Seal: WFL Oral Prep Time: WFL A-P Transit: WFL Pocketing: None Coughing/Throat Clear: No (silent aspiration suspected) Recommendations - Speech Evaluation, Impression/Plan Impression: Extubated today. Admitted with bilateral LL infiltrates-Aspiration? Dysphonia post extubation-silent aspiration suspected presently on thin liquids - Dysphagia Impressions/Plan Swallowing Skills: Impaired Dysphagia Impressions: Ongoing Evaluation, Suspect Aspiration *Silent aspiration: cannot be R/O at bedside - Recommendations Diet Consistency: NPO, Other (when voice3 becomes strong, no longer hoarse, and lungs are clear, trial of dysphagia puree/honey on tsp)
[2019-07-20 20:06] LABS: HEP B CORE AB, TOT Positive (Negative)
[2019-07-20] MEDS: CHLORHEXIDINE GLUCONATE 4% CLEANSER FOR DECOLONIZATION TP SCH (21:23)
[2019-07-20] MEDS ORDERED: ACETAMINOPHEN 1000 MG/100 ML VIAL (NON FORMULARY) IVPB ONE (21:36)
[2019-07-21] MEDS ORDERED: DEXTROSE 5%-WATER - 50 ML IVPB ONE ×3 (02:39→17:58)
[2019-07-21] MEDS ORDERED: PIPERACILLIN/TAZOBACTAM 3.375 GM VIAL IVPB ONE ×3 (02:39→17:58)
[2019-07-21] MEDS: PIPERACILLIN/TAZOB 3.375 GM 3.375 GM in DEXTROSE 5%-WATER - 50 ML IVPB SCH ×3 (02:46→18:07)
[2019-07-21] MEDS: SODIUM CHLORIDE 0.45% 1,000 ML IV SCH ×2 (02:47→12:11)
[2019-07-21 07:08] LABS: HEMATOCRIT 23.6 % (35.4-49); MCH 31.5 pg (25.7-33.7); MCHC 34.1 g/dl (32.0-35.9); MEAN CELL VOLUME 92.4 fl (80-96); MEAN PLT VOLUME 8.8 fl (7.5-11.1); PLATELET COUNT 198 K/MM3 (134-434); RBC 2.55 M/mm3 (4.00-5.60); RDW 13.4 % (11.9-15.9); WHITE BLOOD COUNT 11.5 K/mm3 (4.0-10.0)
[2019-07-21 08:28] LABS: ALBUMIN 2.2 g/dl (3.4-5.0); BILIRUBIN,TOTAL 0.9 mg/dL (0.2-1); BLOOD UREA NITROGEN 22.2 mg/dL (7-18); CALCIUM 7.4 mg/dL (8.5-10.1); CREATININE 1.7 mg/dL (0.55-1.3); PHOSPHOROUS 2.6 mg/dL (2.5-4.9); POTASSIUM 3.2 mmol/L (3.5-5.1); TOT PROT 4.8 g/dl (6.4-8.2)
--- NOTE | 2019-07-21 08:54 | PN ---
Teaching Attending Note Name of Resident: Rayna Dominguez ATTENDING PHYSICIAN STATEMENT I saw and evaluated the patient. I reviewed the resident's note and discussed the case with the resident. I agree with the resident's findings and plan as documented. SUBJECTIVE: Pt seen and examined in the ICU. More alert, awake. No specific complaints. Urine output continues to improve. OBJECTIVE: Vital Signs Period Temp Pulse Resp BP Sys/Ham Pulse Ox Last 24 Hr 98.2 F-99.2 F 71-93 17-25 93-170/52-72 98-100 Intake & Output 07/18/19 07/19/19 07/20/19 07/21/19 23:59 23:59 23:59 23:59 Intake Total 5864.5 4064.2 1125 1227 Output Total 1900 1200 2100 900 Balance 3964.5 2864.2 -975 327 Weight 51.483 kg 54.63 kg 55.338 kg 56.835 kg Gen: NAD at rest Heart: RRR Lung: decreased breath sounds at the bases Abd: soft, nontender Ext: no edema CBC, BMP 07/21/19 06:21 07/21/19 06:21 Active Medications Aspirin (Asa -) 300 mg RC DAILY [facility] Last Admin: 07/20/19 12:06 Dose: Not Given Chlorhexidine Gluconate (Hibiclens For Decolonization -) 1 applic TP HS [facility] Last Admin: 07/20/19 21:23 Dose: 1 applic Chlorhexidine Gluconate (Peridex -) 15 ml MM BID [facility] Last Admin: 07/20/19 21:22 Dose: 15 ml Heparin Sodium (Porcine) (Heparin -) 5,000 unit SQ BID [facility] Last Admin: 07/20/19 21:22 Dose: 5,000 unit Piperacillin Sod/Tazobactam (Sod 3.375 gm/ Dextrose) 50 mls @ 100 mls/hr IVPB Q8H-IV [facility]; Protocol Last Admin: 07/21/19 02:46 Dose: 100 mls/hr Sodium Chloride (1/2 Normal Saline) 1,000 mls @ 100 mls/hr IV ASDIR [facility] Last Admin: 07/21/19 02:47 Dose: 100 mls/hr Insulin Aspart (Novolog Vial Sliding Scale -) 1 vial SQ ACHS [facility]; Protocol Last Admin: 07/20/19 21:23 Dose: 4 units Mupirocin (Bactroban Ointment (For Decolonization) -) 1 applic NS BID [facility] Stop: 07/23/19 09:59 Last Admin: 07/20/19 21:23 Dose: 1 applic Vancomycin HCl (Vancomycin (Pre-Docked)) 1,000 mg IVPB DAILY [facility]; Protocol ASSESSMENT AND PLAN: s/p Acute Respiratory Failure Shock - Likely Septic resolving Right Arm Abscess s/p I&D Anion Gap Metabolic Acidosis Lactic Acidosis Acute Kidney Injury requiring HD PAD HTN DM Hyperlipidemia Anemia - continue antibiotics - f/u cultures - IVF - monitor urine output, creatinine - replete lytes - monitor H/H - DVT/GI prophylaxis - can monitor on floor
--- NOTE | 2019-07-21 09:05 | PN ---
Progress Note, Physician Chief Complaint: AWAKE CONFUSED DENIES CHEST PAIN OR SOB - Current Medication List Current Medications: Active Medications Aspirin (Asa -) 300 mg RC DAILY [facility] Last Admin: 07/20/19 12:06 Dose: Not Given Chlorhexidine Gluconate (Hibiclens For Decolonization -) 1 applic TP HS [facility] Last Admin: 07/20/19 21:23 Dose: 1 applic Chlorhexidine Gluconate (Peridex -) 15 ml MM BID [facility] Last Admin: 07/20/19 21:22 Dose: 15 ml Heparin Sodium (Porcine) (Heparin -) 5,000 unit SQ BID [facility] Last Admin: 07/20/19 21:22 Dose: 5,000 unit Piperacillin Sod/Tazobactam (Sod 3.375 gm/ Dextrose) 50 mls @ 100 mls/hr IVPB Q8H-IV [facility]; Protocol Last Admin: 07/21/19 02:46 Dose: 100 mls/hr Sodium Chloride (1/2 Normal Saline) 1,000 mls @ 100 mls/hr IV ASDIR [facility] Last Admin: 07/21/19 02:47 Dose: 100 mls/hr Insulin Aspart (Novolog Vial Sliding Scale -) 1 vial SQ ACHS [facility]; Protocol Last Admin: 07/20/19 21:23 Dose: 4 units Mupirocin (Bactroban Ointment (For Decolonization) -) 1 applic NS BID [facility] Stop: 07/23/19 09:59 Last Admin: 07/20/19 21:23 Dose: 1 applic Vancomycin HCl (Vancomycin (Pre-Docked)) 1,000 mg IVPB DAILY [facility]; Protocol - Objective Vital Signs: Vital Signs Temperature 99.2 F 07/21/19 06:00 Pulse Rate 71 07/21/19 06:00 Respiratory Rate 17 07/21/19 06:00 Blood Pressure 135/65 07/21/19 06:00 O2 Sat by Pulse Oximetry (%) 100 07/20/19 21:57 Constitutional: Yes: Mild Distress Cardiovascular: Yes: Regular Rate and Rhythm Respiratory: Yes: Diminished, On Nasal O2 Gastrointestinal: Yes: Soft Genitourinary: Yes: Merino Present, Other (RECTAL TUBE BROWN FECES) Musculoskeletal: Yes: Muscle Weakness Edema: No Neurological: Yes: Confusion Psychiatric: Yes: Other Labs: CBC, BMP 07/21/19 06:21 07/21/19 06:21 INR, PTT INR 0.97 (0.83-1.09) 07/17/19 21:53 Problem List - Problems (1) ESRD (end stage renal disease) on dialysis Code(s): N18.6 - END STAGE RENAL DISEASE; Z99.2 - DEPENDENCE ON RENAL DIALYSIS (2) Acute metabolic encephalopathy Code(s): G93.41 - METABOLIC ENCEPHALOPATHY (3) Diabetes Code(s): E11.9 - TYPE 2 DIABETES MELLITUS WITHOUT COMPLICATIONS (4) Sepsis Code(s): A41.9 - SEPSIS, UNSPECIFIED ORGANISM (5) Diabetes Code(s): E11.9 - TYPE 2 DIABETES MELLITUS WITHOUT COMPLICATIONS (6) Lactic acid acidosis Code(s): E87.2 - ACIDOSIS Assessment/Plan ADD XIFAXIN FOR METABOLIC ENCEPHALOPATHY CORRECTING KCL 3 RUNS 10MEQ SWALLOW EVAL ADD PROSOURCE FOR PROTEIN DEPLETION ONCE EATING TOLERATING PO DIET. IV ABX PER ID ADVANCED DIRECTIVES D/W SON FULL CODE
--- NOTE | 2019-07-21 10:48 | PN ---
Physical Exam: SUBJECTIVE: Patient seen and examined. Patient more responsive today. Talkative and responding to questions. Alert and orientedx3. OBJECTIVE: Vital Signs Period Temp Pulse Resp BP Sys/Ham Pulse Ox Last 24 Hr 98.2 F-99.2 F 71-93 17-25 93-170/52-72 98-100 GENERAL: The patient is awake, alert, and fully oriented, in no acute distress. HEAD: Normal with no signs of trauma. EYES: Right pupil reactive. Cloudy left pupil. ENT: dry mucous membranes. NECK: Trachea midline, supple. LUNGS: Breath sounds equal, clear to auscultation bilaterally, no wheezes, no crackles, no accessory muscle use. HEART: Regular rate and rhythm, S1, S2 without murmur, rub or gallop. ABDOMEN: Soft, nontender, nondistended, normoactive bowel sounds, no guarding EXTREMITIES: 2+ pulses, warm, well-perfused, no edema. NEURO: normal speech, AAOx3 PSYCH: normal affect, cooperative SKIN: Warm, dry Laboratory Results - last 24 hr 07/18/19 07/18/19 07/20/19 04:50 07:37 06:27 WBC RBC Hgb Hct MCV MCH MCHC RDW Plt Count MPV Sodium 144 Potassium 3.1 L Chloride 115 H Carbon Dioxide 16 L Anion Gap 14 BUN 32.7 H Creatinine 1.9 H Est GFR (CKD-EPI)AfAm 40.78 Est GFR (CKD-EPI)NonAf 35.19 POC Glucometer Random Glucose 270 H Hemoglobin A1c % Calcium 7.3 L Phosphorus 2.9 Magnesium 2.2 Total Bilirubin 0.9 AST 28 ALT 20 Alkaline Phosphatase 88 Total Protein 5.2 L Albumin 2.4 L Adenovirus (PCR) Negative Hep A IgM Ab Confirm Negative Hepatitis A Ab Total Positive H Hep Bs Antigen Negative Hep Bs Antibody Reactive Hep B Core Total Ab Positive H Hep B Core IgM Ab Negative Hepatitis Be Antibody Positive H Hepatitis Be Antigen Negative Human Metapneumovir PCR Negative Influenza A (H1) PCR Negative Influenza B (RT-PCR) Negative Parainfluenza 1 (PCR) Negative Parainfluenza 2 (PCR) Negative Parainfluenza 3 (PCR) Negative RSV Type A (PCR) Negative RSV Type B (PCR) Negative Rhinovirus (PCR) Negative 11/27/19 11/27/19 11/27/19 06:27 11:52 16:37 WBC RBC Hgb Hct MCV MCH MCHC RDW Plt Count MPV Sodium Potassium Chloride Carbon Dioxide Anion Gap BUN Creatinine Est GFR (CKD-EPI)AfAm Est GFR (CKD-EPI)NonAf POC Glucometer 225 208 Random Glucose Hemoglobin A1c % 6.8 H Calcium Phosphorus Magnesium Total Bilirubin AST ALT Alkaline Phosphatase Total Protein Albumin Adenovirus (PCR) Hep A IgM Ab Confirm Hepatitis A Ab Total Hep Bs Antigen Hep Bs Antibody Hep B Core Total Ab Hep B Core IgM Ab Hepatitis Be Antibody Hepatitis Be Antigen Human Metapneumovir PCR Influenza A (H1) PCR Influenza B (RT-PCR) Parainfluenza 1 (PCR) Parainfluenza 2 (PCR) Parainfluenza 3 (PCR) RSV Type A (PCR) RSV Type B (PCR) Rhinovirus (PCR) 07/20/19 07/21/19 07/21/19 21:18 06:21 06:21 WBC 11.5 H RBC 2.55 L Hgb 8.0 L Hct 23.6 L MCV 92.4 MCH 31.5 MCHC 34.1 RDW 13.4 Plt Count 198 MPV 8.8 Sodium 142 Potassium 3.2 L Chloride 115 H Carbon Dioxide 18 L Anion Gap 9 BUN 22.2 H Creatinine 1.7 H Est GFR (CKD-EPI)AfAm 46.65 Est GFR (CKD-EPI)NonAf 40.25 POC Glucometer 202 Random Glucose 206 H Hemoglobin A1c % Calcium 7.4 L Phosphorus 2.6 Magnesium 2.0 Total Bilirubin 0.9 AST 21 ALT 19 Alkaline Phosphatase 81 Total Protein 4.8 L Albumin 2.2 L Adenovirus (PCR) Hep A IgM Ab Confirm Hepatitis A Ab Total Hep Bs Antigen Hep Bs Antibody Hep B Core Total Ab Hep B Core IgM Ab Hepatitis Be Antibody Hepatitis Be Antigen Human Metapneumovir PCR Influenza A (H1) PCR Influenza B (RT-PCR) Parainfluenza 1 (PCR) Parainfluenza 2 (PCR) Parainfluenza 3 (PCR) RSV Type A (PCR) RSV Type B (PCR) Rhinovirus (PCR) Active Medications Generic Name Dose Route Start Last Admin Trade Name Freq PRN Reason Stop Dose Admin Aspirin 300 mg 07/18/19 10:00 07/20/19 12:06 Asa - RC Not Given DAILY [facility] Chlorhexidine Gluconate 1 applic 07/18/19 22:00 07/20/19 21:23 Hibiclens For Decolonization - TP 1 applic HS [facility] Administration Chlorhexidine Gluconate 15 ml 07/18/19 22:00 07/20/19 21:22 Peridex - MM 15 ml BID [facility] Administration Heparin Sodium (Porcine) 5,000 unit 07/18/19 10:00 07/20/19 21:22 Heparin - SQ 5,000 unit BID [facility] Administration Piperacillin Sod/Tazobactam 50 mls @ 100 mls/hr 07/18/19 18:00 07/21/19 02:46 Sod 3.375 gm/ Dextrose IVPB 100 mls/hr Q8H-IV [facility] Administration Protocol Sodium Chloride 1,000 mls @ 100 mls/hr 07/19/19 10:45 07/21/19 02:47 1/2 Normal Saline IV 100 mls/hr ASDIR [facility] Administration Potassium Chloride 10 meq in 100 mls @ 100 mls/hr 07/21/19 09:15 Potassium Chloride 10 Meq Premix Ivpb - IVPB 07/21/19 12:14 Q60M [facility] Insulin Aspart 1 vial 07/18/19 22:00 07/20/19 21:23 Novolog Vial Sliding Scale - SQ 4 units ACHS [facility] Administration Protocol Mupirocin 1 applic 07/18/19 10:00 07/20/19 21:23 Bactroban Ointment (For Decolonization) - NS 07/23/19 09:59 1 applic BID [facility] Administration Rifaximin 550 mg 07/21/19 10:00 Xifaxan - PO BID [facility] Vancomycin HCl 1,000 mg 07/20/19 11:15 Vancomycin (Pre-Docked) IVPB DAILY [facility] Protocol ASSESSMENT/PLAN: 69 y/o/m with PMHx of NIDDM, HTN, HLD, Peripheral arterial disease (s/p LLE angioplasty 12/2018) and OM ( s/p L. 5th digit amputation) presents from [place] for altered mental status and labored breathing. Intubated on 07/18 for labored breathing and tachypnea. Extubated on 07/20. #Neurology - Acute Metabolic Encephalopathy, AMS possibly 2/2 metabolic acidosis. Mental status improving, now AAOx3 - Head CT Neg. - Per son Pt.s baseline is A&Ox 3. Pt. walks with close guard of 1 as Pt. is blind out of BOTH eyes. Glaucoma in the Right and Cataracts in the left per son. - Off sedation and extubated on 07/20 - Started on Rifaximin to help improve metabolic encephalopathy #Cardiology - Repeat echo not well visualized, previous 01/09 showed E/A reversal suggestive of diastolic dysfunction with normal LVF - Hx of HLD: will continue home Pravastin PO once NPO stopped - Chest CT w/o contrast: B/L lower lobe infiltrates, Rt upper nodule 0.7x0.2 cm , Rt upper lobe bronchiectasis - Lt femoral trialysis catheter removed 07/19 - No longer on pressor support #Pulmonology - Intubated on 07/18 for tachypnea and labored breathing. Extubated on 07/20 - CXR 07/20: No acute pathology - maintain SpO2 >90% #Nephrology - ARF Cr 2.5 at admission, baseline ~1.5, - No HD needed as per Nephro, s/p HD x1 on 07/18 - Nephro on board - Tox screen negative - BUN/Cr 22.2/7.7, improving #GI - CTAP with only PO contrast to r/o ischemia and/or lesions: Rt renal atrophy - Rectal tube placed due to diarrhea - C Diff negative #ID - CSF gram stain negative. Right Upper arm wound culture negative. - Continue Zosyn, Vancomycin as per ID - Per surgery, no further drainage of right arm wound needed - Podiatry consult: Cont heel pads, Foot care Q8 weeks, no tx necessary for amputation site as is coapted with proximal eschar - UA negative for infection (only 1+ ketones) - C-Spine and Thoracic Spine CT Neg for acute pathology - Blood Cx and Urine Cx negative, CRP negative, ESR 31 - Isolation Precautions for MRSA+ in March - Viral studies negative #Endocrine - Hx of DM, hold Metformin, likely will d/c prior to discharge - HbA1c at 6.8 - BGM and ISS ACHS #FEN - Hypokalemic, repleted. - Speech/Swallow eval needed as mental status improves - monitor and replete lytes as needed - 1/2 NS @100mls/hr #DVT Ppx. - Heparin, SCDs - Protonix #Disposition - Stable for transfer to med surg Visit type - Emergency Visit Emergency Visit: Yes ED Registration Date: 07/18/19 Care time: The patient presented to the Emergency Department on the above date and was hospitalized for further evaluation of their emergent condition. - New Patient This patient is new to me today: No - Critical Care Critical Care patient: Yes Total Critical Care Time (in minutes): 36 Critical Care Statement: The care of this patient involved high complexity decision making to prevent further life threatening deterioration of the patient 's condition and/or to evaluate & treat vital organ system(s) failure or risk of failure. ATTENDING PHYSICIAN STATEMENT I saw and evaluated the patient. I reviewed the resident's note and discussed the case with the resident. I agree with the resident's findings and plan as documented. SUBJECTIVE: OBJECTIVE: ASSESSMENT AND PLAN:
[2019-07-21] MEDS: CHLORHEXIDINE GLUCONATE 0.12% 15ML CUP MM SCH ×2 (10:50→21:38)
[2019-07-21] MEDS: KCL 10 MEQ IVPB 10 MEQ/100 ML INFUS.BAG IVPB SCH ×3 (10:51→15:07)
[2019-07-21] MEDS: MUPIROCIN 2% TOPICAL OINTMENT FOR DECOLONIZATION NS SCH ×2 (10:52→21:38)
[2019-07-21] MEDS: HEPARIN NA (PORCINE) 5,000 UNITS/ML 1ML VIAL SQ SCH ×2 (10:52→21:38)
[2019-07-21] MEDS: ASPIRIN 300 MG SUPP.RECT RC SCH (11:00)
[2019-07-21] MEDS: RIFAXIMIN 550 MG TABLET (UD) PO SCH ×2 (11:00→21:44)
[2019-07-21] MEDS: INSULIN SLIDING SCALE (NOVOLOG) 1 VIAL SQ SCH ×4 (12:11→21:41)
[2019-07-21] MEDS ORDERED: SODIUM CHLORIDE 0.45% 500 ML IV ONE (14:22)
--- NOTE | 2019-07-21 15:13 | PN ---
Progress Note, Physician History of Present Illness: Pt seen and examined at bedside. He is more awake and interactive but still confused. - Current Medication List Current Medications: Active Medications Aspirin (Asa -) 300 mg RC DAILY [facility] Last Admin: 07/21/19 11:00 Dose: 300 mg Chlorhexidine Gluconate (Hibiclens For Decolonization -) 1 applic TP HS [facility] Last Admin: 07/20/19 21:23 Dose: 1 applic Chlorhexidine Gluconate (Peridex -) 15 ml MM BID [facility] Last Admin: 07/21/19 10:50 Dose: Not Given Heparin Sodium (Porcine) (Heparin -) 5,000 unit SQ BID [facility] Last Admin: 07/21/19 10:52 Dose: 5,000 unit Piperacillin Sod/Tazobactam (Sod 3.375 gm/ Dextrose) 50 mls @ 100 mls/hr IVPB Q8H-IV [facility]; Protocol Last Admin: 07/21/19 10:44 Dose: 100 mls/hr Sodium Chloride (1/2 Normal Saline) 1,000 mls @ 100 mls/hr IV ASDIR [facility] Last Admin: 07/21/19 12:11 Dose: 100 mls/hr Insulin Aspart (Novolog Vial Sliding Scale -) 1 vial SQ ACHS [facility]; Protocol Last Admin: 07/21/19 12:11 Dose: 4 units Mupirocin (Bactroban Ointment (For Decolonization) -) 1 applic NS BID [facility] Stop: 07/23/19 09:59 Last Admin: 07/21/19 10:52 Dose: 1 applic Rifaximin (Xifaxan -) 550 mg PO BID [facility] Last Admin: 07/21/19 11:00 Dose: 550 mg Vancomycin HCl (Vancomycin (Pre-Docked)) 1,000 mg IVPB DAILY [facility]; Protocol - Objective Vital Signs: Vital Signs Temperature 97.9 F 07/21/19 08:00 Pulse Rate 74 07/21/19 14:00 Respiratory Rate 16 07/21/19 14:00 Blood Pressure 105/48 L 07/21/19 14:00 O2 Sat by Pulse Oximetry (%) 100 07/21/19 09:00 Constitutional: Yes: Calm Eyes: Yes: Conjunctiva Clear HENT: Yes: Atraumatic Neck: Yes: Supple Cardiovascular: Yes: S1, S2 Respiratory: Yes: CTA Bilaterally Gastrointestinal: Yes: Soft Genitourinary: Yes: Merino Present Musculoskeletal: Yes: WNL Edema: No Neurological: Yes: Confusion Labs: CBC, BMP 07/21/19 06:21 07/21/19 06:21 INR, PTT INR 0.97 (0.83-1.09) 07/17/19 21:53 Assessment/Plan Current Medications Generic Name Dose Route Start Last Admin Trade Name Ronnyq PRN Reason Stop Dose Admin Aspirin 300 mg 07/18/19 10:00 07/21/19 11:00 Asa - RC 300 mg DAILY [facility] Administration Chlorhexidine Gluconate 1 applic 07/18/19 22:00 07/20/19 21:23 Hibiclens For Decolonization - TP 1 applic HS [facility] Administration Chlorhexidine Gluconate 15 ml 07/18/19 22:00 07/21/19 10:50 Peridex - MM Not Given BID [facility] Heparin Sodium (Porcine) 5,000 unit 07/18/19 10:00 07/21/19 10:52 Heparin - SQ 5,000 unit BID [facility] Administration Piperacillin Sod/Tazobactam 50 mls @ 100 mls/hr 07/18/19 18:00 07/21/19 10:44 Sod 3.375 gm/ Dextrose IVPB 100 mls/hr Q8H-IV [facility] Administration Protocol Sodium Chloride 1,000 mls @ 100 mls/hr 07/19/19 10:45 07/21/19 12:11 1/2 Normal Saline IV 100 mls/hr ASDIR [facility] Administration Insulin Aspart 1 vial 07/18/19 22:00 07/21/19 12:11 Novolog Vial Sliding Scale - SQ 4 units ACHS [facility] Administration Protocol Mupirocin 1 applic 07/18/19 10:00 07/21/19 10:52 Bactroban Ointment (For Decolonization) - NS 07/23/19 09:59 1 applic BID [facility] Administration Rifaximin 550 mg 07/21/19 10:00 07/21/19 11:00 Xifaxan - PO 550 mg BID [facility] Administration Vancomycin HCl 1,000 mg 07/20/19 11:15 Vancomycin (Pre-Docked) IVPB DAILY [facility] Protocol Impression 1. BRUCE 2. metabolic acidosis 3. lactic acidosis 4. altered mental status 5. DM 6. HTN 7. PAD 8. sepsis 9. shock 10. resp failure with pending intubation 11. right arm abscess Plan - renal function is improving - replace potassium - renal function recovered - no need for HD - monitor urine output - monitor renal function
[2019-07-21] MEDS: SODIUM CHLORIDE 0.45% 1,000 ML with POTASSIUM CHLORIDE 10 MEQ IV SCH (16:55)
[2019-07-21] MEDS: CHLORHEXIDINE GLUCONATE 4% CLEANSER FOR DECOLONIZATION TP SCH (21:41)
[2019-07-22] MEDS ORDERED: PIPERACILLIN/TAZOBACTAM 3.375 GM VIAL IVPB ONE ×2 (01:05→09:05)
[2019-07-22] MEDS ORDERED: DEXTROSE 5%-WATER - 50 ML IVPB ONE ×2 (01:06→09:05)
[2019-07-22] MEDS: PIPERACILLIN/TAZOB 3.375 GM 3.375 GM in DEXTROSE 5%-WATER - 50 ML IVPB SCH ×2 (01:17→09:16)
[2019-07-22] MEDS: SODIUM CHLORIDE 0.45% 1,000 ML with POTASSIUM CHLORIDE 10 MEQ IV SCH ×3 (04:05→22:49)
[2019-07-22] MEDS: INSULIN SLIDING SCALE (NOVOLOG) 1 VIAL SQ SCH ×4 (06:51→22:55)
[2019-07-22 07:37] LABS: HEMATOCRIT 24.2 % (35.4-49); HEMOGLOBIN 8.3 GM/dL (11.7-16.9); MCH 32.3 pg (25.7-33.7); MCHC 34.5 g/dl (32.0-35.9); MEAN CELL VOLUME 93.6 fl (80-96); MEAN PLT VOLUME 8.5 fl (7.5-11.1); PLATELET COUNT 251 K/MM3 (134-434); RBC 2.59 M/mm3 (4.00-5.60); RDW 13.3 % (11.9-15.9)
[2019-07-22 07:53] LABS: ALBUMIN 2.2 g/dl (3.4-5.0); BILIRUBIN,TOTAL 0.6 mg/dL (0.2-1); CALCIUM 7.2 mg/dL (8.5-10.1); CREATININE 1.3 mg/dL (0.55-1.3); MAGNESIUM 1.9 mg/dL (1.8-2.4); POTASSIUM 3.7 mmol/L (3.5-5.1)
[2019-07-22] MEDS: HEPARIN NA (PORCINE) 5,000 UNITS/ML 1ML VIAL SQ SCH ×2 (09:18→22:51)
[2019-07-22] MEDS: RIFAXIMIN 550 MG TABLET (UD) PO SCH ×2 (09:18→22:50)
[2019-07-22] MEDS: ASPIRIN 300 MG SUPP.RECT RC SCH (09:18)
[2019-07-22] MEDS: MUPIROCIN 2% TOPICAL OINTMENT FOR DECOLONIZATION NS SCH (09:18)
[2019-07-22] MEDS: CHLORHEXIDINE GLUCONATE 0.12% 15ML CUP MM SCH ×2 (09:19→22:50)
[2019-07-22] MEDS: ACETAMINOPHEN 325 MG TABLET (FP) PO PRN (11:39)
--- NOTE | 2019-07-22 12:14 | PN ---
Progress Note, Physician Chief Complaint: patient awake alert able to answer my question - Current Medication List Current Medications: Active Medications Acetaminophen (Tylenol -) 650 mg PO Q6H PRN PRN Reason: PAIN LEVEL 4 - 6 Chlorhexidine Gluconate (Hibiclens For Decolonization -) 1 applic TP HS [facility] Last Admin: 07/21/19 21:41 Dose: 1 applic Chlorhexidine Gluconate (Peridex -) 15 ml MM BID [facility] Last Admin: 07/22/19 09:19 Dose: Not Given Heparin Sodium (Porcine) (Heparin -) 5,000 unit SQ BID [facility] Last Admin: 07/22/19 09:18 Dose: 5,000 unit Piperacillin Sod/Tazobactam (Sod 3.375 gm/ Dextrose) 50 mls @ 100 mls/hr IVPB Q8H-IV [facility]; Protocol Last Admin: 07/22/19 09:16 Dose: 100 mls/hr Potassium Chloride 10 meq/ (Sodium Chloride) 1,005 mls @ 100 mls/hr IV Q10H [facility] Last Admin: 07/22/19 04:05 Dose: 100 mls/hr Insulin Aspart (Novolog Vial Sliding Scale -) 1 vial SQ ACHS [facility]; Protocol Last Admin: 07/22/19 06:51 Dose: 2 units Mupirocin (Bactroban Ointment (For Decolonization) -) 1 applic NS BID [facility] Stop: 07/23/19 09:59 Last Admin: 07/22/19 09:18 Dose: 1 applic Rifaximin (Xifaxan -) 550 mg PO BID [facility] Last Admin: 07/22/19 09:18 Dose: 550 mg Vancomycin HCl (Vancomycin (Pre-Docked)) 1,000 mg IVPB DAILY [facility]; Protocol - Objective Vital Signs: Vital Signs Temperature 97.6 F 07/22/19 08:00 Pulse Rate 62 07/22/19 08:00 Respiratory Rate 16 07/22/19 08:11 Blood Pressure 132/64 07/22/19 08:00 O2 Sat by Pulse Oximetry (%) 100 07/22/19 08:11 Constitutional: Yes: Calm Neck: Yes: Trachea Midline Cardiovascular: Yes: Regular Rate and Rhythm, S1, S2 Respiratory: Yes: CTA Bilaterally Gastrointestinal: Yes: Normal Bowel Sounds, Soft Edema: No Labs: CBC, BMP 07/22/19 06:50 07/22/19 06:50 INR, PTT INR 0.97 (0.83-1.09) 07/17/19 21:53 Problem List - Problems (1) Acute metabolic encephalopathy Assessment/Plan: Microbiology 07/18/19 15:15 Arm - Right Upper Gram Stain - Final 07/18/19 15:15 Arm - Right Upper Wound Culture - Preliminary Presumptive Mrsa (Pbp2a Pos) blood culture negative c diff negative iv vancoycin ID eval mental status better renal function continues to improve hypokalemia resolved rifaximin on board Code(s): G93.41 - METABOLIC ENCEPHALOPATHY (2) Acute respiratory failure Assessment/Plan: s/p extubation now much improved Code(s): J96.00 - ACUTE RESPIRATORY FAILURE, UNSP W HYPOXIA OR HYPERCAPNIA (3) Acute renal failure Assessment/Plan: improved no need for HD right now Code(s): N17.9 - ACUTE KIDNEY FAILURE, UNSPECIFIED Qualifiers: Acute renal failure type: unspecified Qualified Code(s): N17.9 - Acute kidney failure, unspecified (4) Sepsis Assessment/Plan: lactic acidsosis resolved no need for pressors right now Microbiology 07/20/19 16:50 Stool Clostridioides difficile Antigen - Final 07/20/19 16:50 Stool Clostridioides difficile Toxin Assay - Final 07/18/19 15:15 Arm - Right Upper Gram Stain - Final 07/18/19 14:55 Cerebral Spinal Fluid - Lumbar Puncture Gram Stain - Final 07/18/19 14:55 Cerebral Spinal Fluid - Lumbar Puncture CSF Culture - Final 07/17/19 23:00 Urine - Urine - Catheterized Urine Culture - Final NO GROWTH OBTAINED 07/20/19 23:00 Blood - Peripheral Venous Blood Culture - Preliminary NO GROWTH OBTAINED AFTER 24 HOURS, INCUBATION TO CONTINUE FOR 4 DAYS. 07/20/19 23:00 Blood - Peripheral Venous Blood Culture - Preliminary NO GROWTH OBTAINED AFTER 24 HOURS, INCUBATION TO CONTINUE FOR 4 DAYS. 07/18/19 15:15 Arm - Right Upper Wound Culture - Preliminary Presumptive Mrsa (Pbp2a Pos) 07/17/19 21:55 Blood - Peripheral Venous Blood Culture - Preliminary NO GROWTH OBTAINED AFTER 96 HOURS, INCUBATION TO CONTINUE FOR 1 DAYS. 07/17/19 21:50 Blood - Peripheral Venous Blood Culture - Preliminary NO GROWTH OBTAINED AFTER 96 HOURS, INCUBATION TO CONTINUE FOR 1 DAYS. fever resolved Code(s): A41.9 - SEPSIS, UNSPECIFIED ORGANISM
--- NOTE | 2019-07-22 13:47 | PN ---
Progress Note, [facility] - Note Progress Note: Impression: Extubated thursday. Admitted with bilateral LL infiltrates- Aspiration? Dysphonia post extubation-silent aspiration suspected presently on thin liquids - Dysphagia Impressions/Plan Swallowing Skills: Impaired Dysphagia Impressions: Ongoing Evaluation, Suspect Aspiration *Silent aspiration: cannot be R/O at bedside - Recommendations Diet Consistency: NPO, Other (when voice becomes strong, no longer hoarse, and lungs are clear, trial of dysphagia puree/honey on tsp) Started on puree/honey with good tolerance. Nursing reported pt asking for diet upgrade, tolerated water 07/21 Voice now euphonic. Good mastication. Brisk swallow on oz water, with continuous drinking via straw. Rec: reg,soft diet, Thin liquids, assist with meals, Blind
--- NOTE | 2019-07-22 13:58 | PN ---
Progress Note, Physician History of Present Illness: Pt seen and examined at bedside. He remains confused. - Current Medication List Current Medications: Active Medications Acetaminophen (Tylenol -) 650 mg PO Q6H PRN PRN Reason: PAIN LEVEL 4 - 6 Last Admin: 07/22/19 11:39 Dose: 650 mg Chlorhexidine Gluconate (Hibiclens For Decolonization -) 1 applic TP HS [facility] Last Admin: 07/21/19 21:41 Dose: 1 applic Chlorhexidine Gluconate (Peridex -) 15 ml MM BID [facility] Last Admin: 07/22/19 09:19 Dose: Not Given Heparin Sodium (Porcine) (Heparin -) 5,000 unit SQ BID [facility] Last Admin: 07/22/19 09:18 Dose: 5,000 unit Piperacillin Sod/Tazobactam (Sod 3.375 gm/ Dextrose) 50 mls @ 100 mls/hr IVPB Q8H-IV [facility]; Protocol Last Admin: 07/22/19 09:16 Dose: 100 mls/hr Potassium Chloride 10 meq/ (Sodium Chloride) 1,005 mls @ 100 mls/hr IV Q10H [facility] Last Admin: 07/22/19 11:59 Dose: 100 mls/hr Insulin Aspart (Novolog Vial Sliding Scale -) 1 vial SQ ACHS [facility]; Protocol Last Admin: 07/22/19 11:59 Dose: 4 units Mupirocin (Bactroban Ointment (For Decolonization) -) 1 applic NS BID [facility] Stop: 07/23/19 09:59 Last Admin: 07/22/19 09:18 Dose: 1 applic Rifaximin (Xifaxan -) 550 mg PO BID [facility] Last Admin: 07/22/19 09:18 Dose: 550 mg Vancomycin HCl (Vancomycin (Pre-Docked)) 1,000 mg IVPB DAILY [facility]; Protocol - Objective Vital Signs: Vital Signs Temperature 97.6 F 07/22/19 08:00 Pulse Rate 62 07/22/19 08:00 Respiratory Rate 16 07/22/19 08:11 Blood Pressure 132/64 07/22/19 08:00 O2 Sat by Pulse Oximetry (%) 100 07/22/19 08:11 Constitutional: Yes: Calm Eyes: Yes: Conjunctiva Clear HENT: Yes: Atraumatic Neck: Yes: Supple Cardiovascular: Yes: S1, S2 Respiratory: Yes: CTA Bilaterally Gastrointestinal: Yes: Soft Genitourinary: Yes: Incontinence Edema: No Neurological: Yes: Confusion Labs: CBC, BMP 07/22/19 06:50 07/22/19 06:50 INR, PTT INR 0.97 (0.83-1.09) 07/17/19 21:53 Assessment/Plan Current Medications Generic Name Dose Route Start Last Admin Trade Name Freq PRN Reason Stop Dose Admin Acetaminophen 650 mg 07/22/19 11:13 07/22/19 11:39 Tylenol - PO 650 mg Q6H PRN Administration PAIN LEVEL 4 - 6 Chlorhexidine Gluconate 1 applic 07/18/19 22:00 07/21/19 21:41 Hibiclens For Decolonization - TP 1 applic HS [facility] Administration Chlorhexidine Gluconate 15 ml 07/18/19 22:00 07/22/19 09:19 Peridex - MM Not Given BID [facility] Heparin Sodium (Porcine) 5,000 unit 07/18/19 10:00 07/22/19 09:18 Heparin - SQ 5,000 unit BID [facility] Administration Piperacillin Sod/Tazobactam 50 mls @ 100 mls/hr 07/18/19 18:00 07/22/19 09:16 Sod 3.375 gm/ Dextrose IVPB 100 mls/hr Q8H-IV [facility] Administration Protocol Potassium Chloride 10 meq/ 1,005 mls @ 100 mls/hr 07/21/19 15:14 07/22/19 11: 59 Sodium Chloride IV 100 mls/hr Q10H [facility] Administration Insulin Aspart 1 vial 07/18/19 22:00 07/22/19 11:59 Novolog Vial Sliding Scale - SQ 4 units ACHS [facility] Administration Protocol Mupirocin 1 applic 07/18/19 10:00 07/22/19 09:18 Bactroban Ointment (For Decolonization) - NS 07/23/19 09:59 1 applic BID [facility] Administration Rifaximin 550 mg 07/21/19 10:00 07/22/19 09:18 Xifaxan - PO 550 mg BID [facility] Administration Vancomycin HCl 1,000 mg 07/20/19 11:15 Vancomycin (Pre-Docked) IVPB DAILY [facility] Protocol Impression 1. BRUCE 2. metabolic acidosis 3. lactic acidosis 4. altered mental status 5. DM 6. HTN 7. PAD 8. sepsis 9. shock 10. resp failure with pending intubation 11. right arm abscess Plan - renal function is improved - avoid nephrotoxins - cont to monitor radiology physician assistant - no need for HD - avoid metformin - will follow PRN
--- NOTE | 2019-07-22 14:30 | PN ---
Progress Note, Physician History of Present Illness: stable no new issues - Current Medication List Current Medications: Active Medications Acetaminophen (Tylenol -) 650 mg PO Q6H PRN PRN Reason: PAIN LEVEL 4 - 6 Last Admin: 07/22/19 11:39 Dose: 650 mg Chlorhexidine Gluconate (Hibiclens For Decolonization -) 1 applic TP HS [facility] Last Admin: 07/21/19 21:41 Dose: 1 applic Chlorhexidine Gluconate (Peridex -) 15 ml MM BID [facility] Last Admin: 07/22/19 09:19 Dose: Not Given Heparin Sodium (Porcine) (Heparin -) 5,000 unit SQ BID [facility] Last Admin: 07/22/19 09:18 Dose: 5,000 unit Piperacillin Sod/Tazobactam (Sod 3.375 gm/ Dextrose) 50 mls @ 100 mls/hr IVPB Q8H-IV [facility]; Protocol Last Admin: 07/22/19 09:16 Dose: 100 mls/hr Potassium Chloride 10 meq/ (Sodium Chloride) 1,005 mls @ 100 mls/hr IV Q10H [facility] Last Admin: 07/22/19 11:59 Dose: 100 mls/hr Insulin Aspart (Novolog Vial Sliding Scale -) 1 vial SQ ACHS [facility]; Protocol Last Admin: 07/22/19 11:59 Dose: 4 units Mupirocin (Bactroban Ointment (For Decolonization) -) 1 applic NS BID [facility] Stop: 07/23/19 09:59 Last Admin: 07/22/19 09:18 Dose: 1 applic Rifaximin (Xifaxan -) 550 mg PO BID [facility] Last Admin: 07/22/19 09:18 Dose: 550 mg Vancomycin HCl (Vancomycin (Pre-Docked)) 1,000 mg IVPB DAILY [facility]; Protocol - Objective Vital Signs: Vital Signs Temperature 97.6 F 07/22/19 08:00 Pulse Rate 62 07/22/19 08:00 Respiratory Rate 16 07/22/19 08:11 Blood Pressure 132/64 07/22/19 08:00 O2 Sat by Pulse Oximetry (%) 100 07/22/19 08:11 Constitutional: Yes: No Distress, Calm Cardiovascular: Yes: S1, S2 Respiratory: Yes: Regular, CTA Bilaterally Gastrointestinal: Yes: Normal Bowel Sounds, Soft Musculoskeletal: Yes: WNL Extremities: Yes: WNL Neurological: Yes: Other Psychiatric: Yes: Other Labs: CBC, BMP 07/22/19 06:50 07/22/19 06:50 INR, PTT INR 0.97 (0.83-1.09) 07/17/19 21:53 Assessment/Plan Acute Respiratory Failure Shock - Likely Septic Hypothermia Anion Gap Metabolic Acidosis Lactic Acidosis Acute Kidney Injury requiring HD PAD HTN DM Hyperlipidemia plan wound cx noted patient still abit lethargic all cx negative so far wound cx mrsa will stop zosyn will switch to vanco once patient awake and alert and we have sensitivities will switch to oral rest as per icu
[2019-07-22] MEDS: VANCOMYCIN 1 GRAM (PRE-DOCKED) 1,000 MG/250 ML BAG IVPB SCH (15:39)
[2019-07-22] MEDS ORDERED: ACETAMINOPHEN 1000 MG/100 ML VIAL (NON FORMULARY) IVPB ONE (18:06)
[2019-07-22] MEDS: VANCOMYCIN 1 GM in D5W (PRE-DOCKED) 1,000 MG/250 ML IVPB SCH ×2 (20:17→20:18)
[2019-07-23 08:31] LABS: HEMATOCRIT 21.4 % (35.4-49); HEMOGLOBIN 7.3 GM/dL (11.7-16.9); MCH 31.6 pg (25.7-33.7); MCHC 34.2 g/dl (32.0-35.9); MEAN CELL VOLUME 92.3 fl (80-96); MEAN PLT VOLUME 8.1 fl (7.5-11.1); PLATELET COUNT 262 K/MM3 (134-434); RBC 2.31 M/mm3 (4.00-5.60); RDW 13.6 % (11.9-15.9); WHITE BLOOD COUNT 5.7 K/mm3 (4.0-10.0)
[2019-07-23] MEDS: INSULIN SLIDING SCALE (NOVOLOG) 1 VIAL SQ SCH ×4 (08:33→21:46)
[2019-07-23] MEDS: SODIUM CHLORIDE 0.45% 1,000 ML with POTASSIUM CHLORIDE 10 MEQ IV SCH ×3 (08:34→21:48)
[2019-07-23 08:56] LABS: BLOOD UREA NITROGEN 11.7 mg/dL (7-18); MAGNESIUM 1.8 mg/dL (1.8-2.4); PHOSPHOROUS 1.6 mg/dL (2.5-4.9); POTASSIUM 4.8 mmol/L (3.5-5.1)
[2019-07-23 09:18] LABS: CALCIUM 6.3 mg/dL (8.5-10.1)
--- NOTE | 2019-07-23 10:15 | PN ---
Progress Note, Physician - Current Medication List Current Medications: Active Medications Acetaminophen (Tylenol -) 650 mg PO Q6H PRN PRN Reason: PAIN LEVEL 4 - 6 Last Admin: 07/22/19 11:39 Dose: 650 mg Chlorhexidine Gluconate (Peridex -) 15 ml MM BID [facility] Last Admin: 07/22/19 22:50 Dose: 15 ml Heparin Sodium (Porcine) (Heparin -) 5,000 unit SQ BID [facility] Last Admin: 07/22/19 22:51 Dose: 5,000 unit Potassium Chloride 10 meq/ (Sodium Chloride) 1,005 mls @ 100 mls/hr IV Q10H [facility] Last Admin: 07/23/19 08:34 Dose: Not Given Vancomycin HCl (Vancomycin (Pre-Docked)) 1,000 mg in 250 mls @ 166.667 mls/hr IVPB DAILY@1500 [facility]; Protocol Last Admin: 07/22/19 15:39 Dose: 166.667 mls/hr Insulin Aspart (Novolog Vial Sliding Scale -) 1 vial SQ ACHS [facility]; Protocol Last Admin: 07/23/19 08:33 Dose: Not Given Rifaximin (Xifaxan -) 550 mg PO BID [facility] Last Admin: 07/22/19 22:50 Dose: 550 mg - Objective Vital Signs: Vital Signs Temperature 98.4 F 07/23/19 06:00 Pulse Rate 73 07/23/19 06:00 Respiratory Rate 18 07/23/19 06:00 Blood Pressure 136/72 07/23/19 06:00 O2 Sat by Pulse Oximetry (%) 100 07/22/19 21:00 Cardiovascular: Yes: S1, S2 Respiratory: Yes: Regular, CTA Bilaterally Gastrointestinal: Yes: Normal Bowel Sounds, Soft. No: Tenderness Labs: CBC, BMP 07/23/19 07:20 07/23/19 07:20 INR, PTT INR 0.97 (0.83-1.09) 07/17/19 21:53 Assessment/Plan - Problems (1) ESRD (end stage renal disease) on dialysis per renal Code(s): N18.6 - END STAGE RENAL DISEASE; Z99.2 - DEPENDENCE ON RENAL DIALYSIS (2) Acute metabolic encephalopathy ct head nad maybe due sepsis toxic metabolic Code(s): G93.41 - METABOLIC ENCEPHALOPATHY (3) Diabetes bgm Code(s): E11.9 - TYPE 2 DIABETES MELLITUS WITHOUT COMPLICATIONS (4) Sepsis Continue with IV abx per id maybe due to abscess in arm monitor labs Code(s): A41.9 - SEPSIS, UNSPECIFIED ORGANISM (5) Respiratory Failure Off Vent (6) Anemia MONITOR
[2019-07-23] MEDS ORDERED: CALCIUM GLUCONATE 10% - 1,000 MG/10 ML VIAL IVPB ONE (10:16)
--- NOTE | 2019-07-23 10:33 | PN ---
Progress Note, Physician History of Present Illness: stable no new issues - Current Medication List Current Medications: Active Medications Acetaminophen (Tylenol -) 650 mg PO Q6H PRN PRN Reason: PAIN LEVEL 4 - 6 Last Admin: 07/22/19 11:39 Dose: 650 mg Chlorhexidine Gluconate (Peridex -) 15 ml MM BID [facility] Last Admin: 07/22/19 22:50 Dose: 15 ml Heparin Sodium (Porcine) (Heparin -) 5,000 unit SQ BID [facility] Last Admin: 07/22/19 22:51 Dose: 5,000 unit Potassium Chloride 10 meq/ (Sodium Chloride) 1,005 mls @ 100 mls/hr IV Q10H [facility] Last Admin: 07/23/19 08:34 Dose: Not Given Vancomycin HCl (Vancomycin (Pre-Docked)) 1,000 mg in 250 mls @ 166.667 mls/hr IVPB DAILY@1500 [facility]; Protocol Last Admin: 07/22/19 15:39 Dose: 166.667 mls/hr Insulin Aspart (Novolog Vial Sliding Scale -) 1 vial SQ ACHS [facility]; Protocol Last Admin: 07/23/19 08:33 Dose: Not Given Rifaximin (Xifaxan -) 550 mg PO BID [facility] Last Admin: 07/22/19 22:50 Dose: 550 mg - Objective Vital Signs: Vital Signs Temperature 98.4 F 07/23/19 06:00 Pulse Rate 73 07/23/19 06:00 Respiratory Rate 18 07/23/19 06:00 Blood Pressure 136/72 07/23/19 06:00 O2 Sat by Pulse Oximetry (%) 100 07/22/19 21:00 Constitutional: Yes: No Distress, Calm Cardiovascular: Yes: S1, S2 Respiratory: Yes: Regular, CTA Bilaterally Gastrointestinal: Yes: Normal Bowel Sounds, Soft Musculoskeletal: Yes: WNL Extremities: Yes: WNL Wound/Incision: Yes: Clean/Dry Neurological: Yes: Alert Labs: CBC, BMP 07/23/19 07:20 07/23/19 07:20 INR, PTT INR 0.97 (0.83-1.09) 07/17/19 21:53 Assessment/Plan Acute Respiratory Failure Shock - Likely Septic Hypothermia Anion Gap Metabolic Acidosis Lactic Acidosis Acute Kidney Injury requiring HD PAD HTN DM Hyperlipidemia plan continue current mgmt await for cx reports once we have that we will decide abx rest as per the team
--- NOTE | 2019-07-23 10:57 | PN ---
Progress Note (short form) - Note Progress Note: PULMONARY Gen: NAD at rest Heart: RRR Lung: decreased breath sounds at the bases Abd: soft, nontender Ext: no edema LABS/MEDS/NOTES REVIEWED ASSESSMENT AND PLAN: s/p Acute Respiratory Failure Shock - Likely Septic resolving Right Arm Abscess s/p I&D Anion Gap Metabolic Acidosis Lactic Acidosis Acute Kidney Injury requiring HD PAD HTN DM Hyperlipidemia Anemia - continue antibiotics - f/u cultures - IVF - monitor urine output, creatinine - replete lytes - monitor H/H - DVT/GI prophylaxis Charmaine RIVERS MD
[2019-07-23] MEDS ORDERED: PT OWN MED DRAWER 7, Y5N ONE ×2 (11:29→21:01)
[2019-07-23] MEDS: RIFAXIMIN 550 MG TABLET (UD) PO SCH ×2 (11:43→21:49)
[2019-07-23] MEDS: HEPARIN NA (PORCINE) 5,000 UNITS/ML 1ML VIAL SQ SCH ×2 (11:48→21:47)
[2019-07-23] MEDS: CHLORHEXIDINE GLUCONATE 0.12% 15ML CUP MM SCH ×2 (11:48→21:48)
[2019-07-23] MEDS ORDERED: INSULIN (NOVOLOG) ASPART 100 UNITS/ML 10ML VIAL ONE (12:05)
[2019-07-23] MEDS: VANCOMYCIN 1 GRAM (PRE-DOCKED) 1,000 MG/250 ML BAG IVPB SCH (17:04)
[2019-07-24] MEDS: INSULIN SLIDING SCALE (NOVOLOG) 1 VIAL SQ SCH ×4 (06:11→22:21)
[2019-07-24] MEDS: SODIUM CHLORIDE 0.45% 1,000 ML with POTASSIUM CHLORIDE 10 MEQ IV SCH ×2 (06:11→17:28)
[2019-07-24 07:40] LABS: BASO % 0.4 % (0-2.0); EOS % 4.2 % (0-4.5); HEMOGLOBIN 9.4 GM/dL (11.7-16.9); LYMPH % 14.2 % (8-40); MCH 31.5 pg (25.7-33.7); MCHC 34.8 g/dl (32.0-35.9); MEAN CELL VOLUME 90.4 fl (80-96); MEAN PLT VOLUME 7.1 fl (7.5-11.1); MONO % 11.6 % (3.8-10.2); NEUT % 69.6 % (42.8-82.8); PLATELET COUNT 288 K/MM3 (134-434); RBC 2.98 M/mm3 (4.00-5.60); RDW 13.9 % (11.9-15.9); WHITE BLOOD COUNT 7.2 K/mm3 (4.0-10.0)
[2019-07-24 08:05] LABS: BLOOD UREA NITROGEN 10.1 mg/dL (7-18); CREATININE 1.2 mg/dL (0.55-1.3); POTASSIUM 3.7 mmol/L (3.5-5.1)
[2019-07-24 08:06] LABS: ALBUMIN 2.2 g/dl (3.4-5.0); BILIRUBIN,TOTAL 0.5 mg/dL (0.2-1); CALCIUM 7.9 mg/dL (8.5-10.1); TOT PROT 4.9 g/dl (6.4-8.2)
[2019-07-24] MEDS ORDERED: PT OWN MED DRAWER 7, Y5N ONE ×3 (08:24→22:12)
[2019-07-24] MEDS: HEPARIN NA (PORCINE) 5,000 UNITS/ML 1ML VIAL SQ SCH ×2 (10:05→22:20)
[2019-07-24] MEDS: RIFAXIMIN 550 MG TABLET (UD) PO SCH ×2 (10:05→22:20)
--- NOTE | 2019-07-24 10:49 | PN ---
Progress Note, Physician History of Present Illness: stable no new issues - Current Medication List Current Medications: Active Medications Acetaminophen (Tylenol -) 650 mg PO Q6H PRN PRN Reason: PAIN LEVEL 4 - 6 Last Admin: 07/22/19 11:39 Dose: 650 mg Chlorhexidine Gluconate (Peridex -) 15 ml MM BID [facility] Last Admin: 07/23/19 21:48 Dose: 15 ml Heparin Sodium (Porcine) (Heparin -) 5,000 unit SQ BID [facility] Last Admin: 07/24/19 10:05 Dose: 5,000 unit Potassium Chloride 10 meq/ (Sodium Chloride) 1,005 mls @ 100 mls/hr IV Q10H [facility] Last Admin: 07/24/19 06:11 Dose: 100 mls/hr Vancomycin HCl (Vancomycin (Pre-Docked)) 1,000 mg in 250 mls @ 166.667 mls/hr IVPB DAILY@1500 [facility]; Protocol Last Admin: 07/23/19 17:04 Dose: 166.667 mls/hr Insulin Aspart (Novolog Vial Sliding Scale -) 1 vial SQ ACHS [facility]; Protocol Last Admin: 07/24/19 06:11 Dose: Not Given Rifaximin (Xifaxan -) 550 mg PO BID [facility] Last Admin: 07/24/19 10:05 Dose: 550 mg - Objective Vital Signs: Vital Signs Temperature 98.1 F 07/24/19 10:26 Pulse Rate 73 07/24/19 10:26 Respiratory Rate 16 07/24/19 10:26 Blood Pressure 149/84 07/24/19 10:26 O2 Sat by Pulse Oximetry (%) 100 07/22/19 21:00 Constitutional: Yes: No Distress, Calm Cardiovascular: Yes: S1, S2 Respiratory: Yes: Regular, CTA Bilaterally Gastrointestinal: Yes: Normal Bowel Sounds, Soft Musculoskeletal: Yes: WNL Extremities: Yes: Other Wound/Incision: Yes: Clean/Dry Neurological: Yes: Alert, Oriented Psychiatric: Yes: Alert, Oriented Labs: CBC, BMP 07/24/19 07:20 07/24/19 07:20 INR, PTT INR 0.97 (0.83-1.09) 07/17/19 21:53 Assessment/Plan Acute Respiratory Failure Shock - Likely Septic Hypothermia Anion Gap Metabolic Acidosis Lactic Acidosis Acute Kidney Injury requiring HD PAD HTN DM Hyperlipidemia plan continue current mgmt cx reports noted patient can be switched to linezoloid 600 mg po bifon discharge for another 10 days rest as per the team
--- NOTE | 2019-07-24 11:28 | PN ---
Progress Note, Physician - Current Medication List Current Medications: Active Medications Acetaminophen (Tylenol -) 650 mg PO Q6H PRN PRN Reason: PAIN LEVEL 4 - 6 Last Admin: 07/22/19 11:39 Dose: 650 mg Chlorhexidine Gluconate (Peridex -) 15 ml MM BID [facility] Last Admin: 07/23/19 21:48 Dose: 15 ml Heparin Sodium (Porcine) (Heparin -) 5,000 unit SQ BID [facility] Last Admin: 07/24/19 10:05 Dose: 5,000 unit Potassium Chloride 10 meq/ (Sodium Chloride) 1,005 mls @ 100 mls/hr IV Q10H [facility] Last Admin: 07/24/19 06:11 Dose: 100 mls/hr Vancomycin HCl (Vancomycin (Pre-Docked)) 1,000 mg in 250 mls @ 166.667 mls/hr IVPB DAILY@1500 [facility]; Protocol Last Admin: 07/23/19 17:04 Dose: 166.667 mls/hr Insulin Aspart (Novolog Vial Sliding Scale -) 1 vial SQ ACHS [facility]; Protocol Last Admin: 07/24/19 06:11 Dose: Not Given Rifaximin (Xifaxan -) 550 mg PO BID [facility] Last Admin: 07/24/19 10:05 Dose: 550 mg - Objective Vital Signs: Vital Signs Temperature 98.1 F 07/24/19 10:26 Pulse Rate 73 07/24/19 10:26 Respiratory Rate 16 07/24/19 10:26 Blood Pressure 149/84 07/24/19 10:26 O2 Sat by Pulse Oximetry (%) 100 07/22/19 21:00 Cardiovascular: Yes: S1, S2 Respiratory: Yes: Regular, CTA Bilaterally Gastrointestinal: Yes: Normal Bowel Sounds, Soft Labs: CBC, BMP 07/24/19 07:20 07/24/19 07:20 INR, PTT INR 0.97 (0.83-1.09) 07/17/19 21:53 Assessment/Plan - Problems (1) ESRD (end stage renal disease) on dialysis per renal Code(s): N18.6 - END STAGE RENAL DISEASE; Z99.2 - DEPENDENCE ON RENAL DIALYSIS (2) Acute metabolic encephalopathy ct head nad maybe due sepsis toxic metabolic Code(s): G93.41 - METABOLIC ENCEPHALOPATHY (3) Diabetes bgm Code(s): E11.9 - TYPE 2 DIABETES MELLITUS WITHOUT COMPLICATIONS (4) Sepsis Continue with IV abx per id maybe due to abscess in arm monitor labs Code(s): A41.9 - SEPSIS, UNSPECIFIED ORGANISM (5) Respiratory Failure Off Vent (6) Anemia MONITOR
[2019-07-24] MEDS: CHLORHEXIDINE GLUCONATE 0.12% 15ML CUP MM SCH ×2 (12:35→22:22)
[2019-07-24] MEDS: VANCOMYCIN 1 GRAM (PRE-DOCKED) 1,000 MG/250 ML BAG IVPB SCH (15:16)
--- NOTE | 2019-07-24 18:52 | CONSULT ---
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 Who presented to the ED via ambulance for AMS and labored breathing. Respiratory failure,sepsis, sp intubation for pneumonia has improved with some dyspnea and cough residual,denies hypoglycemia, nausea or vomiting - Past Medical History Cardio/Vascular: Yes: HTN, Hyperlipdemia Endocrine: Yes: Diabetes Mellitus - Alcohol/Substance Use Hx Alcohol Use: Yes (SOCIAL) - Smoking History Smoking history: Unknown if ever smoked Have you smoked in the past 12 months: No Aproximately how many cigarettes per day: 0 If you are a former smoker, when did you quit?: 10 years Home Medications - Allergies Allergies/Adverse Reactions: Allergies Allergy/AdvReac Type Severity Reaction Status Date / Time No Known Allergies Allergy Verified 07/17/19 21:30 - Home Medications Home Medications: Ambulatory Orders Metformin HCl [Glucophage] 1,000 mg PO BID 11/19/16 Collagenase Clostridium Hist. [Santyl] 90 gm TP DAILY #1 tube 12/14/18 Acetaminophen [Tylenol .Regular Strength -] 650 mg PO Q6H PRN tablet 01/10/19 Clopidogrel Bisulfate [Plavix -] 75 mg PO DAILY tablet 01/10/19 Lisinopril [Prinivil] 10 mg PO DAILY tablet 01/10/19 Aspirin [ASA -] 81 mg PO DAILY 02/15/19 Insulin Glargine,Hum.rec.anlog [Basaglar Kwikpen U-100] 8 unit SQ HS 02/15/19 Pravastatin Sodium [Pravachol -] 40 mg PO HS 02/15/19 Ascorbic Acid 500 mg PO DAILY 05/03/19 Multivitamin [Multiple Vitamins] 1 tab PO DAILY 05/03/19 Brimonidine Tartrate [Alphagan 0.2% -] 1 drop TID 07/18/19 Timolol Maleate 0.5% Gfs [Timoptic Xe 0.5%] 1 drop OD BID 07/18/19 acetaZOLAMIDE [Diamox Sequels -] 500 mg PO BID 07/18/19 Review of Systems - Review of Systems Constitutional: reports: Loss of Appetite Eyes: reports: No Symptoms HENT: reports: No Symptoms Neck: reports: No Symptoms Cardiovascular: reports: Shortness of Breath Respiratory: reports: Exercise Intolerance, SOB on Exertion Gastrointestinal: reports: Bloating Genitourinary: reports: No Symptoms Breasts: reports: No Symptoms Reported Musculoskeletal: reports: Extremity Pain, Muscle Cramps, Muscle Weakness Neurological: reports: Numbness, Unsteady Gait, Weakness Endocrine: reports: Unexplained Weight Gain Physical Exam Vital Signs: Vital Signs Temperature 98.3 F 07/24/19 17:46 Pulse Rate 70 07/24/19 17:46 Respiratory Rate 15 07/24/19 17:46 Blood Pressure 136/65 07/24/19 17:46 O2 Sat by Pulse Oximetry (%) 100 07/22/19 21:00 Constitutional: Yes: Calm Eyes: Yes: EOM Intact HENT: Yes: Normocephalic Neck: Yes: Trachea Midline Cardiovascular: Yes: Tachycardia Respiratory: Yes: Rales, Rhonchi, Tachypnea Gastrointestinal: Yes: Normal Bowel Sounds ...Rectal Exam: Yes: Deferred Renal/: Yes: WNL Musculoskeletal: Yes: Muscle Weakness Extremities: Yes: Delayed Capillary Refill Edema: No Neurological: Yes: Alert, Weakness Labs: CBC, BMP 07/24/19 07:20 07/24/19 12:25 Assessment/Plan Current Active Problems Acute metabolic encephalopathy (Acute) Acute respiratory failure (Acute) Diabetes (Acute) ESRD (end stage renal disease) on dialysis (Acute) Sepsis (Acute) hypocalcemia Abnormal Lab Results 07/24/19 07/24/19 07/24/19 07:20 07:20 12:25 RBC 2.98 L Hgb 9.4 L Hct 27.0 L D MPV 7.1 L D Monocytes % 11.6 H D Chloride 114 H Anion Gap 6 L Random Glucose 131 H 296 H Calcium 7.9 L Total Protein 4.9 L Albumin 2.2 L Laboratory Results - last 24 hr 07/23/19 07/24/19 07/24/19 21:44 06:09 07:20 WBC 7.2 RBC 2.98 L Hgb 9.4 L Hct 27.0 L D MCV 90.4 MCH 31.5 MCHC 34.8 RDW 13.9 Plt Count 288 MPV 7.1 L D Absolute Neuts (auto) 5.0 Neutrophils % 69.6 D Lymphocytes % 14.2 D Monocytes % 11.6 H D Eosinophils % 4.2 D Basophils % 0.4 Nucleated RBC % 0 Sodium Potassium Chloride Carbon Dioxide Anion Gap BUN Creatinine Est GFR (CKD-EPI)AfAm Est GFR (CKD-EPI)NonAf POC Glucometer 239 128 Random Glucose Calcium Total Bilirubin AST ALT Alkaline Phosphatase Total Protein Albumin 07/24/19 07/24/19 07/24/19 07:20 11:37 12:25 WBC RBC Hgb Hct MCV MCH MCHC RDW Plt Count MPV Absolute Neuts (auto) Neutrophils % Lymphocytes % Monocytes % Eosinophils % Basophils % Nucleated RBC % Sodium 141 Potassium 3.7 Chloride 114 H Carbon Dioxide 21 Anion Gap 6 L BUN 10.1 Creatinine 1.2 Est GFR (CKD-EPI)AfAm 71.08 Est GFR (CKD-EPI)NonAf 61.33 POC Glucometer 526 Random Glucose 131 H 296 H Calcium 7.9 L Total Bilirubin 0.5 AST 20 ALT 24 Alkaline Phosphatase 72 Total Protein 4.9 L Albumin 2.2 L 07/24/19 07/24/19 12:30 17:31 WBC RBC Hgb Hct MCV MCH MCHC RDW Plt Count MPV Absolute Neuts (auto) Neutrophils % Lymphocytes % Monocytes % Eosinophils % Basophils % Nucleated RBC % Sodium Potassium Chloride Carbon Dioxide Anion Gap BUN Creatinine Est GFR (CKD-EPI)AfAm Est GFR (CKD-EPI)NonAf POC Glucometer 307 241 Random Glucose Calcium Total Bilirubin AST ALT Alkaline Phosphatase Total Protein Albumin plan: ck vit d25 [id number] weekly calcitrol .25mcg hba1c\ bgm qid novolog scale levemir 10 units am daily
[2019-07-24] MEDS: CALCITRIOL 0.25 MCG CAPSULE (FP) PO SCH (22:13)
[2019-07-25] MEDS: SODIUM CHLORIDE 0.45% 1,000 ML with POTASSIUM CHLORIDE 10 MEQ IV SCH ×3 (03:28→17:39)
[2019-07-25] MEDS ORDERED: PT OWN MED DRAWER 7, Y5N ONE ×3 (03:30→22:23)
[2019-07-25] MEDS: INSULIN (LEVEMIR) 100 UNITS/ML UNITS SQ SCH (07:03)
[2019-07-25] MEDS: INSULIN SLIDING SCALE (NOVOLOG) 1 VIAL SQ SCH ×4 (07:04→22:31)
--- NOTE | 2019-07-25 09:40 | PN ---
Progress Note, Physician Chief Complaint: Pneumonia Metabolic Encephalopathy Sepsis History of Present Illness: Previous notes and events reviewed awake and alert NAD complain of productive cough with clear sputum denies chest pain or SOB - Current Medication List Current Medications: Active Medications Acetaminophen (Tylenol -) 650 mg PO Q6H PRN PRN Reason: PAIN LEVEL 4 - 6 Last Admin: 07/22/19 11:39 Dose: 650 mg Calcitriol (Rocaltrol -) 0.25 mcg PO DAILY [facility] Last Admin: 07/24/19 22:13 Dose: 0.25 mcg Chlorhexidine Gluconate (Peridex -) 15 ml MM BID [facility] Last Admin: 07/24/19 22:22 Dose: 15 ml Heparin Sodium (Porcine) (Heparin -) 5,000 unit SQ BID [facility] Last Admin: 07/24/19 22:20 Dose: 5,000 unit Potassium Chloride 10 meq/ (Sodium Chloride) 1,005 mls @ 100 mls/hr IV Q10H [facility] Last Admin: 07/25/19 03:34 Dose: 100 mls/hr Vancomycin HCl (Vancomycin (Pre-Docked)) 1,000 mg in 250 mls @ 166.667 mls/hr IVPB DAILY@1500 [facility]; Protocol Last Admin: 07/24/19 15:16 Dose: 166.667 mls/hr Insulin Aspart (Novolog Vial Sliding Scale -) 1 vial SQ ACHS [facility]; Protocol Last Admin: 07/25/19 07:04 Dose: Not Given Insulin Detemir (Levemir Vial) 15 units SQ AM [facility] Last Admin: 07/25/19 07:03 Dose: 15 units Rifaximin (Xifaxan -) 550 mg PO BID [facility] Last Admin: 07/24/19 22:20 Dose: 550 mg - Objective Vital Signs: Vital Signs Temperature 98 F 07/25/19 06:00 Pulse Rate 68 07/25/19 06:00 Respiratory Rate 20 07/25/19 06:00 Blood Pressure 149/80 07/25/19 06:00 O2 Sat by Pulse Oximetry (%) 100 07/22/19 21:00 Constitutional: Yes: No Distress, Calm Eyes: Yes: Conjunctiva Clear HENT: Yes: Atraumatic Cardiovascular: Yes: Regular Rate and Rhythm Respiratory: Yes: Regular, Diminished Gastrointestinal: Yes: Normal Bowel Sounds, Soft Genitourinary: Yes: Incontinence Musculoskeletal: Yes: Muscle Weakness Extremities: Yes: WNL Edema: No Neurological: Yes: Alert, Oriented Psychiatric: Yes: Alert, Oriented Labs: CBC, BMP 07/24/19 07:20 07/24/19 12:25 INR, PTT INR 0.97 (0.83-1.09) 07/17/19 21:53 Microbiology 07/20/19 23:00 Blood - Peripheral Venous Blood Culture - Preliminary NO GROWTH OBTAINED AFTER 96 HOURS, INCUBATION TO CONTINUE FOR 1 DAYS. 07/20/19 23:00 Blood - Peripheral Venous Blood Culture - Preliminary NO GROWTH OBTAINED AFTER 96 HOURS, INCUBATION TO CONTINUE FOR 1 DAYS. 07/18/19 15:15 Arm - Right Upper Gram Stain - Final 07/18/19 15:15 Arm - Right Upper Wound Culture - Final Mr S Aureus 07/17/19 21:55 Blood - Peripheral Venous Blood Culture - Final NO GROWTH AFTER 5 DAYS INCUBATION 07/17/19 21:50 Blood - Peripheral Venous Blood Culture - Final NO GROWTH AFTER 5 DAYS INCUBATION 07/20/19 16:50 Stool Clostridioides difficile Antigen - Final 07/20/19 16:50 Stool Clostridioides difficile Toxin Assay - Final 07/18/19 14:55 Cerebral Spinal Fluid - Lumbar Puncture Gram Stain - Final 07/18/19 14:55 Cerebral Spinal Fluid - Lumbar Puncture CSF Culture - Final 07/17/19 23:00 Urine - Urine - Catheterized Urine Culture - Final NO GROWTH OBTAINED
--- NOTE | 2019-07-25 10:38 | PN ---
Progress Note (short form) - Note Progress Note: PULMONARY Denies shortness of breath, cough. Some mild throat discomfort. Vital Signs Period Temp Pulse Resp BP Sys/Ham Pulse Ox Last 24 Hr 97.5 F-98.7 F 66-87 15-20 131-151/65-85 Gen: NAD at rest Heart: RRR Lung: decreased breath sounds at the bases Abd: soft, nontender Ext: no edema CBC, BMP 07/24/19 07:20 07/24/19 12:25 Active Medications Acetaminophen (Tylenol -) 650 mg PO Q6H PRN PRN Reason: PAIN LEVEL 4 - 6 Last Admin: 07/22/19 11:39 Dose: 650 mg Calcitriol (Rocaltrol -) 0.25 mcg PO DAILY [facility] Last Admin: 07/24/19 22:13 Dose: 0.25 mcg Chlorhexidine Gluconate (Peridex -) 15 ml MM BID [facility] Last Admin: 07/24/19 22:22 Dose: 15 ml Heparin Sodium (Porcine) (Heparin -) 5,000 unit SQ BID [facility] Last Admin: 07/24/19 22:20 Dose: 5,000 unit Potassium Chloride 10 meq/ (Sodium Chloride) 1,005 mls @ 100 mls/hr IV Q10H [facility] Last Admin: 07/25/19 03:34 Dose: 100 mls/hr Vancomycin HCl (Vancomycin (Pre-Docked)) 1,000 mg in 250 mls @ 166.667 mls/hr IVPB DAILY@1500 [facility]; Protocol Last Admin: 07/24/19 15:16 Dose: 166.667 mls/hr Insulin Aspart (Novolog Vial Sliding Scale -) 1 vial SQ ACHS [facility]; Protocol Last Admin: 07/25/19 07:04 Dose: Not Given Insulin Detemir (Levemir Vial) 15 units SQ AM [facility] Last Admin: 07/25/19 07:03 Dose: 15 units Rifaximin (Xifaxan -) 550 mg PO BID [facility] Last Admin: 07/24/19 22:20 Dose: 550 mg A/P s/p Acute Respiratory Failure Shock - Likely Septic resolving Right Arm Abscess s/p I&D Anion Gap Metabolic Acidosis improved Lactic Acidosis resolved Acute Kidney Injury requiring HD PAD HTN DM Hyperlipidemia Anemia - continue antibiotics per ID - monitor urine output, creatinine - replete lytes - monitor H/H - DVT/GI prophylaxis
[2019-07-25] MEDS: CALCITRIOL 0.25 MCG CAPSULE (FP) PO SCH (10:44)
[2019-07-25] MEDS: HEPARIN NA (PORCINE) 5,000 UNITS/ML 1ML VIAL SQ SCH ×2 (10:44→22:31)
[2019-07-25] MEDS: RIFAXIMIN 550 MG TABLET (UD) PO SCH ×2 (10:44→22:27)
[2019-07-25] MEDS: CHLORHEXIDINE GLUCONATE 0.12% 15ML CUP MM SCH ×2 (10:45→22:27)
--- NOTE | 2019-07-25 10:50 | PN ---
Progress Note, Physician History of Present Illness: stable no new issues - Current Medication List Current Medications: Active Medications Acetaminophen (Tylenol -) 650 mg PO Q6H PRN PRN Reason: PAIN LEVEL 4 - 6 Last Admin: 07/22/19 11:39 Dose: 650 mg Calcitriol (Rocaltrol -) 0.25 mcg PO DAILY [facility] Last Admin: 07/25/19 10:44 Dose: 0.25 mcg Chlorhexidine Gluconate (Peridex -) 15 ml MM BID [facility] Last Admin: 07/25/19 10:45 Dose: Not Given Heparin Sodium (Porcine) (Heparin -) 5,000 unit SQ BID [facility] Last Admin: 07/25/19 10:44 Dose: 5,000 unit Potassium Chloride 10 meq/ (Sodium Chloride) 1,005 mls @ 100 mls/hr IV Q10H [facility] Last Admin: 07/25/19 03:34 Dose: 100 mls/hr Vancomycin HCl (Vancomycin (Pre-Docked)) 1,000 mg in 250 mls @ 166.667 mls/hr IVPB DAILY@1500 [facility]; Protocol Last Admin: 07/24/19 15:16 Dose: 166.667 mls/hr Insulin Aspart (Novolog Vial Sliding Scale -) 1 vial SQ ACHS [facility]; Protocol Last Admin: 07/25/19 07:04 Dose: Not Given Insulin Detemir (Levemir Vial) 15 units SQ AM [facility] Last Admin: 07/25/19 07:03 Dose: 15 units Rifaximin (Xifaxan -) 550 mg PO BID [facility] Last Admin: 07/25/19 10:44 Dose: 550 mg - Objective Vital Signs: Vital Signs Temperature 98 F 07/25/19 06:00 Pulse Rate 68 07/25/19 06:00 Respiratory Rate 20 07/25/19 06:00 Blood Pressure 149/80 07/25/19 06:00 O2 Sat by Pulse Oximetry (%) 100 07/22/19 21:00 Constitutional: Yes: No Distress, Calm Cardiovascular: Yes: S1, S2 Respiratory: Yes: Regular, CTA Bilaterally Gastrointestinal: Yes: Normal Bowel Sounds, Soft Musculoskeletal: Yes: WNL Extremities: Yes: Other Wound/Incision: Yes: Dressing Dry and Intact Neurological: Yes: Alert, Oriented Psychiatric: Yes: Alert, Oriented Labs: CBC, BMP 07/24/19 07:20 07/24/19 12:25 INR, PTT INR 0.97 (0.83-1.09) 07/17/19 21:53 Assessment/Plan Acute Respiratory Failure Shock - Likely Septic Hypothermia Anion Gap Metabolic Acidosis Lactic Acidosis Acute Kidney Injury requiring HD PAD HTN DM Hyperlipidemia plan continue current mgmt cx reports noted patient can be switched to linezoloid 600 mg po bifon discharge for another 9 days rest as per the team
--- NOTE | 2019-07-25 11:42 | DS ---
Physical Examination Vital Signs: Vital Signs Temperature 98 F 07/25/19 06:00 Pulse Rate 68 07/25/19 06:00 Respiratory Rate 20 07/25/19 06:00 Blood Pressure 149/80 07/25/19 06:00 O2 Sat by Pulse Oximetry (%) 100 07/22/19 21:00 Findings/Remarks: Laboratory Results - last 24 hr 07/24/19 07/24/19 07/25/19 17:31 22:19 07:01 POC Glucometer 241 140 119 07/25/19 12:26 POC Glucometer 168 Active Medications Generic Name Dose Route Start Last Admin Trade Name Freq PRN Reason Stop Dose Admin Acetaminophen 650 mg 07/22/19 11:13 07/22/19 11:39 Tylenol - PO 650 mg Q6H PRN Administration PAIN LEVEL 4 - 6 Calcitriol 0.25 mcg 07/24/19 20:30 07/25/19 10:44 Rocaltrol - PO 0.[address] [facility] Administration Chlorhexidine Gluconate 15 ml 07/22/19 22:00 07/25/19 10:45 Peridex - MM Not Given BID [facility] Heparin Sodium (Porcine) 5,000 unit 07/22/19 22:00 07/25/19 10:44 Heparin - SQ 5,[address] [facility] Administration Potassium Chloride 10 meq/ 1,005 mls @ 100 mls/hr 07/21/19 15:14 07/25/19 03: 34 Sodium Chloride IV 100 mls/hr Q10H [facility] Administration Insulin Aspart 1 vial 07/22/19 22:00 07/25/19 12:32 Novolog Vial Sliding Scale - SQ [address] [facility] Administration Protocol Insulin Detemir 15 units 07/25/19 07:00 07/25/19 07:03 Levemir Vial SQ 15 units AM [facility] Administration Linezolid 600 mg 07/25/19 22:00 Zyvox (Restricted To Id) - PO 08/01/19 21:[address] [facility] Linezolid 600 mg 07/25/19 22:00 Zyvox (Restricted To Id) - PO 07/26/19 10:[address] [facility] Rifaximin 550 mg 07/22/19 22:00 07/25/19 10:44 Xifaxan - PO 550 mg BID [facility] Administration Microbiology 07/20/19 23:00 Blood - Peripheral Venous Blood Culture - Preliminary NO GROWTH OBTAINED AFTER 96 HOURS, INCUBATION TO CONTINUE FOR 1 DAYS. 07/20/19 23:00 Blood - Peripheral Venous Blood Culture - Preliminary NO GROWTH OBTAINED AFTER 96 HOURS, INCUBATION TO CONTINUE FOR 1 DAYS. 07/18/19 15:15 Arm - Right Upper Gram Stain - Final 07/18/19 15:15 Arm - Right Upper Wound Culture - Final Mr Jacobo Aureus 07/17/19 21:55 Blood - Peripheral Venous Blood Culture - Final NO GROWTH AFTER 5 DAYS INCUBATION 07/17/19 21:50 Blood - Peripheral Venous Blood Culture - Final NO GROWTH AFTER 5 DAYS INCUBATION 07/20/19 16:50 Stool Clostridioides difficile Antigen - Final 07/20/19 16:50 Stool Clostridioides difficile Toxin Assay - Final 07/18/19 14:55 Cerebral Spinal Fluid - Lumbar Puncture Gram Stain - Final 07/18/19 14:55 Cerebral Spinal Fluid - Lumbar Puncture CSF Culture - Final 07/17/19 23:00 Urine - Urine - Catheterized Urine Culture - Final NO GROWTH OBTAINED Constitutional: Yes: No Distress, Calm HENT: Yes: Atraumatic Cardiovascular: Yes: Regular Rate and Rhythm Respiratory: Yes: Regular, Diminished Gastrointestinal: Yes: Normal Bowel Sounds, Soft Musculoskeletal: Yes: Muscle Weakness Extremities: Yes: WNL Edema: No Neurological: Yes: Alert Psychiatric: Yes: Alert Labs: CBC, BMP 07/24/19 07:20 07/24/19 12:25 Discharge Summary Problems reviewed: Yes Current Active Problems Acute metabolic encephalopathy (Acute) Acute respiratory failure (Acute) Diabetes (Acute) ESRD (end stage renal disease) on dialysis (Acute) Sepsis (Acute) Hospital Course: This is a 69 y/o man from [facility] with a PMHx of DM, HLD, HTN, Left Foot 5th Metatarsal Osteomyelitis (s/p amputation 10/2018). Who presents to the ED via ambulance for AMS and labored breathing. Per ED records: Last known normal was yesterday evening around 5pm. This morning when the son visited the patient, he noted that the patient appeared to have significant work of breathing and getting up to the bathroom exhausted the patient. The patient was not able to communicate without increased labored breathing. On EMS arrival to [place], patient was known to have stable vitals and glucose 140s; unresponsive and not following commands with labored breathing and tachypnea. On arrival to the ED, patient presents with T 91.8F, HR 80, RR 30, BP 144/63, O2 100%. Patient was unresponsive with Kussmaul breathing. Patient not withdrawing to pain and absent blink to threat reflex, no tone on arm drop. Per son, patient was having difficulty this morning using bathroom and forgot to wash hands and thats when the son noted the patient was not behaving appropriately. Due to patient's clinical condition-unable to provide HPI. Patient was intubated and monitored in ICU. ID was consulted and started on IV antibiotics. BC and UC neg, wund culture positive. Patient was extubated and followed by Pulmonary. Patient responded well to IV antibiotics and was switched to PO antibiotics as recommended by ID. Condition: Stable - Instructions Diet, Activity, Other Instructions: Follow up with PMD in 1 week of discharge Follow up with [employer] Dr Lara Follow up with [facility] Dr Sutton for diabetes management monitor CBC weekly to check Hg continue with medication as prescribed continue with Linezolid 600mg BID for 7 days return to ER if develop severe pain, respiratory distress, chest pain, altered mental status Referrals: Angus Abel [Non Staff, Medical] - Mercy Lara MD [Staff Physician] - Disposition: LONGTERM FACILITY - Home Medications Comprehensive Discharge Medication List: Ambulatory Orders Metformin HCl [Glucophage] 1,000 mg PO BID 11/19/16 Collagenase Clostridium Hist. [Santyl] 90 gm TP DAILY #1 tube 12/14/18 Acetaminophen [Tylenol .Regular Strength -] 650 mg PO Q6H PRN tablet 01/10/19 Clopidogrel Bisulfate [Plavix -] 75 mg PO DAILY tablet 01/10/19 Lisinopril [Prinivil] 10 mg PO DAILY tablet 01/10/19 Aspirin [ASA -] 81 mg PO DAILY 02/15/19 Insulin Glargine,Hum.rec.anlog [Basagllayla Carreroikpen U-100] 8 unit SQ HS 02/15/19 Pravastatin Sodium [Pravachol -] 40 mg PO HS 02/15/19 Ascorbic Acid 500 mg PO DAILY 05/03/19 Multivitamin [Multiple Vitamins] 1 tab PO DAILY 05/03/19 Brimonidine Tartrate [Alphagan 0.2% -] 1 drop TID 07/18/19 Timolol Maleate 0.5% Gfs [Timoptic Xe 0.5%] 1 drop OD BID 07/18/19 acetaZOLAMIDE [Diamox Sequels -] 500 mg PO BID 07/18/19
[2019-07-25] MEDS ORDERED: INSULIN (NOVOLOG) ASPART 100 UNITS/ML 10ML VIAL ONE (12:30)
--- NOTE | 2019-07-25 14:51 | PN ---
Progress Note (short form) - Note Progress Note: FUV left foot vss +resolved woud lateral left foot, +onychomycosis, +hypertrophic nails with subungual debris, Resolved wound left foot onychomycosis Recommend foot care [id number]. Follow up with cell[facility]er. Please reconsult if needed.
--- NOTE | 2019-07-25 16:38 | PN ---
Progress Note, Physician History of Present Illness: Pt seen and examined at bedside. He appears comfortable. - Current Medication List Current Medications: Active Medications Acetaminophen (Tylenol -) 650 mg PO Q6H PRN PRN Reason: PAIN LEVEL 4 - 6 Last Admin: 07/22/19 11:39 Dose: 650 mg Calcitriol (Rocaltrol -) 0.25 mcg PO DAILY [facility] Last Admin: 07/25/19 10:44 Dose: 0.25 mcg Chlorhexidine Gluconate (Peridex -) 15 ml MM BID [facility] Last Admin: 07/25/19 10:45 Dose: Not Given Heparin Sodium (Porcine) (Heparin -) 5,000 unit SQ BID [facility] Last Admin: 07/25/19 10:44 Dose: 5,000 unit Potassium Chloride 10 meq/ (Sodium Chloride) 1,005 mls @ 100 mls/hr IV Q10H [facility] Last Admin: 07/25/19 03:34 Dose: 100 mls/hr Insulin Aspart (Novolog Vial Sliding Scale -) 1 vial SQ ACHS [facility]; Protocol Last Admin: 07/25/19 12:32 Dose: 2 units Insulin Detemir (Levemir Vial) 15 units SQ AM [facility] Last Admin: 07/25/19 07:03 Dose: 15 units Linezolid (Zyvox (Restricted To Id) -) 600 mg PO BID [facility] Stop: 08/01/19 21:59 Linezolid (Zyvox (Restricted To Id) -) 600 mg PO BID [facility] Stop: 07/26/19 10:01 Rifaximin (Xifaxan -) 550 mg PO BID [facility] Last Admin: 07/25/19 10:44 Dose: 550 mg - Objective Vital Signs: Vital Signs Temperature 97.9 F 07/25/19 14:00 Pulse Rate 69 07/25/19 14:00 Respiratory Rate 20 07/25/19 14:00 Blood Pressure 132/74 07/25/19 14:00 O2 Sat by Pulse Oximetry (%) 100 07/22/19 21:00 Constitutional: Yes: Calm Eyes: Yes: Conjunctiva Clear HENT: Yes: Atraumatic Neck: Yes: Supple Cardiovascular: Yes: S1, S2 Respiratory: Yes: CTA Bilaterally Gastrointestinal: Yes: Soft Genitourinary: Yes: Incontinence Musculoskeletal: Yes: WNL Edema: No Integumentary: Yes: WNL Labs: CBC, BMP 07/24/19 07:20 07/24/19 12:25 INR, PTT INR 0.97 (0.83-1.09) 07/17/19 21:53 Assessment/Plan Current Medications Generic Name Dose Route Start Last Admin Trade Name Gail PRN Reason Stop Dose Admin Acetaminophen 650 mg 07/22/19 11:13 07/22/19 11:39 Tylenol - PO 650 mg Q6H PRN Administration PAIN LEVEL 4 - 6 Calcitriol 0.25 mcg 07/24/19 20:30 07/25/19 10:44 Rocaltrol - PO 0.25 mcg DAILY [facility] Administration Chlorhexidine Gluconate 15 ml 07/22/19 22:00 07/25/19 10:45 Peridex - MM Not Given BID [facility] Heparin Sodium (Porcine) 5,000 unit 07/22/19 22:00 07/25/19 10:44 Heparin - SQ 5,000 unit BID [facility] Administration Potassium Chloride 10 meq/ 1,005 mls @ 100 mls/hr 07/21/19 15:14 07/25/19 03: 34 Sodium Chloride IV 100 mls/hr Q10H [facility] Administration Insulin Aspart 1 vial 07/22/19 22:00 07/25/19 12:32 Novolog Vial Sliding Scale - SQ 2 units ACHS [facility] Administration Protocol Insulin Detemir 15 units 07/25/19 07:00 07/25/19 07:03 Levemir Vial SQ 15 units AM [facility] Administration Linezolid 600 mg 07/25/19 22:00 Zyvox (Restricted To Id) - PO 08/01/19 21:59 BID [facility] Linezolid 600 mg 07/25/19 22:00 Zyvox (Restricted To Id) - PO 07/26/19 10:01 BID [facility] Rifaximin 550 mg 07/22/19 22:00 07/25/19 10:44 Xifaxan - PO 550 mg BID [facility] Administration Impression 1. BRUCE 2. metabolic acidosis 3. lactic acidosis 4. altered mental status 5. DM 6. HTN 7. PAD 8. sepsis 9. shock 10. resp failure with pending intubation 11. right arm abscess Plan - renal function stable - outpt follow up - avoid nsaids - will follow PRN
[2019-07-25] MEDS: LINEZOLID 600 MG TABLET (RESTRICTED TO ID) PO SCH (22:27)
[2019-07-25] MEDS: ACETAMINOPHEN 325 MG TABLET (FP) PO PRN (22:33)
--- NOTE | 2019-07-25 23:03 | PN ---
Progress Note, Physician Chief Complaint: awake comfortable tolerating diet blood sugars stable - Current Medication List Current Medications: Active Medications Acetaminophen (Tylenol -) 650 mg PO Q6H PRN PRN Reason: PAIN LEVEL 4 - 6 Last Admin: 07/25/19 22:33 Dose: 650 mg Calcitriol (Rocaltrol -) 0.25 mcg PO DAILY [facility] Last Admin: 07/25/19 10:44 Dose: 0.25 mcg Chlorhexidine Gluconate (Peridex -) 15 ml MM BID [facility] Last Admin: 07/25/19 22:27 Dose: 15 ml Heparin Sodium (Porcine) (Heparin -) 5,000 unit SQ BID [facility] Last Admin: 07/25/19 22:31 Dose: 5,000 unit Potassium Chloride 10 meq/ (Sodium Chloride) 1,005 mls @ 100 mls/hr IV Q10H [facility] Last Admin: 07/25/19 17:39 Dose: Not Given Insulin Aspart (Novolog Vial Sliding Scale -) 1 vial SQ ACHS [facility]; Protocol Last Admin: 07/25/19 22:31 Dose: 4 units Insulin Detemir (Levemir Vial) 15 units SQ AM [facility] Last Admin: 07/25/19 07:03 Dose: 15 units Linezolid (Zyvox (Restricted To Id) -) 600 mg PO BID [facility] Stop: 08/01/19 21:59 Linezolid (Zyvox (Restricted To Id) -) 600 mg PO BID [facility] Stop: 07/26/19 10:01 Last Admin: 07/25/19 22:27 Dose: 600 mg Rifaximin (Xifaxan -) 550 mg PO BID [facility] Last Admin: 07/25/19 22:27 Dose: 550 mg - Objective Vital Signs: Vital Signs Temperature 98.4 F 07/25/19 17:40 Pulse Rate 70 07/25/19 17:40 Respiratory Rate 20 07/25/19 17:40 Blood Pressure 152/84 07/25/19 17:40 O2 Sat by Pulse Oximetry (%) 97 07/25/19 09:00 Constitutional: Yes: Calm Eyes: Yes: EOM Intact HENT: Yes: Normocephalic Neck: Yes: Trachea Midline Cardiovascular: Yes: Regular Rate and Rhythm Respiratory: Yes: Regular Gastrointestinal: Yes: Normal Bowel Sounds ...Rectal Exam: Yes: Deferred Breast(s): Yes: WNL Musculoskeletal: Yes: WNL Edema: No Psychiatric: Yes: Alert, Oriented Labs: CBC, BMP 07/24/19 07:20 07/24/19 12:25 INR, PTT INR 0.97 (0.83-1.09) 07/17/19 21:53 Problem List - Problems (1) Acute metabolic encephalopathy Problems reviewed: Yes Code(s): G93.41 - METABOLIC ENCEPHALOPATHY (2) Acute respiratory failure Code(s): J96.00 - ACUTE RESPIRATORY FAILURE, UNSP W HYPOXIA OR HYPERCAPNIA (3) Diabetes Code(s): E11.9 - TYPE 2 DIABETES MELLITUS WITHOUT COMPLICATIONS (4) ESRD (end stage renal disease) on dialysis Code(s): N18.6 - END STAGE RENAL DISEASE; Z99.2 - DEPENDENCE ON RENAL DIALYSIS Assessment/Plan Current Active Problems Acute metabolic encephalopathy (Acute) Acute respiratory failure (Acute) Diabetes (Acute) ESRD (end stage renal disease) on dialysis (Acute) Sepsis (Acute) Laboratory Tests 07/25/19 07/25/19 07/25/19 07:01 12:26 17:29 POC Glucometer 119 168 109 07/25/19 22:29 POC Glucometer 221 plan: continue bgm achs levemir q am 15 unit s rocaltrol po oscal 500mg tid follow up ca level
[2019-07-26] MEDS: INSULIN SLIDING SCALE (NOVOLOG) 1 VIAL SQ SCH ×4 (07:07→21:24)
[2019-07-26] MEDS: INSULIN (LEVEMIR) 100 UNITS/ML UNITS SQ SCH (07:08)
--- NOTE | 2019-07-26 10:43 | PN ---
Progress Note (short form) - Note Progress Note: PULMONARY Denies shortness of breath, cough. No fevers or chills. Vital Signs Period Temp Pulse Resp BP Sys/Ham Pulse Ox Last 24 Hr 97.9 F-98.6 F 62-70 20-20 132-152/73-84 98 Gen: NAD at rest Heart: RRR Lung: decreased breath sounds at the bases Abd: soft, nontender Ext: no edema CBC, BMP 07/24/19 07:20 07/24/19 12:25 Active Medications Acetaminophen (Tylenol -) 650 mg PO Q6H PRN PRN Reason: PAIN LEVEL 4 - 6 Last Admin: 07/25/19 22:33 Dose: 650 mg Calcitriol (Rocaltrol -) 0.25 mcg PO DAILY [facility] Last Admin: 07/25/19 10:44 Dose: 0.25 mcg Chlorhexidine Gluconate (Peridex -) 15 ml MM BID [facility] Last Admin: 07/25/19 22:27 Dose: 15 ml Heparin Sodium (Porcine) (Heparin -) 5,000 unit SQ BID [facility] Last Admin: 07/25/19 22:31 Dose: 5,000 unit Potassium Chloride 10 meq/ (Sodium Chloride) 1,005 mls @ 100 mls/hr IV Q10H [facility] Last Admin: 07/25/19 17:39 Dose: Not Given Insulin Aspart (Novolog Vial Sliding Scale -) 1 vial SQ ACHS [facility]; Protocol Last Admin: 07/26/19 07:07 Dose: Not Given Insulin Detemir (Levemir Vial) 15 units SQ AM [facility] Last Admin: 07/26/19 07:08 Dose: 15 units Linezolid (Zyvox (Restricted To Id) -) 600 mg PO BID [facility] Stop: 08/01/19 21:59 Rifaximin (Xifaxan -) 550 mg PO BID [facility] Last Admin: 07/25/19 22:27 Dose: 550 mg A/P s/p Acute Respiratory Failure Shock - Likely Septic resolving Right Arm Abscess s/p I&D Anion Gap Metabolic Acidosis improved Lactic Acidosis resolved Acute Kidney Injury requiring HD PAD HTN DM Hyperlipidemia Anemia - continue antibiotics per ID - monitor urine output, creatinine - replete lytes - monitor H/H - DVT/GI prophylaxis - d/c planning
[2019-07-26] MEDS: RIFAXIMIN 550 MG TABLET (UD) PO SCH ×2 (10:59→22:18)
[2019-07-26] MEDS: HEPARIN NA (PORCINE) 5,000 UNITS/ML 1ML VIAL SQ SCH ×2 (11:00→22:17)
[2019-07-26] MEDS: LINEZOLID 600 MG TABLET (RESTRICTED TO ID) PO SCH ×2 (11:00→22:18)
[2019-07-26] MEDS: CALCITRIOL 0.25 MCG CAPSULE (FP) PO SCH (11:00)
[2019-07-26] MEDS: CHLORHEXIDINE GLUCONATE 0.12% 15ML CUP MM SCH ×2 (11:00→22:17)
--- NOTE | 2019-07-26 11:11 | PN ---
Progress Note, Physician History of Present Illness: stable no issues - Current Medication List Current Medications: Active Medications Acetaminophen (Tylenol -) 650 mg PO Q6H PRN PRN Reason: PAIN LEVEL 4 - 6 Last Admin: 07/25/19 22:33 Dose: 650 mg Calcitriol (Rocaltrol -) 0.25 mcg PO DAILY [facility] Last Admin: 07/26/19 11:00 Dose: 0.25 mcg Chlorhexidine Gluconate (Peridex -) 15 ml MM BID [facility] Last Admin: 07/26/19 11:00 Dose: Not Given Heparin Sodium (Porcine) (Heparin -) 5,000 unit SQ BID [facility] Last Admin: 07/26/19 11:00 Dose: 5,000 unit Potassium Chloride 10 meq/ (Sodium Chloride) 1,005 mls @ 100 mls/hr IV Q10H [facility] Last Admin: 07/25/19 17:39 Dose: Not Given Insulin Aspart (Novolog Vial Sliding Scale -) 1 vial SQ ACHS [facility]; Protocol Last Admin: 07/26/19 07:07 Dose: Not Given Insulin Detemir (Levemir Vial) 15 units SQ AM [facility] Last Admin: 07/26/19 07:08 Dose: 15 units Linezolid (Zyvox (Restricted To Id) -) 600 mg PO BID [facility] Stop: 08/01/19 21:59 Rifaximin (Xifaxan -) 550 mg PO BID [facility] Last Admin: 07/26/19 10:59 Dose: 550 mg - Objective Vital Signs: Vital Signs Temperature 98.6 F 07/26/19 06:00 Pulse Rate 62 07/26/19 06:00 Respiratory Rate 20 07/26/19 06:00 Blood Pressure 147/73 07/26/19 06:00 O2 Sat by Pulse Oximetry (%) 98 07/25/19 21:00 Constitutional: Yes: No Distress, Calm Cardiovascular: Yes: Regular Rate and Rhythm Respiratory: Yes: Regular, CTA Bilaterally Gastrointestinal: Yes: Normal Bowel Sounds, Soft Musculoskeletal: Yes: WNL Extremities: Yes: WNL Wound/Incision: Yes: Dressing Dry and Intact Neurological: Yes: Alert, Oriented Psychiatric: Yes: Alert, Oriented Labs: CBC, BMP 07/24/19 07:20 07/24/19 12:25 INR, PTT INR 0.97 (0.83-1.09) 07/17/19 21:53 Assessment/Plan Acute Respiratory Failure Shock - Likely Septic Hypothermia Anion Gap Metabolic Acidosis Lactic Acidosis Acute Kidney Injury requiring HD PAD HTN DM Hyperlipidemia plan continue current mgmt cx reports noted patient can be switched to linezoloid 600 mg po bid on discharge for another 8 days rest as per the team
--- NOTE | 2019-07-26 13:16 | PN ---
Progress Note, Physician Chief Complaint: Pneumonia Sepsis History of Present Illness: Previous notes and events reviewed awake and alert NAD denies chest pain or SOB pending authorization to return to [facility] - Current Medication List Current Medications: Active Medications Acetaminophen (Tylenol -) 650 mg PO Q6H PRN PRN Reason: PAIN LEVEL 4 - 6 Last Admin: 07/25/19 22:33 Dose: 650 mg Calcitriol (Rocaltrol -) 0.25 mcg PO DAILY [facility] Last Admin: 07/26/19 11:00 Dose: 0.25 mcg Chlorhexidine Gluconate (Peridex -) 15 ml MM BID [facility] Last Admin: 07/26/19 11:00 Dose: Not Given Heparin Sodium (Porcine) (Heparin -) 5,000 unit SQ BID [facility] Last Admin: 07/26/19 11:00 Dose: 5,000 unit Potassium Chloride 10 meq/ (Sodium Chloride) 1,005 mls @ 100 mls/hr IV Q10H [facility] Last Admin: 07/25/19 17:39 Dose: Not Given Insulin Aspart (Novolog Vial Sliding Scale -) [address] [facility]; Protocol Last Admin: 07/26/19 07:07 Dose: Not Given Insulin Detemir (Levemir Vial) 15 units SQ AM [facility] Last Admin: 07/26/19 07:08 Dose: 15 units Linezolid (Zyvox (Restricted To Id) -) 600 mg PO BID [facility] Stop: 08/01/19 21:59 Rifaximin (Xifaxan -) 550 mg PO BID [facility] Last Admin: 07/26/19 10:59 Dose: 550 mg - Objective Vital Signs: Vital Signs Temperature 98.6 F 07/26/19 06:00 Pulse Rate 62 07/26/19 06:00 Respiratory Rate 20 07/26/19 06:00 Blood Pressure 147/73 07/26/19 06:00 O2 Sat by Pulse Oximetry (%) 98 07/25/19 21:00 Constitutional: Yes: No Distress, Calm HENT: Yes: Atraumatic Cardiovascular: Yes: Regular Rate and Rhythm Respiratory: Yes: Regular, Diminished Gastrointestinal: Yes: Normal Bowel Sounds, Soft Musculoskeletal: Yes: Muscle Weakness Extremities: Yes: WNL Edema: No Neurological: Yes: Alert, Oriented Psychiatric: Yes: Alert Labs: CBC, BMP 07/24/19 07:20 07/24/19 12:25 INR, PTT INR 0.97 (0.83-1.09) 07/17/19 21:53 Microbiology 07/20/19 23:00 Blood - Peripheral Venous Blood Culture - Final NO GROWTH AFTER 5 DAYS INCUBATION 07/20/19 23:00 Blood - Peripheral Venous Blood Culture - Final NO GROWTH AFTER 5 DAYS INCUBATION 07/18/19 15:15 Arm - Right Upper Gram Stain - Final 07/18/19 15:15 Arm - Right Upper Wound Culture - Final S Aureus 07/17/19 21:55 Blood - Peripheral Venous Blood Culture - Final NO GROWTH AFTER 5 DAYS INCUBATION 07/17/19 21:50 Blood - Peripheral Venous Blood Culture - Final NO GROWTH AFTER 5 DAYS INCUBATION 07/20/19 16:50 Stool Clostridioides difficile Antigen - Final 07/20/19 16:50 Stool Clostridioides difficile Toxin Assay - Final 07/18/19 14:55 Cerebral Spinal Fluid - Lumbar Puncture Gram Stain - Final 07/18/19 14:55 Cerebral Spinal Fluid - Lumbar Puncture CSF Culture - Final 07/17/19 23:00 Urine - Urine - Catheterized Urine Culture - Final NO GROWTH OBTAINED Problem List - Problems (1) Acute metabolic encephalopathy Assessment/Plan: -secondary to infection Code(s): G93.41 - METABOLIC ENCEPHALOPATHY (2) Diabetes Assessment/Plan: -BGM ACHS -Levemir -ISS -Endo on board -diabetic diet Code(s): E11.9 - TYPE 2 DIABETES MELLITUS WITHOUT COMPLICATIONS (3) ESRD (end stage renal disease) on dialysis Assessment/Plan: -Renal on board -no need for HD -BUN/Cr 10.0/1.2 Code(s): N18.6 - END STAGE RENAL DISEASE; Z99.2 - DEPENDENCE ON RENAL DIALYSIS (4) Sepsis Assessment/Plan: -ID on board -no leukocytosis -afebrile -Zyvox -R arm wound culture positive -BC, CSF, UC neg -LA 8.3~1.0 Code(s): A41.9 - SEPSIS, UNSPECIFIED ORGANISM (5) Lactic acid acidosis Assessment/Plan: -resolved -LA 8.3~1.0 Code(s): E87.2 - ACIDOSIS (6) Acute respiratory failure Assessment/Plan: -Pulm on board -keep SpO2 >90% -O2 via NC Code(s): J96.00 - ACUTE RESPIRATORY FAILURE, UNSP W HYPOXIA OR HYPERCAPNIA Assessment/Plan see problem list dvt ppx pending discharge to SNF
[2019-07-26] MEDS: SODIUM CHLORIDE 0.45% 1,000 ML with POTASSIUM CHLORIDE 10 MEQ IV SCH (17:18)
--- NOTE | 2019-07-26 17:35 | PN ---
Progress Note, Physician History of Present Illness: Pt seen and examined at bedside. He is awake and appears comfortable. - Current Medication List Current Medications: Active Medications Acetaminophen (Tylenol -) 650 mg PO Q6H PRN PRN Reason: PAIN LEVEL 4 - 6 Last Admin: 07/25/19 22:33 Dose: 650 mg Calcitriol (Rocaltrol -) 0.25 mcg PO DAILY [facility] Last Admin: 07/26/19 11:00 Dose: 0.25 mcg Chlorhexidine Gluconate (Peridex -) 15 ml MM BID [facility] Last Admin: 07/26/19 11:00 Dose: Not Given Heparin Sodium (Porcine) (Heparin -) 5,000 unit SQ BID [facility] Last Admin: 07/26/19 11:00 Dose: 5,000 unit Potassium Chloride 10 meq/ (Sodium Chloride) 1,005 mls @ 100 mls/hr IV Q10H [facility] Last Admin: 07/26/19 17:18 Dose: Not Given Insulin Aspart (Novolog Vial Sliding Scale -) 1 vial SQ ACHS [facility]; Protocol Last Admin: 07/26/19 17:18 Dose: Not Given Insulin Detemir (Levemir Vial) 15 units SQ AM [facility] Last Admin: 07/26/19 07:08 Dose: 15 units Linezolid (Zyvox (Restricted To Id) -) 600 mg PO BID [facility] Stop: 08/01/19 21:59 Rifaximin (Xifaxan -) 550 mg PO BID [facility] Last Admin: 07/26/19 10:59 Dose: 550 mg - Objective Vital Signs: Vital Signs Temperature 98.2 F 07/26/19 14:00 Pulse Rate 75 07/26/19 14:00 Respiratory Rate 20 07/26/19 14:00 Blood Pressure 135/77 07/26/19 14:00 O2 Sat by Pulse Oximetry (%) 98 07/26/19 09:00 Constitutional: Yes: Calm HENT: Yes: Atraumatic Neck: Yes: Supple Cardiovascular: Yes: S1, S2 Respiratory: Yes: CTA Bilaterally Gastrointestinal: Yes: Soft Genitourinary: Yes: WNL Musculoskeletal: Yes: WNL Edema: No Neurological: Yes: Oriented Labs: CBC, BMP 07/24/19 07:20 07/24/19 12:25 INR, PTT INR 0.97 (0.83-1.09) 07/17/19 21:53 Assessment/Plan Current Medications Generic Name Dose Route Start Last Admin Trade Name Gail PRN Reason Stop Dose Admin Acetaminophen 650 mg 07/22/19 11:13 07/25/19 22:33 Tylenol - PO 650 mg Q6H PRN Administration PAIN LEVEL 4 - 6 Calcitriol 0.25 mcg 07/24/19 20:30 07/26/19 11:00 Rocaltrol - PO 0.25 mcg DAILY [facility] Administration Chlorhexidine Gluconate 15 ml 07/22/19 22:00 07/26/19 11:00 Peridex - MM Not Given BID [facility] Heparin Sodium (Porcine) 5,000 unit 07/22/19 22:00 07/26/19 11:00 Heparin - SQ 5,000 unit BID [facility] Administration Potassium Chloride 10 meq/ 1,005 mls @ 100 mls/hr 07/21/19 15:14 07/26/19 17: 18 Sodium Chloride IV Not Given Q10H [facility] Insulin Aspart 1 vial 07/22/19 22:00 07/26/19 17:18 Novolog Vial Sliding Scale - SQ Not Given ACHS [facility] Protocol Insulin Detemir 15 units 07/25/19 07:00 07/26/19 07:08 Levemir Vial SQ 15 units AM [facility] Administration Linezolid 600 mg 07/25/19 22:00 Zyvox (Restricted To Id) - PO 08/01/19 21:59 BID [facility] Rifaximin 550 mg 07/22/19 22:00 07/26/19 10:59 Xifaxan - PO 550 mg BID [facility] Administration Impression 1. BRUCE 2. metabolic acidosis 3. lactic acidosis 4. altered mental status 5. DM 6. HTN 7. PAD 8. sepsis 9. shock 10. resp failure with pending intubation 11. right arm abscess plan - check cmp - avoid nephrotoxins - renal function had stabilized - check calcium as well as he is on calcitriol - check pth
[2019-07-26] MEDS ORDERED: PT OWN MED DRAWER 7, Y5N ONE (21:30)
[2019-07-27] MEDS: INSULIN SLIDING SCALE (NOVOLOG) 1 VIAL SQ SCH ×4 (06:25→21:07)
[2019-07-27] MEDS: INSULIN (LEVEMIR) 100 UNITS/ML UNITS SQ SCH (06:25)
[2019-07-27 08:56] LABS: ALBUMIN 2.4 g/dl (3.4-5.0); BILIRUBIN,TOTAL 0.4 mg/dL (0.2-1); BLOOD UREA NITROGEN 20.3 mg/dL (7-18); CALCIUM 8.4 mg/dL (8.5-10.1); CREATININE 1.4 mg/dL (0.55-1.3); POTASSIUM 4.3 mmol/L (3.5-5.1); TOT PROT 5.4 g/dl (6.4-8.2)
--- NOTE | 2019-07-27 09:22 | PN ---
Progress Note, Physician Chief Complaint: Pneumonia Sepsis History of Present Illness: Previous notes and events reviewed awake and alert NAD denies chest pain or SOB no acute events overnight pending authorization to return to [facility] - Current Medication List Current Medications: Active Medications Acetaminophen (Tylenol -) 650 mg PO Q6H PRN PRN Reason: PAIN LEVEL 4 - 6 Last Admin: 07/25/19 22:33 Dose: 650 mg Calcitriol (Rocaltrol -) 0.25 mcg PO DAILY [facility] Last Admin: 07/26/19 11:00 Dose: 0.25 mcg Chlorhexidine Gluconate (Peridex -) 15 ml MM BID [facility] Last Admin: 07/26/19 22:17 Dose: 15 ml Heparin Sodium (Porcine) (Heparin -) 5,000 unit SQ BID [facility] Last Admin: 07/26/19 22:17 Dose: 5,000 unit Potassium Chloride 10 meq/ (Sodium Chloride) 1,005 mls @ 100 mls/hr IV Q10H [facility] Last Admin: 07/26/19 17:18 Dose: Not Given Insulin Aspart (Novolog Vial Sliding Scale -) 1 vial SQ [facility]; Protocol Last Admin: 07/27/19 06:25 Dose: Not Given Insulin Detemir (Levemir Vial) 15 units SQ AM [facility] Last Admin: 07/27/19 06:25 Dose: 15 units Linezolid (Zyvox (Restricted To Id) -) 600 mg PO BID [facility] Stop: 08/01/19 21:59 Last Admin: 07/26/19 22:18 Dose: 600 mg Rifaximin (Xifaxan -) 550 mg PO BID [facility] Last Admin: 07/26/19 22:18 Dose: 550 mg - Objective Vital Signs: Vital Signs Temperature 98.2 F 07/27/19 06:00 Pulse Rate 64 07/27/19 06:00 Respiratory Rate 20 07/27/19 06:00 Blood Pressure 150/72 07/27/19 06:00 O2 Sat by Pulse Oximetry (%) 98 07/26/19 09:00 Constitutional: Yes: No Distress, Calm Eyes: Yes: Conjunctiva Clear HENT: Yes: Atraumatic Cardiovascular: Yes: Regular Rate and Rhythm Respiratory: Yes: Regular, CTA Bilaterally Gastrointestinal: Yes: Normal Bowel Sounds, Soft Musculoskeletal: Yes: Muscle Weakness Extremities: Yes: WNL Edema: No Neurological: Yes: Alert Psychiatric: Yes: Alert Labs: CBC, BMP 07/24/19 07:20 07/27/19 07:40 INR, PTT INR 0.97 (0.83-1.09) 07/17/19 21:53 Problem List - Problems (1) Acute metabolic encephalopathy Assessment/Plan: -secondary to infection -resolved Code(s): G93.41 - METABOLIC ENCEPHALOPATHY (2) Diabetes Assessment/Plan: -BGM ACHS -Levemir -ISS -Endo on board -diabetic diet Code(s): E11.9 - TYPE 2 DIABETES MELLITUS WITHOUT COMPLICATIONS (3) ESRD (end stage renal disease) on dialysis Assessment/Plan: -Renal on board -no need for HD -BUN/Cr 10.0/1.2 Code(s): N18.6 - END STAGE RENAL DISEASE; Z99.2 - DEPENDENCE ON RENAL DIALYSIS (4) Sepsis Assessment/Plan: -ID on board -no leukocytosis -afebrile -Zyvox -R arm wound culture positive -BC, CSF, UC neg -LA 8.3~1.0 Code(s): A41.9 - SEPSIS, UNSPECIFIED ORGANISM (5) Lactic acid acidosis Assessment/Plan: -resolved -LA 8.3~1.0 Code(s): E87.2 - ACIDOSIS (6) Acute respiratory failure Assessment/Plan: -Pulm on board -keep SpO2 >90% -O2 via NC Code(s): J96.00 - ACUTE RESPIRATORY FAILURE, UNSP W HYPOXIA OR HYPERCAPNIA Assessment/Plan see problem list dvt ppx pending discharge to SNF
[2019-07-27] MEDS ORDERED: PT OWN MED DRAWER 7, Y5N ONE (10:22)
--- NOTE | 2019-07-27 11:18 | PN ---
Progress Note, Physician History of Present Illness: stable no new issues - Current Medication List Current Medications: Active Medications Acetaminophen (Tylenol -) 650 mg PO Q6H PRN PRN Reason: PAIN LEVEL 4 - 6 Last Admin: 07/25/19 22:33 Dose: 650 mg Calcitriol (Rocaltrol -) 0.25 mcg PO DAILY [facility] Last Admin: 07/26/19 11:00 Dose: 0.25 mcg Chlorhexidine Gluconate (Peridex -) 15 ml MM BID [facility] Last Admin: 07/26/19 22:17 Dose: 15 ml Heparin Sodium (Porcine) (Heparin -) 5,000 unit SQ BID [facility] Last Admin: 07/26/19 22:17 Dose: 5,000 unit Potassium Chloride 10 meq/ (Sodium Chloride) 1,005 mls @ 100 mls/hr IV Q10H [facility] Last Admin: 07/26/19 17:18 Dose: Not Given Insulin Aspart (Novolog Vial Sliding Scale -) 1 vial SQ [facility]; Protocol Last Admin: 07/27/19 06:25 Dose: Not Given Insulin Detemir (Levemir Vial) 15 units SQ AM [facility] Last Admin: 07/27/19 06:25 Dose: 15 units Linezolid (Zyvox (Restricted To Id) -) 600 mg PO BID [facility] Stop: 08/01/19 21:59 Last Admin: 07/26/19 22:18 Dose: 600 mg Rifaximin (Xifaxan -) 550 mg PO BID [facility] Last Admin: 07/26/19 22:18 Dose: 550 mg - Objective Vital Signs: Vital Signs Temperature 98.2 F 07/27/19 06:00 Pulse Rate 64 07/27/19 06:00 Respiratory Rate 20 07/27/19 06:00 Blood Pressure 150/72 07/27/19 06:00 O2 Sat by Pulse Oximetry (%) 98 07/26/19 09:00 Constitutional: Yes: No Distress, Calm Cardiovascular: Yes: S1, S2 Respiratory: Yes: Regular, CTA Bilaterally Gastrointestinal: Yes: Normal Bowel Sounds, Soft Musculoskeletal: Yes: WNL Extremities: Yes: Other Wound/Incision: Yes: Dressing Dry and Intact Neurological: Yes: Alert, Oriented Psychiatric: Yes: Alert, Oriented Labs: CBC, BMP 07/24/19 07:20 07/27/19 07:40 INR, PTT INR 0.97 (0.83-1.09) 07/17/19 21:53 Assessment/Plan Acute Respiratory Failure Shock - Likely Septic Hypothermia Anion Gap Metabolic Acidosis Lactic Acidosis Acute Kidney Injury requiring HD PAD HTN DM Hyperlipidemia plan continue current mgmt cx reports noted patient can be switched to linezoloid 600 mg po bid on discharge rest as per the team
[2019-07-27] MEDS: CALCITRIOL 0.25 MCG CAPSULE (FP) PO SCH (11:21)
[2019-07-27] MEDS: HEPARIN NA (PORCINE) 5,000 UNITS/ML 1ML VIAL SQ SCH ×2 (11:21→21:09)
[2019-07-27] MEDS: RIFAXIMIN 550 MG TABLET (UD) PO SCH ×2 (11:21→21:10)
[2019-07-27] MEDS: LINEZOLID 600 MG TABLET (RESTRICTED TO ID) PO SCH ×2 (11:22→21:10)
[2019-07-27] MEDS: CHLORHEXIDINE GLUCONATE 0.12% 15ML CUP MM SCH ×2 (11:22→21:10)
[2019-07-27] MEDS: SODIUM CHLORIDE 0.45% 1,000 ML with POTASSIUM CHLORIDE 10 MEQ IV SCH (11:23)
--- NOTE | 2019-07-27 14:31 | PN ---
Progress Note (short form) - Note Progress Note: PULMONARY Denies shortness of breath, cough. No fevers or chills. Vital Signs Period Temp Pulse Resp BP Sys/Ham Pulse Ox Last 24 Hr 98.1 F-99.1 F 64-68 20-20 144-150/71-76 Gen: NAD at rest Heart: RRR Lung: decreased breath sounds at the bases Abd: soft, nontender Ext: no edema CBC, BMP 07/24/19 07:20 07/27/19 07:40 Active Medications Acetaminophen (Tylenol -) 650 mg PO Q6H PRN PRN Reason: PAIN LEVEL 4 - 6 Last Admin: 07/25/19 22:33 Dose: 650 mg Calcitriol (Rocaltrol -) 0.25 mcg PO DAILY [facility] Last Admin: 07/27/19 11:21 Dose: 0.25 mcg Chlorhexidine Gluconate (Peridex -) 15 ml MM BID [facility] Last Admin: 07/27/19 11:22 Dose: Not Given Heparin Sodium (Porcine) (Heparin -) 5,000 unit SQ BID [facility] Last Admin: 07/27/19 11:21 Dose: 5,000 unit Potassium Chloride 10 meq/ (Sodium Chloride) 1,005 mls @ 100 mls/hr IV Q10H [facility] Last Admin: 07/27/19 11:23 Dose: Not Given Insulin Aspart (Novolog Vial Sliding Scale -) 1 vial SQ [facility]; Protocol Last Admin: 07/27/19 11:25 Dose: 4 units Insulin Detemir (Levemir Vial) 15 units SQ AM [facility] Last Admin: 07/27/19 06:25 Dose: 15 units Linezolid (Zyvox (Restricted To Id) -) 600 mg PO BID [facility] Stop: 08/01/19 21:59 Last Admin: 07/27/19 11:22 Dose: 600 mg Rifaximin (Xifaxan -) 550 mg PO BID [facility] Last Admin: 07/27/19 11:21 Dose: 550 mg A/P s/p Acute Respiratory Failure Shock - Likely Septic resolving Right Arm Abscess s/p I&D Anion Gap Metabolic Acidosis improved Lactic Acidosis resolved Acute Kidney Injury requiring HD PAD HTN DM Hyperlipidemia Anemia - continue antibiotics per ID - monitor urine output, creatinine - replete lytes - monitor H/H - DVT/GI prophylaxis - d/c planning
--- NOTE | 2019-07-27 20:14 | PN ---
Progress Note, Physician History of Present Illness: Pt seen and examined at bedside. He is awake and appears comfortable. - Current Medication List Current Medications: Active Medications Acetaminophen (Tylenol -) 650 mg PO Q6H PRN PRN Reason: PAIN LEVEL 4 - 6 Last Admin: 07/25/19 22:33 Dose: 650 mg Calcitriol (Rocaltrol -) 0.25 mcg PO DAILY [facility] Last Admin: 07/27/19 11:21 Dose: 0.25 mcg Chlorhexidine Gluconate (Peridex -) 15 ml MM BID [facility] Last Admin: 07/27/19 11:22 Dose: Not Given Heparin Sodium (Porcine) (Heparin -) 5,000 unit SQ BID [facility] Last Admin: 07/27/19 11:21 Dose: 5,000 unit Insulin Aspart (Novolog Vial Sliding Scale -) 1 vial SQ [facility]; Protocol Last Admin: 07/27/19 18:36 Dose: 4 units Insulin Detemir (Levemir Vial) 15 units SQ AM [facility] Last Admin: 07/27/19 06:25 Dose: 15 units Linezolid (Zyvox (Restricted To Id) -) 600 mg PO BID [facility] Stop: 08/01/19 21:59 Last Admin: 07/27/19 11:22 Dose: 600 mg Rifaximin (Xifaxan -) 550 mg PO BID [facility] Last Admin: 07/27/19 11:21 Dose: 550 mg - Objective Vital Signs: Vital Signs Temperature 99.2 F 07/27/19 16:30 Pulse Rate 72 07/27/19 16:30 Respiratory Rate 20 07/27/19 16:30 Blood Pressure 132/69 07/27/19 16:30 O2 Sat by Pulse Oximetry (%) 98 07/27/19 09:00 Constitutional: Yes: Calm HENT: Yes: Atraumatic Neck: Yes: Supple Cardiovascular: Yes: S1, S2 Respiratory: Yes: CTA Bilaterally Gastrointestinal: Yes: Soft Genitourinary: Yes: WNL Edema: No Neurological: Yes: Oriented Labs: CBC, BMP 07/24/19 07:20 07/27/19 07:40 INR, PTT INR 0.97 (0.83-1.09) 07/17/19 21:53 Problem List - Problems (1) BRUCE (acute kidney injury) Code(s): N17.9 - ACUTE KIDNEY FAILURE, UNSPECIFIED (2) Wound cellulitis Code(s): L03.90 - CELLULITIS, UNSPECIFIED Assessment/Plan Current Medications Generic Name Dose Route Start Last Admin Trade Name Gail PRN Reason Stop Dose Admin Acetaminophen 650 mg 07/22/19 11:13 07/25/19 22:33 Tylenol - PO 650 mg Q6H PRN Administration PAIN LEVEL 4 - 6 Calcitriol 0.25 mcg 07/24/19 20:30 07/27/19 11:21 Rocaltrol - PO 0.25 mcg DAILY [facility] Administration Chlorhexidine Gluconate 15 ml 07/22/19 22:00 07/27/19 11:22 Peridex - MM Not Given BID [facility] Heparin Sodium (Porcine) 5,000 unit 07/22/19 22:00 07/27/19 11:21 Heparin - SQ 5,000 unit BID [facility] Administration Insulin Aspart 1 vial 07/22/19 22:00 07/27/19 18:36 Novolog Vial Sliding Scale - SQ 4 units ACHS [facility] Administration Protocol Insulin Detemir 15 units 07/25/19 07:00 07/27/19 06:25 Levemir Vial SQ 15 units AM [facility] Administration Linezolid 600 mg 07/26/19 22:00 07/27/19 11:22 Zyvox (Restricted To Id) - PO 08/01/19 21:59 600 mg BID [facility] Administration Rifaximin 550 mg 07/22/19 22:00 07/27/19 11:21 Xifaxan - PO 550 mg BID [facility] Administration Impression 1. BRUCE 2. metabolic acidosis 3. lactic acidosis 4. altered mental status 5. DM 6. HTN 7. PAD 8. sepsis 9. shock 10. resp failure with pending intubation 11. right arm abscess plan - dental nurse is at 1.4 - would avoid metofrmin for now - can d/c calcitriol - calcium stable - monitor lytes - follow pth
[2019-07-28] MEDS: INSULIN SLIDING SCALE (NOVOLOG) 1 VIAL SQ SCH ×4 (06:17→21:56)
[2019-07-28] MEDS: INSULIN (LEVEMIR) 100 UNITS/ML UNITS SQ SCH (06:19)
[2019-07-28 09:48] LABS: ALBUMIN 2.6 g/dl (3.4-5.0); BILIRUBIN,TOTAL 0.4 mg/dL (0.2-1); CALCIUM 8.7 mg/dL (8.5-10.1); CREATININE 1.5 mg/dL (0.55-1.3); MAGNESIUM 1.8 mg/dL (1.8-2.4); PHOSPHOROUS 3.8 mg/dL (2.5-4.9); POTASSIUM 4.7 mmol/L (3.5-5.1); TOT PROT 5.5 g/dl (6.4-8.2)
--- NOTE | 2019-07-28 10:36 | PN ---
Progress Note, POSITION CLASSIFIER - Note Progress Note: Tolerating diet upgrade with good appetite. Selected Entries 07/17/19 07/17/19 07/18/19 20:55 23:32 00:50 Breakfast Lunch Supper Temperature 98.9 F 91.8 F L 91.8 F L 07/18/19 07/18/19 07/18/19 01:45 02:00 04:00 Breakfast Lunch Supper Temperature 88.2 F L 94.6 F L 96.7 F L 07/18/19 07/18/19 07/18/19 08:00 10:00 12:58 Breakfast Lunch Supper Temperature 96.5 F L 96.4 F L 98.1 F 07/18/19 07/18/19 07/18/19 14:00 18:00 22:00 Breakfast Lunch Supper Temperature 98.2 F 98.1 F 100.2 F H 07/19/19 07/19/19 07/19/19 02:00 06:00 08:00 Breakfast Lunch Supper Temperature 98.8 F 98.2 F 98.3 F 07/19/19 07/19/19 07/20/19 14:00 22:00 02:00 Breakfast 50% Lunch 75% Supper Temperature 98.5 F 99.1 F 98.9 F 07/20/19 07/20/19 07/20/19 06:00 08:00 10:00 Breakfast Lunch Supper Temperature 98.6 F 98.4 F 98.4 F 07/21/19 07/21/19 07/21/19 02:00 06:00 08:00 Breakfast Lunch Supper Temperature 99.2 F 99.2 F 97.9 F 07/21/19 07/21/19 07/21/19 10:00 16:00 22:00 Breakfast 75% Lunch Supper Temperature 96.7 F L 97.6 F 07/22/19 07/22/19 07/22/19 02:00 06:00 08:00 Breakfast 75% Lunch Supper Temperature 97.2 F L 97.6 F 97.6 F 07/27/19 07/27/19 07/27/19 00:00 06:00 10:00 Breakfast 100% Lunch Supper Temperature 99.1 F 98.2 F 98.6 F 07/27/19 07/27/19 07/27/19 14:00 16:30 18:30 Breakfast Lunch 100% Supper 100% Temperature 98.5 F 99.2 F 07/27/19 07/28/19 07/28/19 23:00 00:00 04:00 Breakfast Lunch Supper Temperature 99 F 98.2 F 98.7 F Laboratory Tests 07/17/19 07/18/19 07/19/19 21:53 02:25 06:00 WBC 11.1 H 16.6 H 13.9 H 07/20/19 07/21/19 07/22/19 06:27 06:21 06:50 WBC 15.2 H 11.5 H 8.0
--- NOTE | 2019-07-28 10:37 | PN ---
Progress Note, Physician History of Present Illness: stable no new issues - Current Medication List Current Medications: Active Medications Acetaminophen (Tylenol -) 650 mg PO Q6H PRN PRN Reason: PAIN LEVEL 4 - 6 Last Admin: 07/25/19 22:33 Dose: 650 mg Calcium/Vitamin D (Oscal 250 Mg+D -) 1 tab PO DAILY [facility] Chlorhexidine Gluconate (Peridex -) 15 ml MM BID [facility] Last Admin: 07/27/19 21:10 Dose: 15 ml Clindamycin HCl (Cleocin -) 300 mg PO Q6HPO [facility] Heparin Sodium (Porcine) (Heparin -) 5,000 unit SQ BID [facility] Last Admin: 07/27/19 21:09 Dose: 5,000 unit Insulin Aspart (Novolog Vial Sliding Scale -) 1 vial SQ [facility]; Protocol Last Admin: 07/28/19 06:17 Dose: Not Given Insulin Detemir (Levemir Vial) 15 units SQ AM [facility] Last Admin: 07/28/19 06:19 Dose: 15 units Rifaximin (Xifaxan -) 550 mg PO BID [facility] Last Admin: 07/27/19 21:10 Dose: 550 mg - Objective Vital Signs: Vital Signs Temperature 98.7 F 07/28/19 04:00 Pulse Rate 67 07/28/19 04:00 Respiratory Rate 20 07/28/19 04:00 Blood Pressure 155/85 07/28/19 04:00 O2 Sat by Pulse Oximetry (%) 98 07/27/19 21:45 Constitutional: Yes: No Distress, Calm Cardiovascular: Yes: S1, S2 Respiratory: Yes: Regular, CTA Bilaterally Gastrointestinal: Yes: Normal Bowel Sounds, Soft Musculoskeletal: Yes: WNL Extremities: Yes: WNL Neurological: Yes: Alert, Oriented Psychiatric: Yes: Alert, Oriented Labs: CBC, BMP 07/24/19 07:20 07/28/19 08:05 INR, PTT INR 0.97 (0.83-1.09) 07/17/19 21:53 Assessment/Plan Acute Respiratory Failure Shock - Likely Septic Hypothermia Anion Gap Metabolic Acidosis Lactic Acidosis Acute Kidney Injury requiring HD PAD HTN DM Hyperlipidemia plan continue current mgmt cx reports noted will switch to oral clinda rest as per the team
[2019-07-28] MEDS: SODIUM CHLORIDE 0.45% 1,000 ML with POTASSIUM CHLORIDE 10 MEQ IV SCH (10:53)
[2019-07-28] MEDS: HEPARIN NA (PORCINE) 5,000 UNITS/ML 1ML VIAL SQ SCH ×2 (10:54→21:56)
[2019-07-28] MEDS: LINEZOLID 600 MG TABLET (RESTRICTED TO ID) PO SCH (10:55)
[2019-07-28] MEDS: CALCIUM 250MG/VIT-D 125 UNITS 1 COMBO TABLET PO SCH (10:55)
[2019-07-28] MEDS: RIFAXIMIN 550 MG TABLET (UD) PO SCH ×2 (10:55→21:56)
[2019-07-28] MEDS: CHLORHEXIDINE GLUCONATE 0.12% 15ML CUP MM SCH ×2 (10:56→21:55)
[2019-07-28] MEDS ORDERED: INSULIN (NOVOLOG) ASPART 100 UNITS/ML 10ML VIAL ONE (11:11)
[2019-07-28] MEDS: CLINDAMYCIN HCL 150 MG CAPSULE (FP) PO SCH ×3 (11:41→23:14)
--- NOTE | 2019-07-28 12:45 | PN ---
Progress Note, Physician Chief Complaint: patient seen and examined awake alert legally blind - Current Medication List Current Medications: Active Medications Acetaminophen (Tylenol -) 650 mg PO Q6H PRN PRN Reason: PAIN LEVEL 4 - 6 Last Admin: 07/25/19 22:33 Dose: 650 mg Calcium/Vitamin D (Oscal 250 Mg+D -) 1 tab PO DAILY [facility] Last Admin: 07/28/19 10:55 Dose: 1 tab Chlorhexidine Gluconate (Peridex -) 15 ml MM BID [facility] Last Admin: 07/28/19 10:56 Dose: Not Given Clindamycin HCl (Cleocin -) 300 mg PO Q6HPO [facility] Last Admin: 07/28/19 11:41 Dose: 300 mg Heparin Sodium (Porcine) (Heparin -) 5,000 unit SQ BID [facility] Last Admin: 07/28/19 10:54 Dose: 5,000 unit Insulin Aspart (Novolog Vial Sliding Scale -) 1 vial SQ [facility]; Protocol Last Admin: 07/28/19 11:44 Dose: 2 units Insulin Detemir (Levemir Vial) 15 units SQ AM [facility] Last Admin: 07/28/19 06:19 Dose: 15 units Rifaximin (Xifaxan -) 550 mg PO BID [facility] Last Admin: 07/28/19 10:55 Dose: 550 mg - Objective Vital Signs: Vital Signs Temperature 98.3 F 07/28/19 08:00 Pulse Rate 66 07/28/19 08:00 Respiratory Rate 18 07/28/19 09:00 Blood Pressure 148/74 07/28/19 08:00 O2 Sat by Pulse Oximetry (%) 100 07/28/19 09:00 Constitutional: Yes: Calm Eyes: Yes: Other (blind) Cardiovascular: Yes: Regular Rate and Rhythm, S1, S2 Respiratory: Yes: CTA Bilaterally Gastrointestinal: Yes: Normal Bowel Sounds, Soft Edema: No Labs: CBC, BMP 07/24/19 07:20 07/28/19 08:05 INR, PTT INR 0.97 (0.83-1.09) 07/17/19 21:53 Problem List - Problems (1) Acute metabolic encephalopathy Assessment/Plan: Microbiology 07/18/19 15:15 Arm - Right Upper Gram Stain - Final 07/18/19 15:15 Arm - Right Upper Wound Culture - Preliminary Presumptive Mrsa (Pbp2a Pos) blood culture negative c diff negative iv vancoycin to linozolid and now on po clindamycin mental status better renal function continues to improve hypokalemia resolved rifaximin on board- will repeat ammonia level today if normal will stop rifaximin if needed can take lacutlose for elevated ammonia Code(s): G93.41 - METABOLIC ENCEPHALOPATHY (2) Acute respiratory failure Assessment/Plan: s/p extubation now much improved Code(s): J96.00 - ACUTE RESPIRATORY FAILURE, UNSP W HYPOXIA OR HYPERCAPNIA (3) Acute renal failure Assessment/Plan: improved no need for HD right now metformin stooped secodnary to lactic acidosis and worsening renal failure Code(s): N17.9 - ACUTE KIDNEY FAILURE, UNSPECIFIED Qualifiers: Acute renal failure type: unspecified Qualified Code(s): N17.9 - Acute kidney failure, unspecified (4) Sepsis Assessment/Plan: lactic acidsosis resolved no need for pressors right now Microbiology 07/20/19 16:50 Stool Clostridioides difficile Antigen - Final 07/20/19 16:50 Stool Clostridioides difficile Toxin Assay - Final 07/18/19 15:15 Arm - Right Upper Gram Stain - Final 07/18/19 14:55 Cerebral Spinal Fluid - Lumbar Puncture Gram Stain - Final 07/18/19 14:55 Cerebral Spinal Fluid - Lumbar Puncture CSF Culture - Final 07/17/19 23:00 Urine - Urine - Catheterized Urine Culture - Final NO GROWTH OBTAINED 07/20/19 23:00 Blood - Peripheral Venous Blood Culture - Preliminary NO GROWTH OBTAINED AFTER 24 HOURS, INCUBATION TO CONTINUE FOR 4 DAYS. 07/20/19 23:00 Blood - Peripheral Venous Blood Culture - Preliminary NO GROWTH OBTAINED AFTER 24 HOURS, INCUBATION TO CONTINUE FOR 4 DAYS. 07/18/19 15:15 Arm - Right Upper Wound Culture - Preliminary Presumptive Mrsa (Pbp2a Pos) 07/17/19 21:55 Blood - Peripheral Venous Blood Culture - Preliminary NO GROWTH OBTAINED AFTER 96 HOURS, INCUBATION TO CONTINUE FOR 1 DAYS. 07/17/19 21:50 Blood - Peripheral Venous Blood Culture - Preliminary NO GROWTH OBTAINED AFTER 96 HOURS, INCUBATION TO CONTINUE FOR 1 DAYS. fever resolved Microbiology 07/18/19 15:15 Arm - Right Upper Gram Stain - Final 07/18/19 15:15 Arm - Right Upper Wound Culture - Final S Aureus on po clindamycin for MRSA Code(s): A41.9 - SEPSIS, UNSPECIFIED ORGANISM Assessment/Plan check ammonia level stop rifaximn and change to lacutlose for inc ammonia if needed dc planning
--- NOTE | 2019-07-28 13:46 | PN ---
Progress Note (short form) - Note Progress Note: PULMONARY Denies shortness of breath, cough. No fevers or chills. Vital Signs Period Temp Pulse Resp BP Sys/Ham Pulse Ox Last 24 Hr 98.2 F-99.2 F 65-72 18-20 132-155/61-85 98-100 Gen: NAD at rest Heart: RRR Lung: decreased breath sounds at the bases Abd: soft, nontender Ext: no edema CBC, BMP 07/24/19 07:20 07/28/19 08:05 Active Medications Acetaminophen (Tylenol -) 650 mg PO Q6H PRN PRN Reason: PAIN LEVEL 4 - 6 Last Admin: 07/25/19 22:33 Dose: 650 mg Calcium/Vitamin D (Oscal 250 Mg+D -) 1 tab PO DAILY [facility] Last Admin: 07/28/19 10:55 Dose: 1 tab Chlorhexidine Gluconate (Peridex -) 15 ml MM BID [facility] Last Admin: 07/28/19 10:56 Dose: Not Given Clindamycin HCl (Cleocin -) 300 mg PO Q6HPO [facility] Last Admin: 07/28/19 11:41 Dose: 300 mg Heparin Sodium (Porcine) (Heparin -) 5,000 unit SQ BID [facility] Last Admin: 07/28/19 10:54 Dose: 5,000 unit Insulin Aspart (Novolog Vial Sliding Scale -) 1 vial SQ ACHS [facility]; Protocol Last Admin: 07/28/19 11:44 Dose: 2 units Insulin Detemir (Levemir Vial) 15 units SQ AM [facility] Last Admin: 07/28/19 06:19 Dose: 15 units Rifaximin (Xifaxan -) 550 mg PO BID [facility] Last Admin: 07/28/19 10:55 Dose: 550 mg A/P s/p Acute Respiratory Failure Shock - Likely Septic resolving Right Arm Abscess s/p I&D Anion Gap Metabolic Acidosis improved Lactic Acidosis resolved Acute Kidney Injury requiring HD PAD HTN DM Hyperlipidemia Anemia - continue antibiotics per ID - monitor urine output, creatinine - monitor H/H - DVT/GI prophylaxis - d/c planning in progress
--- NOTE | 2019-07-28 16:18 | PN ---
Progress Note, Physician History of Present Illness: Pt seen and examined at bedside. He is awake and appears comfortable. - Current Medication List Current Medications: Active Medications Acetaminophen (Tylenol -) 650 mg PO Q6H PRN PRN Reason: PAIN LEVEL 4 - 6 Last Admin: 07/25/19 22:33 Dose: 650 mg Calcium/Vitamin D (Oscal 250 Mg+D -) 1 tab PO DAILY [facility] Last Admin: 07/28/19 10:55 Dose: 1 tab Chlorhexidine Gluconate (Peridex -) 15 ml MM BID [facility] Last Admin: 07/28/19 10:56 Dose: Not Given Clindamycin HCl (Cleocin -) 300 mg PO Q6HPO [facility] Last Admin: 07/28/19 11:41 Dose: 300 mg Heparin Sodium (Porcine) (Heparin -) 5,000 unit SQ BID [facility] Last Admin: 07/28/19 10:54 Dose: 5,000 unit Insulin Aspart (Novolog Vial Sliding Scale -) 1 vial SQ ACHS [facility]; Protocol Last Admin: 07/28/19 11:44 Dose: 2 units Insulin Detemir (Levemir Vial) 15 units SQ AM [facility] Last Admin: 07/28/19 06:19 Dose: 15 units Rifaximin (Xifaxan -) 550 mg PO BID [facility] Last Admin: 07/28/19 10:55 Dose: 550 mg - Objective Vital Signs: Vital Signs Temperature 98.6 F 07/28/19 14:00 Pulse Rate 68 07/28/19 14:00 Respiratory Rate 18 07/28/19 14:00 Blood Pressure 156/77 07/28/19 14:00 O2 Sat by Pulse Oximetry (%) 100 07/28/19 10:00 Constitutional: Yes: Calm Eyes: Yes: Conjunctiva Clear HENT: Yes: Atraumatic Neck: Yes: Supple Cardiovascular: Yes: S1, S2 Gastrointestinal: Yes: Soft Genitourinary: Yes: WNL Extremities: Yes: WNL Edema: No Neurological: Yes: Oriented Psychiatric: Yes: Oriented Labs: CBC, BMP 07/24/19 07:20 07/28/19 08:05 INR, PTT INR 0.97 (0.83-1.09) 07/17/19 21:53 Problem List - Problems (1) BRUCE (acute kidney injury) Code(s): N17.9 - ACUTE KIDNEY FAILURE, UNSPECIFIED (2) Wound cellulitis Code(s): L03.90 - CELLULITIS, UNSPECIFIED Assessment/Plan Current Medications Generic Name Dose Route Start Last Admin Trade Name Gail PRN Reason Stop Dose Admin Acetaminophen 650 mg 07/22/19 11:13 07/25/19 22:33 Tylenol - PO 650 mg Q6H PRN Administration PAIN LEVEL 4 - 6 Calcium/Vitamin D 1 tab 07/28/19 10:00 07/28/19 10:55 Oscal 250 Mg+D - PO 1 tab DAILY [facility] Administration Chlorhexidine Gluconate 15 ml 07/22/19 22:00 07/28/19 10:56 Peridex - MM Not Given BID [facility] Clindamycin HCl 300 mg 07/28/19 12:00 07/28/19 11:41 Cleocin - PO 300 mg Q6HPO [facility] Administration Heparin Sodium (Porcine) 5,000 unit 07/22/19 22:00 07/28/19 10:54 Heparin - SQ 5,000 unit BID [facility] Administration Insulin Aspart 1 vial 07/22/19 22:00 07/28/19 11:44 Novolog Vial Sliding Scale - SQ 2 units ACHS [facility] Administration Protocol Insulin Detemir 15 units 07/25/19 07:00 07/28/19 06:19 Levemir Vial SQ 15 units AM [facility] Administration Rifaximin 550 mg 07/22/19 22:00 07/28/19 10:55 Xifaxan - PO 550 mg BID [facility] Administration Impression 1. BRUCE 2. metabolic acidosis 3. lactic acidosis 4. altered mental status 5. DM 6. HTN 7. PAD 8. sepsis 9. shock 10. resp failure with pending intubation 11. 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
[2019-07-29] MEDS: CLINDAMYCIN HCL 150 MG CAPSULE (FP) PO SCH ×4 (06:44→23:02)
[2019-07-29] MEDS: INSULIN (LEVEMIR) 100 UNITS/ML UNITS SQ SCH (06:45)
[2019-07-29] MEDS: INSULIN SLIDING SCALE (NOVOLOG) 1 VIAL SQ SCH ×4 (06:45→22:27)
--- NOTE | 2019-07-29 08:54 | PN ---
Progress Note (short form) - Note Progress Note: Eating breakfast. Denies shortness of breath, cough. No fevers or chills. Intake & Output 07/26/19 07/27/19 07/28/19 07/29/19 23:59 23:59 23:59 23:59 Intake Total 300 0 650 120 Output Total 611 083 2431 800 Balance -150 -700 -1170 -680 Weight 130 lb 3.2 oz 122 lb 8 oz 115 lb 8 oz 112 lb 9 oz Last Vital Signs Temp Pulse Resp BP Pulse Ox 98.3 F 71 20 136/73 98 07/29/19 06:59 07/29/19 06:59 07/29/19 06:59 07/29/19 06:59 07/28/19 21:00 Active Medications Acetaminophen (Tylenol -) 650 mg PO Q6H PRN PRN Reason: PAIN LEVEL 4 - 6 Last Admin: 07/25/19 22:33 Dose: 650 mg Calcium/Vitamin D (Oscal 250 Mg+D -) 1 tab PO DAILY [facility] Last Admin: 07/28/19 10:55 Dose: 1 tab Chlorhexidine Gluconate (Peridex -) 15 ml MM BID [facility] Last Admin: 07/28/19 21:55 Dose: Not Given Clindamycin HCl (Cleocin -) 300 mg PO Q6HPO [facility] Last Admin: 07/29/19 06:44 Dose: 300 mg Heparin Sodium (Porcine) (Heparin -) 5,000 unit SQ BID [facility] Last Admin: 07/28/19 21:56 Dose: 5,000 unit Insulin Aspart (Novolog Vial Sliding Scale -) 1 vial SQ [facility]; Protocol Last Admin: 07/29/19 06:45 Dose: Not Given Insulin Detemir (Levemir Vial) 15 units SQ AM [facility] Last Admin: 07/29/19 06:45 Dose: 15 units Rifaximin (Xifaxan -) 550 mg PO BID [facility] Last Admin: 07/28/19 21:56 Dose: 550 mg Gen: NAD at rest Heart: RRR Lung: decreased breath sounds at the bases Abd: soft, nontender Ext: no edema Laboratory Results - last 24 hr 07/27/19 07/28/19 07/28/19 07:40 08:05 11:42 Sodium 138 Potassium 4.7 Chloride 106 Carbon Dioxide 25 Anion Gap 8 BUN 20.0 H Creatinine 1.5 H Est GFR (CKD-EPI)AfAm 54.27 Est GFR (CKD-EPI)NonAf 46.83 POC Glucometer 169 Random Glucose 172 H Calcium 8.4 L 8.7 Phosphorus 3.8 Magnesium 1.8 Total Bilirubin 0.4 AST 19 ALT 32 Alkaline Phosphatase 71 Ammonia Total Protein 5.5 L Albumin 2.6 L PTH Intact 31 PTH Intact Intraop 0 m 07/28/19 07/28/19 07/28/19 13:35 17:44 21:54 Sodium Potassium Chloride Carbon Dioxide Anion Gap BUN Creatinine Est GFR (CKD-EPI)AfAm Est GFR (CKD-EPI)NonAf POC Glucometer 70 125 Random Glucose Calcium Phosphorus Magnesium Total Bilirubin AST ALT Alkaline Phosphatase Ammonia 15.30 Total Protein Albumin PTH Intact PTH Intact Intraop 0 m 07/29/19 06:28 Sodium Potassium Chloride Carbon Dioxide Anion Gap BUN Creatinine Est GFR (CKD-EPI)AfAm Est GFR (CKD-EPI)NonAf POC Glucometer 135 Random Glucose Calcium Phosphorus Magnesium Total Bilirubin AST ALT Alkaline Phosphatase Ammonia Total Protein Albumin PTH Intact PTH Intact Intraop 0 m A/P s/p Acute Respiratory Failure Shock - Likely Septic resolving Right Arm Abscess s/p I&D Anion Gap Metabolic Acidosis improved Lactic Acidosis resolved Acute Kidney Injury requiring HD PAD HTN DM Hyperlipidemia Anemia - continue antibiotics per ID - monitor urine output, creatinine - monitor H/H - DVT/GI prophylaxis - d/c planning in progress Dr Mendez
[2019-07-29 09:37] LABS: ALBUMIN 3.1 g/dl (3.4-5.0); BILIRUBIN,TOTAL 0.7 mg/dL (0.2-1); BLOOD UREA NITROGEN 17.4 mg/dL (7-18); CALCIUM 9.1 mg/dL (8.5-10.1); CREATININE 1.3 mg/dL (0.55-1.3); POTASSIUM 4.9 mmol/L (3.5-5.1); TOT PROT 6.3 g/dl (6.4-8.2)
[2019-07-29] MEDS ORDERED: PT OWN MED DRAWER 7, Y5N ONE ×2 (09:55→12:29)
[2019-07-29] MEDS: RIFAXIMIN 550 MG TABLET (UD) PO SCH (10:20)
[2019-07-29] MEDS: HEPARIN NA (PORCINE) 5,000 UNITS/ML 1ML VIAL SQ SCH (10:20)
--- NOTE | 2019-07-29 10:55 | PN ---
Progress Note, Physician History of Present Illness: stable no new issues - Current Medication List Current Medications: Active Medications Acetaminophen (Tylenol -) 650 mg PO Q6H PRN PRN Reason: PAIN LEVEL 4 - 6 Last Admin: 07/25/19 22:33 Dose: 650 mg Calcium/Vitamin D (Oscal 250 Mg+D -) 1 tab PO DAILY [facility] Last Admin: 07/28/19 10:55 Dose: 1 tab Chlorhexidine Gluconate (Peridex -) 15 ml MM BID [facility] Last Admin: 07/28/19 21:55 Dose: Not Given Clindamycin HCl (Cleocin -) 300 mg PO Q6HPO [facility] Last Admin: 07/29/19 06:44 Dose: 300 mg Heparin Sodium (Porcine) (Heparin -) 5,000 unit SQ BID [facility] Last Admin: 07/29/19 10:20 Dose: 5,000 unit Insulin Aspart (Novolog Vial Sliding Scale -) 1 vial SQ [facility]; Protocol Last Admin: 07/29/19 06:45 Dose: Not Given Insulin Detemir (Levemir Vial) 15 units SQ AM [facility] Last Admin: 07/29/19 06:45 Dose: 15 units Rifaximin (Xifaxan -) 550 mg PO BID [facility] Last Admin: 07/29/19 10:20 Dose: 550 mg - Objective Vital Signs: Vital Signs Temperature 98.3 F 07/29/19 06:59 Pulse Rate 76 07/29/19 10:00 Respiratory Rate 18 07/29/19 10:00 Blood Pressure 120/74 07/29/19 10:00 O2 Sat by Pulse Oximetry (%) 95 07/29/19 09:00 Constitutional: Yes: No Distress, Calm Cardiovascular: Yes: S1, S2 Respiratory: Yes: Regular, CTA Bilaterally Gastrointestinal: Yes: Normal Bowel Sounds, Soft Musculoskeletal: Yes: WNL Extremities: Yes: WNL Neurological: Yes: Alert, Oriented Psychiatric: Yes: Alert, Oriented Labs: CBC, BMP 07/24/19 07:20 07/29/19 06:00 INR, PTT INR 0.97 (0.83-1.09) 07/17/19 21:53 Assessment/Plan Acute Respiratory Failure Shock - Likely Septic Hypothermia Anion Gap Metabolic Acidosis Lactic Acidosis Acute Kidney Injury requiring HD PAD HTN DM Hyperlipidemia plan continue current mgmt cx reports noted abx rest as per the team
[2019-07-29] MEDS: CHLORHEXIDINE GLUCONATE 0.12% 15ML CUP MM SCH ×2 (12:19→21:05)
[2019-07-29] MEDS ORDERED: INSULIN (NOVOLOG) ASPART 100 UNITS/ML 10ML VIAL ONE (12:20)
--- NOTE | 2019-07-29 15:09 | PN ---
Progress Note, Physician History of Present Illness: Pt seen and examined at bedside. He is awake and appears comfortable. - Current Medication List Current Medications: Active Medications Acetaminophen (Tylenol -) 650 mg PO Q6H PRN PRN Reason: PAIN LEVEL 4 - 6 Last Admin: 07/25/19 22:33 Dose: 650 mg Calcium/Vitamin D (Oscal 250 Mg+D -) 1 tab PO DAILY [facility] Last Admin: 07/28/19 10:55 Dose: 1 tab Chlorhexidine Gluconate (Peridex -) 15 ml MM BID [facility] Last Admin: 07/29/19 12:19 Dose: Not Given Clindamycin HCl (Cleocin -) 300 mg PO Q6HPO [facility] Last Admin: 07/29/19 12:30 Dose: 300 mg Heparin Sodium (Porcine) (Heparin -) 5,000 unit SQ BID [facility] Last Admin: 07/29/19 10:20 Dose: 5,000 unit Insulin Aspart (Novolog Vial Sliding Scale -) 1 vial SQ ACHS [facility]; Protocol Last Admin: 07/29/19 12:27 Dose: 2 units Insulin Detemir (Levemir Vial) 15 units SQ AM [facility] Last Admin: 07/29/19 06:45 Dose: 15 units Rifaximin (Xifaxan -) 550 mg PO BID [facility] Last Admin: 07/29/19 10:20 Dose: 550 mg - Objective Vital Signs: Vital Signs Temperature 98.3 F 07/29/19 06:59 Pulse Rate 76 07/29/19 10:00 Respiratory Rate 18 07/29/19 10:00 Blood Pressure 144/74 07/29/19 10:00 O2 Sat by Pulse Oximetry (%) 95 07/29/19 09:00 Constitutional: Yes: Calm HENT: Yes: Atraumatic Neck: Yes: Supple Cardiovascular: Yes: S1, S2 Respiratory: Yes: CTA Bilaterally Gastrointestinal: Yes: Soft Genitourinary: Yes: WNL Musculoskeletal: Yes: WNL Edema: No Neurological: Yes: Oriented Labs: CBC, BMP 07/24/19 07:20 07/29/19 06:00 INR, PTT INR 0.97 (0.83-1.09) 07/17/19 21:53 Problem List - Problems (1) BRUCE (acute kidney injury) Code(s): N17.9 - ACUTE KIDNEY FAILURE, UNSPECIFIED (2) Wound cellulitis Code(s): L03.90 - CELLULITIS, UNSPECIFIED Assessment/Plan Current Medications Generic Name Dose Route Start Last Admin Trade Name Gail PRN Reason Stop Dose Admin Acetaminophen 650 mg 07/22/19 11:13 07/25/19 22:33 Tylenol - PO 650 mg Q6H PRN Administration PAIN LEVEL 4 - 6 Calcium/Vitamin D 1 tab 07/28/19 10:00 07/28/19 10:55 Oscal 250 Mg+D - PO 1 tab DAILY [facility] Administration Chlorhexidine Gluconate 15 ml 07/22/19 22:00 07/29/19 12:19 Peridex - MM Not Given BID [facility] Clindamycin HCl 300 mg 07/28/19 12:00 07/29/19 12:30 Cleocin - PO 300 mg Q6HPO [facility] Administration Heparin Sodium (Porcine) 5,000 unit 07/22/19 22:00 07/29/19 10:20 Heparin - SQ 5,000 unit BID [facility] Administration Insulin Aspart 1 vial 07/22/19 22:00 07/29/19 12:27 Novolog Vial Sliding Scale - SQ 2 units ACHS [facility] Administration Protocol Insulin Detemir 15 units 07/25/19 07:00 07/29/19 06:45 Levemir Vial SQ 15 units AM [facility] Administration Rifaximin 550 mg 07/22/19 22:00 07/29/19 10:20 Xifaxan - PO 550 mg BID [facility] Administration Laboratory Tests 07/27/19 07/29/19 07:40 06:00 Calcium 9.1 Albumin 3.1 L PTH Intact 31 Impression 1. BRUCE 2. metabolic acidosis 3. lactic acidosis 4. altered mental status 5. DM 6. HTN 7. PAD 8. sepsis 9. shock 10. resp failure with pending intubation 11. right arm abscess plan - renal function is stable - can d/c calcium supps - pth reviewed - can see outpt - will follow PRN
[2019-07-29] MEDS: CALCIUM 250MG/VIT-D 125 UNITS 1 COMBO TABLET PO SCH (15:27)
--- NOTE | 2019-07-29 15:38 | PN ---
Progress Note, Physician Chief Complaint: patient seen and examined no distress - Current Medication List Current Medications: Active Medications Acetaminophen (Tylenol -) 650 mg PO Q6H PRN PRN Reason: PAIN LEVEL 4 - 6 Last Admin: 07/25/19 22:33 Dose: 650 mg Chlorhexidine Gluconate (Peridex -) 15 ml MM BID [facility] Last Admin: 07/29/19 12:19 Dose: Not Given Clindamycin HCl (Cleocin -) 300 mg PO Q6HPO [facility] Last Admin: 07/29/19 12:30 Dose: 300 mg Heparin Sodium (Porcine) (Heparin -) 5,000 unit SQ BID [facility] Last Admin: 07/29/19 10:20 Dose: 5,000 unit Insulin Aspart (Novolog Vial Sliding Scale -) 1 vial SQ ACHS [facility]; Protocol Last Admin: 07/29/19 12:27 Dose: 2 units Insulin Detemir (Levemir Vial) 15 units SQ AM [facility] Last Admin: 07/29/19 06:45 Dose: 15 units Lactulose (Cephulac (Oral Use)) 20 gm PO BID [facility] - Objective Vital Signs: Vital Signs Temperature 98.8 F 07/29/19 15:29 Pulse Rate 73 07/29/19 15:29 Respiratory Rate 18 07/29/19 15:29 Blood Pressure 131/73 07/29/19 15:29 O2 Sat by Pulse Oximetry (%) 95 07/29/19 09:00 Constitutional: Yes: Calm Cardiovascular: Yes: Regular Rate and Rhythm, S1, S2 Respiratory: Yes: CTA Bilaterally Gastrointestinal: Yes: Normal Bowel Sounds, Soft Edema: No Labs: CBC, BMP 07/24/19 07:20 07/29/19 06:00 INR, PTT INR 0.97 (0.83-1.09) 07/17/19 21:53 Problem List - Problems (1) Acute metabolic encephalopathy Assessment/Plan: Microbiology 07/18/19 15:15 Arm - Right Upper Gram Stain - Final 07/18/19 15:15 Arm - Right Upper Wound Culture - Preliminary Presumptive Mrsa (Pbp2a Pos) blood culture negative c diff negative iv vancoycin to linozolid and now on po clindamycin mental status better renal function continues to improve hypokalemia resolved rifaximin on board-trista change to lactulose Code(s): G93.41 - METABOLIC ENCEPHALOPATHY (2) Acute respiratory failure Assessment/Plan: s/p extubation now much improved Code(s): J96.00 - ACUTE RESPIRATORY FAILURE, UNSP W HYPOXIA OR HYPERCAPNIA (3) Acute renal failure Assessment/Plan: improved no need for HD right now metformin stooped secodnary to lactic acidosis and worsening renal failure Code(s): N17.9 - ACUTE KIDNEY FAILURE, UNSPECIFIED Qualifiers: Acute renal failure type: unspecified Qualified Code(s): N17.9 - Acute kidney failure, unspecified (4) Sepsis Assessment/Plan: lactic acidsosis resolved no need for pressors right now Microbiology 07/20/19 16:50 Stool Clostridioides difficile Antigen - Final 07/20/19 16:50 Stool Clostridioides difficile Toxin Assay - Final 07/18/19 15:15 Arm - Right Upper Gram Stain - Final 07/18/19 14:55 Cerebral Spinal Fluid - Lumbar Puncture Gram Stain - Final 07/18/19 14:55 Cerebral Spinal Fluid - Lumbar Puncture CSF Culture - Final 07/17/19 23:00 Urine - Urine - Catheterized Urine Culture - Final NO GROWTH OBTAINED 07/20/19 23:00 Blood - Peripheral Venous Blood Culture - Preliminary NO GROWTH OBTAINED AFTER 24 HOURS, INCUBATION TO CONTINUE FOR 4 DAYS. 07/20/19 23:00 Blood - Peripheral Venous Blood Culture - Preliminary NO GROWTH OBTAINED AFTER 24 HOURS, INCUBATION TO CONTINUE FOR 4 DAYS. 07/18/19 15:15 Arm - Right Upper Wound Culture - Preliminary Presumptive Mrsa (Pbp2a Pos) 07/17/19 21:55 Blood - Peripheral Venous Blood Culture - Preliminary NO GROWTH OBTAINED AFTER 96 HOURS, INCUBATION TO CONTINUE FOR 1 DAYS. 07/17/19 21:50 Blood - Peripheral Venous Blood Culture - Preliminary NO GROWTH OBTAINED AFTER 96 HOURS, INCUBATION TO CONTINUE FOR 1 DAYS. fever resolved Microbiology 07/18/19 15:15 Arm - Right Upper Gram Stain - Final 07/18/19 15:15 Arm - Right Upper Wound Culture - Final Mr S Aureus on po clindamycin for MRSA Code(s): A41.9 - SEPSIS, UNSPECIFIED ORGANISM
[2019-07-29] MEDS ORDERED: LACTULOSE 20 GM/30 ML UDC (FOR ORAL USE ONLY) PO SCH (22:00)
[2019-07-29] MEDS: LACTULOSE 20 GM/30 ML UDC (FOR ORAL USE ONLY) PO SCH (22:26)
[2019-07-30] MEDS: CLINDAMYCIN HCL 150 MG CAPSULE (FP) PO SCH ×4 (06:51→23:09)
[2019-07-30] MEDS: INSULIN (LEVEMIR) 100 UNITS/ML UNITS SQ SCH (06:52)
[2019-07-30] MEDS: INSULIN SLIDING SCALE (NOVOLOG) 1 VIAL SQ SCH ×4 (06:53→22:58)
[2019-07-30 09:03] VITALS: BMI 22.3
[2019-07-30] MEDS: LACTULOSE 20 GM/30 ML UDC (FOR ORAL USE ONLY) PO SCH ×2 (09:32→22:54)
[2019-07-30] MEDS ORDERED: INSULIN (NOVOLOG) ASPART 100 UNITS/ML 10ML VIAL ONE (11:14)
[2019-07-30] MEDS: CHLORHEXIDINE GLUCONATE 0.12% 15ML CUP MM SCH ×2 (11:22→22:54)
--- NOTE | 2019-07-30 12:19 | PN ---
Progress Note, Physician History of Present Illness: Pt is alert, without distress. States he feels well. No pain in RUE. - Current Medication List Current Medications: Active Medications Acetaminophen (Tylenol -) 650 mg PO Q6H PRN PRN Reason: PAIN LEVEL 4 - 6 Last Admin: 07/25/19 22:33 Dose: 650 mg Chlorhexidine Gluconate (Peridex -) 15 ml MM BID [facility] Last Admin: 07/30/19 11:22 Dose: 15 ml Clindamycin HCl (Cleocin -) 300 mg PO Q6HPO [facility] Last Admin: 07/30/19 11:21 Dose: 300 mg Insulin Aspart (Novolog Vial Sliding Scale -) 1 vial SQ ACHS [facility]; Protocol Last Admin: 07/30/19 11:21 Dose: 2 units Insulin Detemir (Levemir Vial) 15 units SQ AM [facility] Last Admin: 07/30/19 06:52 Dose: Not Given Lactulose (Cephulac (Oral Use)) 20 gm PO BID [facility] Last Admin: 07/30/19 09:32 Dose: 20 gm - Objective Vital Signs: Vital Signs Temperature 98.5 F 07/30/19 09:44 Pulse Rate 72 07/30/19 09:44 Respiratory Rate 20 07/30/19 09:44 Blood Pressure 129/75 07/30/19 09:44 O2 Sat by Pulse Oximetry (%) 94 L 07/30/19 09:00 Constitutional: Yes: No Distress, Calm Cardiovascular: Yes: Regular Rate and Rhythm Respiratory: Yes: Regular Gastrointestinal: Yes: Normal Bowel Sounds, Soft Genitourinary: Yes: WNL Integumentary: Yes: WNL Wound/Incision: Yes: Other (RUE wound dry/scabbed, no fluctuance/drainage, no tenderness) Neurological: Yes: Alert Labs: CBC, BMP 07/24/19 07:20 07/29/19 06:00 INR, PTT INR 0.97 (0.83-1.09) 07/17/19 21:53 Microbiology 07/20/19 23:00 Blood - Peripheral Venous Blood Culture - Final NO GROWTH AFTER 5 DAYS INCUBATION 07/20/19 23:00 Blood - Peripheral Venous Blood Culture - Final NO GROWTH AFTER 5 DAYS INCUBATION 07/18/19 15:15 Arm - Right Upper Gram Stain - Final 07/18/19 15:15 Arm - Right Upper Wound Culture - Final Mr S Aureus 07/17/19 21:55 Blood - Peripheral Venous Blood Culture - Final NO GROWTH AFTER 5 DAYS INCUBATION 07/17/19 21:50 Blood - Peripheral Venous Blood Culture - Final NO GROWTH AFTER 5 DAYS INCUBATION 07/20/19 16:50 Stool Clostridioides difficile Antigen - Final 07/20/19 16:50 Stool Clostridioides difficile Toxin Assay - Final 07/18/19 14:55 Cerebral Spinal Fluid - Lumbar Puncture Gram Stain - Final 07/18/19 14:55 Cerebral Spinal Fluid - Lumbar Puncture CSF Culture - Final 07/17/19 23:00 Urine - Urine - Catheterized Urine Culture - Final NO GROWTH OBTAINED Assessment/Plan Acute Respiratory Failure s/p Shock Hypothermia Anion Gap Metabolic Acidosis Lactic Acidosis Acute Kidney Injury requiring HD PAD HTN DM Hyperlipidemia -- continue p.o. antibiotics for 3 more days -- RUE wound healing, erythema resolved -- in no acute distress at this time
--- NOTE | 2019-07-30 12:42 | PN ---
Progress Note (short form) - Note Progress Note: AWAKE TRANSFERRING TO [facility] COMPLETED PLAN OF CARE REVIEWED Problem List - Problems (1) ESRD (end stage renal disease) on dialysis Code(s): N18.6 - END STAGE RENAL DISEASE; Z99.2 - DEPENDENCE ON RENAL DIALYSIS (2) Acute metabolic encephalopathy Code(s): G93.41 - METABOLIC ENCEPHALOPATHY (3) Diabetes Code(s): E11.9 - TYPE 2 DIABETES MELLITUS WITHOUT COMPLICATIONS (4) Sepsis Code(s): A41.9 - SEPSIS, UNSPECIFIED ORGANISM (5) Diabetes Code(s): E11.9 - TYPE 2 DIABETES MELLITUS WITHOUT COMPLICATIONS (6) Lactic acid acidosis Code(s): E87.2 - ACIDOSIS
--- NOTE | 2019-07-30 12:43 | PN ---
Progress Note (short form) - Note Progress Note: Feels better. Denies shortness of breath, cough. No fevers. Intake & Output 07/27/19 07/28/19 07/29/19 07/30/19 23:59 23:59 23:59 23:59 Intake Total 0 650 1140 300 Output Total 700 1820 1400 900 Balance -700 -1170 -260 -600 Weight 122 lb 8 oz 115 lb 8 oz 112 lb 9 oz Last Vital Signs Temp Pulse Resp BP Pulse Ox 98.5 F 72 20 129/75 94 L 07/30/19 09:44 07/30/19 09:44 07/30/19 09:44 07/30/19 09:44 07/30/19 09:00 Active Medications Acetaminophen (Tylenol -) 650 mg PO Q6H PRN PRN Reason: PAIN LEVEL 4 - 6 Last Admin: 07/25/19 22:33 Dose: 650 mg Chlorhexidine Gluconate (Peridex -) 15 ml MM BID [facility] Last Admin: 07/30/19 11:22 Dose: 15 ml Clindamycin HCl (Cleocin -) 300 mg PO Q6HPO [facility] Last Admin: 07/30/19 11:21 Dose: 300 mg Insulin Aspart (Novolog Vial Sliding Scale -) 1 vial SQ ACHS [facility]; Protocol Last Admin: 07/30/19 11:21 Dose: 2 units Insulin Detemir (Levemir Vial) 15 units SQ AM [facility] Last Admin: 07/30/19 06:52 Dose: Not Given Lactulose (Cephulac (Oral Use)) 20 gm PO BID [facility] Last Admin: 07/30/19 09:32 Dose: 20 gm Gen: NAD at rest Heart: RRR Lung: decreased breath sounds at the bases Abd: soft, nontender Ext: no edema Laboratory Results - last 24 hr 07/29/19 07/29/19 07/30/19 17:46 21:14 06:26 POC Glucometer 141 153 92 07/30/19 10:59 POC Glucometer 160 A/P s/p Acute Respiratory Failure Shock - Likely Septic resolving Right Arm Abscess s/p I&D Anion Gap Metabolic Acidosis improved Lactic Acidosis resolved Acute Kidney Injury requiring HD PAD HTN DM Hyperlipidemia Anemia - continue antibiotics per ID - monitor urine output, creatinine - monitor H/H - DVT/GI prophylaxis - d/c planning in progress Dr Mendez
[2019-07-31] MEDS: CLINDAMYCIN HCL 150 MG CAPSULE (FP) PO SCH ×4 (06:00→23:07)
[2019-07-31] MEDS: INSULIN SLIDING SCALE (NOVOLOG) 1 VIAL SQ SCH ×4 (06:04→22:46)
[2019-07-31] MEDS: INSULIN (LEVEMIR) 100 UNITS/ML UNITS SQ SCH (09:02)
[2019-07-31] MEDS: ACETAMINOPHEN 325 MG TABLET (FP) PO PRN (10:15)
[2019-07-31] MEDS: CHLORHEXIDINE GLUCONATE 0.12% 15ML CUP MM SCH ×2 (10:17→22:46)
--- NOTE | 2019-07-31 12:34 | PN ---
Progress Note (short form) - Note Progress Note: Feels overall better. Denies shortness of breath, cough. No fevers. Intake & Output 07/28/19 07/29/19 07/30/19 07/31/19 23:59 23:59 23:59 23:59 Intake Total 650 1140 950 0 Output Total 1820 1400 1400 700 Balance -1170 -260 -450 -700 Weight 115 lb 8 oz 112 lb 9 oz 114 lb 5 oz Last Vital Signs Temp Pulse Resp BP Pulse Ox 98.8 F 78 20 112/61 95 07/31/19 06:41 07/31/19 06:41 07/31/19 06:41 07/31/19 06:41 07/30/19 21:00 Active Medications Acetaminophen (Tylenol -) 650 mg PO Q6H PRN PRN Reason: PAIN LEVEL 4 - 6 Last Admin: 07/31/19 10:15 Dose: 650 mg Chlorhexidine Gluconate (Peridex -) 15 ml MM BID [facility] Last Admin: 07/31/19 10:17 Dose: Not Given Clindamycin HCl (Cleocin -) 300 mg PO Q6HPO [facility] Last Admin: 07/31/19 06:00 Dose: 300 mg Insulin Aspart (Novolog Vial Sliding Scale -) 1 vial SQ ACHS [facility]; Protocol Last Admin: 07/31/19 06:04 Dose: Not Given Insulin Detemir (Levemir Vial) 15 units SQ AM [facility] Last Admin: 07/31/19 09:02 Dose: 15 units Lactulose (Cephulac (Oral Use)) 20 gm PO BID [facility] Last Admin: 07/30/19 22:54 Dose: 20 gm Gen: NAD at rest Heart: RRR Lung: decreased breath sounds at the bases Abd: soft, nontender Ext: no edema Laboratory Results - last 24 hr 07/30/19 07/30/19 07/31/19 16:10 22:56 06:03 POC Glucometer 266 170 106 07/31/19 12:11 POC Glucometer 158 A/P s/p Acute Respiratory Failure Shock - Likely Septic resolving Right Arm Abscess s/p I&D Anion Gap Metabolic Acidosis improved Lactic Acidosis resolved Acute Kidney Injury requiring HD PAD HTN DM Hyperlipidemia Anemia - ABX per ID - monitor urine output, creatinine - monitor H/H - DVT/GI prophylaxis - d/c planning in progress Dr Mendez
[2019-07-31] MEDS: LACTULOSE 20 GM/30 ML UDC (FOR ORAL USE ONLY) PO SCH ×2 (12:47→22:43)
--- NOTE | 2019-07-31 14:11 | PN ---
Progress Note, Physician History of Present Illness: Pt is alert, comfortable. Denies RUE pain. Tolerating antibiotics. - Current Medication List Current Medications: Active Medications Acetaminophen (Tylenol -) 650 mg PO Q6H PRN PRN Reason: PAIN LEVEL 4 - 6 Last Admin: 07/31/19 10:15 Dose: 650 mg Chlorhexidine Gluconate (Peridex -) 15 ml MM BID [facility] Last Admin: 07/31/19 10:17 Dose: Not Given Clindamycin HCl (Cleocin -) 300 mg PO Q6HPO [facility] Last Admin: 07/31/19 12:51 Dose: 300 mg Insulin Aspart (Novolog Vial Sliding Scale -) 1 vial SQ ACHS [facility]; Protocol Last Admin: 07/31/19 12:45 Dose: 2 units Insulin Detemir (Levemir Vial) 15 units SQ AM [facility] Last Admin: 07/31/19 09:02 Dose: 15 units Lactulose (Cephulac (Oral Use)) 20 gm PO BID [facility] Last Admin: 07/31/19 12:47 Dose: 20 gm - Objective Vital Signs: Vital Signs Temperature 98.7 F 07/31/19 10:00 Pulse Rate 72 07/31/19 10:00 Respiratory Rate 20 07/31/19 10:00 Blood Pressure 129/70 07/31/19 10:00 O2 Sat by Pulse Oximetry (%) 93 L 07/31/19 09:00 Constitutional: Yes: No Distress, Calm Cardiovascular: Yes: Regular Rate and Rhythm Respiratory: Yes: Regular Gastrointestinal: Yes: Normal Bowel Sounds, Soft Wound/Incision: Yes: Other (RUE eschar, dry, no warmth/tenderness) Neurological: Yes: Alert Labs: CBC, BMP 07/24/19 07:20 07/29/19 06:00 INR, PTT INR 0.97 (0.83-1.09) 07/17/19 21:53 Microbiology 07/20/19 23:00 Blood - Peripheral Venous Blood Culture - Final NO GROWTH AFTER 5 DAYS INCUBATION 07/20/19 23:00 Blood - Peripheral Venous Blood Culture - Final NO GROWTH AFTER 5 DAYS INCUBATION 07/18/19 15:15 Arm - Right Upper Gram Stain - Final 07/18/19 15:15 Arm - Right Upper Wound Culture - Final Mr S Aureus 07/17/19 21:55 Blood - Peripheral Venous Blood Culture - Final NO GROWTH AFTER 5 DAYS INCUBATION 07/17/19 21:50 Blood - Peripheral Venous Blood Culture - Final NO GROWTH AFTER 5 DAYS INCUBATION 07/20/19 16:50 Stool Clostridioides difficile Antigen - Final 07/20/19 16:50 Stool Clostridioides difficile Toxin Assay - Final 07/18/19 14:55 Cerebral Spinal Fluid - Lumbar Puncture Gram Stain - Final 07/18/19 14:55 Cerebral Spinal Fluid - Lumbar Puncture CSF Culture - Final 07/17/19 23:00 Urine - Urine - Catheterized Urine Culture - Final NO GROWTH OBTAINED Assessment/Plan RUE abscess Acute Respiratory Failure s/p Shock Hypothermia Anion Gap Metabolic Acidosis Lactic Acidosis Acute Kidney Injury requiring HD PAD HTN DM Hyperlipidemia -- continue p.o. antibiotics for 2 more days -- RUE wound healing, erythema resolved clinically improved
--- NOTE | 2019-07-31 18:00 | PN ---
Progress Note (short form) - Note Progress Note: AWAKE ON PO ABX COMFORTABLE TRANSFERRING TO [facility] CANCELED NOW TO [facility] COMPLETED PLAN OF CARE REVIEWED Problem List - Problems (1) ESRD (end stage renal disease) on dialysis Code(s): N18.6 - END STAGE RENAL DISEASE; Z99.2 - DEPENDENCE ON RENAL DIALYSIS (2) Acute metabolic encephalopathy Code(s): G93.41 - METABOLIC ENCEPHALOPATHY (3) Diabetes Code(s): E11.9 - TYPE 2 DIABETES MELLITUS WITHOUT COMPLICATIONS (4) Sepsis Code(s): A41.9 - SEPSIS, UNSPECIFIED ORGANISM (5) Diabetes Code(s): E11.9 - TYPE 2 DIABETES MELLITUS WITHOUT COMPLICATIONS (6) Lactic acid acidosis Code(s): E87.2 - ACIDOSIS
[2019-08-01] MEDS: INSULIN SLIDING SCALE (NOVOLOG) 1 VIAL SQ SCH ×3 (06:25→16:20)
[2019-08-01] MEDS: INSULIN (LEVEMIR) 100 UNITS/ML UNITS SQ SCH (06:25)
[2019-08-01] MEDS: CLINDAMYCIN HCL 150 MG CAPSULE (FP) PO SCH ×2 (06:59→11:40)
[2019-08-01] MEDS ORDERED: PT OWN MED DRAWER 7, Y5N ONE (10:29)
[2019-08-01] MEDS: LACTULOSE 20 GM/30 ML UDC (FOR ORAL USE ONLY) PO SCH (10:36)
[2019-08-01] MEDS: CHLORHEXIDINE GLUCONATE 0.12% 15ML CUP MM SCH (10:36)
--- NOTE | 2019-08-01 10:44 | PN ---
Progress Note (short form) - Note Progress Note: Feels overall better. Denies shortness of breath, cough. No fevers. Intake & Output 07/29/19 07/30/19 07/31/19 08/01/19 23:59 23:59 23:59 23:59 Intake Total 1140 950 0 100 Output Total 1400 1400 1050 600 Balance -260 -450 -1050 -500 Weight 112 lb 9 oz 114 lb 5 oz 124 lb 4 oz Last Vital Signs Temp Pulse Resp BP Pulse Ox 97.7 F 76 20 130/69 95 08/01/19 09:24 08/01/19 09:24 08/01/19 09:24 08/01/19 09:24 07/31/19 21:00 Active Medications Acetaminophen (Tylenol -) 650 mg PO Q6H PRN PRN Reason: PAIN LEVEL 4 - 6 Last Admin: 07/31/19 10:15 Dose: 650 mg Chlorhexidine Gluconate (Peridex -) 15 ml MM BID [facility] Last Admin: 08/01/19 10:36 Dose: 15 ml Clindamycin HCl (Cleocin -) 300 mg PO Q6HPO [facility] Last Admin: 08/01/19 06:59 Dose: 300 mg Insulin Aspart (Novolog Vial Sliding Scale -) 1 vial SQ ACHS [facility]; Protocol Last Admin: 08/01/19 06:25 Dose: Not Given Insulin Detemir (Levemir Vial) 15 units SQ AM [facility] Last Admin: 08/01/19 06:25 Dose: Not Given Lactulose (Cephulac (Oral Use)) 20 gm PO BID [facility] Last Admin: 08/01/19 10:36 Dose: 20 gm Gen: NAD at rest Heart: RRR Lung: decreased breath sounds at the bases Abd: soft, nontender Ext: no edema Laboratory Results - last 24 hr 07/31/19 07/31/19 07/31/19 12:11 17:09 22:45 POC Glucometer 158 148 142 08/01/19 06:24 POC Glucometer 85 A/P s/p Acute Respiratory Failure Shock - Likely Septic resolving Right Arm Abscess s/p I&D Anion Gap Metabolic Acidosis improved Lactic Acidosis resolved Acute Kidney Injury requiring HD PAD HTN DM Hyperlipidemia Anemia - PO ABX per ID - DVT/GI prophylaxis - d/c planning in progress Dr Mendez
--- NOTE | 2019-08-01 12:42 | PN ---
Progress Note, Physician History of Present Illness: stable no new issues - Current Medication List Current Medications: Active Medications Acetaminophen (Tylenol -) 650 mg PO Q6H PRN PRN Reason: PAIN LEVEL 4 - 6 Last Admin: 07/31/19 10:15 Dose: 650 mg Chlorhexidine Gluconate (Peridex -) 15 ml MM BID [facility] Last Admin: 08/01/19 10:36 Dose: 15 ml Clindamycin HCl (Cleocin -) 300 mg PO Q6HPO [facility] Last Admin: 08/01/19 11:40 Dose: 300 mg Insulin Aspart (Novolog Vial Sliding Scale -) 1 vial SQ ACHS [facility]; Protocol Last Admin: 08/01/19 11:40 Dose: 4 units Insulin Detemir (Levemir Vial) 15 units SQ AM [facility] Last Admin: 08/01/19 06:25 Dose: Not Given Lactulose (Cephulac (Oral Use)) 20 gm PO BID [facility] Last Admin: 08/01/19 10:36 Dose: 20 gm - Objective Vital Signs: Vital Signs Temperature 97.7 F 08/01/19 09:24 Pulse Rate 76 08/01/19 09:24 Respiratory Rate 20 08/01/19 09:24 Blood Pressure 130/69 08/01/19 09:24 O2 Sat by Pulse Oximetry (%) 95 07/31/19 21:00 Constitutional: Yes: No Distress, Calm Cardiovascular: Yes: S1, S2 Respiratory: Yes: Regular, CTA Bilaterally Gastrointestinal: Yes: Normal Bowel Sounds, Soft Musculoskeletal: Yes: WNL Extremities: Yes: WNL Neurological: Yes: Alert, Oriented Psychiatric: Yes: Alert, Oriented Labs: CBC, BMP 07/24/19 07:20 07/29/19 06:00 INR, PTT INR 0.97 (0.83-1.09) 07/17/19 21:53 Assessment/Plan Acute Respiratory Failure Shock - Likely Septic Hypothermia Anion Gap Metabolic Acidosis Lactic Acidosis Acute Kidney Injury requiring HD PAD HTN DM Hyperlipidemia plan continue current mgmt cx reports noted complete abx course rest as per the team
--- NOTE | 2019-08-01 12:42 | PN ---
Progress Note, Physician - Current Medication List Current Medications: Active Medications Acetaminophen (Tylenol -) 650 mg PO Q6H PRN PRN Reason: PAIN LEVEL 4 - 6 Last Admin: 07/31/19 10:15 Dose: 650 mg Chlorhexidine Gluconate (Peridex -) 15 ml MM BID [facility] Last Admin: 08/01/19 10:36 Dose: 15 ml Clindamycin HCl (Cleocin -) 300 mg PO Q6HPO [facility] Last Admin: 08/01/19 11:40 Dose: 300 mg Insulin Aspart (Novolog Vial Sliding Scale -) 1 vial SQ ACHS [facility]; Protocol Last Admin: 08/01/19 11:40 Dose: 4 units Insulin Detemir (Levemir Vial) 15 units SQ AM [facility] Last Admin: 08/01/19 06:25 Dose: Not Given Lactulose (Cephulac (Oral Use)) 20 gm PO BID [facility] Last Admin: 08/01/19 10:36 Dose: 20 gm - Objective Vital Signs: Vital Signs Temperature 97.7 F 08/01/19 09:24 Pulse Rate 76 08/01/19 09:24 Respiratory Rate 20 08/01/19 09:24 Blood Pressure 130/69 08/01/19 09:24 O2 Sat by Pulse Oximetry (%) 95 07/31/19 21:00 Neck: Yes: Trachea Midline Cardiovascular: Yes: Regular Rate and Rhythm, S1, S2 Respiratory: Yes: CTA Bilaterally Gastrointestinal: Yes: Normal Bowel Sounds, Soft Edema: No Neurological: Yes: Alert, Oriented Labs: CBC, BMP 07/24/19 07:20 07/29/19 06:00 INR, PTT INR 0.97 (0.83-1.09) 07/17/19 21:53 Problem List - Problems (1) Acute metabolic encephalopathy Assessment/Plan: Microbiology 07/18/19 15:15 Arm - Right Upper Gram Stain - Final 07/18/19 15:15 Arm - Right Upper Wound Culture - Preliminary Presumptive Mrsa (Pbp2a Pos) blood culture negative c diff negative abx course completed to stop abx Code(s): G93.41 - METABOLIC ENCEPHALOPATHY (2) Acute respiratory failure Assessment/Plan: s/p extubation now much improved Code(s): J96.00 - ACUTE RESPIRATORY FAILURE, UNSP W HYPOXIA OR HYPERCAPNIA (3) Acute renal failure Assessment/Plan: improved no need for HD right now metformin stooped secodnary to lactic acidosis and worsening renal failure Code(s): N17.9 - ACUTE KIDNEY FAILURE, UNSPECIFIED Qualifiers: Acute renal failure type: unspecified Qualified Code(s): N17.9 - Acute kidney failure, unspecified (4) Sepsis Assessment/Plan: lactic acidsosis resolved no need for pressors right now Microbiology 07/20/19 16:50 Stool Clostridioides difficile Antigen - Final 07/20/19 16:50 Stool Clostridioides difficile Toxin Assay - Final 07/18/19 15:15 Arm - Right Upper Gram Stain - Final 07/18/19 14:55 Cerebral Spinal Fluid - Lumbar Puncture Gram Stain - Final 07/18/19 14:55 Cerebral Spinal Fluid - Lumbar Puncture CSF Culture - Final 07/17/19 23:00 Urine - Urine - Catheterized Urine Culture - Final NO GROWTH OBTAINED 07/20/19 23:00 Blood - Peripheral Venous Blood Culture - Preliminary NO GROWTH OBTAINED AFTER 24 HOURS, INCUBATION TO CONTINUE FOR 4 DAYS. 07/20/19 23:00 Blood - Peripheral Venous Blood Culture - Preliminary NO GROWTH OBTAINED AFTER 24 HOURS, INCUBATION TO CONTINUE FOR 4 DAYS. 07/18/19 15:15 Arm - Right Upper Wound Culture - Preliminary Presumptive Mrsa (Pbp2a Pos) 07/17/19 21:55 Blood - Peripheral Venous Blood Culture - Preliminary NO GROWTH OBTAINED AFTER 96 HOURS, INCUBATION TO CONTINUE FOR 1 DAYS. 07/17/19 21:50 Blood - Peripheral Venous Blood Culture - Preliminary NO GROWTH OBTAINED AFTER 96 HOURS, INCUBATION TO CONTINUE FOR 1 DAYS. fever resolved Microbiology 07/18/19 15:15 Arm - Right Upper Gram Stain - Final 07/18/19 15:15 Arm - Right Upper Wound Culture - Final Mr S Aureus on po clindamycin for MRSA last leon today then stop Code(s): A41.9 - SEPSIS, UNSPECIFIED ORGANISM
--- NOTE | 2019-08-01 13:53 | PN ---
Progress Note, Physician History of Present Illness: Pt seen and examine at bedside. he is tolerating diet. - Current Medication List Current Medications: Active Medications Acetaminophen (Tylenol -) 650 mg PO Q6H PRN PRN Reason: PAIN LEVEL 4 - 6 Last Admin: 07/31/19 10:15 Dose: 650 mg Chlorhexidine Gluconate (Peridex -) 15 ml MM BID [facility] Last Admin: 08/01/19 10:36 Dose: 15 ml Clindamycin HCl (Cleocin -) 300 mg PO Q6HPO [facility] Last Admin: 08/01/19 11:40 Dose: 300 mg Insulin Aspart (Novolog Vial Sliding Scale -) 1 vial SQ ACHS [facility]; Protocol Last Admin: 08/01/19 11:40 Dose: 4 units Insulin Detemir (Levemir Vial) 15 units SQ AM [facility] Last Admin: 08/01/19 06:25 Dose: Not Given Lactulose (Cephulac (Oral Use)) 20 gm PO BID [facility] Last Admin: 08/01/19 10:36 Dose: 20 gm - Objective Vital Signs: Vital Signs Temperature 97.7 F 08/01/19 09:24 Pulse Rate 76 08/01/19 09:24 Respiratory Rate 20 08/01/19 09:24 Blood Pressure 130/69 08/01/19 09:24 O2 Sat by Pulse Oximetry (%) 95 08/01/19 09:00 Constitutional: Yes: Calm Cardiovascular: Yes: S1, S2 Respiratory: Yes: CTA Bilaterally Gastrointestinal: Yes: Soft Genitourinary: Yes: WNL Musculoskeletal: Yes: WNL Edema: No Neurological: Yes: Oriented Psychiatric: Yes: Oriented Labs: CBC, BMP 07/24/19 07:20 07/29/19 06:00 INR, PTT INR 0.97 (0.83-1.09) 07/17/19 21:53 Problem List - Problems (1) BRUCE (acute kidney injury) Code(s): N17.9 - ACUTE KIDNEY FAILURE, UNSPECIFIED (2) Wound cellulitis Code(s): L03.90 - CELLULITIS, UNSPECIFIED Assessment/Plan Current Medications Generic Name Dose Route Start Last Admin Trade Name Freq PRN Reason Stop Dose Admin Acetaminophen 650 mg 07/22/19 11:13 07/31/19 10:15 Tylenol - PO 650 mg Q6H PRN Administration PAIN LEVEL 4 - 6 Chlorhexidine Gluconate 15 ml 07/22/19 22:00 08/01/19 10:36 Peridex - MM 15 ml BID [facility] Administration Clindamycin HCl 300 mg 07/28/19 12:00 08/01/19 11:40 Cleocin - PO 300 mg Q6HPO [facility] Administration Insulin Aspart 1 vial 07/22/19 22:00 08/01/19 11:40 Novolog Vial Sliding Scale - SQ 4 units ACHS [facility] Administration Protocol Insulin Detemir 15 units 07/25/19 07:00 08/01/19 06:25 Levemir Vial SQ Not Given AM [facility] Lactulose 20 gm 07/29/19 22:00 08/01/19 10:36 Cephulac (Oral Use) PO 20 gm BID [facility] Administration Impression 1. BRUCE 2. metabolic acidosis 3. lactic acidosis 4. altered mental status 5. DM 6. HTN 7. PAD 8. sepsis 9. shock 10. resp failure with pending intubation 11. right arm abscess plan - check labs - monitor glucose - check calcium and albumin - can see outpt
[2019-08-01 15:34] VITALS: BP 119/70; PULSE 96; TEMP 98.6
== END 2019-08-01 17:06 | DRG 871 ==
LOC: JER 20:53 → JICU 07-18 00:50 → J8W 07-22 19:09 → J5S 07-27 21:41
PROVIDERS: ADMIT Internal Medicine; ATTEND Family Medicine
PROC: 5A1945Z Respiratory Ventilation, 24-96 Consecutive Hours (ICD-10-PCS; principal; 2019-07-18)
PROC: 0BH17EZ Insertion of Endotracheal Airway into Trachea, Via Natural or Artificial Opening (ICD-10-PCS; 2019-07-18)
PROC: 06HN33Z Insertion of Infusion Device into Left Femoral Vein, Percutaneous Approach (ICD-10-PCS; 2019-07-18)
PROC: 009U3ZX Drainage of Spinal Canal, Percutaneous Approach, Diagnostic (ICD-10-PCS; 2019-07-18)
PROC: 30233N1 Transfusion of Nonautologous Red Blood Cells into Peripheral Vein, Percutaneous Approach (ICD-10-PCS; 2019-07-23)
DX: A41.9 Sepsis, unspecified organism (principal); J96.00 Acute respiratory failure, unspecified whether with hypoxia or hypercapnia; G93.41 Metabolic encephalopathy; J18.9 Pneumonia, unspecified organism; N17.9 Acute kidney failure, unspecified; E87.2 Acidosis; L03.113 Cellulitis of right upper limb; E87.5 Hyperkalemia; I95.9 Hypotension, unspecified; J47.9 Bronchiectasis, uncomplicated; I73.9 Peripheral vascular disease, unspecified; E78.5 Hyperlipidemia, unspecified; D64.9 Anemia, unspecified; E83.51 Hypocalcemia; E87.6 Hypokalemia; E11.9 Type 2 diabetes mellitus without complications
CPT/HCPCS: 31500; 36415; 36430; 36511; 36600; 70450-TC; 71045-TC-FY; 71250-TC; 72125-TC; 72128-TC; 74176-TC; 76775-TC; 80048; 80053; 80307; 81003; 82010; 82140; 82310; 82533; 82550; 82553; 82803; 82945; 82947; 82962; 83036; 83605; 83690; 83735; 83930; 83970; 84100; 84132; 84157; 84439; 84443; 84484; 85025; 85027; 85610; 85651; 85730; 86140; 86704; 86706; 86707; 86708; 86709; 86803; 86850; 86900; 86901; 86922; 87040; 87070; 87086; 87186; 87205; 87324; 87340; 87449; 87633; 87804; 93005; 93010; 93306-TC; 94002; 97116-GP; 97161-GP; 99284-25; G0480; J0131; J1644; J7030; P9038; P9058; Q9967

== ENCOUNTER 2022-05-09 13:03 | Inpatient (IN) | payer MEDICARE, OTHER ==
[2022-05-09] MEDS ORDERED: VANCOMYCIN 1 GM in D5W (PRE-DOCKED) 1,000 MG/250 ML IVPB ONE (13:41)
[2022-05-09] MEDS ORDERED: CEFEPIME HCL/D5W 1 GM/50 ML BAG IVPB ONE (13:41)
[2022-05-09] MEDS ORDERED: VANCOMYCIN/WATER FOR INJ (PEG) 1,000 MG/200 ML BAG IVPB ONE (13:57)
[2022-05-09] MEDS ORDERED: CEFEPIME 1 GM/100 ML BAG IVPB ONE (13:57)
[2022-05-09 14:47] LABS: BASO % 0.4 % (0-2.0); EOS % 4.4 % (0-4.5); HEMATOCRIT 32.2 % (35.4-49); HEMOGLOBIN 11.2 GM/dL (11.7-16.9); LYMPH % 7.3 % (8-40); MCH 31.2 pg (25.7-33.7); MCHC 34.8 g/dl (32.0-35.9); MEAN CELL VOLUME 89.5 fl (80-96); MEAN PLT VOLUME 7.2 fl (7.5-11.1); MONO % 8.4 % (3.8-10.2); NEUT % 79.5 % (42.8-82.8); PLATELET COUNT 347 10^3/uL (134-434); RDW 12.1 % (11.9-15.9); WHITE BLOOD COUNT 10.6 K/mm3 (4.0-10.0)
[2022-05-09 14:54] LABS: INR 1.06 (0.83-1.09); PROTHROMBIN TIME (PATIENT) 12.2 SEC (9.7-13.0)
[2022-05-09 15:12] LABS: ALBUMIN 3.3 g/dl (3.4-5.0); CALCIUM 8.6 mg/dL (8.5-10.1)
[2022-05-09 15:13] LABS: BLOOD UREA NITROGEN 51.6 mg/dL (7-18)
[2022-05-09 15:16] LABS: CREATININE 2.6 mg/dL (0.55-1.3)
[2022-05-09 15:18] LABS: BILIRUBIN,TOTAL 0.4 mg/dL (0.2-1); TOT PROT 7.4 g/dl (6.4-8.2)
[2022-05-09] MEDS ORDERED: SODIUM CHLORIDE 0.9% 500 ML INFUS.BAG IV ONE (15:30)
[2022-05-09 15:55] LABS: ERYTHROCYTE SEDIMENTATION RATE 106 mm/hr (0-20)
[2022-05-10] MEDS: SODIUM CHLORIDE 0.45% 1,000 ML IV SCH ×2 (02:31→21:30)
[2022-05-10] MEDS: LATANOPROST 0.005% OPHTH SOLN 2.5ML BOTTLE OD SCH ×2 (02:31→21:30)
[2022-05-10] MEDS: CEFEPIME 1 GM in DEXTROSE 5%-WATER 100 ML IVPB SCH ×4 (02:32→21:15)
[2022-05-10] MEDS ORDERED: VANCOMYCIN/WATER FOR INJ (PEG) 1,000 MG/200 ML BAG IVPB SCH (04:00)
[2022-05-10] MEDS: HEPARIN NA (PORCINE) 5,000 UNITS/ML 1ML VIAL SQ SCH ×3 (06:36→21:15)
[2022-05-10] MEDS: INSULIN SLIDING SCALE (NOVOLOG) 1 VIAL SQ SCH ×4 (06:36→21:21)
[2022-05-10] MEDS: BRIMONIDINE TARTRATE 0.2% OPHTHALMIC 5 ML BOTTLE OD SCH ×3 (07:00→21:30)
[2022-05-10 09:12] LABS: BASO % 0.7 % (0-2.0); EOS % 9.5 % (0-4.5); HEMATOCRIT 28.7 % (35.4-49); LYMPH % 9.2 % (8-40); MCH 31.7 pg (25.7-33.7); MEAN CELL VOLUME 90.7 fl (80-96); MEAN PLT VOLUME 7.3 fl (7.5-11.1); MONO % 8.9 % (3.8-10.2); NEUT % 71.7 % (42.8-82.8); PLATELET COUNT 327 10^3/uL (134-434); RBC 3.16 M/mm3 (4.00-5.60); WHITE BLOOD COUNT 9.1 K/mm3 (4.0-10.0)
[2022-05-10 09:39] LABS: CALCIUM 8.2 mg/dL (8.5-10.1)
[2022-05-10 09:41] LABS: BLOOD UREA NITROGEN 47.6 mg/dL (7-18); URIC ACID 6.7 mg/dL (2.6-7.2)
[2022-05-10 09:42] LABS: CREATININE 2.5 mg/dL (0.55-1.3)
[2022-05-10 09:43] LABS: BILIRUBIN,TOTAL 0.4 mg/dL (0.2-1); TOT PROT 6.1 g/dl (6.4-8.2)
[2022-05-10] MEDS: COLCHICINE 0.6 MG TAB PO SCH (09:45)
[2022-05-10] MEDS: amLODIPine BESYLATE 5 MG TABLET (FP) PO SCH (09:45)
[2022-05-10] MEDS: ASPIRIN COATED 81 MG TABLET.EC PO SCH (09:45)
[2022-05-10 09:46] LABS: ALBUMIN 2.6 g/dl (3.4-5.0)
[2022-05-10 11:13] VITALS: BMI 23.5
[2022-05-10] MEDS: VANCOMYCIN 1,000 MG in DEXTROSE 5%-WATER - 250 ML IVPB SCH (19:44)
[2022-05-10] MEDS ORDERED: ROSUVASTATIN CA 10 MG TABLET PO SCH (22:00)
[2022-05-11] MEDS: HEPARIN NA (PORCINE) 5,000 UNITS/ML 1ML VIAL SQ SCH ×3 (06:15→21:45)
[2022-05-11] MEDS: BRIMONIDINE TARTRATE 0.2% OPHTHALMIC 5 ML BOTTLE OD SCH ×3 (06:15→21:45)
[2022-05-11] MEDS: INSULIN SLIDING SCALE (NOVOLOG) 1 VIAL SQ SCH ×4 (06:16→21:43)
[2022-05-11] MEDS: CEFEPIME 1 GM in DEXTROSE 5%-WATER 100 ML IVPB SCH ×2 (09:35→21:45)
[2022-05-11] MEDS: ASPIRIN COATED 81 MG TABLET.EC PO SCH (09:35)
[2022-05-11] MEDS: amLODIPine BESYLATE 5 MG TABLET (FP) PO SCH (09:36)
[2022-05-11] MEDS ORDERED: VANCOMYCIN/WATER FOR INJ (PEG) 1,000 MG/200 ML BAG IVPB ONE (15:23)
[2022-05-11] MEDS: LATANOPROST 0.005% OPHTH SOLN 2.5ML BOTTLE OD SCH (21:45)
[2022-05-11] MEDS: SODIUM CHLORIDE 0.45% 1,000 ML IV SCH (21:46)
[2022-05-12] MEDS: SODIUM CHLORIDE 0.45% 1,000 ML IV SCH ×2 (00:51→15:37)
[2022-05-12] MEDS: HEPARIN NA (PORCINE) 5,000 UNITS/ML 1ML VIAL SQ SCH ×3 (06:16→22:11)
[2022-05-12] MEDS: INSULIN SLIDING SCALE (NOVOLOG) 1 VIAL SQ SCH ×4 (06:17→22:14)
[2022-05-12] MEDS: BRIMONIDINE TARTRATE 0.2% OPHTHALMIC 5 ML BOTTLE OD SCH ×3 (06:19→22:12)
[2022-05-12 08:20] LABS: BASO % 0.9 % (0-2.0); EOS % 9.5 % (0-4.5); HEMATOCRIT 29.9 % (35.4-49); LYMPH % 13.8 % (8-40); MCH 30.1 pg (25.7-33.7); MCHC 33.6 g/dl (32.0-35.9); MEAN CELL VOLUME 89.6 fl (80-96); MEAN PLT VOLUME 7.4 fl (7.5-11.1); MONO % 8.6 % (3.8-10.2); NEUT % 67.2 % (42.8-82.8); PLATELET COUNT 399 10^3/uL (134-434); RBC 3.34 M/mm3 (4.00-5.60); WHITE BLOOD COUNT 9.9 K/mm3 (4.0-10.0)
[2022-05-12 08:35] LABS: ALBUMIN 2.4 g/dl (3.4-5.0); BLOOD UREA NITROGEN 42.3 mg/dL (7-18); CALCIUM 8.1 mg/dL (8.5-10.1)
[2022-05-12 08:38] LABS: CREATININE 2.3 mg/dL (0.55-1.3)
[2022-05-12 08:39] LABS: BILIRUBIN,TOTAL 0.4 mg/dL (0.2-1)
[2022-05-12] MEDS: CEFEPIME 1 GM in DEXTROSE 5%-WATER 100 ML IVPB SCH ×2 (10:00→22:11)
[2022-05-12] MEDS: amLODIPine BESYLATE 5 MG TABLET (FP) PO SCH (10:00)
[2022-05-12] MEDS: ASPIRIN COATED 81 MG TABLET.EC PO SCH (10:00)
[2022-05-12] MEDS: COLCHICINE 0.6 MG TAB PO SCH (10:00)
[2022-05-12] MEDS: LATANOPROST 0.005% OPHTH SOLN 2.5ML BOTTLE OD SCH (22:12)
[2022-05-13] MEDS: SODIUM CHLORIDE 0.45% 1,000 ML IV SCH ×2 (00:01→05:59)
[2022-05-13] MEDS: HEPARIN NA (PORCINE) 5,000 UNITS/ML 1ML VIAL SQ SCH ×3 (05:52→21:45)
[2022-05-13] MEDS: BRIMONIDINE TARTRATE 0.2% OPHTHALMIC 5 ML BOTTLE OD SCH ×3 (05:53→21:46)
[2022-05-13] MEDS: INSULIN SLIDING SCALE (NOVOLOG) 1 VIAL SQ SCH ×4 (06:00→21:50)
[2022-05-13] MEDS: CEFEPIME 1 GM in DEXTROSE 5%-WATER 100 ML IVPB SCH ×2 (11:08→21:45)
[2022-05-13] MEDS: ASPIRIN COATED 81 MG TABLET.EC PO SCH (11:08)
[2022-05-13] MEDS: amLODIPine BESYLATE 5 MG TABLET (FP) PO SCH (11:08)
[2022-05-13] MEDS: LATANOPROST 0.005% OPHTH SOLN 2.5ML BOTTLE OD SCH (21:50)
[2022-05-14] MEDS: SODIUM CHLORIDE 0.45% 1,000 ML IV SCH (06:21)
[2022-05-14] MEDS: HEPARIN NA (PORCINE) 5,000 UNITS/ML 1ML VIAL SQ SCH ×3 (06:21→22:11)
[2022-05-14] MEDS: BRIMONIDINE TARTRATE 0.2% OPHTHALMIC 5 ML BOTTLE OD SCH ×3 (06:22→22:11)
[2022-05-14] MEDS: INSULIN SLIDING SCALE (NOVOLOG) 1 VIAL SQ SCH ×4 (06:24→22:15)
[2022-05-14] MEDS: ASPIRIN COATED 81 MG TABLET.EC PO SCH (09:24)
[2022-05-14] MEDS: CEFEPIME 1 GM in DEXTROSE 5%-WATER 100 ML IVPB SCH ×2 (09:24→22:10)
[2022-05-14] MEDS: amLODIPine BESYLATE 5 MG TABLET (FP) PO SCH (09:24)
[2022-05-14] MEDS: COLCHICINE 0.6 MG TAB PO SCH (09:24)
[2022-05-14 12:03] LABS: ALBUMIN 2.4 g/dl (3.4-5.0); BILIRUBIN,TOTAL 0.4 mg/dL (0.2-1); BLOOD UREA NITROGEN 43.6 mg/dL (7-18); CALCIUM 8.4 mg/dL (8.5-10.1); CREATININE 2.2 mg/dL (0.55-1.3); TOT PROT 5.9 g/dl (6.4-8.2)
[2022-05-14] MEDS: LATANOPROST 0.005% OPHTH SOLN 2.5ML BOTTLE OD SCH (22:11)
[2022-05-15] MEDS: HEPARIN NA (PORCINE) 5,000 UNITS/ML 1ML VIAL SQ SCH ×3 (06:13→21:55)
[2022-05-15] MEDS: BRIMONIDINE TARTRATE 0.2% OPHTHALMIC 5 ML BOTTLE OD SCH ×3 (06:13→23:31)
[2022-05-15] MEDS: SODIUM CHLORIDE 0.45% 1,000 ML IV SCH ×2 (06:13→22:07)
[2022-05-15] MEDS: INSULIN SLIDING SCALE (NOVOLOG) 1 VIAL SQ SCH ×4 (06:17→21:53)
[2022-05-15 08:49] LABS: CALCIUM 8.4 mg/dL (8.5-10.1)
[2022-05-15 08:50] LABS: ALBUMIN 2.5 g/dl (3.4-5.0); BLOOD UREA NITROGEN 46.2 mg/dL (7-18)
[2022-05-15 08:53] LABS: CREATININE 2.2 mg/dL (0.55-1.3)
[2022-05-15 08:54] LABS: BILIRUBIN,TOTAL 0.3 mg/dL (0.2-1); TOT PROT 6.1 g/dl (6.4-8.2)
[2022-05-15] MEDS: CEFEPIME 1 GM in DEXTROSE 5%-WATER 100 ML IVPB SCH (09:28)
[2022-05-15] MEDS: ASPIRIN COATED 81 MG TABLET.EC PO SCH (09:28)
[2022-05-15] MEDS: amLODIPine BESYLATE 5 MG TABLET (FP) PO SCH (09:29)
[2022-05-15] MEDS: LATANOPROST 0.005% OPHTH SOLN 2.5ML BOTTLE OD SCH (23:31)
[2022-05-16 01:29] VITALS: RESP 18
[2022-05-16] MEDS: HEPARIN NA (PORCINE) 5,000 UNITS/ML 1ML VIAL SQ SCH ×2 (06:19→13:25)
[2022-05-16] MEDS: BRIMONIDINE TARTRATE 0.2% OPHTHALMIC 5 ML BOTTLE OD SCH ×2 (06:21→13:25)
[2022-05-16] MEDS: INSULIN SLIDING SCALE (NOVOLOG) 1 VIAL SQ SCH ×3 (06:23→17:39)
[2022-05-16] MEDS: ASPIRIN COATED 81 MG TABLET.EC PO SCH (09:18)
[2022-05-16] MEDS: amLODIPine BESYLATE 5 MG TABLET (FP) PO SCH (09:18)
[2022-05-16] MEDS: COLCHICINE 0.6 MG TAB PO SCH (09:18)
[2022-05-16 13:14] LABS: CALCIUM 8.9 mg/dL (8.5-10.1)
[2022-05-16 13:15] LABS: ALBUMIN 2.9 g/dl (3.4-5.0); BLOOD UREA NITROGEN 45.8 mg/dL (7-18)
[2022-05-16 13:18] LABS: CREATININE 2.2 mg/dL (0.55-1.3)
[2022-05-16 13:20] LABS: TOT PROT 7.2 g/dl (6.4-8.2)
[2022-05-16 13:27] LABS: BILIRUBIN,TOTAL 0.4 mg/dL (0.2-1)
[2022-05-16 19:13] VITALS: BP 130/70; PULSE 70; TEMP 97.9
== END 2022-05-16 19:20 | disposition home health service (06) | DRG 603 ==
LOC: JER 13:03 → JERBED 14:09 → J4S 05-10 00:16 → J5S 05-15 18:14
PROVIDERS: ADMIT Internal Medicine; ATTEND Internal Medicine
DX: L03.116 Cellulitis of left lower limb (principal); N17.9 Acute kidney failure, unspecified; E11.51 Type 2 diabetes mellitus with diabetic peripheral angiopathy without gangrene; E11.22 Type 2 diabetes mellitus with diabetic chronic kidney disease; I12.9 Hypertensive chronic kidney disease with stage 1 through stage 4 chronic kidney disease, or unspecified chronic kidney disease; N18.9 Chronic kidney disease, unspecified; D64.9 Anemia, unspecified; E78.5 Hyperlipidemia, unspecified; E11.65 Type 2 diabetes mellitus with hyperglycemia; R74.01 Elevation of levels of liver transaminase levels
CPT/HCPCS: 36415; 73610-TC-LT-FY; 73630-TC-LT; 76700-TC; 80053; 82962; 83036; 84550; 85025; 85610; 85651; 85730; 86140; 87040; 87081; 93005; 93010; 93926-TC; 93971-TC; 97116-GP; 97162-GP; 99285-25; C9803-CS; G0480; J1644; U0003; U0005

== ENCOUNTER 2022-05-23 11:02 | Inpatient (IN) | payer MEDICARE, OTHER ==
[2022-05-23] MEDS ORDERED: VANCOMYCIN 1 GM in D5W (PRE-DOCKED) 1,000 MG/250 ML IVPB ONE (13:25)
[2022-05-23] MEDS ORDERED: CEFEPIME HCL/D5W 1 GM/50 ML BAG IVPB ONE (13:26)
[2022-05-23] MEDS ORDERED: CEFEPIME 1 GM/100 ML BAG IVPB ONE (13:55)
[2022-05-23] MEDS ORDERED: VANCOMYCIN/WATER FOR INJ (PEG) 1,000 MG/200 ML BAG IVPB ONE (13:55)
[2022-05-23 14:48] LABS: EPI CELLS 18 /uL (0-25.1); HYALINE CASTS 0 /uL (0-3.1); PH,URINE 5.5 (5.0-8.0); URINE APPEARANCE CLEAR; URINE BACTERIA 3 /uL (0-1359); URINE BILIRUBIN NEGATIVE (NEGATIVE); URINE COLOR YELLOW; URINE GLUCOSE (UA) 3+ (NEGATIVE); URINE KETONE NEGATIVE (NEGATIVE); URINE LEUK ESTERASE NEGATIVE (NEGATIVE); URINE NITRITE NEGATIVE (NEGATIVE); URINE PROTEIN 3+ (NEGATIVE); URINE RBC 12 /uL (0-23.9); URINE UROBILINOGEN 0.2 mg/dL (0.2-1.0); URINE WBC 48 /uL (0-25.8)
[2022-05-23 14:52] LABS: BASO % 0.8 % (0-2.0); EOS % 3.7 % (0-4.5); HEMATOCRIT 31.1 % (35.4-49); HEMOGLOBIN 10.5 GM/dL (11.7-16.9); LYMPH % 13.5 % (8-40); MCH 30.4 pg (25.7-33.7); MCHC 33.7 g/dl (32.0-35.9); MEAN CELL VOLUME 89.9 fl (80-96); MEAN PLT VOLUME 7.5 fl (7.5-11.1); MONO % 7.4 % (3.8-10.2); NEUT % 74.6 % (42.8-82.8); PLATELET COUNT 445 10^3/uL (134-434); RBC 3.46 M/mm3 (4.00-5.60); RDW 12.6 % (11.9-15.9); WHITE BLOOD COUNT 9.4 K/mm3 (4.0-10.0)
[2022-05-23 14:58] LABS: INR 1.05 (0.83-1.09); PROTHROMBIN TIME (PATIENT) 12.1 SEC (9.7-13.0)
[2022-05-23 15:09] LABS: CALCIUM 8.7 mg/dL (8.5-10.1)
[2022-05-23 15:10] LABS: ALBUMIN 3.1 g/dl (3.4-5.0); BLOOD UREA NITROGEN 59.1 mg/dL (7-18)
[2022-05-23 15:14] LABS: CREATININE 2.2 mg/dL (0.55-1.3)
[2022-05-23 15:15] LABS: BILIRUBIN,TOTAL 0.3 mg/dL (0.2-1); TOT PROT 7.2 g/dl (6.4-8.2)
[2022-05-23 15:28] LABS: ERYTHROCYTE SEDIMENTATION RATE 108 mm/hr (0-20)
[2022-05-23] MEDS: HEPARIN NA (PORCINE) 5,000 UNITS/ML 1ML VIAL SQ SCH (23:21)
[2022-05-23] MEDS ORDERED: HEPARIN NA (PORCINE) 5,000 UNITS/ML 1ML VIAL ONE (23:21)
[2022-05-24 05:47] VITALS: BMI 23.2
[2022-05-24] MEDS: BRIMONIDINE TARTRATE 0.2% OPHTHALMIC 5 ML BOTTLE OD SCH ×4 (06:53→21:36)
[2022-05-24] MEDS: metFORMIN HCL 500 MG TABLET (FP) PO SCH ×2 (06:55→16:48)
[2022-05-24] MEDS: INSULIN SLIDING SCALE (NOVOLOG) 1 VIAL SQ SCH ×4 (06:56→21:33)
[2022-05-24 08:23] LABS: BASO % 0.8 % (0-2.0); EOS % 4.5 % (0-4.5); HEMATOCRIT 29.4 % (35.4-49); HEMOGLOBIN 9.8 GM/dL (11.7-16.9); LYMPH % 12.5 % (8-40); MCH 29.8 pg (25.7-33.7); MCHC 33.2 g/dl (32.0-35.9); MEAN CELL VOLUME 89.8 fl (80-96); MEAN PLT VOLUME 7.3 fl (7.5-11.1); MONO % 7.7 % (3.8-10.2); NEUT % 74.5 % (42.8-82.8); PLATELET COUNT 391 10^3/uL (134-434); RBC 3.27 M/mm3 (4.00-5.60); RDW 12.4 % (11.9-15.9); WHITE BLOOD COUNT 7.5 K/mm3 (4.0-10.0)
[2022-05-24] MEDS ORDERED: INSULIN (NOVOLOG) ASPART 100 UNITS/ML 10ML VIAL ONE (08:48)
[2022-05-24 08:53] LABS: ALBUMIN 2.8 g/dl (3.4-5.0); BLOOD UREA NITROGEN 56.3 mg/dL (7-18); CALCIUM 8.7 mg/dL (8.5-10.1)
[2022-05-24 08:56] LABS: CREATININE 2.5 mg/dL (0.55-1.3)
[2022-05-24 08:58] LABS: BILIRUBIN,TOTAL 0.4 mg/dL (0.2-1); TOT PROT 6.5 g/dl (6.4-8.2)
[2022-05-24] MEDS: HEPARIN NA (PORCINE) 5,000 UNITS/ML 1ML VIAL SQ SCH ×2 (09:10→21:23)
[2022-05-24] MEDS: ASPIRIN COATED 81 MG TABLET.EC PO SCH (09:10)
[2022-05-24] MEDS: amLODIPine BESYLATE 5 MG TABLET (FP) PO SCH (09:10)
[2022-05-24] MEDS: CEFTRIAXONE 2 GM in DEXTROSE 5%-WATER 100 ML IVPB SCH (12:07)
[2022-05-24] MEDS: ROSUVASTATIN CA 10 MG TABLET PO SCH (21:23)
[2022-05-24] MEDS: LATANOPROST 0.005% OPHTH SOLN 2.5ML BOTTLE OD SCH (23:33)
[2022-05-25] MEDS: BRIMONIDINE TARTRATE 0.2% OPHTHALMIC 5 ML BOTTLE OD SCH ×3 (06:43→23:44)
[2022-05-25] MEDS: INSULIN SLIDING SCALE (NOVOLOG) 1 VIAL SQ SCH ×4 (06:46→23:46)
[2022-05-25] MEDS: metFORMIN HCL 500 MG TABLET (FP) PO SCH (06:51)
[2022-05-25] MEDS: ASPIRIN COATED 81 MG TABLET.EC PO SCH (09:00)
[2022-05-25] MEDS: amLODIPine BESYLATE 5 MG TABLET (FP) PO SCH (09:00)
[2022-05-25] MEDS: CEFTRIAXONE 2 GM in DEXTROSE 5%-WATER 100 ML IVPB SCH (09:00)
[2022-05-25] MEDS: HEPARIN NA (PORCINE) 5,000 UNITS/ML 1ML VIAL SQ SCH ×2 (09:00→23:41)
[2022-05-25] MEDS ORDERED: INSULIN (NOVOLOG) ASPART 100 UNITS/ML 10ML VIAL ONE (17:43)
[2022-05-25] MEDS: ROSUVASTATIN CA 10 MG TABLET PO SCH (23:41)
[2022-05-25] MEDS: LATANOPROST 0.005% OPHTH SOLN 2.5ML BOTTLE OD SCH (23:42)
[2022-05-26] MEDS: BRIMONIDINE TARTRATE 0.2% OPHTHALMIC 5 ML BOTTLE OD SCH ×3 (05:42→21:45)
[2022-05-26] MEDS: INSULIN SLIDING SCALE (NOVOLOG) 1 VIAL SQ SCH ×4 (06:00→22:10)
[2022-05-26 09:12] LABS: BASO % 0.7 % (0-2.0); EOS % 7.1 % (0-4.5); HEMATOCRIT 33.2 % (35.4-49); HEMOGLOBIN 11.1 GM/dL (11.7-16.9); LYMPH % 16.9 % (8-40); MCH 29.5 pg (25.7-33.7); MCHC 33.3 g/dl (32.0-35.9); MEAN CELL VOLUME 88.6 fl (80-96); MEAN PLT VOLUME 7.6 fl (7.5-11.1); MONO % 6.6 % (3.8-10.2); NEUT % 68.7 % (42.8-82.8); PLATELET COUNT 418 10^3/uL (134-434); RBC 3.75 M/mm3 (4.00-5.60); RDW 12.5 % (11.9-15.9); WHITE BLOOD COUNT 7.3 K/mm3 (4.0-10.0)
[2022-05-26 09:53] LABS: CALCIUM 8.8 mg/dL (8.5-10.1)
[2022-05-26 09:54] LABS: ALBUMIN 2.9 g/dl (3.4-5.0); BLOOD UREA NITROGEN 48.5 mg/dL (7-18)
[2022-05-26 09:56] LABS: CREATININE 2.2 mg/dL (0.55-1.3)
[2022-05-26 09:58] LABS: BILIRUBIN,TOTAL 0.4 mg/dL (0.2-1); TOT PROT 6.9 g/dl (6.4-8.2)
[2022-05-26] MEDS: CEFTRIAXONE 2 GM in DEXTROSE 5%-WATER 100 ML IVPB SCH (10:01)
[2022-05-26] MEDS: amLODIPine BESYLATE 5 MG TABLET (FP) PO SCH (10:02)
[2022-05-26] MEDS: HEPARIN NA (PORCINE) 5,000 UNITS/ML 1ML VIAL SQ SCH ×2 (10:02→21:42)
[2022-05-26] MEDS: ASPIRIN COATED 81 MG TABLET.EC PO SCH (10:02)
[2022-05-26] MEDS: ROSUVASTATIN CA 10 MG TABLET PO SCH (21:42)
[2022-05-26] MEDS: LATANOPROST 0.005% OPHTH SOLN 2.5ML BOTTLE OD SCH (21:44)
[2022-05-27] MEDS: BRIMONIDINE TARTRATE 0.2% OPHTHALMIC 5 ML BOTTLE OD SCH ×3 (06:12→21:35)
[2022-05-27] MEDS: INSULIN SLIDING SCALE (NOVOLOG) 1 VIAL SQ SCH ×4 (06:46→21:32)
[2022-05-27] MEDS: HEPARIN NA (PORCINE) 5,000 UNITS/ML 1ML VIAL SQ SCH ×2 (09:36→21:32)
[2022-05-27] MEDS: ASPIRIN COATED 81 MG TABLET.EC PO SCH (09:36)
[2022-05-27] MEDS: amLODIPine BESYLATE 5 MG TABLET (FP) PO SCH (09:36)
[2022-05-27] MEDS: CEFTRIAXONE 2 GM in DEXTROSE 5%-WATER 100 ML IVPB SCH (09:37)
[2022-05-27] MEDS: ROSUVASTATIN CA 10 MG TABLET PO SCH (21:31)
[2022-05-27] MEDS: LATANOPROST 0.005% OPHTH SOLN 2.5ML BOTTLE OD SCH (21:33)
[2022-05-28] MEDS: INSULIN SLIDING SCALE (NOVOLOG) 1 VIAL SQ SCH ×4 (06:03→22:21)
[2022-05-28] MEDS: BRIMONIDINE TARTRATE 0.2% OPHTHALMIC 5 ML BOTTLE OD SCH ×3 (06:07→22:05)
[2022-05-28 09:48] LABS: BLOOD UREA NITROGEN 56.3 mg/dL (7-18)
[2022-05-28 09:51] LABS: CREATININE 2.4 mg/dL (0.55-1.3)
[2022-05-28 09:52] LABS: BILIRUBIN,TOTAL 0.3 mg/dL (0.2-1)
[2022-05-28 09:53] LABS: TOT PROT 6.9 g/dl (6.4-8.2)
[2022-05-28] MEDS: CEFTRIAXONE 2 GM in DEXTROSE 5%-WATER 100 ML IVPB SCH (10:23)
[2022-05-28] MEDS: ASPIRIN COATED 81 MG TABLET.EC PO SCH (10:24)
[2022-05-28] MEDS: HEPARIN NA (PORCINE) 5,000 UNITS/ML 1ML VIAL SQ SCH ×2 (10:24→22:04)
[2022-05-28] MEDS: amLODIPine BESYLATE 5 MG TABLET (FP) PO SCH (10:24)
[2022-05-28] MEDS: SODIUM ZIRCONIUM CYCLOSILICATE (LOKELMA) 5 GM PACKET PO SCH (13:58)
[2022-05-28] MEDS: ROSUVASTATIN CA 10 MG TABLET PO SCH (22:04)
[2022-05-28] MEDS: LATANOPROST 0.005% OPHTH SOLN 2.5ML BOTTLE OD SCH (22:04)
[2022-05-28] MEDS ORDERED: INSULIN (NOVOLOG) ASPART 100 UNITS/ML 10ML VIAL ONE (22:20)
[2022-05-29] MEDS: BRIMONIDINE TARTRATE 0.2% OPHTHALMIC 5 ML BOTTLE OD SCH ×3 (06:35→23:06)
[2022-05-29] MEDS: INSULIN SLIDING SCALE (NOVOLOG) 1 VIAL SQ SCH ×4 (06:42→23:18)
[2022-05-29 08:45] LABS: CALCIUM 8.8 mg/dL (8.5-10.1)
[2022-05-29 08:46] LABS: ALBUMIN 2.9 g/dl (3.4-5.0); BLOOD UREA NITROGEN 57.9 mg/dL (7-18)
[2022-05-29 08:49] LABS: CREATININE 2.3 mg/dL (0.55-1.3)
[2022-05-29 08:51] LABS: BILIRUBIN,TOTAL 0.3 mg/dL (0.2-1); TOT PROT 6.6 g/dl (6.4-8.2)
[2022-05-29] MEDS: SODIUM ZIRCONIUM CYCLOSILICATE (LOKELMA) 5 GM PACKET PO SCH (09:01)
[2022-05-29] MEDS: HEPARIN NA (PORCINE) 5,000 UNITS/ML 1ML VIAL SQ SCH ×2 (09:01→23:04)
[2022-05-29] MEDS: amLODIPine BESYLATE 5 MG TABLET (FP) PO SCH (09:01)
[2022-05-29] MEDS: ASPIRIN COATED 81 MG TABLET.EC PO SCH (09:01)
[2022-05-29] MEDS: CEFTRIAXONE 2 GM in DEXTROSE 5%-WATER 100 ML IVPB SCH (09:01)
[2022-05-29] MEDS: ROSUVASTATIN CA 10 MG TABLET PO SCH (23:04)
[2022-05-29] MEDS: LATANOPROST 0.005% OPHTH SOLN 2.5ML BOTTLE OD SCH (23:05)
[2022-05-30] MEDS: BRIMONIDINE TARTRATE 0.2% OPHTHALMIC 5 ML BOTTLE OD SCH ×3 (06:49→22:11)
[2022-05-30] MEDS: INSULIN SLIDING SCALE (NOVOLOG) 1 VIAL SQ SCH ×4 (06:50→22:15)
[2022-05-30] MEDS: CEFTRIAXONE 2 GM in DEXTROSE 5%-WATER 100 ML IVPB SCH (09:27)
[2022-05-30] MEDS: SODIUM ZIRCONIUM CYCLOSILICATE (LOKELMA) 5 GM PACKET PO SCH (09:27)
[2022-05-30] MEDS: HEPARIN NA (PORCINE) 5,000 UNITS/ML 1ML VIAL SQ SCH ×2 (09:27→22:11)
[2022-05-30] MEDS: ASPIRIN COATED 81 MG TABLET.EC PO SCH (09:29)
[2022-05-30] MEDS: amLODIPine BESYLATE 5 MG TABLET (FP) PO SCH (09:29)
[2022-05-30] MEDS: LATANOPROST 0.005% OPHTH SOLN 2.5ML BOTTLE OD SCH (22:10)
[2022-05-30] MEDS: ROSUVASTATIN CA 10 MG TABLET PO SCH (22:11)
[2022-05-31] MEDS: BRIMONIDINE TARTRATE 0.2% OPHTHALMIC 5 ML BOTTLE OD SCH ×3 (06:12→21:35)
[2022-05-31] MEDS: INSULIN SLIDING SCALE (NOVOLOG) 1 VIAL SQ SCH ×4 (06:13→21:49)
[2022-05-31] MEDS: amLODIPine BESYLATE 5 MG TABLET (FP) PO SCH (10:04)
[2022-05-31] MEDS: ASPIRIN COATED 81 MG TABLET.EC PO SCH (10:04)
[2022-05-31] MEDS: CEFTRIAXONE 2 GM in DEXTROSE 5%-WATER 100 ML IVPB SCH (10:04)
[2022-05-31] MEDS: HEPARIN NA (PORCINE) 5,000 UNITS/ML 1ML VIAL SQ SCH ×2 (10:05→21:33)
[2022-05-31] MEDS: SODIUM ZIRCONIUM CYCLOSILICATE (LOKELMA) 5 GM PACKET PO SCH (10:05)
[2022-05-31] MEDS ORDERED: ACETAMINOPHEN 325 MG TABLET (FP) PO ONE (20:45)
[2022-05-31] MEDS ORDERED: INSULIN (NOVOLOG) ASPART 100 UNITS/ML 10ML VIAL ONE (21:20)
[2022-05-31] MEDS: ROSUVASTATIN CA 10 MG TABLET PO SCH (21:34)
[2022-05-31] MEDS: LATANOPROST 0.005% OPHTH SOLN 2.5ML BOTTLE OD SCH (21:34)
[2022-06-01] MEDS: INSULIN SLIDING SCALE (NOVOLOG) 1 VIAL SQ SCH ×4 (06:38→21:46)
[2022-06-01] MEDS: BRIMONIDINE TARTRATE 0.2% OPHTHALMIC 5 ML BOTTLE OD SCH ×3 (06:38→21:43)
[2022-06-01 10:14] LABS: EOS % 9.2 % (0-4.5); HEMATOCRIT 31.9 % (35.4-49); HEMOGLOBIN 10.6 GM/dL (11.7-16.9); LYMPH % 20.1 % (8-40); MCH 29.5 pg (25.7-33.7); MCHC 33.4 g/dl (32.0-35.9); MEAN CELL VOLUME 88.4 fl (80-96); MONO % 9.1 % (3.8-10.2); NEUT % 60.6 % (42.8-82.8); PLATELET COUNT 315 10^3/uL (134-434); RDW 12.7 % (11.9-15.9); WHITE BLOOD COUNT 6.4 K/mm3 (4.0-10.0)
[2022-06-01] MEDS: SODIUM ZIRCONIUM CYCLOSILICATE (LOKELMA) 5 GM PACKET PO SCH (10:14)
[2022-06-01] MEDS: HEPARIN NA (PORCINE) 5,000 UNITS/ML 1ML VIAL SQ SCH ×2 (10:14→21:41)
[2022-06-01] MEDS: ASPIRIN COATED 81 MG TABLET.EC PO SCH (10:15)
[2022-06-01] MEDS: amLODIPine BESYLATE 5 MG TABLET (FP) PO SCH (10:15)
[2022-06-01 10:41] LABS: BLOOD UREA NITROGEN 53.5 mg/dL (7-18); CALCIUM 8.5 mg/dL (8.5-10.1)
[2022-06-01 10:43] LABS: CREATININE 2.4 mg/dL (0.55-1.3)
[2022-06-01 10:45] LABS: BILIRUBIN,TOTAL 0.3 mg/dL (0.2-1); TOT PROT 6.8 g/dl (6.4-8.2)
[2022-06-01] MEDS ORDERED: CEFTRIAXONE 2 GM in DEXTROSE 5%-WATER 100 ML IVPB ONE (11:45)
[2022-06-01] MEDS ORDERED: SENNOSIDES 8.6MG TABLET (FP) PO PRN (19:56)
[2022-06-01] MEDS: POLYETHYLENE GLYCOL (HEALTHYLAX) 3350 17 GM PACKET PO SCH (21:41)
[2022-06-01] MEDS: ROSUVASTATIN CA 10 MG TABLET PO SCH (21:41)
[2022-06-01] MEDS: LATANOPROST 0.005% OPHTH SOLN 2.5ML BOTTLE OD SCH (21:42)
[2022-06-01] MEDS ORDERED: INSULIN (NOVOLOG MIX 70/30) 100 UNITS/ML MDV SQ ONE (21:44)
[2022-06-02] MEDS: INSULIN SLIDING SCALE (NOVOLOG) 1 VIAL SQ SCH ×4 (06:08→22:38)
[2022-06-02] MEDS: BRIMONIDINE TARTRATE 0.2% OPHTHALMIC 5 ML BOTTLE OD SCH ×3 (06:11→22:39)
[2022-06-02 09:23] LABS: BASO % 0.7 % (0-2.0); HEMATOCRIT 33.3 % (35.4-49); HEMOGLOBIN 11.7 GM/dL (11.7-16.9); LYMPH % 20.8 % (8-40); MCH 30.8 pg (25.7-33.7); MEAN CELL VOLUME 87.9 fl (80-96); MEAN PLT VOLUME 7.5 fl (7.5-11.1); NEUT % 61.5 % (42.8-82.8); PLATELET COUNT 305 10^3/uL (134-434); RBC 3.78 M/mm3 (4.00-5.60); RDW 12.5 % (11.9-15.9); WHITE BLOOD COUNT 7.8 K/mm3 (4.0-10.0)
[2022-06-02 09:37] LABS: BLOOD UREA NITROGEN 46.2 mg/dL (7-18); CALCIUM 9.1 mg/dL (8.5-10.1)
[2022-06-02 09:38] LABS: ALBUMIN 3.3 g/dl (3.4-5.0)
[2022-06-02 09:41] LABS: CREATININE 2.4 mg/dL (0.55-1.3)
[2022-06-02 09:42] LABS: BILIRUBIN,TOTAL 0.3 mg/dL (0.2-1); TOT PROT 7.4 g/dl (6.4-8.2)
[2022-06-02] MEDS: SODIUM ZIRCONIUM CYCLOSILICATE (LOKELMA) 5 GM PACKET PO SCH (10:30)
[2022-06-02] MEDS: POLYETHYLENE GLYCOL (HEALTHYLAX) 3350 17 GM PACKET PO SCH (10:30)
[2022-06-02] MEDS: HEPARIN NA (PORCINE) 5,000 UNITS/ML 1ML VIAL SQ SCH ×2 (10:30→22:37)
[2022-06-02] MEDS: CEFTRIAXONE 2 GM in DEXTROSE 5%-WATER 100 ML IVPB SCH (10:30)
[2022-06-02] MEDS: ASPIRIN COATED 81 MG TABLET.EC PO SCH (10:30)
[2022-06-02] MEDS: amLODIPine BESYLATE 5 MG TABLET (FP) PO SCH (10:30)
[2022-06-02] MEDS: ROSUVASTATIN CA 10 MG TABLET PO SCH (22:37)
[2022-06-02] MEDS: LATANOPROST 0.005% OPHTH SOLN 2.5ML BOTTLE OD SCH (22:39)
[2022-06-02 23:45] VITALS: RESP 18
[2022-06-03] MEDS: INSULIN SLIDING SCALE (NOVOLOG) 1 VIAL SQ SCH ×2 (06:26→11:40)
[2022-06-03] MEDS: BRIMONIDINE TARTRATE 0.2% OPHTHALMIC 5 ML BOTTLE OD SCH ×2 (06:27→14:54)
[2022-06-03] MEDS: POLYETHYLENE GLYCOL (HEALTHYLAX) 3350 17 GM PACKET PO SCH (09:38)
[2022-06-03] MEDS: ASPIRIN COATED 81 MG TABLET.EC PO SCH (09:38)
[2022-06-03] MEDS: CEFTRIAXONE 2 GM in DEXTROSE 5%-WATER 100 ML IVPB SCH (09:38)
[2022-06-03] MEDS: SODIUM ZIRCONIUM CYCLOSILICATE (LOKELMA) 5 GM PACKET PO SCH (09:38)
[2022-06-03] MEDS: amLODIPine BESYLATE 5 MG TABLET (FP) PO SCH (09:38)
[2022-06-03 15:01] VITALS: BP 168/82; PULSE 86; TEMP 97.9
== END 2022-06-03 17:15 | disposition home or self-care (01) | DRG 300 ==
LOC: JER 11:02 → JERBED 15:21 → J7W 05-24
PROVIDERS: ADMIT Internal Medicine; ATTEND Internal Medicine
PROC: 02HV33Z Insertion of Infusion Device into Superior Vena Cava, Percutaneous Approach (ICD-10-PCS; principal; 2022-06-03)
DX: E11.51 Type 2 diabetes mellitus with diabetic peripheral angiopathy without gangrene (principal); L02.419 Cutaneous abscess of limb, unspecified; L03.119 Cellulitis of unspecified part of limb; M86.8X7 Other osteomyelitis, ankle and foot; N18.9 Chronic kidney disease, unspecified; E11.69 Type 2 diabetes mellitus with other specified complication; E11.22 Type 2 diabetes mellitus with diabetic chronic kidney disease; R60.0 Localized edema; H54.8 Legal blindness, as defined in USA; Z79.4 Long term (current) use of insulin; R74.01 Elevation of levels of liver transaminase levels; I12.9 Hypertensive chronic kidney disease with stage 1 through stage 4 chronic kidney disease, or unspecified chronic kidney disease; E78.5 Hyperlipidemia, unspecified; E87.5 Hyperkalemia
CPT/HCPCS: 0241U-QW; 36415; 36569; 77001-TC-FY; 80053; 81003; 82962; 83036; 85025; 85610; 85651; 86140; 87040; 87086; 87186; 93005; 93010; 97116-GP; 97161-GP; 99285-25; C1751; J1644

== ENCOUNTER 2022-06-04 13:57 | Day surgery (SDC) | payer MEDICARE, OTHER ==
[~2022-06-04 13:57] MED LIST: CEFTRIAXONE 2 GM in SODIUM CHLORIDE 100 ML IVPB ONE
[2022-06-04 14:14] VITALS: BP 133/72; PULSE 87; TEMP 97.8
[2022-06-04] MEDS ORDERED: CEFTRIAXONE 2 GM in SODIUM CHLORIDE 100 ML IVPB ONE (14:15)
[2022-06-04 15:26] VITALS: RESP 17
== END 2022-06-04 15:27 | disposition home or self-care (01) ==
LOC: FINFUSION 13:57 → FM/S 13:58 → FINFUSION 15:27
PROVIDERS: ATTEND Internal Medicine Infectious Disease
DX: L03.116 Cellulitis of left lower limb (principal); I73.9 Peripheral vascular disease, unspecified
CPT/HCPCS: 96365

== ENCOUNTER 2022-06-05 09:25 | Day surgery (SDC) | payer MEDICARE, OTHER ==
[2022-06-05] MEDS ORDERED: CEFTRIAXONE 2 GM in SODIUM CHLORIDE 100 ML IVPB ONE (09:30)
[2022-06-05 10:27] VITALS: BP 156/74; PULSE 86; RESP 17; TEMP 98.5
== END 2022-06-05 10:25 | disposition home or self-care (01) ==
LOC: FINFUSION 09:25 → FM/S 09:26 → FINFUSION 10:25
PROVIDERS: ATTEND Internal Medicine Infectious Disease
DX: L03.116 Cellulitis of left lower limb (principal); I73.9 Peripheral vascular disease, unspecified
CPT/HCPCS: 96365

== ENCOUNTER 2022-06-06 09:32 | Day surgery (SDC) | payer MEDICARE, OTHER ==
[2022-06-06 09:47] VITALS: BP 152/72; PULSE 82; RESP 18; TEMP 98.2
[2022-06-06] MEDS ORDERED: CEFTRIAXONE 2 GM in SODIUM CHLORIDE 100 ML IVPB ONE (10:00)
== END 2022-06-06 10:30 | disposition home or self-care (01) ==
LOC: FINFUSION 09:32 → FM/S 09:33 → FINFUSION 10:30
PROVIDERS: ATTEND Internal Medicine Infectious Disease
DX: L03.116 Cellulitis of left lower limb (principal); I73.9 Peripheral vascular disease, unspecified
CPT/HCPCS: 96365

== ENCOUNTER 2022-06-07 09:45 | Day surgery (SDC) | payer MEDICARE, OTHER ==
[2022-06-07] MEDS ORDERED: cefTRIAXone 2 GM/100 ML BAG (PRE-DOCKED) IVPB SCH (10:00)
[2022-06-07] MEDS ORDERED: CEFTRIAXONE 2 GM in SODIUM CHLORIDE 100 ML IVPB SCH (10:15)
[2022-06-07 10:46] VITALS: BP 148/73; PULSE 101; RESP 18; TEMP 97.7
== END 2022-06-07 10:48 | disposition home or self-care (01) ==
LOC: FINFUSION 09:45 → FM/S 09:47 → FINFUSION 10:48
PROVIDERS: ATTEND Internal Medicine Infectious Disease
DX: L03.116 Cellulitis of left lower limb (principal); I73.9 Peripheral vascular disease, unspecified
CPT/HCPCS: 96365

== ENCOUNTER 2022-06-08 09:59 | Day surgery (SDC) | payer MEDICARE, OTHER ==
[2022-06-08] MEDS ORDERED: CEFTRIAXONE 2 GM in DEXTROSE 5%-WATER 100 ML IVPB ONE (10:30)
[2022-06-08 10:56] VITALS: BP 156/74; PULSE 82; RESP 16; TEMP 98.4
== END 2022-06-08 11:04 | disposition home or self-care (01) ==
LOC: FINFUSION 09:59 → FM/S 10:04 → FINFUSION 11:04
PROVIDERS: ATTEND Internal Medicine Infectious Disease
DX: L03.116 Cellulitis of left lower limb (principal); I73.9 Peripheral vascular disease, unspecified
CPT/HCPCS: 96365

== ENCOUNTER 2022-06-09 09:52 | Day surgery (SDC) | payer MEDICARE, OTHER ==
[2022-06-09] MEDS ORDERED: CEFTRIAXONE 2 GM in DEXTROSE 5%-WATER 100 ML IVPB ONE (10:15)
[2022-06-09 10:33] VITALS: BP 136/62; RESP 19; TEMP 98.7
[2022-06-09 11:13] VITALS: PULSE 89
== END 2022-06-09 11:11 | disposition home or self-care (01) ==
LOC: FINFUSION 09:52 → FM/S 09:54 → FINFUSION 11:11
PROVIDERS: ATTEND Internal Medicine Infectious Disease
DX: L03.116 Cellulitis of left lower limb (principal); I73.9 Peripheral vascular disease, unspecified
CPT/HCPCS: 96365

== ENCOUNTER 2022-06-10 09:33 | Day surgery (SDC) | payer MEDICARE, OTHER ==
[2022-06-10] MEDS ORDERED: CEFTRIAXONE 2 GM in DEXTROSE 5%-WATER 100 ML IVPB ONE (10:00)
[2022-06-10 10:51] VITALS: RESP 16; TEMP 98.1
[2022-06-10 10:52] VITALS: BP 148/60; PULSE 85
== END 2022-06-10 10:55 | disposition home or self-care (01) ==
LOC: FINFUSION 09:33 → FM/S 09:34 → FINFUSION 10:55
PROVIDERS: ATTEND Internal Medicine Infectious Disease
DX: L03.116 Cellulitis of left lower limb (principal); I73.9 Peripheral vascular disease, unspecified
CPT/HCPCS: 96365

== ENCOUNTER 2022-06-11 09:30 | Day surgery (SDC) | payer MEDICARE, OTHER ==
[2022-06-11] MEDS ORDERED: CEFTRIAXONE 2 GM in SODIUM CHLORIDE 100 ML IVPB ONE (10:00)
[2022-06-11 11:44] VITALS: BP 148/74; PULSE 90; RESP 16; TEMP 97.7
== END 2022-06-11 11:00 | disposition home or self-care (01) ==
LOC: FINFUSION 09:30 → FM/S 09:33 → FINFUSION 11:00
PROVIDERS: ATTEND Internal Medicine Infectious Disease
DX: L03.116 Cellulitis of left lower limb (principal); I73.9 Peripheral vascular disease, unspecified
CPT/HCPCS: 96365

== ENCOUNTER 2022-06-12 09:44 | Day surgery (SDC) | payer MEDICARE, OTHER ==
[2022-06-12] MEDS ORDERED: CEFTRIAXONE 2 GM in SODIUM CHLORIDE 100 ML IVPB ONE (10:10)
[2022-06-12 10:44] VITALS: BP 170/79; PULSE 90; RESP 17; TEMP 97.9
== END 2022-06-12 10:44 | disposition home or self-care (01) ==
LOC: FINFUSION 09:44 → FM/S 09:45 → FINFUSION 10:44
PROVIDERS: ATTEND Internal Medicine Infectious Disease
DX: L03.116 Cellulitis of left lower limb (principal); I73.9 Peripheral vascular disease, unspecified
CPT/HCPCS: 96365

== ENCOUNTER 2022-06-13 09:44 | Day surgery (SDC) | payer MEDICARE, OTHER ==
[2022-06-13] MEDS ORDERED: CEFTRIAXONE 2 GM in SODIUM CHLORIDE 100 ML IVPB ONE (10:00)
[2022-06-13 10:34] VITALS: RESP 18; TEMP 97.4
[2022-06-13 10:45] VITALS: BP 145/80; PULSE 86
== END 2022-06-13 10:45 | disposition home or self-care (01) ==
LOC: FINFUSION 09:44 → FM/S 09:45 → FINFUSION 10:45
PROVIDERS: ATTEND Internal Medicine Infectious Disease
DX: L03.116 Cellulitis of left lower limb (principal); I73.9 Peripheral vascular disease, unspecified
CPT/HCPCS: 96365

== ENCOUNTER 2022-06-14 09:34 | Day surgery (SDC) | payer MEDICARE, OTHER ==
[2022-06-14] MEDS ORDERED: CEFTRIAXONE 2 GM in SODIUM CHLORIDE 100 ML IVPB ONE (09:45)
[2022-06-14 10:42] VITALS: BP 150/70; PULSE 72; RESP 16; TEMP 98
== END 2022-06-14 10:44 | disposition home or self-care (01) ==
LOC: FINFUSION 09:34 → FM/S 09:35 → FINFUSION 10:44
PROVIDERS: ATTEND Internal Medicine Infectious Disease
DX: L03.116 Cellulitis of left lower limb (principal); I73.9 Peripheral vascular disease, unspecified
CPT/HCPCS: 96365; 96367

== ENCOUNTER 2022-06-15 10:09 | Day surgery (SDC) | payer MEDICARE, OTHER ==
[2022-06-15] MEDS ORDERED: CEFTRIAXONE 2 GM in DEXTROSE 5%-WATER 100 ML IVPB ONE (10:45)
[2022-06-15 11:44] VITALS: BP 165/72; PULSE 89; RESP 17; TEMP 97.9
== END 2022-06-15 11:44 | disposition home or self-care (01) ==
LOC: FINFUSION 10:09 → FM/S 10:16 → FINFUSION 11:44
PROVIDERS: ATTEND Internal Medicine Infectious Disease
DX: L03.116 Cellulitis of left lower limb (principal); I73.9 Peripheral vascular disease, unspecified
CPT/HCPCS: 96365

== ENCOUNTER 2022-06-16 10:04 | Day surgery (SDC) | payer MEDICARE, OTHER ==
[2022-06-16 10:23] VITALS: TEMP 97.4
[2022-06-16] MEDS ORDERED: CEFTRIAXONE 2 GM in SODIUM CHLORIDE 100 ML IVPB ONE (10:30)
[2022-06-16 11:04] VITALS: BP 158/70; PULSE 73; RESP 18
== END 2022-06-16 11:00 | disposition home or self-care (01) ==
LOC: FINFUSION 10:04 → FM/S 10:06 → FINFUSION 11:00
PROVIDERS: ATTEND Internal Medicine Infectious Disease
DX: L03.116 Cellulitis of left lower limb (principal); I73.9 Peripheral vascular disease, unspecified
CPT/HCPCS: 96365

== ENCOUNTER 2022-06-17 10:05 | Day surgery (SDC) | payer MEDICARE, OTHER ==
[2022-06-17] MEDS ORDERED: CEFTRIAXONE 2 GM in SODIUM CHLORIDE 100 ML IVPB ONE (10:30)
[2022-06-17 11:26] VITALS: BP 140/66; PULSE 85; RESP 18; TEMP 98.4
== END 2022-06-17 11:27 | disposition home or self-care (01) ==
LOC: FINFUSION 10:05 → FM/S 10:06 → FINFUSION 11:27
PROVIDERS: ATTEND Internal Medicine Infectious Disease
DX: L03.116 Cellulitis of left lower limb (principal); I73.9 Peripheral vascular disease, unspecified
CPT/HCPCS: 96365

== ENCOUNTER 2022-06-18 09:37 | Day surgery (SDC) | payer MEDICARE, OTHER ==
[2022-06-18] MEDS ORDERED: CEFTRIAXONE 2 GM in SODIUM CHLORIDE 100 ML IVPB ONE (10:00)
[2022-06-18 10:45] VITALS: BP 138/65; PULSE 80; RESP 17; TEMP 98.6
== END 2022-06-18 10:46 | disposition home or self-care (01) ==
LOC: FINFUSION 09:37 → FM/S 09:38 → FINFUSION 10:46
PROVIDERS: ATTEND Internal Medicine Infectious Disease
DX: L03.116 Cellulitis of left lower limb (principal); I73.9 Peripheral vascular disease, unspecified
CPT/HCPCS: 96365

== ENCOUNTER 2022-06-19 09:54 | Day surgery (SDC) | payer MEDICARE, OTHER ==
[2022-06-19] MEDS ORDERED: CEFTRIAXONE 2 GM in SODIUM CHLORIDE 100 ML IVPB ONE (10:30)
[2022-06-19 11:28] VITALS: BP 134/67; PULSE 80; RESP 18; TEMP 97.7
== END 2022-06-19 11:29 | disposition home or self-care (01) ==
LOC: FINFUSION 09:54 → FM/S 10:18 → FINFUSION 11:29
PROVIDERS: ATTEND Internal Medicine Infectious Disease
DX: L03.116 Cellulitis of left lower limb (principal); I73.9 Peripheral vascular disease, unspecified
CPT/HCPCS: 96365

== ENCOUNTER 2022-06-20 09:36 | Day surgery (SDC) | payer MEDICARE, OTHER ==
[2022-06-20] MEDS ORDERED: CEFTRIAXONE 2 GM in SODIUM CHLORIDE 100 ML IVPB ONE (10:00)
[2022-06-20 10:42] VITALS: BP 145/72; PULSE 78; RESP 18; TEMP 97.7
== END 2022-06-20 10:55 | disposition home or self-care (01) ==
LOC: FINFUSION 09:36 → FM/S 09:38 → FINFUSION 10:55
PROVIDERS: ATTEND Internal Medicine Infectious Disease
DX: L03.116 Cellulitis of left lower limb (principal); I73.9 Peripheral vascular disease, unspecified
CPT/HCPCS: 96365

== ENCOUNTER 2022-06-21 09:58 | Day surgery (SDC) | payer MEDICARE, OTHER ==
[2022-06-21] MEDS ORDERED: CEFTRIAXONE 2 GM in SODIUM CHLORIDE 100 ML IVPB SCH (10:15)
[2022-06-21 10:44] VITALS: BP 152/63; PULSE 83; RESP 18; TEMP 97.6
== END 2022-06-21 10:58 | disposition home or self-care (01) ==
LOC: FINFUSION 09:58 → FM/S 09:59 → FINFUSION 10:58
PROVIDERS: ATTEND Internal Medicine Infectious Disease
DX: L03.116 Cellulitis of left lower limb (principal); I73.9 Peripheral vascular disease, unspecified
CPT/HCPCS: 96365

== ENCOUNTER 2022-06-22 09:54 | Day surgery (SDC) | payer MEDICARE, OTHER ==
[2022-06-22] MEDS ORDERED: CEFTRIAXONE 2 GM in SODIUM CHLORIDE 100 ML IVPB ONE (10:15)
[2022-06-22 10:54] VITALS: BP 142/62; PULSE 82; RESP 18; TEMP 98
== END 2022-06-22 11:00 | disposition home or self-care (01) ==
LOC: FINFUSION 09:54 → FM/S 09:56 → FINFUSION 11:00
PROVIDERS: ATTEND Internal Medicine Infectious Disease
DX: L03.116 Cellulitis of left lower limb (principal); I73.9 Peripheral vascular disease, unspecified
CPT/HCPCS: 96365

== ENCOUNTER 2022-06-23 10:30 | Day surgery (SDC) | payer MEDICARE, OTHER ==
[2022-06-23] MEDS ORDERED: CEFTRIAXONE 2 GM in SODIUM CHLORIDE 100 ML IVPB ONE (10:45)
[2022-06-23 11:30] VITALS: BP 141/67; PULSE 79; RESP 18; TEMP 97.8
== END 2022-06-23 11:32 | disposition home or self-care (01) ==
LOC: FM/S 10:30 → FINFUSION 10:30
PROVIDERS: ATTEND Internal Medicine Infectious Disease
DX: L03.116 Cellulitis of left lower limb (principal); I73.9 Peripheral vascular disease, unspecified
CPT/HCPCS: 96365

== ENCOUNTER 2022-06-24 10:01 | Day surgery (SDC) | payer MEDICARE, OTHER ==
[2022-06-24] MEDS ORDERED: CEFTRIAXONE 2 GM in SODIUM CHLORIDE 100 ML IVPB ONE (10:45)
[2022-06-24 11:56] VITALS: BP 144/68; PULSE 70; RESP 17; TEMP 98.1
== END 2022-06-24 12:03 | disposition home or self-care (01) ==
LOC: FINFUSION 10:01 → FM/S 10:01 → FINFUSION 12:03
PROVIDERS: ATTEND Internal Medicine Infectious Disease
DX: L03.116 Cellulitis of left lower limb (principal); I73.9 Peripheral vascular disease, unspecified
CPT/HCPCS: 96365

== ENCOUNTER 2022-06-25 09:53 | Day surgery (SDC) | payer MEDICARE, OTHER ==
[2022-06-25] MEDS ORDERED: CEFTRIAXONE 2 GM in SODIUM CHLORIDE 100 ML IVPB ONE (10:15)
[2022-06-25 11:20] VITALS: BP 130/70; PULSE 69; RESP 16; TEMP 98
== END 2022-06-25 11:21 | disposition home or self-care (01) ==
LOC: FINFUSION 09:53 → FM/S 09:55 → FINFUSION 11:21
PROVIDERS: ATTEND Internal Medicine Infectious Disease
DX: L03.116 Cellulitis of left lower limb (principal); I73.9 Peripheral vascular disease, unspecified
CPT/HCPCS: 96365

== ENCOUNTER 2022-06-26 09:46 | Day surgery (SDC) | payer MEDICARE, OTHER ==
[2022-06-26] MEDS ORDERED: CEFTRIAXONE 2 GM in SODIUM CHLORIDE 100 ML IVPB ONE (10:00)
[2022-06-26 10:32] VITALS: BP 123/61; PULSE 82; RESP 16; TEMP 98.3
== END 2022-06-26 10:35 | disposition home or self-care (01) ==
LOC: FINFUSION 09:46 → FM/S 09:47 → FINFUSION 10:35
PROVIDERS: ATTEND Internal Medicine Infectious Disease
DX: L03.116 Cellulitis of left lower limb (principal); I73.9 Peripheral vascular disease, unspecified
CPT/HCPCS: 96365

== ENCOUNTER 2022-06-27 09:47 | Day surgery (SDC) | payer MEDICARE, OTHER ==
[2022-06-27] MEDS ORDERED: CEFTRIAXONE 2 GM in SODIUM CHLORIDE 100 ML IVPB ONE (10:00)
[2022-06-27 10:26] VITALS: BP 140/66; PULSE 79; RESP 18; TEMP 97.6
== END 2022-06-27 10:32 | disposition home or self-care (01) ==
LOC: FINFUSION 09:47 → FM/S 09:48 → FINFUSION 10:32
PROVIDERS: ATTEND Internal Medicine Infectious Disease
DX: L03.116 Cellulitis of left lower limb (principal); I73.9 Peripheral vascular disease, unspecified
CPT/HCPCS: 96365

== ENCOUNTER 2022-06-28 09:46 | Day surgery (SDC) | payer MEDICARE, OTHER ==
[2022-06-28] MEDS ORDERED: CEFTRIAXONE 2 GM in DEXTROSE 5%-WATER 100 ML IVPB ONE (10:00)
[2022-06-28 11:00] VITALS: BP 132/67; PULSE 68; RESP 16; TEMP 97.9
== END 2022-06-28 11:00 | disposition home or self-care (01) ==
LOC: FINFUSION 09:46 → FM/S 09:49 → FINFUSION 11:00
PROVIDERS: ATTEND Internal Medicine Infectious Disease
DX: L03.116 Cellulitis of left lower limb (principal); I73.9 Peripheral vascular disease, unspecified
CPT/HCPCS: 96365

== ENCOUNTER 2022-06-29 09:40 | Day surgery (SDC) | payer MEDICARE, OTHER ==
[2022-06-29] MEDS ORDERED: CEFTRIAXONE 2 GM in SODIUM CHLORIDE 100 ML IVPB ONE (10:15)
[2022-06-29 10:54] VITALS: BP 136/68; PULSE 79; RESP 18; TEMP 98.3
== END 2022-06-29 10:55 | disposition home or self-care (01) ==
LOC: FINFUSION 09:40 → FM/S 09:53 → FINFUSION 10:55
PROVIDERS: ATTEND Internal Medicine Infectious Disease
DX: L03.116 Cellulitis of left lower limb (principal); I73.9 Peripheral vascular disease, unspecified
CPT/HCPCS: 96365

== ENCOUNTER 2022-06-30 09:42 | Day surgery (SDC) | payer MEDICARE, OTHER ==
[2022-06-30 10:15] VITALS: BP 140/68; PULSE 80; TEMP 98.2
[2022-06-30] MEDS ORDERED: CEFTRIAXONE 2 GM in SODIUM CHLORIDE 100 ML IVPB ONE (10:30)
[2022-06-30 10:54] VITALS: RESP 18
== END 2022-06-30 11:00 | disposition home or self-care (01) ==
LOC: FINFUSION 09:42 → FM/S 09:43 → FINFUSION 11:00
PROVIDERS: ATTEND Internal Medicine Infectious Disease
DX: L03.116 Cellulitis of left lower limb (principal); I73.9 Peripheral vascular disease, unspecified
CPT/HCPCS: 96365

== ENCOUNTER 2022-07-01 09:44 | Day surgery (SDC) | payer MEDICARE, OTHER ==
[2022-07-01] MEDS ORDERED: CEFTRIAXONE 2 GM in SODIUM CHLORIDE 100 ML IVPB ONE (10:00)
[2022-07-01 10:43] VITALS: BP 130/70; PULSE 79; RESP 16; TEMP 98.5
== END 2022-07-01 10:43 | disposition home or self-care (01) ==
LOC: FINFUSION 09:44 → FM/S 09:46 → FINFUSION 10:43
PROVIDERS: ATTEND Internal Medicine Infectious Disease
DX: L03.116 Cellulitis of left lower limb (principal); I73.9 Peripheral vascular disease, unspecified
CPT/HCPCS: 96365

== ENCOUNTER 2022-07-02 09:44 | Day surgery (SDC) | payer MEDICARE, OTHER ==
[2022-07-02] MEDS ORDERED: CEFTRIAXONE 2 GM in SODIUM CHLORIDE 100 ML IVPB ONE (10:00)
[2022-07-02 11:04] VITALS: BP 133/65; PULSE 83; RESP 17; TEMP 98.6
== END 2022-07-02 11:10 | disposition home or self-care (01) ==
LOC: FINFUSION 09:44 → FM/S 09:48 → FINFUSION 11:10
PROVIDERS: ATTEND Internal Medicine Infectious Disease
DX: L03.116 Cellulitis of left lower limb (principal); I73.9 Peripheral vascular disease, unspecified
CPT/HCPCS: 96365

== ENCOUNTER 2022-07-03 09:44 | Day surgery (SDC) | payer MEDICARE, OTHER ==
[2022-07-03] MEDS ORDERED: CEFTRIAXONE 2 GM in SODIUM CHLORIDE 100 ML IVPB ONE (10:00)
[2022-07-03 11:04] VITALS: BP 138/65; PULSE 85; RESP 17; TEMP 98.5
== END 2022-07-03 11:00 | disposition home or self-care (01) ==
LOC: FINFUSION 09:44 → FM/S 09:47 → FINFUSION 11:00
PROVIDERS: ATTEND Internal Medicine Infectious Disease
DX: L03.116 Cellulitis of left lower limb (principal); I73.9 Peripheral vascular disease, unspecified
CPT/HCPCS: 96365

== ENCOUNTER 2022-07-04 09:32 | Day surgery (SDC) | payer MEDICARE, OTHER ==
[2022-07-04] MEDS ORDERED: CEFTRIAXONE 2 GM in SODIUM CHLORIDE 100 ML IVPB ONE (09:45)
[2022-07-04 10:19] VITALS: BP 100/52; PULSE 85; RESP 16; TEMP 97.9
== END 2022-07-04 10:23 | disposition home or self-care (01) ==
LOC: FINFUSION 09:32 → FM/S 09:33 → FINFUSION 10:23
PROVIDERS: ATTEND Internal Medicine Infectious Disease
DX: L03.116 Cellulitis of left lower limb (principal); I73.9 Peripheral vascular disease, unspecified
CPT/HCPCS: 96365

== ENCOUNTER 2022-07-05 09:32 | Day surgery (SDC) | payer MEDICARE, OTHER ==
[2022-07-05] MEDS ORDERED: cefTRIAXone 2 GM/100 ML BAG (PRE-DOCKED) IVPB SCH (10:00)
[2022-07-05 10:29] VITALS: PULSE 89; TEMP 98.6
[2022-07-05 11:04] VITALS: BP 136/72; RESP 16
== END 2022-07-05 11:05 | disposition home or self-care (01) ==
LOC: FINFUSION 09:32 → FM/S 09:42 → FINFUSION 11:05
PROVIDERS: ATTEND Internal Medicine Infectious Disease
DX: L03.116 Cellulitis of left lower limb (principal); I73.9 Peripheral vascular disease, unspecified
CPT/HCPCS: 96365

== ENCOUNTER 2022-07-06 09:35 | Day surgery (SDC) | payer MEDICARE, OTHER ==
[2022-07-06] MEDS ORDERED: CEFTRIAXONE 2 GM in DEXTROSE 5%-WATER 100 ML IVPB ONE (10:00)
[2022-07-06 10:42] VITALS: BP 139/67; PULSE 79; RESP 16; TEMP 98
== END 2022-07-06 10:43 | disposition home or self-care (01) ==
LOC: FINFUSION 09:35 → FM/S 09:40 → FINFUSION 10:43
PROVIDERS: ATTEND Internal Medicine Infectious Disease
DX: L03.116 Cellulitis of left lower limb (principal); I73.9 Peripheral vascular disease, unspecified
CPT/HCPCS: 96365

== ENCOUNTER 2022-07-07 09:57 | Day surgery (SDC) | payer MEDICARE, OTHER ==
[2022-07-07 10:11] VITALS: RESP 18; TEMP 97.6
[2022-07-07] MEDS ORDERED: CEFTRIAXONE 2 GM in SODIUM CHLORIDE 100 ML IVPB ONE (10:30)
[2022-07-07 10:50] VITALS: BP 148/68; PULSE 80
== END 2022-07-07 11:47 | disposition home or self-care (01) ==
LOC: FINFUSION 09:57 → FM/S 09:57 → FINFUSION 11:47
PROVIDERS: ATTEND Internal Medicine Infectious Disease
DX: L03.116 Cellulitis of left lower limb (principal); I73.9 Peripheral vascular disease, unspecified
CPT/HCPCS: 96365; 96366

== ENCOUNTER 2022-07-08 09:41 | Day surgery (SDC) | payer MEDICARE, OTHER ==
[2022-07-08] MEDS ORDERED: CEFTRIAXONE 2 GM in SODIUM CHLORIDE 100 ML IVPB ONE (10:00)
[2022-07-08 10:54] VITALS: BP 160/72; PULSE 85; RESP 17; TEMP 97.9
== END 2022-07-08 10:55 | disposition home or self-care (01) ==
LOC: FINFUSION 09:41 → FM/S 09:42 → FINFUSION 10:55
PROVIDERS: ATTEND Internal Medicine Infectious Disease
DX: L03.116 Cellulitis of left lower limb (principal); I73.9 Peripheral vascular disease, unspecified
CPT/HCPCS: 96365

== ENCOUNTER 2022-07-09 10:00 | Day surgery (SDC) | payer MEDICARE, OTHER ==
[2022-07-09] MEDS ORDERED: CEFTRIAXONE 2 GM in SODIUM CHLORIDE 100 ML IVPB ONE (10:15)
[2022-07-09 11:21] VITALS: BP 137/80; PULSE 79; RESP 18; TEMP 98.2
== END 2022-07-09 11:11 | disposition home or self-care (01) ==
LOC: FINFUSION 10:00 → FM/S 10:01 → FINFUSION 11:11
PROVIDERS: ATTEND Internal Medicine Infectious Disease
DX: L03.116 Cellulitis of left lower limb (principal); I73.9 Peripheral vascular disease, unspecified
CPT/HCPCS: 96365

== ENCOUNTER 2022-08-23 14:43 | Inpatient (IN) | payer MEDICARE, OTHER ==
[2022-08-23 15:09] VITALS: BMI 24.7
[2022-08-23] MEDS ORDERED: ACETAMINOPHEN 325 MG TABLET (FP) PO ONE (15:29)
[2022-08-23] MEDS ORDERED: VANCOMYCIN 1 GM in D5W (PRE-DOCKED) 1,000 MG/250 ML IVPB ONE (15:36)
[2022-08-23] MEDS ORDERED: PIPERACILLIN/TAZOB 3.375 GM 3.375 GM in DEXTROSE 5%-WATER - 50 ML IVPB ONE (15:36)
[2022-08-23] MEDS ORDERED: PIPERACILLIN/TAZOB 3.375 GM 3.375 GM/50 ML BAG IVPB ONE (16:12)
[2022-08-23] MEDS ORDERED: ACETAMINOPHEN 325 MG TABLET (FP) ONE (16:12)
[2022-08-23] MEDS ORDERED: morphine CARPU-JECT 4 MG/1 ML DISP.SYRIN IVPUSH ONE (16:29)
[2022-08-23] MEDS ORDERED: morphine SULFATE 4 MG/ML VIAL ONE (16:39)
[2022-08-23 16:55] LABS: BASO % 0.3 % (0-2.0); EOS % 2.3 % (0-4.5); HEMATOCRIT 28.5 % (35.4-49); HEMOGLOBIN 9.5 GM/dL (11.7-16.9); LYMPH % 8.9 % (8-40); MCH 29.5 pg (25.7-33.7); MCHC 33.3 g/dl (32.0-35.9); MEAN CELL VOLUME 88.9 fl (80-96); MONO % 8.1 % (3.8-10.2); NEUT % 80.4 % (42.8-82.8); PLATELET COUNT 326 10^3/uL (134-434); RBC 3.21 M/mm3 (4.00-5.60); WHITE BLOOD COUNT 10.6 K/mm3 (4.0-10.0)
[2022-08-23 16:59] LABS: EPI CELLS 5 /uL (0-25.1); HYALINE CASTS 1 /uL (0-3.1); URINE APPEARANCE CLEAR; URINE BACTERIA 7 /uL (0-1359); URINE BILIRUBIN NEGATIVE (NEGATIVE); URINE COLOR YELLOW; URINE GLUCOSE (UA) 2+ (NEGATIVE); URINE KETONE NEGATIVE (NEGATIVE); URINE LEUK ESTERASE NEGATIVE (NEGATIVE); URINE NITRITE NEGATIVE (NEGATIVE); URINE PROTEIN 4+ (NEGATIVE); URINE RBC 18 /uL (0-23.9); URINE UROBILINOGEN 0.2 mg/dL (0.2-1.0); URINE WBC 8 /uL (0-25.8)
[2022-08-23 17:01] LABS: VENOUS BASE EXCESS -7.7 mmol/L (-2-2); VENOUS O2 SATURATION 70.3 % (70-80); VENOUS PCO2 33.9 mmHg (38-52); VENOUS PH 7.327 (7.310-7.410)
[2022-08-23 17:04] LABS: INR 0.97 (0.83-1.09); PROTHROMBIN TIME (PATIENT) 11.1 SEC (9.7-13.0)
[2022-08-23 17:07] LABS: ACTIVATED PTT 31.6 SECONDS (25.2-36.5)
[2022-08-23 17:17] LABS: ALBUMIN 2.6 g/dl (3.4-5.0); BLOOD UREA NITROGEN 69.7 mg/dL (7-18); CALCIUM 8.2 mg/dL (8.5-10.1); MAGNESIUM 2.6 mg/dL (1.8-2.4)
[2022-08-23 17:20] LABS: CREATININE 3.1 mg/dL (0.55-1.3)
[2022-08-23 17:22] LABS: BILIRUBIN,TOTAL 0.3 mg/dL (0.2-1); TOT PROT 6.2 g/dl (6.4-8.2)
[2022-08-23] MEDS ORDERED: VANCOMYCIN/WATER FOR INJ (PEG) 1,000 MG/200 ML BAG IVPB ONE (18:31)
[2022-08-24] MEDS ORDERED: VANCOMYCIN 1,000 MG in DEXTROSE 5%-WATER - 250 ML IVPB SCH ×2 (02:45→08:34)
[2022-08-24 06:21] LABS: BASO % 0.4 % (0-2.0); EOS % 5.8 % (0-4.5); HEMATOCRIT 26.2 % (35.4-49); HEMOGLOBIN 8.7 GM/dL (11.7-16.9); LYMPH % 10.5 % (8-40); MCH 29.8 pg (25.7-33.7); MCHC 33.2 g/dl (32.0-35.9); MEAN CELL VOLUME 89.8 fl (80-96); MEAN PLT VOLUME 7.7 fl (7.5-11.1); MONO % 10.2 % (3.8-10.2); NEUT % 73.1 % (42.8-82.8); PLATELET COUNT 285 10^3/uL (134-434); RBC 2.92 M/mm3 (4.00-5.60); RDW 13.8 % (11.9-15.9); WHITE BLOOD COUNT 8.8 K/mm3 (4.0-10.0)
[2022-08-24 06:41] LABS: ALBUMIN 2.1 g/dl (3.4-5.0); BLOOD UREA NITROGEN 60.1 mg/dL (7-18)
[2022-08-24 06:44] LABS: CREATININE 3.2 mg/dL (0.55-1.3)
[2022-08-24 06:46] LABS: BILIRUBIN,TOTAL 0.2 mg/dL (0.2-1); TOT PROT 5.3 g/dl (6.4-8.2)
[2022-08-24] MEDS ORDERED: VANCOMYCIN/WATER FOR INJ (PEG) 1,000 MG/200 ML BAG IVPB ONE ×2 (06:51→09:49)
[2022-08-24] MEDS: INSULIN (NOVOLOG) ASPART 100 UNITS/ML 10ML VIAL SQ SCH ×3 (08:03→15:55)
[2022-08-24] MEDS: INSULIN SLIDING SCALE (NOVOLOG) 1 VIAL SQ SCH ×4 (08:04→22:51)
[2022-08-24] MEDS ORDERED: VANCOMYCIN/WATER FOR INJ (PEG) 1,000 MG/200 ML BAG IVPB SCH (09:00)
[2022-08-24] MEDS ORDERED: COLCHICINE 0.6 MG TAB ONE (09:49)
[2022-08-24] MEDS ORDERED: HEPARIN NA (PORCINE) 5,000 UNITS/ML 1ML VIAL ONE ×2 (09:49→22:35)
[2022-08-24] MEDS ORDERED: amLODIPine BESYLATE 5 MG TABLET (FP) ONE (09:49)
[2022-08-24] MEDS ORDERED: ASPIRIN COATED 81 MG TABLET.EC ONE (09:49)
[2022-08-24] MEDS ORDERED: LOSARTAN POTASSIUM 25 MG TABLET ONE (09:49)
[2022-08-24] MEDS ORDERED: PIPERACILLIN/TAZOB 3.375 GM 3.375 GM/50 ML BAG IVPB ONE (09:49)
[2022-08-24] MEDS: amLODIPine BESYLATE 5 MG TABLET (FP) PO SCH (09:56)
[2022-08-24] MEDS: ASPIRIN COATED 81 MG TABLET.EC PO SCH (09:56)
[2022-08-24] MEDS: COLCHICINE 0.6 MG TAB PO SCH (09:56)
[2022-08-24] MEDS: HEPARIN NA (PORCINE) 5,000 UNITS/ML 1ML VIAL SQ SCH ×2 (09:56→22:52)
[2022-08-24] MEDS: INSULIN (LEVEMIR) 100 UNITS/ML UNITS SQ SCH (09:58)
[2022-08-24] MEDS ORDERED: PIPERACILLIN/TAZOB 3.375 GM 3.375 GM in DEXTROSE 5%-WATER - 50 ML IVPB SCH (10:00)
[2022-08-24] MEDS ORDERED: LOSARTAN POTASSIUM 25 MG TABLET PO SCH (10:00)
[2022-08-24] MEDS: LACTATED RINGERS SOLUTION 1,000 ML/1,000 ML INFUS.BAG IV SCH (11:21)
[2022-08-24] MEDS ORDERED: PIPERACILLIN/TAZOB 2.25 GM 2.25 GM/50 ML BAG IVPB ONE ×2 (18:16→22:35)
[2022-08-24] MEDS: PIPERACILLIN/TAZOB 2.25 GM 2.25 GM in DEXTROSE 5%-WATER - 50 ML IVPB SCH ×2 (18:38→22:52)
[2022-08-24] MEDS ORDERED: ROSUVASTATIN CA 20 MG TABLET ONE (22:34)
[2022-08-24] MEDS: ROSUVASTATIN CA 20 MG TABLET PO SCH (22:52)
[2022-08-25] MEDS ORDERED: PIPERACILLIN/TAZOB 2.25 GM 2.25 GM/50 ML BAG IVPB ONE ×3 (03:39→15:14)
[2022-08-25] MEDS: PIPERACILLIN/TAZOB 2.25 GM 2.25 GM in DEXTROSE 5%-WATER - 50 ML IVPB SCH ×5 (06:17→22:40)
[2022-08-25] MEDS ORDERED: COLCHICINE 0.6 MG TAB ONE (08:34)
[2022-08-25] MEDS ORDERED: amLODIPine BESYLATE 5 MG TABLET (FP) ONE (08:34)
[2022-08-25] MEDS ORDERED: ASPIRIN 81 MG CHEWABLE TABLETS ONE (08:35)
[2022-08-25] MEDS ORDERED: HEPARIN NA (PORCINE) 5,000 UNITS/ML 1ML VIAL ONE (08:35)
[2022-08-25] MEDS: INSULIN (NOVOLOG) ASPART 100 UNITS/ML 10ML VIAL SQ SCH ×3 (08:37→16:25)
[2022-08-25] MEDS: COLCHICINE 0.6 MG TAB PO SCH (08:38)
[2022-08-25] MEDS: ASPIRIN COATED 81 MG TABLET.EC PO SCH (08:38)
[2022-08-25] MEDS: HEPARIN NA (PORCINE) 5,000 UNITS/ML 1ML VIAL SQ SCH ×2 (08:39→22:40)
[2022-08-25] MEDS: INSULIN (LEVEMIR) 100 UNITS/ML UNITS SQ SCH (08:40)
[2022-08-25] MEDS: amLODIPine BESYLATE 5 MG TABLET (FP) PO SCH (08:40)
[2022-08-25] MEDS: LACTATED RINGERS SOLUTION 1,000 ML/1,000 ML INFUS.BAG IV SCH ×2 (08:40→11:19)
[2022-08-25 08:48] LABS: BASO % 0.6 % (0-2.0); HEMATOCRIT 24.4 % (35.4-49); HEMOGLOBIN 8.1 GM/dL (11.7-16.9); LYMPH % 13.5 % (8-40); MCH 29.7 pg (25.7-33.7); MCHC 33.2 g/dl (32.0-35.9); MEAN CELL VOLUME 89.4 fl (80-96); MEAN PLT VOLUME 7.7 fl (7.5-11.1); MONO % 8.3 % (3.8-10.2); NEUT % 71.6 % (42.8-82.8); PLATELET COUNT 304 10^3/uL (134-434); RBC 2.73 M/mm3 (4.00-5.60); RDW 13.9 % (11.9-15.9); WHITE BLOOD COUNT 8.2 K/mm3 (4.0-10.0)
[2022-08-25] MEDS: INSULIN SLIDING SCALE (NOVOLOG) 1 VIAL SQ SCH ×4 (08:52→23:02)
[2022-08-25 09:09] LABS: ALBUMIN 1.9 g/dl (3.4-5.0); BLOOD UREA NITROGEN 54.4 mg/dL (7-18); CALCIUM 8.1 mg/dL (8.5-10.1); MAGNESIUM 2.2 mg/dL (1.8-2.4); PHOSPHOROUS 3.8 mg/dL (2.5-4.9)
[2022-08-25 09:10] LABS: CREATININE 3.3 mg/dL (0.55-1.3)
[2022-08-25 09:11] LABS: BILIRUBIN,TOTAL 0.3 mg/dL (0.2-1)
[2022-08-25] MEDS: ROSUVASTATIN CA 20 MG TABLET PO SCH (22:45)
[2022-08-25] MEDS: ROSUVASTATIN CA 10 MG TABLET PO SCH (22:48)
[2022-08-26] MEDS: PIPERACILLIN/TAZOB 2.25 GM 2.25 GM in DEXTROSE 5%-WATER - 50 ML IVPB SCH ×2 (03:16→09:47)
[2022-08-26] MEDS: INSULIN SLIDING SCALE (NOVOLOG) 1 VIAL SQ SCH ×4 (08:48→22:13)
[2022-08-26] MEDS: INSULIN (NOVOLOG) ASPART 100 UNITS/ML 10ML VIAL SQ SCH ×3 (08:48→17:18)
[2022-08-26] MEDS: HEPARIN NA (PORCINE) 5,000 UNITS/ML 1ML VIAL SQ SCH ×2 (09:46→22:02)
[2022-08-26] MEDS: ASPIRIN COATED 81 MG TABLET.EC PO SCH (09:47)
[2022-08-26] MEDS: amLODIPine BESYLATE 5 MG TABLET (FP) PO SCH (09:47)
[2022-08-26 09:58] LABS: BASO % 0.7 % (0-2.0); EOS % 7.3 % (0-4.5); HEMATOCRIT 27.2 % (35.4-49); HEMOGLOBIN 9.3 GM/dL (11.7-16.9); LYMPH % 13.5 % (8-40); MCH 29.9 pg (25.7-33.7); MEAN CELL VOLUME 87.9 fl (80-96); MEAN PLT VOLUME 7.6 fl (7.5-11.1); MONO % 8.4 % (3.8-10.2); NEUT % 70.1 % (42.8-82.8); PLATELET COUNT 327 10^3/uL (134-434); RDW 13.4 % (11.9-15.9); WHITE BLOOD COUNT 7.7 K/mm3 (4.0-10.0)
[2022-08-26 10:22] LABS: ALBUMIN 1.9 g/dl (3.4-5.0); CALCIUM 8.2 mg/dL (8.5-10.1)
[2022-08-26 10:25] LABS: CREATININE 3.3 mg/dL (0.55-1.3)
[2022-08-26 10:27] LABS: BILIRUBIN,TOTAL 0.4 mg/dL (0.2-1)
[2022-08-26 10:28] LABS: TOT PROT 5.1 g/dl (6.4-8.2)
[2022-08-26] MEDS: LACTATED RINGERS SOLUTION 1,000 ML/1,000 ML INFUS.BAG IV SCH ×3 (10:46→22:03)
[2022-08-26] MEDS: COLCHICINE 0.6 MG TAB PO SCH (10:49)
[2022-08-26] MEDS: INSULIN (LEVEMIR) 100 UNITS/ML UNITS SQ SCH (10:58)
[2022-08-26] MEDS: MEROPENEM 1 GM in DEXTROSE 5%-WATER 100 ML IVPB SCH (14:00)
[2022-08-26] MEDS ORDERED: ACETAMINOPHEN 1000 MG/100 ML BAG IVPB PRN (16:18)
[2022-08-26] MEDS: GABAPENTIN 100 MG CAPSULE PO SCH (22:01)
[2022-08-26] MEDS: ROSUVASTATIN CA 10 MG TABLET PO SCH (22:01)
[2022-08-26] MEDS: SODIUM BICARBONATE 650 MG TABLET PO SCH (22:02)
[2022-08-27] MEDS: MEROPENEM 1 GM in DEXTROSE 5%-WATER 100 ML IVPB SCH ×2 (01:09→13:03)
[2022-08-27] MEDS: GABAPENTIN 100 MG CAPSULE PO SCH ×3 (06:47→22:28)
[2022-08-27] MEDS: INSULIN SLIDING SCALE (NOVOLOG) 1 VIAL SQ SCH ×4 (06:55→22:32)
[2022-08-27] MEDS: INSULIN (NOVOLOG) ASPART 100 UNITS/ML 10ML VIAL SQ SCH ×3 (06:55→16:48)
[2022-08-27 09:48] LABS: BLOOD UREA NITROGEN 48.2 mg/dL (7-18); CALCIUM 8.3 mg/dL (8.5-10.1)
[2022-08-27 09:49] LABS: ALBUMIN 1.9 g/dl (3.4-5.0)
[2022-08-27 09:51] LABS: CREATININE 3.1 mg/dL (0.55-1.3)
[2022-08-27 09:53] LABS: BILIRUBIN,TOTAL 0.2 mg/dL (0.2-1)
[2022-08-27] MEDS: HEPARIN NA (PORCINE) 5,000 UNITS/ML 1ML VIAL SQ SCH ×2 (09:57→22:28)
[2022-08-27] MEDS: SODIUM BICARBONATE 650 MG TABLET PO SCH ×2 (09:57→22:28)
[2022-08-27] MEDS: amLODIPine BESYLATE 5 MG TABLET (FP) PO SCH (09:57)
[2022-08-27] MEDS: ASPIRIN COATED 81 MG TABLET.EC PO SCH (09:57)
[2022-08-27] MEDS: COLCHICINE 0.6 MG TAB PO SCH (09:58)
[2022-08-27] MEDS: INSULIN (LEVEMIR) 100 UNITS/ML UNITS SQ SCH (10:39)
[2022-08-27] MEDS ORDERED: INSULIN (NOVOLOG) ASPART 100 UNITS/ML 10ML VIAL ONE (10:51)
[2022-08-27] MEDS: ROSUVASTATIN CA 10 MG TABLET PO SCH (22:28)
[2022-08-28] MEDS: MEROPENEM 1 GM in DEXTROSE 5%-WATER 100 ML IVPB SCH ×2 (02:18→14:04)
[2022-08-28] MEDS: GABAPENTIN 100 MG CAPSULE PO SCH ×3 (06:53→21:26)
[2022-08-28] MEDS: INSULIN SLIDING SCALE (NOVOLOG) 1 VIAL SQ SCH ×4 (06:54→21:31)
[2022-08-28] MEDS: INSULIN (LEVEMIR) 100 UNITS/ML UNITS SQ SCH (06:55)
[2022-08-28] MEDS: INSULIN (NOVOLOG) ASPART 100 UNITS/ML 10ML VIAL SQ SCH ×3 (07:03→17:56)
[2022-08-28] MEDS: COLLAGENASE CLOSTRIDIUM HIST. 30 GRAMS TUBE TP SCH (12:09)
[2022-08-28] MEDS: amLODIPine BESYLATE 5 MG TABLET (FP) PO SCH (12:09)
[2022-08-28] MEDS: SODIUM BICARBONATE 650 MG TABLET PO SCH ×2 (12:09→21:27)
[2022-08-28] MEDS: HEPARIN NA (PORCINE) 5,000 UNITS/ML 1ML VIAL SQ SCH ×2 (12:09→21:26)
[2022-08-28] MEDS: ASPIRIN COATED 81 MG TABLET.EC PO SCH (12:09)
[2022-08-28] MEDS: COLCHICINE 0.6 MG TAB PO SCH (12:09)
[2022-08-28] MEDS: ROSUVASTATIN CA 10 MG TABLET PO SCH (21:27)
[2022-08-29] MEDS: MEROPENEM 1 GM in DEXTROSE 5%-WATER 100 ML IVPB SCH ×2 (00:30→15:07)
[2022-08-29] MEDS: GABAPENTIN 100 MG CAPSULE PO SCH ×3 (06:14→21:24)
[2022-08-29] MEDS: INSULIN (LEVEMIR) 100 UNITS/ML UNITS SQ SCH (06:17)
[2022-08-29] MEDS: INSULIN SLIDING SCALE (NOVOLOG) 1 VIAL SQ SCH ×4 (06:18→21:26)
[2022-08-29] MEDS: INSULIN (NOVOLOG) ASPART 100 UNITS/ML 10ML VIAL SQ SCH ×3 (06:22→16:27)
[2022-08-29 10:41] LABS: CALCIUM 8.2 mg/dL (8.5-10.1)
[2022-08-29 10:42] LABS: BLOOD UREA NITROGEN 51.3 mg/dL (7-18)
[2022-08-29 10:44] LABS: CREATININE 3.2 mg/dL (0.55-1.3)
[2022-08-29 10:46] LABS: BILIRUBIN,TOTAL 0.2 mg/dL (0.2-1); TOT PROT 5.3 g/dl (6.4-8.2)
[2022-08-29] MEDS: SODIUM BICARBONATE 650 MG TABLET PO SCH ×2 (11:37→21:25)
[2022-08-29] MEDS: HEPARIN NA (PORCINE) 5,000 UNITS/ML 1ML VIAL SQ SCH ×2 (11:37→21:27)
[2022-08-29] MEDS: amLODIPine BESYLATE 5 MG TABLET (FP) PO SCH (11:38)
[2022-08-29] MEDS: COLLAGENASE CLOSTRIDIUM HIST. 30 GRAMS TUBE TP SCH (11:38)
[2022-08-29] MEDS: ASPIRIN COATED 81 MG TABLET.EC PO SCH (11:38)
[2022-08-29] MEDS: COLCHICINE 0.6 MG TAB PO SCH (11:38)
[2022-08-29] MEDS: ROSUVASTATIN CA 10 MG TABLET PO SCH (21:25)
[2022-08-30] MEDS: MEROPENEM 1 GM in DEXTROSE 5%-WATER 100 ML IVPB SCH ×2 (00:56→13:29)
[2022-08-30] MEDS: GABAPENTIN 100 MG CAPSULE PO SCH ×2 (08:27→13:29)
[2022-08-30] MEDS: INSULIN (LEVEMIR) 100 UNITS/ML UNITS SQ SCH (08:27)
[2022-08-30] MEDS: INSULIN (NOVOLOG) ASPART 100 UNITS/ML 10ML VIAL SQ SCH ×3 (08:28→16:54)
[2022-08-30] MEDS: INSULIN SLIDING SCALE (NOVOLOG) 1 VIAL SQ SCH ×3 (08:29→16:54)
[2022-08-30] MEDS: COLLAGENASE CLOSTRIDIUM HIST. 30 GRAMS TUBE TP SCH (09:51)
[2022-08-30] MEDS: SODIUM BICARBONATE 650 MG TABLET PO SCH (09:51)
[2022-08-30] MEDS: COLCHICINE 0.6 MG TAB PO SCH (09:51)
[2022-08-30] MEDS: amLODIPine BESYLATE 5 MG TABLET (FP) PO SCH (09:51)
[2022-08-30] MEDS: HEPARIN NA (PORCINE) 5,000 UNITS/ML 1ML VIAL SQ SCH (09:51)
[2022-08-30] MEDS: ASPIRIN COATED 81 MG TABLET.EC PO SCH (09:51)
[2022-08-30] MEDS ORDERED: MEROPENEM 500 MG in DEXTROSE 5%-WATER 100 ML IVPB SCH (19:00)
[2022-08-31] MEDS: SODIUM BICARBONATE 650 MG TABLET PO SCH ×3 (00:04→21:49)
[2022-08-31] MEDS: HEPARIN NA (PORCINE) 5,000 UNITS/ML 1ML VIAL SQ SCH (00:04)
[2022-08-31] MEDS: ROSUVASTATIN CA 10 MG TABLET PO SCH ×2 (00:05→21:49)
[2022-08-31] MEDS: GABAPENTIN 100 MG CAPSULE PO SCH ×4 (00:05→21:49)
[2022-08-31] MEDS: MEROPENEM 1 GM in DEXTROSE 5%-WATER 100 ML IVPB SCH ×3 (00:08→21:49)
[2022-08-31] MEDS: INSULIN SLIDING SCALE (NOVOLOG) 1 VIAL SQ SCH ×5 (00:14→21:55)
[2022-08-31] MEDS: INSULIN (NOVOLOG) ASPART 100 UNITS/ML 10ML VIAL SQ SCH ×3 (06:16→16:30)
[2022-08-31] MEDS: INSULIN (LEVEMIR) 100 UNITS/ML UNITS SQ SCH (06:17)
[2022-08-31] MEDS: ASPIRIN COATED 81 MG TABLET.EC PO SCH (09:45)
[2022-08-31] MEDS: amLODIPine BESYLATE 5 MG TABLET (FP) PO SCH (09:45)
[2022-08-31] MEDS: COLCHICINE 0.6 MG TAB PO SCH (09:46)
[2022-08-31] MEDS: COLLAGENASE CLOSTRIDIUM HIST. 30 GRAMS TUBE TP SCH (09:46)
[2022-08-31 11:10] LABS: ALBUMIN 2.2 g/dl (3.4-5.0); BLOOD UREA NITROGEN 61.8 mg/dL (7-18); CALCIUM 8.1 mg/dL (8.5-10.1)
[2022-08-31 11:13] LABS: CREATININE 3.2 mg/dL (0.55-1.3)
[2022-08-31 11:14] LABS: TOT PROT 5.7 g/dl (6.4-8.2)
[2022-08-31 11:15] LABS: BILIRUBIN,TOTAL 0.3 mg/dL (0.2-1)
[2022-09-01] MEDS: INSULIN (LEVEMIR) 100 UNITS/ML UNITS SQ SCH (07:52)
[2022-09-01] MEDS: GABAPENTIN 100 MG CAPSULE PO SCH ×3 (07:52→22:36)
[2022-09-01] MEDS: INSULIN SLIDING SCALE (NOVOLOG) 1 VIAL SQ SCH ×4 (07:57→23:54)
[2022-09-01] MEDS: INSULIN (NOVOLOG) ASPART 100 UNITS/ML 10ML VIAL SQ SCH ×3 (08:00→18:02)
[2022-09-01] MEDS: ASPIRIN COATED 81 MG TABLET.EC PO SCH (10:28)
[2022-09-01] MEDS: amLODIPine BESYLATE 5 MG TABLET (FP) PO SCH (10:28)
[2022-09-01] MEDS: COLCHICINE 0.6 MG TAB PO SCH (10:28)
[2022-09-01] MEDS: MEROPENEM 1 GM in DEXTROSE 5%-WATER 100 ML IVPB SCH ×2 (10:28→22:36)
[2022-09-01] MEDS: SODIUM BICARBONATE 650 MG TABLET PO SCH ×2 (10:28→22:36)
[2022-09-01] MEDS: COLLAGENASE CLOSTRIDIUM HIST. 30 GRAMS TUBE TP SCH (10:29)
[2022-09-01 11:07] LABS: BASO % 0.6 % (0-2.0); EOS % 6.9 % (0-4.5); HEMATOCRIT 28.7 % (35.4-49); HEMOGLOBIN 9.7 GM/dL (11.7-16.9); LYMPH % 15.3 % (8-40); MCH 29.7 pg (25.7-33.7); MCHC 33.7 g/dl (32.0-35.9); MONO % 8.8 % (3.8-10.2); NEUT % 68.4 % (42.8-82.8); PLATELET COUNT 408 10^3/uL (134-434); RBC 3.27 M/mm3 (4.00-5.60); RDW 13.6 % (11.9-15.9); WHITE BLOOD COUNT 7.7 K/mm3 (4.0-10.0)
[2022-09-01 11:30] LABS: BLOOD UREA NITROGEN 64.2 mg/dL (7-18); CALCIUM 8.3 mg/dL (8.5-10.1)
[2022-09-01 11:31] LABS: ALBUMIN 2.2 g/dl (3.4-5.0)
[2022-09-01 11:34] LABS: CREATININE 3.1 mg/dL (0.55-1.3)
[2022-09-01 11:35] LABS: BILIRUBIN,TOTAL 0.3 mg/dL (0.2-1); TOT PROT 5.8 g/dl (6.4-8.2)
[2022-09-01] MEDS: ROSUVASTATIN CA 10 MG TABLET PO SCH (22:36)
[2022-09-02] MEDS: GABAPENTIN 100 MG CAPSULE PO SCH ×3 (06:15→23:59)
[2022-09-02] MEDS: INSULIN (NOVOLOG) ASPART 100 UNITS/ML 10ML VIAL SQ SCH ×3 (06:19→18:02)
[2022-09-02] MEDS: INSULIN SLIDING SCALE (NOVOLOG) 1 VIAL SQ SCH ×3 (06:20→18:02)
[2022-09-02] MEDS: INSULIN (LEVEMIR) 100 UNITS/ML UNITS SQ SCH (06:20)
[2022-09-02] MEDS: MEROPENEM 1 GM in DEXTROSE 5%-WATER 100 ML IVPB SCH ×2 (09:49→23:59)
[2022-09-02] MEDS: ASPIRIN COATED 81 MG TABLET.EC PO SCH (09:49)
[2022-09-02] MEDS: amLODIPine BESYLATE 5 MG TABLET (FP) PO SCH (09:49)
[2022-09-02] MEDS: SODIUM BICARBONATE 650 MG TABLET PO SCH ×2 (09:49→23:59)
[2022-09-02] MEDS: COLCHICINE 0.6 MG TAB PO SCH (09:49)
[2022-09-02] MEDS: COLLAGENASE CLOSTRIDIUM HIST. 30 GRAMS TUBE TP SCH (09:50)
[2022-09-02] MEDS: ROSUVASTATIN CA 10 MG TABLET PO SCH (23:59)
[2022-09-03] MEDS: INSULIN SLIDING SCALE (NOVOLOG) 1 VIAL SQ SCH ×5 (00:30→22:27)
[2022-09-03] MEDS: GABAPENTIN 100 MG CAPSULE PO SCH ×3 (07:10→22:26)
[2022-09-03] MEDS: INSULIN (LEVEMIR) 100 UNITS/ML UNITS SQ SCH (07:15)
[2022-09-03] MEDS: INSULIN (NOVOLOG) ASPART 100 UNITS/ML 10ML VIAL SQ SCH ×3 (07:16→16:51)
[2022-09-03] MEDS: MEROPENEM 1 GM in DEXTROSE 5%-WATER 100 ML IVPB SCH ×3 (10:42→23:50)
[2022-09-03] MEDS: VITAMIN B COMP W-C 1 EA TABLET (NEPHRO-VITE) PO SCH (10:43)
[2022-09-03] MEDS: SODIUM BICARBONATE 650 MG TABLET PO SCH ×2 (10:43→22:26)
[2022-09-03] MEDS: amLODIPine BESYLATE 5 MG TABLET (FP) PO SCH (10:43)
[2022-09-03] MEDS: ASPIRIN COATED 81 MG TABLET.EC PO SCH (10:43)
[2022-09-03] MEDS: COLLAGENASE CLOSTRIDIUM HIST. 30 GRAMS TUBE TP SCH (10:53)
[2022-09-03 11:31] LABS: ALBUMIN 2.3 g/dl (3.4-5.0); CALCIUM 7.9 mg/dL (8.5-10.1)
[2022-09-03 11:32] LABS: BLOOD UREA NITROGEN 63.2 mg/dL (7-18)
[2022-09-03 11:34] LABS: CREATININE 3.1 mg/dL (0.55-1.3)
[2022-09-03 11:36] LABS: BILIRUBIN,TOTAL 0.4 mg/dL (0.2-1)
[2022-09-03] MEDS: COLCHICINE 0.6 MG TAB PO SCH (12:24)
[2022-09-03 16:13] VITALS: RESP 18
[2022-09-03] MEDS: ROSUVASTATIN CA 10 MG TABLET PO SCH (22:26)
[2022-09-04] MEDS: GABAPENTIN 100 MG CAPSULE PO SCH ×2 (06:23→14:25)
[2022-09-04] MEDS: INSULIN (LEVEMIR) 100 UNITS/ML UNITS SQ SCH (06:49)
[2022-09-04] MEDS: INSULIN (NOVOLOG) ASPART 100 UNITS/ML 10ML VIAL SQ SCH ×3 (06:49→16:54)
[2022-09-04] MEDS: INSULIN SLIDING SCALE (NOVOLOG) 1 VIAL SQ SCH ×3 (06:50→16:55)
[2022-09-04] MEDS: ASPIRIN COATED 81 MG TABLET.EC PO SCH (09:01)
[2022-09-04] MEDS: amLODIPine BESYLATE 5 MG TABLET (FP) PO SCH (09:01)
[2022-09-04] MEDS: COLLAGENASE CLOSTRIDIUM HIST. 30 GRAMS TUBE TP SCH (09:01)
[2022-09-04] MEDS: COLCHICINE 0.6 MG TAB PO SCH (09:01)
[2022-09-04] MEDS: VITAMIN B COMP W-C 1 EA TABLET (NEPHRO-VITE) PO SCH (09:03)
[2022-09-04] MEDS: MEROPENEM 1 GM in DEXTROSE 5%-WATER 100 ML IVPB SCH (09:03)
[2022-09-04] MEDS: SODIUM BICARBONATE 650 MG TABLET PO SCH (09:03)
[2022-09-04 19:05] VITALS: BP 143/72; PULSE 90; TEMP 98.1
== END 2022-09-04 20:45 | DRG 638 ==
LOC: JER 14:43 → JERBED 21:56 → J8W 08-25 19:13
PROVIDERS: ADMIT Internal Medicine; ATTEND Internal Medicine
PROC: 02HV33Z Insertion of Infusion Device into Superior Vena Cava, Percutaneous Approach (ICD-10-PCS; principal; 2022-09-04)
PROC: B518ZZA Fluoroscopy of Superior Vena Cava, Guidance (ICD-10-PCS; 2022-09-04)
DX: E11.621 Type 2 diabetes mellitus with foot ulcer (principal); L02.612 Cutaneous abscess of left foot; L03.116 Cellulitis of left lower limb; L97.528 Non-pressure chronic ulcer of other part of left foot with other specified severity; R78.81 Bacteremia; M86.8X7 Other osteomyelitis, ankle and foot; N17.9 Acute kidney failure, unspecified; E11.69 Type 2 diabetes mellitus with other specified complication; I12.9 Hypertensive chronic kidney disease with stage 1 through stage 4 chronic kidney disease, or unspecified chronic kidney disease; E11.22 Type 2 diabetes mellitus with diabetic chronic kidney disease; E11.65 Type 2 diabetes mellitus with hyperglycemia; E11.51 Type 2 diabetes mellitus with diabetic peripheral angiopathy without gangrene; E78.5 Hyperlipidemia, unspecified; E87.5 Hyperkalemia; N18.32 Chronic kidney disease, stage 3b; H54.8 Legal blindness, as defined in USA; D64.9 Anemia, unspecified; E11.42 Type 2 diabetes mellitus with diabetic polyneuropathy; Z89.422 Acquired absence of other left toe(s); B95.62 Methicillin resistant Staphylococcus aureus infection as the cause of diseases classified elsewhere; B96.1 Klebsiella pneumoniae [K. pneumoniae] as the cause of diseases classified elsewhere
CPT/HCPCS: 0241U-QW; 36415; 36569; 71045-TC-FY; 73630-TC-LT; 73660-TC-LT-FY; 73700-TC-RT; 73718-TC-LT; 76775-TC; 76856-TC; 80053; 81003; 82570; 82803; 82962; 83735; 84100; 84156; 84300; 85025; 85610; 85730; 86850; 86900; 86901; 87040; 87070; 87086; 87186; 87205; 93005; 93010; 93971-TC; 99285-25; C9803-CS; G0480; J1644; U0003; U0005